=== PATIENT | female | born 1945 | race Caucasian/White ===

== ENCOUNTER 2022-06-23 09:28 | Inpatient (IN) | payer MEDICARE, SELFPAY ==
[2022-06-23] VITALS (12 sets, daily range): BP systolic 136–192; BP diastolic 89–103; PULSE 61–77; RESP 12–18; TEMP 35.8–36.7; O2SAT 93–100; BMI 26.9; BMI 25.4
--- NOTE | 2022-06-23 09:48 | RAD_ITS ---
STUDY: X-RAY CHEST REASON FOR EXAM: Female, 76 years old. Chest pain. TECHNIQUE: Single frontal view of the chest. COMPARISON: June 12, 2013. FINDINGS: Stable mild hyperinflation with scattered healed parenchymal granulomatous locations. There is no demonstrated pleural abnormality. Cardiomegaly unchanged. Normal mediastinum and micaela. Normal visualized pulmonary arteries. Aortic tortuosity with calcification unchanged. Normal visualized thoracic spine. Normal visualized ribs, clavicles, and shoulders. There is no demonstrated abnormality of the visualized soft tissue structures of the upper abdomen. RAD/Chest 1 View (Portable) IMPRESSION: Stable cardiomegaly, mild hyperinflation and scattered healed parenchymal granulomatous calcifications. No active or acute cardiopulmonary disease. Electronically Signed: Riky Carranza, at 10:23 EST ,
[2022-06-23 09:57] LABS: Absolute Lymphocyte Count 1.53 X10^3/uL (0.83-4.51); Absolute Neutrophil Count 3.6 X10^3/uL (2.0-7.7); Basophil# 0.04 X10^3/uL; Basophil% 0.7 % (0-1); Eosinophils% 1.7 % (0-5); Hemoglobin 15.1 g/dL (12.0-15.0); Lymphocyte # 1.53 X10^3/ul (0.83-4.51); Lymphocyte % 26.4 % (19-41); Mean Corp Hgb Conc 34.3 g/dL (32-36); Mean Corpuscular Hgb 31.7 pg (27.0-32.0); Mean Corpuscular Volume 92.2 fL (81-99); Mean Platelet Vol. 10.1 fl (6.2-12.0); Monocyte# 0.49 X10^3/uL; Monocyte% 8.5 % (0-10); NRBC Flagged by Analyzer 0 % (0-5); Neutrophil # 3.62 X10^3/uL (2.7-7.7); Neutrophil % 62.5 % (47-70); Platelet Count 284 K/mm3 (150-450); RBC Distribution Width CV 12.6 % (11.6-14.6); RBC Distribution Width SD 42.7 fl (35.1-43.9); Red Blood Count 4.77 M/mm3 (4.2-5.4); White Blood Count 5.8 K/mm3 (4.4-11.0)
[2022-06-23 10:22] LABS: Anion Gap 5 (5-15); BUN 17 mg/dL (7-18); BUN/Creat Ratio 19.2 RATIO (10-20); Calcium,Total 10.9 mg/dL (8.5-10.1); Chloride 102 mmol/L (98-107); Creatinine, Serum 0.89 mg/dL (0.55-1.02); EST Glomerular Filtration Rate 66 mL/min (>60); Est Glom Filt Rate - Afr Amer 79 mL/min (>60); Estimated Creatinine Clearance 45.71 ml/min; Glucose 80 mg/dL (74-106); Potassium 3.4 mmol/L (3.5-5.1); Sodium Level 139 mmol/L (136-145); Troponin-I HS 6 pg/mL (3.0-54.0)
--- NOTE | 2022-06-23 11:00 | ED.VIS.CHEST ---
HPI History of Present Illness Chief Complaint: Chest Pain Narrative Narrative: 76-year-old female presenting with chest pain. She states she was at her 's doctor's office when she started to feel retrosternal chest pressure. She states it was 9/10. She states she became very sweaty it into the jaw and into her back. She states its been constant but the pressure has eased since EMS picked her up and gave her nitroglycerin. She was not initially given aspirin because she states that this makes her blood too thin and she gets nosebleeds from it. She states she does not have any cardiac history but was admitted about 10 years ago for chest pain and had an ultimately normal work-up. She was not referred to cardiology. Patient has history of hypertension, prediabetes, and she is a smoker. Patient does report a history of provoked pulmonary embolism after she had the [employer] COVID-vaccine but other than that she has never had clotting disorders. She does not describe the pain as sharp or pleuritic pain. She does feel little bit short of breath. [facility] Medical History Hypertension Hypothyroidism Home Medications amlodipine 5 mg tablet 5 mg PO DAILY 06/12/13 [History Last Taken 06/23/22] cholecalciferol (vitamin D3) 125 mcg (5,000 unit) capsule 125 mcg PO DAILY SUPPLEMENT 06/23/22 [History Last Taken 06/23/22] coenzyme Q10 100 mg capsule (Co Q-10) 100 mg PO DAILY SUPPLEMENT 06/23/22 [History Last Taken 06/22/22] levothyroxine 88 mcg tablet 88 mcg PO DAILY 06/23/22 [History Last Taken 06/22/22] losartan 100 mg tablet 100 mg PO DAILY BP 06/23/22 [History Last Taken 06/23/22] metoprolol succinate 50 mg tablet,extended release 24 hr 50 mg PO DAILY BP 06/23/22 [History Last Taken 06/23/22] omeprazole 40 mg capsule,delayed release 40 mg PO DAILY 06/23/22 [History Last Taken 06/23/22] Allergy/AdvReac Type Severity Reaction Status Date / Time iodine Allergy Rash Verified 06/23/22 11:18 Family History (Updated 06/23/22 @ 12:[address] Kale Mcdonald MD) Father Heart disease Social History Smoking Status: Current every day smoker tobacco type: cigarettes ROS ROS ED Constitutional Constitutional ED: Reports sweats; Denies chills or fever(s) Eyes Eyes: Denies change in vision ENT ENT ED: Denies rhinorrhea or sore throat Cardiovascular Cardiovascular: Reports as per HPI Respiratory/Chest Respiratory/Chest: Denies cough or dyspnea Gastrointestinal Gastrointestinal: Denies abdominal pain or constipation Genitourinary Genitourinary ED: Denies dysuria or hematuria Musculoskeletal Musculoskeletal: Denies arthralgias Integumentary Denies abscess or Abrasions Neurologic Neurologic: Denies headache(s) or paresthesias Psychiatric Psychiatric: Denies anxiety or depression EXAM Physical Exam Const Vital Signs: 06/23/22 09:28 06/23/22 09:28 06/23/22 11:08 Temperature 96.5 F L Temperature Source Temporal Pulse Rate 71 Respiratory Rate 12 Respiratory Effort Blood Pressure 146/101 H Blood Pressure Mean 116 Pulse Ox 97 100 Oxygen Delivery Method Room Air Nasal Cannula Oxygen Flow Rate (L/min) 2 06/23/22 11:08 06/23/22 11:10 Temperature Temperature Source Pulse Rate 67 Respiratory Rate 17 Respiratory Effort Normal Non-Labored Blood Pressure 172/103 H Blood Pressure Mean 126 Pulse Ox 100 Oxygen Delivery Method Nasal Cannula Oxygen Flow Rate (L/min) 2 Positive well nourished General Appearance ED: NAD; Negative for pallor HEENT Reports TM's clear and moist mucous membranes Tympanic Membrane ED: Yes TM's clear Eyes PERRL and EOMs intact bilaterally General Eye ED: Negative for pale conjunctiva or scleral icterus Chest Wall inspection of chest normal and palpation of chest normal Resp normal respiratory effort and clear to auscultation bilaterally Cardio regular rate and regular rhythm GI normal to inspection, nondistended, normoactive bowel sounds Back/Spine no CVA tenderness Extremity normal to inspection Neuro oriented x3 and CN's II-XII intact bilaterally Sensorium / Orientation: awake and alert Motor Exam: strength 5/5 throughout Psych mental status grossly normal Skin no rashes or lesions noted General Skin Exam: Negative for jaundice or pallor Heart Score History: Highly Suspicious ECG: Normal Age: >/= 65 years Risk Factors: 1 or 2 Risk Factors Troponin: </= Normal Limit Score: 5 MDM MDM MDM Narrative Medical decision making narrative: Patient seen and evaluated for chest pain. I obtained an EKG which on my interpretation shows normal sinus rhythm with ventricular rate of [address] elevations or depressions. CBC and BMP are unremarkable with exception of potassium 3.4. Chest x-ray on my interpretation shows cardiomegaly without other acute cardiopulmonary process. The radiologist interprets this and agrees. Since patient does have history of PE I did obtain a D-dimer. This was elevated 1.49. Given the patient's story and her HEART score of 5 I opted to have the patient admitted. Patient was amenable to this. She has an allergy to contrast dye so she need to be premedicated with steroids and Benadryl. I spoke with the hospitalist for admission from a cardiac standpoint. He will follow-up for CT scan upstairs on the medical floor. Patient admitted in stable condition. Impression: 1. Chest pain 2. Dyspnea Lab Data Labs: Laboratory Results - last 24 hr 06/23/22 06/23/22 06/23/22 09:10 09:10 09:10 WBC 5.8 RBC 4.77 Hgb 15.1 H Hct 44.0 MCV 92.2 MCH 31.7 MCHC 34.3 RDW Std Deviation 42.7 RDW Coeff of Madhuri 12.6 Plt Count 284 MPV 10.1 Immature Gran % (Auto) 0.200 Neut % (Auto) 62.5 Lymph % (Auto) 26.4 [place] % (Auto) 8.5 Eos % (Auto) 1.7 Baso % (Auto) 0.7 Absolute Neuts (auto) 3.6 Absolute Lymphs (auto) 1.53 Nucleated RBC % 0 D-Dimer Quant (PE/DVT) 1.49 H* Sodium 139 Potassium 3.4 L Chloride 102 Carbon Dioxide 32.0 Anion Gap 5 BUN 17 Creatinine 0.89 Estim Creat Clear Calc 45.71 Est GFR (MDRD) Af Amer 79 Est GFR (MDRD) Non-Af 66 BUN/Creatinine Ratio 19.2 Glucose 80 Calcium 10.9 H Troponin I High Sens 6 Radiography Diagnostic Testing: Clinical Impression(s) from Imaging Studies Chest X-Ray 06/23/22 09:48 IMPRESSION: Stable cardiomegaly, mild hyperinflation and scattered healed parenchymal granulomatous calcifications. No active or acute cardiopulmonary disease. Electronically Signed: Riky Carranza, at 10:23 EST , Discharge Plan Disposition Disposition: Acute Care Hospital [facility] Discharge Date/Time: 06/23/22 13:39
--- NOTE | 2022-06-23 11:15 | ECHOD_ITS ---
Reason For Study: CHEST PAIN Procedure This was a 2D Doppler, Color Flow transthoracic echocardiogram. Exam performed portable in patient room. Left Ventricle Normal size and thickness. The left ventricular ejection fraction is 60 %. Normal diastololic function. Right Ventricle Normal right ventricle. Atria The left and right atria are normal. Mitral Valve Mild (1+) mitral valve insufficiency. Tricuspid Valve Trivial tricuspid valve insufficiency. Unable to estimate RV systolic pressure due to insufficient tricuspid regurgitant envelope. Aortic Valve Aortic sclerosis, no stenosis. Mild (1+) aortic valve insufficiency. Pulmonic Valve The pulmonic valve is not well visualized. Great Vessels Normal sized aortic root. Pericardium/Pleural No pericardial effusion. MMode/2D Measurements & Calculations LVIDd: 4.5 cm IVSd: 1.1 cm Ao root diam: 3.6 cm LVIDs: 2.9 cm LVPWd: 1.1 cm RVDd: 3.5 cm FS: 35.7 % LAV(MOD-bp): 54.3 ml LA A4 area: 17.8 cm2 LA dimension(2D): 3.6 cm LAV(MOD-bp) Indexed: 30.8 ml/m2 LAV(MOD-sp2): 50.7 ml LAV(MOD-sp4): 51.9 ml RA A4 area: 14.1 cm2 Doppler Measurements & Calculations MV E max levi: 38.1 cm/sec Lat Peak E' Levi: 6.4 cm/sec Med Peak E' Levi: 5.8 cm/sec MV A max levi: 85.2 cm/sec E/E' lat: 5.9 E/E' med: 6.6 MV E/A: 0.45 Ao V2 max: 129.4 cm/sec LV V1 max: 96.6 cm/sec PA V2 max: 69.6 cm/sec Ao max P.7 mmHg LV V1 max P.7 mmHg Ao V2 mean: 84.8 cm/sec LV V1 mean P.1 mmHg Ao mean P.4 mmHg LV V1 mean: 69.1 cm/sec Ao V2 VTI: 29.4 cm LV V1 VTI: 22.1 cm ECHO/Echo Complete Interpretation Summary The left ventricular ejection fraction is 60 %. Aortic sclerosis, no stenosis. Mild (1+) aortic valve insufficiency. Mild (1+) mitral valve insufficiency. Ordering Physician: Kale Mcdonald Referring Physician: Rober Merritt Performed By: Brigitte Alicea, LICHA, RVT
--- NOTE | 2022-06-23 11:16 | HP.PCM.HOS_ITS ---
HPI - General General Date of Service: 06/23/22 Chief Complaint: Chest pain HPI Narrative ODETTE DENISE, is a 76 F with past medical history signal for tobacco dependence, hypothyroidism hypertension who presented with chest pain. Patient symptoms occurred while at a company to 's PCP visit. Pain was located in the retrosternal region described as heaviness. Patient's pain radiated to her jaws as well as to her back. In view of the persistent nature of her symptoms presented to the emergency department. Initial set of cardiac enzymes and EKG came back unremarkable however given her presentation was admitted for further work-up [facility] Medical History Hypertension Hypothyroidism Home Medications amlodipine 5 mg tablet 5 mg PO DAILY 06/12/13 [History Last Taken 06/23/22] cholecalciferol (vitamin D3) 125 mcg (5,000 unit) capsule 125 mcg PO DAILY SUPPLEMENT 06/23/22 [History Last Taken 06/23/22] coenzyme Q10 100 mg capsule (Co Q-10) 100 mg PO DAILY SUPPLEMENT 06/23/22 [History Last Taken 06/22/22] levothyroxine 88 mcg tablet 88 mcg PO DAILY 06/23/22 [History Last Taken 06/22/22] losartan 100 mg tablet 100 mg PO DAILY BP 06/23/22 [History Last Taken 06/23/22] metoprolol succinate 50 mg tablet,extended release 24 hr 50 mg PO DAILY BP 06/23/22 [History Last Taken 06/23/22] omeprazole 40 mg capsule,delayed release 40 mg PO DAILY 06/23/22 [History Last Taken 06/23/22] Allergy/AdvReac Type Severity Reaction Status Date / Time iodine Allergy Rash Verified 06/23/22 11:18 Family History (Updated 06/23/22 @ 12:[address] Kale Mcdonald MD) Father Heart disease Social History Smoking Status: Current every day smoker tobacco type: cigarettes ROS ROS Narrative GENERAL: denies fever, chills, night sweats, HEENT: denies headache, sinus congestion, RESPIRATORY: shortness of breath, dyspnea on exertion CARDIAC: chest pain, palpitations, orthopnea, PND GASTROINTESTINAL: denies abdominal pain, nausea, GENITOURINARY: denies dysuria, urgency, frequency, EXTREMITY: denies swelling MUSCULOSKELETAL: denies current joint pain or tenderness NEUROLOGIC: denies focal numbness, weakness, tingling HEMATOLOGIC: denies easy bruising and/or hemorrhage INTEGUMENT: denies rashes PSYCHIATRIC: denies suicidal or homicidal ideation Vital Signs Vital Signs Vital Signs: 06/23/22 09:28 06/23/22 09:28 06/23/22 11:08 Temperature 96.5 F L Temperature Source Temporal Pulse Rate 71 Respiratory Rate 12 Respiratory Effort Blood Pressure 146/101 H Blood Pressure Mean 116 Pulse Ox 97 100 Oxygen Delivery Method Room Air Nasal Cannula Oxygen Flow Rate (L/min) 2 06/23/22 11:08 06/23/22 11:10 Temperature Temperature Source Pulse Rate 67 Respiratory Rate 17 Respiratory Effort Normal Non-Labored Blood Pressure 172/103 H Blood Pressure Mean 126 Pulse Ox 100 Oxygen Delivery Method Nasal Cannula Oxygen Flow Rate (L/min) 2 Weight Weight: 71.1 kg Body Mass Index (BMI) 26.9 Physical Exam Narrative GENERAL: cooperative HEENT: Atraumatic; normocephalic EYES; Anicteric, Normal Conjunctiva NECK; supple, normal thyroid, RESPIRATORY: Diminished to auscultation CARDIOVASCULAR: Regular S1 S2, GI: soft, normoactive bowel sounds, : No Renal angle tenderness; EXTREMITIES: No edema, no clubbing, MUSCULOSKELETAL: no muscle wasting NEURO: Awake; no lateralizing signs. SKIN: No Rash PSYCH; Flat affect Results Lab / Micro Data Result Diagrams: 06/23/22 09:10 06/23/22 09:10 Labs: Laboratory Results - last 24 hr 06/23/22 09:10: WBC 5.8, RBC 4.77, Hgb 15.1 H, Hct 44.0, MCV 92.2, MCH 31.7, MCHC 34.3, RDW Std Deviation 42.7, RDW Coeff of Madhuri 12.6, Plt Count 284, MPV 10.1, Immature Gran % (Auto) 0.200, Neut % (Auto) 62.5, Lymph % (Auto) 26.4, [place] % (Auto) 8.5, Eos % (Auto) 1.7, Baso % (Auto) 0.7, Absolute Neuts (auto) 3.6, Absolute Lymphs (auto) 1.53, Nucleated RBC % 0 06/23/22 09:10: Sodium 139, Potassium 3.4 L, Chloride 102, Carbon Dioxide 32.0, Anion Gap 5, BUN 17, Creatinine 0.89, Estim Creat Clear Calc 45.71, Est GFR (MDRD) Af Amer 79, Est GFR (MDRD) Non-Af 66, BUN/Creatinine Ratio 19.2, Glucose 80, Calcium 10.9 H, Troponin I High Sens 6 Radiology Impression Chest X-Ray 06/23/22 09:48 IMPRESSION: Stable cardiomegaly, mild hyperinflation and scattered healed parenchymal granulomatous calcifications. No active or acute cardiopulmonary disease. Electronically Signed: Riky Carranza, at 10:23 EST , Assessment & Plan Assessment/Plan (1) Chest pain: PLAN: Plan Patient is a 76-year-old lady presenting with chest pain 1. Chest pain ? Patient has been admitted to a monitored bed plan is to rule out [place] with serial cardiac enzymes. Patient to undergo nuclear stress test once [place] is ruled out 2. Elevated D-dimer ? Patient has allergy to dye plan is to prep patient for patient to undergo CT of the chest to rule out PE. Also ordered bilateral venous duplex 3. Hypokalemia ? Corrected per protocol repeat labs ordered for a.m. for follow-up 4. Hypertension -Patient blood pressure uncontrolled on admission did continue home meds added hydralazine as needed for systolic blood pressure greater than 160 5.. Hypothyroidism - Patient is on levothyroxine home dose continued 6.. GERD ? On PPI did continue 7.. Tobacco dependence - Counseled on cessation, offered nicotine patch for tobacco cravings 8.. DVT prophylaxis ? SC Lovenox Advance planning; did discuss with the patient and family regarding advanced directives as well as CODE STATUS. Did explain the various scenarios involved ( FULL CODE, DNR CCA, DNR CCA with no intubation, and DNR CC and what each meant) patient elected to remain full code with CPR and intubation if needed. Order was placed. Time spent on discussion 18 minutes. Charges/Coding Visit Charges OBSV E&M: 13360 Initial observation care L3 Procedures Hospitalists Procedures: 89913 Advncd Care Plan 30 Min
[2022-06-23] MEDS: Aspirin 81 MG TAB.CHEW 324 MG PO (11:17)
--- NOTE | 2022-06-23 11:21 | NURSING ---
PCU OBS SATURNINO HALEY
[2022-06-23 11:23] LABS: D-Dimer Quantitative (DVT/PE) 1.49 FEU/ug/m (0.27-0.49)
--- NOTE | 2022-06-23 11:25 | ED.RN ---
D-DIMER 1.49. DR MERIDA AWARE
[2022-06-23] MEDS: Nitroglycerin SL (ED/IMG/CATH) 0.4 MG TABLET SL ×2 (11:27→11:34)
[2022-06-23] MEDS: DiphenhydrAMINE 50 MG/ML Syringe IV (11:52)
[2022-06-23 12:07] LABS: Troponin-I HS 11 pg/mL (3.0-54.0)
--- NOTE | 2022-06-23 12:38 | CT_ITS ---
STUDY: CTA CHEST REASON FOR EXAM: Female, 76 years old. Chest pain. Elevated d-dimer. RADIATION DOSAGE (If Supplied By Facility): CTDIvol = ( 14.01 ) mGy, DLP = ( 308.54 ) mGycm TECHNIQUE: The examination was performed with the intravenous administration of IV 75mL Isovue-370. Post-processing of the angiographic images was performed, with multiplanar reformation and 3D reconstruction. Individualized dose optimization techniques were used for this CT. COMPARISON: Comparison is made with prior chest radiograph done earlier today. FINDINGS: Normal enhancement of the main pulmonary artery and right and left pulmonary arteries. Normal enhancement of the bilateral peripheral pulmonary arteries. There is no demonstrated pulmonary embolism. Normal thoracic aorta and visualized great vessels. There is no demonstrated aortic dissection. There are calcifications of the coronary arteries. Normal mediastinum. Normal hilar regions. Normal visualized trachea and bronchi. Hyperinflation. Diffuse emphysematous changes with centrilobular emphysema worse in the upper lobes. Minimal increased linear markings at the lung bases suggestive of scarring. Normal pleura. Normal chest wall structures. There are degenerative changes of thoracic spine. Cysts are seen in the upper pole of the left kidney. Multiple calcified splenic granulomas. CT/CTA Chest W/WO Contrast IMPRESSION: No evidence of pulmonary embolism. Hyperinflation and emphysematous changes. Mild scarring at the lung bases. Electronically Signed: Torey Monge MD at 13:52 EST ,
[2022-06-23] MEDS: Potassium Chloride Oral Tablet 20 MEQ 40 MEQ PO (14:32)
[2022-06-23 15:12] LABS: Troponin-I HS 105 pg/mL (3.0-54.0)
--- NOTE | 2022-06-23 16:25 | VDLE_ITS ---
Reason For Study: Elevated D-dimer RIGHT LEFT GSV is normal. GSV is normal. CFV is compressible, spontaneous, phasic, CFV is compressible, spontaneous, phasic, competent and demonstrates normal competent, and demonstrates normal augmentation. augmentation. FV is compressible, spontaneous, phasic, FV is compressible, spontaneous, phasic, competent and demonstrates normal competent and demonstrates normal augmentation. augmentation. POP V is compressible, spontaneous, phasic, POP V is compressible, spontaneous, phasic, competent and demonstrates normal competent and demonstrates normal augmentation. augmentation. T/P Trunk is compressible. T/P Trunk is compressible. PTV is compressible. PTV is compressible. RT PerV is compressible. LT PerV is compressible. Procedure Acute deep vein thrombosis is noted in the This is a venous duplex using B-mode, color left soleus vein. flow and spectral Doppler. Exam performed portable in patient room. A preliminary report was called and/or faxed to [facility]. VL/Venous Duplex US - Kishor Extrem Interpretation Summary Acute deep venous thrombosis left soleus vein. No evidence for acute deep vein thrombosis right lower extremity. Patent and compressible bilateral great saphenous veins Ordering Physician: Kale Mcdonald Referring Physician: Rober Merritt Performed By: Cindy Tee RVT
--- NOTE | 2022-06-23 16:52 | NURSING ---
Called lab about drawing INR/CBC. Lab said they would come up and redraw.
[2022-06-23 17:30] LABS: Partial Thromboplast Time 27.1 Seconds (24.1-36.2); Prothrombin Time (Protime)PT. 12.7 SECONDS (11.7-14.9)
[2022-06-23] MEDS: Heparin Injection (Vial) 5,000 UNIT/ML VIAL 4000 UNIT IV (17:50)
[2022-06-23] MEDS: HEPARIN/D5w 25,000 UNITS 25,000 UNITS/250 ML IV.SOLN. 8 UNITS CONT INF (17:57)
[2022-06-23] MEDS: Atorvastatin Calcium 40 MG Tablet PO (21:50)
[2022-06-24] VITALS (22 sets, daily range): BP systolic 112–151; BP diastolic 69–95; PULSE 59–75; RESP 14–18; TEMP 36.5–36.7; O2SAT 92–97
[2022-06-24 00:30] LABS: Partial Thromboplast Time 71.8 Seconds (24.1-36.2)
[2022-06-24] MEDS: Acetaminophen 325 MG Tablet 650 MG PO (04:34)
[2022-06-24] MEDS: Aspirin E.C. 81 MG Tablet PO (06:19)
[2022-06-24 06:48] LABS: Absolute Lymphocyte Count 1.62 X10^3/uL (0.83-4.51); Absolute Neutrophil Count 11.8 X10^3/uL (2.0-7.7); Basophil# 0.03 X10^3/uL; Basophil% 0.2 % (0-1); Eosinophil# 0.03 X10^3/uL; Eosinophils% 0.2 % (0-5); Hematocrit 40.5 % (37-47); Hemoglobin 13.8 g/dL (12.0-15.0); Lymphocyte # 1.62 X10^3/ul (0.83-4.51); Lymphocyte % 11.2 % (19-41); Mean Corp Hgb Conc 34.1 g/dL (32-36); Mean Corpuscular Hgb 31.5 pg (27.0-32.0); Mean Corpuscular Volume 92.5 fL (81-99); Mean Platelet Vol. 9.6 fl (6.2-12.0); Monocyte# 0.91 X10^3/uL; Monocyte% 6.3 % (0-10); NRBC Flagged by Analyzer 0 % (0-5); Neutrophil # 11.82 X10^3/uL (2.7-7.7); Neutrophil % 81.6 % (47-70); Platelet Count 255 K/mm3 (150-450); RBC Distribution Width CV 12.3 % (11.6-14.6); RBC Distribution Width SD 41.9 fl (35.1-43.9); Red Blood Count 4.38 M/mm3 (4.2-5.4); White Blood Count 14.5 K/mm3 (4.4-11.0)
[2022-06-24 07:07] LABS: Partial Thromboplast Time 61.4 Seconds (24.1-36.2)
[2022-06-24 07:10] LABS: Prothrombin Time (Protime)PT. 13.1 SECONDS (11.7-14.9)
[2022-06-24 07:18] LABS: Anion Gap 7 (5-15); BUN 24 mg/dL (7-18); BUN/Creat Ratio 27.4 RATIO (10-20); Calcium,Total 9.5 mg/dL (8.5-10.1); Chloride 102 mmol/L (98-107); Cholesterol 214 mg/dL (200); Creatinine, Serum 0.88 mg/dL (0.55-1.02); EST Glomerular Filtration Rate 66 mL/min (>60); Est Glom Filt Rate - Afr Amer 80 mL/min (>60); Estimated Creatinine Clearance 46.23 ml/min; Glucose 103 mg/dL (74-106); High Density Lipoprotein 75 mg/dL; Potassium 3.9 mmol/L (3.5-5.1); Sodium Level 135 mmol/L (136-145); Triglycerides 89 mg/dL; Very Low Density Lipoprotein 18 mg/dL (5-40)
--- NOTE | 2022-06-24 07:39 | PCM.PN.HOSP ---
Subjective Subjective Patient was admitted with chest pain subsequent serial cardiac enzymes came back consistent with non-STEMI treatment initiated per protocol consult placed to cardiology plan is for patient to undergo left heart catheterization with intervention if indicated Objective Data Objective Data Vital Signs: Vital Signs Temp Pulse Resp BP Pulse Ox O2 Del Method O2 Flow Rate 98.0 F 75 18 142/83 H 94 Room Air 2 06/24/22 06:17 06/24/22 06:17 06/24/22 06:17 06/24/22 06:17 06/24/22 06:17 06/24/22 06:17 06/23/22 21:44 Oxygen Flow Rate (L/min) 2 Oxygen Delivery Method Room Air Weight: 67.4 kg Body Mass Index (BMI) 25.4 Intake & Output: Intake and Output for Last 24 Hours 06/22/22 06/23/22 06/24/22 23:59 23:59 23:59 Intake Total 240 / 240 53.6 / 53.6 Balance 240 / 240 53.6 / 53.6 Lab / Micro Data Result Diagrams: 06/24/22 06:36 06/24/22 06:36 Labs: Laboratory Results - last 24 hr 06/23/22 09:10: WBC 5.8, RBC 4.77, Hgb 15.1 H, Hct 44.0, MCV 92.2, MCH 31.7, MCHC 34.3, RDW Std Deviation 42.7, RDW Coeff of Madhuri 12.6, Plt Count 284, MPV 10.1, Immature Gran % (Auto) 0.200, Neut % (Auto) 62.5, Lymph % (Auto) 26.4, [place] % (Auto) 8.5, Eos % (Auto) 1.7, Baso % (Auto) 0.7, Absolute Neuts (auto) 3.6, Absolute Lymphs (auto) 1.53, Nucleated RBC % 0 06/23/22 09:10: Sodium 139, Potassium 3.4 L, Chloride 102, Carbon Dioxide 32.0, Anion Gap 5, BUN 17, Creatinine 0.89, Estim Creat Clear Calc 45.71, Est GFR (MDRD) Af Amer 79, Est GFR (MDRD) Non-Af 66, BUN/Creatinine Ratio 19.2, Glucose 80, Calcium 10.9 H, Troponin I High Sens 6 06/23/22 09:10: D-Dimer Quant (PE/DVT) 1.49 H* 06/23/22 11:40: Troponin I High Sens 11 06/23/22 14:40: Troponin I High Sens 105 H 06/23/22 17:13: PT 12.7, INR 1.0, APTT 27.1 06/23/22 22:37: APTT 71.8 H 06/24/22 06:36: WBC 14.5 H, RBC 4.38, Hgb 13.8, Hct 40.5, MCV 92.5, MCH 31.5, MCHC 34.1, RDW Std Deviation 41.9, RDW Coeff of Madhuri 12.3, Plt Count 255, MPV 9.6, Immature Gran % (Auto) 0.500, Neut % (Auto) 81.6 H, Lymph % (Auto) 11.2 L, [place] % (Auto) 6.3, Eos % (Auto) 0.2, Baso % (Auto) 0.2, Absolute Neuts (auto) 11.8 H, Absolute Lymphs (auto) 1.62, Nucleated RBC % 0 06/24/22 06:36: PT 13.1, INR 1.0 06/24/22 06:36: Sodium 135 L, Potassium 3.9, Chloride 102, Carbon Dioxide 26.0, Anion Gap 7, BUN 24 H, Creatinine 0.88, Estim Creat Clear Calc 46.23, Est GFR (MDRD) Af Amer 80, Est GFR (MDRD) Non-Af 66, BUN/Creatinine Ratio 27.4 H, Glucose 103, Calcium 9.5, Magnesium 2.0, Triglycerides 89, Cholesterol 214 H, LDL Cholesterol 121, VLDL Cholesterol 18, HDL Cholesterol 75 06/24/22 06:36: APTT 61.4 H Radiography Diagnostic Testing: Radiology Impression Chest X-Ray 06/23/22 09:48 IMPRESSION: Stable cardiomegaly, mild hyperinflation and scattered healed parenchymal granulomatous calcifications. No active or acute cardiopulmonary disease. Electronically Signed: Riky Carranza, at 10:23 EST , Chest CTA 06/23/22 12:38 IMPRESSION: No evidence of pulmonary embolism. Hyperinflation and emphysematous changes. Mild scarring at the lung bases. Electronically Signed: Torey Monge MD at 13:52 EST , Physical Exam Narrative GENERAL: cooperative HEENT: Atraumatic; normocephalic EYES; Anicteric, Normal Conjunctiva NECK; supple, normal thyroid, RESPIRATORY: Diminished to auscultation CARDIOVASCULAR: Regular S1 S2, GI: soft, normoactive bowel sounds, : No Renal angle tenderness; EXTREMITIES: No edema, no clubbing, MUSCULOSKELETAL: no muscle wasting NEURO: Awake; no lateralizing signs. SKIN: No Rash PSYCH; Flat affect Assessment & Plan Assessment/Plan (1) Chest pain: PLAN: Plan Patient is a 76-year-old lady presenting with chest pain 1. Chest pain?acute non-STEMI ? Patient has been admitted to a monitored bed plan is to rule out [place] with serial cardiac enzymes. Patient to undergo nuclear stress test once [place] is ruled out ? 06/24/2022 Patient was admitted with chest pain subsequent serial cardiac enzymes came back consistent with non-STEMI treatment initiated per protocol consult placed to cardiology plan is for patient to undergo left heart catheterization with intervention if indicated 2. Elevated D-dimer ? Patient has allergy to dye plan is to prep patient for patient to undergo CT of the chest to rule out PE. Also ordered bilateral venous duplex ? CT of the chest negative for PE, results of venous duplex pending 3. Hypokalemia ? Corrected per protocol repeat labs ordered for a.m. for follow-up 4. Hypertension -Patient blood pressure uncontrolled on admission did continue home meds added hydralazine as needed for systolic blood pressure greater than 160 5.. Hypothyroidism - Patient is on levothyroxine home dose continued 6.. GERD ? On PPI did continue 7.. Tobacco dependence - Counseled on cessation, offered nicotine patch for tobacco cravings 8.. DVT prophylaxis ? OR Lovenogisel Charges/Coding Visit Charges OBSV E&M: 51138 Subsequent observation care L3
[2022-06-24] MEDS: 0.9% Normal Saline 1,000 ML 15 ML IV (08:49)
--- NOTE | 2022-06-24 08:49 | CASEMGMT ---
[facility], the following are in-network tertiary facilities: [facility], [place], [facility], [facility], [facility], [facility], [facility], and . Aurelia [facility] CM
[2022-06-24] MEDS: Losartan Potassium 50 MG Tablet PO (08:50)
[2022-06-24] MEDS: Metoprolol Tartrate 50 MG Tablet PO ×2 (08:50→21:32)
[2022-06-24] MEDS: Pantoprazole Sodium 40 MG Tablet PO (08:51)
[2022-06-24] MEDS: amLODIPine 5 MG Tablet PO (09:02)
--- NOTE | 2022-06-24 09:23 | NURSING ---
Called report to Loyda [facility] in laboratory [facility].
[2022-06-24] MEDS: Famotidine 20 MG Tablet PO (09:26)
[2022-06-24] MEDS: DiphenhydrAMINE 25 MG Capsule PO (09:26)
[2022-06-24] MEDS: Hydrocortisone Sod Succinate 100 MG/2 ML Vial IV (09:27)
[2022-06-24] MEDS: 0.9% Saline Lock 10 ML Syringe IV ×2 (09:28→14:08)
--- NOTE | 2022-06-24 09:41 | PCM.CONS.C ---
Assessment & Plan Assessment/Plan (1) NSTEMI (non-ST elevated myocardial infarction): PLAN: Offered coronary angiography with possible revascularization. Risks benefits and alternatives explained. She understands these and wishes to proceed. (2) Nicotine dependence: PLAN: Counseled to quit. Per patient, she is decided as of yesterday to stop smoking. (3) Hypertension: PLAN: On amlodipine, losartan and metoprolol. Monitor. PLAN: Plan Patient is allergic to iodine with history of rash. She has had premedication done for her chest CT angio. I will premedicate her again today for the proposed coronary angiography and then proceed with the procedure. HPI Consult Data Date of Consult: 06/24/22 HPI Narrative HPI Narrative: The patient presented to the emergency room yesterday with complaints of acute onset anterior chest discomfort. The patient perceived it as a heaviness/pressure. No radiation to the arm neck or jaw. No associated shortness of breath. She does admit to breaking out in a cold sweat with it. The discomfort lasted for a couple of hours and then relieved on its own. Patient denies any previous history of angina pectoris. According to her, she was told more than 10 years ago on the hospital visit that she may have had a small heart attack. However never had that investigated further with a stress test or with angiography. Patient's first 2 sets of troponins were negative. This third set came back elevated ruling her in for non-ST elevation myocardial infarction. [facility] Medical History (Updated 06/24/22 @ 09:[address] Bashir Saucedo MD) Hypertension Hypothyroidism Home Medications amlodipine 5 mg tablet 5 mg PO QHS 06/12/13 [History Last Taken 06/23/22] cholecalciferol (vitamin D3) 125 mcg (5,000 unit) capsule 125 mcg PO DAILY SUPPLEMENT 06/23/22 [History Last Taken 06/23/22] coenzyme Q10 100 mg capsule (Co Q-10) 100 mg PO DAILY SUPPLEMENT 06/23/22 [History Last Taken 06/22/22] levothyroxine 88 mcg tablet 88 mcg PO QHS 06/23/22 [History Last Taken 06/22/22] losartan 100 mg tablet 100 mg PO DAILY BP 06/23/22 [History Last Taken 06/23/22] metoprolol succinate 50 mg tablet,extended release 24 hr 50 mg PO DAILY BP 06/23/22 [History Last Taken 06/23/22] omeprazole 40 mg capsule,delayed release 40 mg PO DAILY 06/23/22 [History Last Taken 06/23/22] Allergy/AdvReac Type Severity Reaction Status Date / Time iodine Allergy Rash Verified 06/23/22 11:18 Family History Father Heart disease Social History (Updated 06/23/22 @ 14:12 by Yulia Dubose) Smoking Status: Current every day smoker tobacco type: cigarettes Physical Exam Narrative Comfortable. No apparent distress. No JVD. No carotid bruits. Heart sounds 1 and 2 are normal. No murmurs or rubs are noted. Chest clear to auscultation bilaterally. Abdomen soft bowel sounds positive. Alert oriented x3. No ankle edema noted. Risk Stratification Risk Stratification Applicable: No Objective Data Vital Signs: Vital Signs Temp Pulse Resp BP Pulse Ox O2 Del Method O2 Flow Rate 97.7 F L 65 15 140/91 H 96 Room Air 2 06/24/22 09:10 06/24/22 09:10 06/24/22 09:10 06/24/22 09:10 06/24/22 09:10 06/24/22 09:10 06/24/22 09:10 Oxygen Flow Rate (L/min) 2 Oxygen Delivery Method Room Air Weight: 148 lb 9.465 oz Body Mass Index (BMI) 25.4 Intake & Output: Intake and Output for Last 24 Hours 06/22/22 06/23/22 06/24/22 23:59 23:59 23:59 Intake Total 240 / 240 108.9 / 108.9 Balance 240 / 240 108.9 / 108.9 Lab / Micro Data Result Diagrams: 06/24/22 06:36 06/24/22 06:36 Labs: Laboratory Results - last 24 hr 06/23/22 09:10: WBC 5.8, RBC 4.77, Hgb 15.1 H, Hct 44.0, MCV 92.2, MCH 31.7, MCHC 34.3, RDW Std Deviation 42.7, RDW Coeff of Madhuri 12.6, Plt Count 284, MPV 10.1, Immature Gran % (Auto) 0.200, Neut % (Auto) 62.5, Lymph % (Auto) 26.4, [place] % (Auto) 8.5, Eos % (Auto) 1.7, Baso % (Auto) 0.7, Absolute Neuts (auto) 3.6, Absolute Lymphs (auto) 1.53, Nucleated RBC % 0 06/23/22 09:10: Sodium 139, Potassium 3.4 L, Chloride 102, Carbon Dioxide 32.0, Anion Gap 5, BUN 17, Creatinine 0.89, Estim Creat Clear Calc 45.71, Est GFR (MDRD) Af Amer 79, Est GFR (MDRD) Non-Af 66, BUN/Creatinine Ratio 19.2, Glucose 80, Calcium 10.9 H, Troponin I High Sens 6 06/23/22 09:10: D-Dimer Quant (PE/DVT) 1.49 H* 06/23/22 11:40: Troponin I High Sens 11 06/23/22 14:40: Troponin I High Sens 105 H 06/23/22 17:13: PT 12.7, INR 1.0, APTT 27.1 06/23/22 22:37: APTT 71.8 H 06/24/22 06:36: WBC 14.5 H, RBC 4.38, Hgb 13.8, Hct 40.5, MCV 92.5, MCH 31.5, MCHC 34.1, RDW Std Deviation 41.9, RDW Coeff of Madhuri 12.3, Plt Count 255, MPV 9.6, Immature Gran % (Auto) 0.500, Neut % (Auto) 81.6 H, Lymph % (Auto) 11.2 L, [place] % (Auto) 6.3, Eos % (Auto) 0.2, Baso % (Auto) 0.2, Absolute Neuts (auto) 11.8 H, Absolute Lymphs (auto) 1.62, Nucleated RBC % 0 06/24/22 06:36: PT 13.1, INR 1.0 06/24/22 06:36: Sodium 135 L, Potassium 3.9, Chloride 102, Carbon Dioxide 26.0, Anion Gap 7, BUN 24 H, Creatinine 0.88, Estim Creat Clear Calc 46.23, Est GFR (MDRD) Af Amer 80, Est GFR (MDRD) Non-Af 66, BUN/Creatinine Ratio 27.4 H, Glucose 103, Calcium 9.5, Magnesium 2.0, Triglycerides 89, Cholesterol 214 H, LDL Cholesterol 121, VLDL Cholesterol 18, HDL Cholesterol 75 06/24/22 06:36: APTT 61.4 H Cardiology Labs/Tests 06/23/22 09:10: WBC 5.8, RBC 4.77, Hgb 15.1 H, Hct 44.0, MCV 92.2, MCH 31.7, MCHC 34.3, Plt Count 284, MPV 10.1, Immature Gran % (Auto) 0.200, Neut % (Auto) 62.5, Lymph % (Auto) 26.4, [place] % (Auto) 8.5, Eos % (Auto) 1.7, Baso % (Auto) 0.7, Absolute Neuts (auto) 3.6, Nucleated RBC % 0 06/23/22 09:10: Sodium 139, Potassium 3.4 L, Chloride 102, Carbon Dioxide 32.0, Anion Gap 5, BUN 17, Creatinine 0.89, Est GFR (MDRD) Af Amer 79, Est GFR (MDRD) Non-Af 66, BUN/Creatinine Ratio 19.2, Glucose 80, Calcium 10.9 H 06/23/22 09:10: D-Dimer Quant (PE/DVT) 1.49 H* 06/23/22 17:13: PT 12.7, INR 1.0, APTT 27.1 06/23/22 22:37: APTT 71.8 H 06/24/22 06:36: WBC 14.5 H, RBC 4.38, Hgb 13.8, Hct 40.5, MCV 92.5, MCH 31.5, MCHC 34.1, Plt Count 255, MPV 9.6, Immature Gran % (Auto) 0.500, Neut % (Auto) 81.6 H, Lymph % (Auto) 11.2 L, [place] % (Auto) 6.3, Eos % (Auto) 0.2, Baso % (Auto) 0.2, Absolute Neuts (auto) 11.8 H, Nucleated RBC % 0 06/24/22 06:36: PT 13.1, INR 1.0 06/24/22 06:36: Sodium 135 L, Potassium 3.9, Chloride 102, Carbon Dioxide 26.0, Anion Gap 7, BUN 24 H, Creatinine 0.88, Est GFR (MDRD) Af Amer 80, Est GFR (MDRD) Non-Af 66, BUN/Creatinine Ratio 27.4 H, Glucose 103, Calcium 9.5, Magnesium 2.0, Triglycerides 89, Cholesterol 214 H, LDL Cholesterol 121, VLDL Cholesterol 18, HDL Cholesterol 75 06/24/22 06:36: APTT 61.4 H Rhythm: EKG: ECHO: Stress Test: Cardiac Cath: PCI: CT Surgery: Holter monitor: EPS: PPM: CXR: Chest CT Scan: Radiography Diagnostic Testing: Radiology Impression Chest X-Ray 06/23/22 09:48 IMPRESSION: Stable cardiomegaly, mild hyperinflation and scattered healed parenchymal granulomatous calcifications. No active or acute cardiopulmonary disease. Electronically Signed: Riky Carranza at 10:23 EST , Chest CTA 06/23/22 12:38 IMPRESSION: No evidence of pulmonary embolism. Hyperinflation and emphysematous changes. Mild scarring at the lung bases. Electronically Signed: Torey Monge MD at 13:52 EST ,
--- NOTE | 2022-06-24 13:18 | CL.I_ITS ---
Patient Name: ODETTE DENISE Study Date: 06/24/2022 Performing: Bashir Saucedo MD Ht: 64 inches 162.56 cm : 1945 Wt: 148.8 lbs 67.4 kg Age: 76 Gender: female BSA: 1.72 PROCEDURE(S) PERFORMED DC02-(36423)LHC/COR IC12-(90351/C9600)RAMANDEEP W/WO PTCA, SINGLE CORONARY ARTERY CLINICAL PROFILE AND CO-MORBIDITIES Indications: ACS <= 24 hrs Heart Failure: None Angina Classification Anginal Classification w/in 2 Weeks: CCS IV CONCLUSIONS 95% Mid Ramus 50% Mid LCX 70% Mid non-dimanant RCA 60% Prox Lateral Ramus RECOMMENDATIONS ASA Indefinitley Brilinta for at least 12 months Staged PCI to LAD DESCRIPTION OF PROCEDURE The patient arrived to the procedure lab. The risks and benefits of the procedure as well as a full description of our services here and lack of surgical backup were fully explained to the patient and/or their significant other prior to the catheterization. The Timeout was completed, verifying the correct patient and procedure. The patient's procedural site was prepped and draped in the usual fashion. Local anesthetic was given subcutaneously to right radial region with Lidocaine 2%. Using a modified Seldinger technique, arterial access was obtained via the right radial artery, a 6Fr sheath was inserted.. Left Coronary Artery selective angiography was performed in multiple views using a 5 Fr. 4.0 Timberon catheter. Right Coronary Artery selective angiography was then performed in multiple views using a 5 Fr. 4.0 Tim[place]on catheterThe images were reviewed and options discussed. A decision was then made to proceed with an Intervention, IVUS or other adjunct procedure. xb 3.5 Guide catheter was inserted and engaged into the LCA. runthrough Guide wire was advanced to the Ramus. Angiogram performed pre balloon dilatation. emerge 2.5 x 12 Balloon catheter was advanced across lesion in the ramus branch, mid. PTCA balloon inflated at 6 atms for 9 secs. PTCA balloon inflated at 6 atms for 10 secs. PTCA balloon inflated at 6 atms for 7 secs. marques 2.5 x 15 Drug Eluting stent was advanced across the lesion in the ramus branch, mid. nc emerge 2.5 x 15 Balloon catheter was inserted post stent. Angiogram performed post balloon dilatation. emerge 2.5 x 12 Balloon catheter was advanced across lesion in the ramus branch, mid. PTCA balloon inflated at 4 atms for 6 secs. Angiogram performed post balloon dilatation. marques 2.25 x 12 Drug Eluting stent was advanced across the lesion in the ramus branch, mid. nc emerge 2.5 x 15 Balloon catheter was inserted post stent. Angiogram performed post balloon dilatation. The arterial sheath was pulled and a TR Band was applied for hemostasis CORONARY ANGIOGRAPHY DOMINANCE: Left Dominant LEFT MAIN: Tubular 30% Ostial lesion in Left Main LEFT ANTERIOR DESCENDING ARTERY: LAD: Calcified 75% Proximal lesion in LAD Calcified 50% Mid lesion in LAD CIRCUMFLEX ARTERY: CIRCUMFLEX: Tubular 50% Mid lesion in Circumflex RAMUS: Tubular 95% Mid lesion in Ramus RIGHT CORONARY ARTERY: RCA: Tubular 70% Proximal lesion in RCA INTERVENTION INFORMATION LESION SITE: Ramus (Mid) Lesion Complexity: High/C, lesion length: 26 mm, culprit lesion: Yes Pre Stenosis: 95 % Pre intervention SHINE flow: 3 PROCEDURE: Drug Eluting Stent with pre and post dilatation Post Stenosis: 0 % Post intervention SHINE flow: 3 Lesion Devices: Terumo .014 Runthrough Extra Floppy 180cm straight Cordis 6 Fr XB3.5 100cm Guide Catheter Naun Sci EMERGE MR 2.50x12 BALLOON Medtronic Resolute [place] RX RAMANDEEP 2.5x15 Naun Sci NC EMERGE MR 2.50x15 BALLOON Medtronic Resolute [place] RX RAMANDEEP 2.25x12 COMPLICATIONS No Complications PROCEDURE MEDICATIONS Versed 1 mg IV Fentanyl 50 mcg IV Oxygen: 2 L/min via nasal cannula Benadryl 25 mg IV 06/24/2022 11:46:37 Brilinta 180 mg PO @ 06/24/2022 12:35:18 Heparin given IA 06/24/2022 12:01:53 Heparin 6000 unit(s) IV 06/24/2022 12:12:25 Heparin 2000 unit(s) IV 06/24/2022 12:32:06 Nitro 200 mcg IC 06/24/2022 12:29:47 Nitro 200 mcg IC 06/24/2022 12:29:47 Nitro 200 mcg IC 06/24/2022 12:34:29 Verapamil 2.5mg, Ntg 200mcgs, 2000 units of Heparin given IA 06/24/2022 12:01:53 SUMMARY OF HEMODYNAMIC DATA Time AIR REST ECG 11:39:38 AO 93/59 (74) SA 12:01:37 Signed By Bashir Saucedo MD On 06/24/2022 13:19:57 Signed By Bashir Saucedo MD On 06/24/2022 13:18:20 Bashir Saucedo MD
--- NOTE | 2022-06-24 13:37 | CRPHASE1 ---
Patient Communication Former Patient:: Phase I PHII Cardiac Rehab Discussed with Patient:: Yes Guide to Cardiac Rehab Given to Patient:: Yes Cardiac Rehab Facility Choice List Given to Patient:: Yes Choice Program [facility] PHII:: Communication Given to CR Human Performance Professor:: Bashir Saucedo Cardiac Rehabilitation Info Cardiac Rehabilitation Program Information: Cardiac Rehabilitation is important for patients like you who are recovering from a heart problem. Cardiac rehabilitation programs are recognized as integral to the continued care of the patient with coronary heart disease. The cardiac rehabilitation program is designed to optimize a patient's physical, psychological, and social functioning. Health career resource technician work in cardiac rehabilitation programs and assist you with getting the treatments you need to get stronger and healthier - like exercise, healthy eating habits, and medications. Cardiac rehabilitation has been show to help people with heart problems live longer and have better life enjoyment than people who do not go to cardiac rehabilitation. Please contact the Cardiac Rehabilitation Program at [facility] at in two weeks if you have not heard from them.
--- NOTE | 2022-06-24 13:38 | CRPH1.INSTRU ---
General Education CAD and cardiac anatomy and function:: Patient communicates acknowledgment Explanation of diagnoses and procedures:: Patient communicates acknowledgment Sign/Symptoms of DC:: Patient communicates acknowledgment Antiplatelet therapy: Patient communicates acknowledgment Dyslipidemia Recommendations Include:: Lipid profile not available Dyslipidemia Response Code:: Patient communicates acknowledgment Overweight/Obesity Patient Overweight/Obesity Risk Factors Are:: BMI Normal [18-25 & < 65 years old] Recommendations Include:: Exercise 5-7 times/week Overweight/Obesity:: Patient communicates acknowledgment Hypertension Recommendations Include:: Maintain BP <130/85 Hypertension:: Patient communicates acknowledgment Heart Disease Patient Heart Disease Risk Factors Are:: Previous cardiac event Recommendations Include:: Educated family members of their risk, Educated family members of importance of prevention of heart disease Heart Disease Response Code:: Patient communicates acknowledgment Metabolic Syndrome Patient Metabolic Syndrome Risk Factors Are [3 of 5]:: Hypertension Recommendations Include:: Does not meet criteria Metabolic Syndrome Response Code:: Patient communicates acknowledgment Sedentary Patient Sedentary Risk Factors Are:: Lack of regular exercise Recommendations Include:: Aerobic exercise 5-7 times/week for 20-30 minutes continuously, Benefits of regular exercise, Discussed home walking program, Monitored Outpatient Cardiac Rehab Sedentary Response Code:: Patient communicates acknowledgment Stress Patient Stress Risk Factors Are:: Patient denies stress as a risk factor Recommendations Include:: Identification of stressors, and assessment of coping skills, Stress management techniques Stress Response Code:: Patient communicates acknowledgment
[2022-06-24] MEDS: Ondansetron 4 MG/2 ML Vial IV (14:08)
--- NOTE | 2022-06-24 15:03 | PCM.HOSP.N ---
Hospitalist Note Venous duplex ordered came back positive for Acute deep venous thrombosis left soleus vein.. Apixaban added to patient treatment regimen
--- NOTE | 2022-06-24 15:06 | EKG12_ITS ---
Test Reason : post pci Blood Pressure : / mmHG Vent. Rate : 062 BPM Atrial Rate : 062 BPM P-R Int : 188 ms QRS Dur : 080 ms QT Int : 400 ms P-R-T Axes : -23 -66 031 degrees QTc Int : 406 ms Normal sinus rhythm Left axis deviation Inferior infarct (cited on or before 23-JUN-2022) Abnormal ECG When compared with ECG of 23-JUN-2022 15:18, Nonspecific T wave abnormality now evident in Inferior leads Confirmed by KERRI FITZPATRICK, TUNG ([id number]), photo editor BRUNO HAMMONDS ([id number]) on 06/28/2022 11:10:49 AM Referred By: Tamara Confirmed By:TUNG MANNING MD
[2022-06-24] MEDS: 0.9% Normal Saline 1,000 ML 150 ML IV (16:14)
--- NOTE | 2022-06-24 16:30 | CASEMGMT ---
RN SUKH SENIOR CLIMATE ADVISOR CM to room to meet with patient for initial transition planning/care coordination assessment. SILVESTRE LUZ introduced self and role at [facility]. Pt voices understanding and consents to assessment at this time. Pt resting in bed in no distress at this time. and grand-dtrFelicitas, @ bedside and pt agreeable to them both being present during assessment. Pt is A/O at this time and answers all questions appropriately. Care providers, pharmacy, and demographics verified/updated at this time. PCP: Dr Younger Specialists: Dr Barr in [place]. States see him for thyroid issues. Preferred Pharmacy: [facility] in [place] Insurance: [facility] Prescription Benefit: Yes. Pt was on Eliquis prior to hospitalization, but does not think she was ever given a 30-day savings card for it in the past. Pt provided w/savings card at this time and instructed on use. She voices appreciation. Living Will/HPOA: Has completed both LW and HCPOA, who is her and then her grand-dtr, Felicitas, as 1st alternative. LNOK: , Mani. Grand-dtrFelicitas Living Arrangements: Lives w/ and Felicitas in 2-story home w/3 steps to enter. FFSU. Very independent and was even still able to cut fire-wood. Transportation: Pt states drives self and states no transportation concerns at this time. and Felicitas also both drive. DME: Has BP machine and an old glucometer. Pt states would like to get a new glucometer. Pt advised to f/u w/PCP for script for glucometer and also made aware of OTC Reli-[employer] brand that [employer] carries. HHC/SNF: No hx of either. Denies needs and no needs identified. Pt wishes to return home and states has no concerns with going home at time of discharge. Pt states she smokes about 10 cigarettes a day, but states she quit as of yesterday. She drinks ETOH on very rare occasion. CM to follow for any further discharge planning/needs. Pt and family voice no further concerns/needs at this time. PLAN: Home Morena REARDON RN, CM
[2022-06-24] MEDS: FLU VACC QS2022-23(6MOS UP)/PF 60 MCG/0.5 ML SYRINGE IM (17:47)
[2022-06-24] MEDS: Clopidogrel Bisulfate 300 MG Tablet PO (17:49)
[2022-06-24] MEDS: APIXABAN 5 MG TABLET PO (21:33)
[2022-06-24] MEDS: Atorvastatin Calcium 40 MG Tablet PO (21:33)
[2022-06-24] MEDS: Levothyroxine 88 MCG Tablet PO (21:34)
[2022-06-25] VITALS (7 sets, daily range): BP systolic 111–139; BP diastolic 65–86; PULSE 57–70; RESP 16–18; TEMP 36.3–36.7; O2SAT 93–94
[2022-06-25 06:31] LABS: Hematocrit 38.7 % (37-47); Mean Corp Hgb Conc 33.6 g/dL (32-36); Mean Corpuscular Hgb 31.6 pg (27.0-32.0); Mean Corpuscular Volume 94.2 fL (81-99); Mean Platelet Vol. 10.1 fl (6.2-12.0); Platelet Count 230 K/mm3 (150-450); RBC Distribution Width CV 12.6 % (11.6-14.6); RBC Distribution Width SD 43.6 fl (35.1-43.9); Red Blood Count 4.11 M/mm3 (4.2-5.4)
[2022-06-25 07:01] LABS: ALB/GLOB Ratio 0.8 RATIO (0.9-2.4); AST(SGOT) 56 U/L (15-37); Alanine Aminotransfer ALT/SGPT 21 U/L (13-56); Albumin, Serum 2.9 g/dL (3.2-5.0); Alkaline Phosphatase 55 U/L (45-117); Anion Gap 5 (5-15); BUN 21 mg/dL (7-18); Calcium,Total 8.6 mg/dL (8.5-10.1); Chloride 106 mmol/L (98-107); Cholesterol 178 mg/dL (200); Creatinine, Serum 0.78 mg/dL (0.55-1.02); EST Glomerular Filtration Rate 76 mL/min (>60); Est Glom Filt Rate - Afr Amer 92 mL/min (>60); Estimated Creatinine Clearance 40.68 ml/min; Globulin 3.7 g/dL (2.2-4.2); Glucose 82 mg/dL (74-106); High Density Lipoprotein 62 mg/dL; Potassium 3.7 mmol/L (3.5-5.1); Protein, Total 6.6 g/dL (6.4-8.2); Sodium Level 138 mmol/L (136-145); Triglycerides 112 mg/dL; Very Low Density Lipoprotein 22 mg/dL (5-40)
[2022-06-25] MEDS: Losartan Potassium 50 MG Tablet PO (09:18)
[2022-06-25] MEDS: Pantoprazole Sodium 40 MG Tablet PO (09:18)
[2022-06-25] MEDS: Metoprolol Tartrate 50 MG Tablet PO (09:18)
[2022-06-25] MEDS: Clopidogrel Bisulfate 75 MG Tablet PO (09:18)
[2022-06-25] MEDS: Aspirin E.C. 81 MG Tablet PO (09:18)
[2022-06-25] MEDS: amLODIPine 5 MG Tablet PO (09:18)
[2022-06-25] MEDS: APIXABAN 5 MG TABLET PO (09:18)
--- NOTE | 2022-06-25 10:00 | EKG12_ITS ---
Test Reason : AM EKG Blood Pressure : / mmHG Vent. Rate : 058 BPM Atrial Rate : 058 BPM P-R Int : 218 ms QRS Dur : 086 ms QT Int : 396 ms P-R-T Axes : 052 -63 054 degrees QTc Int : 388 ms Sinus bradycardia with 1st degree A-V block Left axis deviation Inferior infarct , age undetermined Cannot rule out Anterior infarct , age undetermined Abnormal ECG When compared with ECG of 24-JUN-2022 15:06, MANUAL COMPARISON REQUIRED, DATA IS UNCONFIRMED Confirmed by KERRI FITZPATRICK, TUNG ([id number]), commercial production editor BRUNO HAMMONDS ([id number]) on 06/28/2022 11:08:20 AM Referred By: Confirmed By:TUNG MANNING MD
--- NOTE | 2022-06-25 10:05 | PCM.DC.SUM ---
Providers Date of Admission: 06/24/22 Date of Discharge: 06/25/22 Primary Care Physician: Dr. Coy Younger MD Consultations 06/23/22 16:31 Consult: Cardiology Routine Consulting Provider: Bashri Saucedo Reason for Consult: Chest Pain EMERGENT Consult: No MD Notified: Yes Date Notified: 06/23/22 Time Notified: 16:31 Method of Notification: Verbal Reason For Visit: CHEST PAIN Diagnosis Discharge Diagnosis (1) NSTEMI (non-ST elevated myocardial infarction): Status: Acute Code(s): I21.4 - Non-ST elevation (NSTEMI) myocardial infarction (2) Nicotine dependence: Status: Acute Code(s): F17.200 - Nicotine dependence, unspecified, uncomplicated (3) Hypertension: Status: Chronic Code(s): I10 - Essential (primary) hypertension Plan Patient is a 76-year-old lady presenting with chest pain 1. Chest pain?acute non-STEMI ? Patient has been admitted to a monitored bed plan is to rule out AR with serial cardiac enzymes. Patient to undergo nuclear stress test once AR is ruled out ? 06/24/2022 Patient was admitted with chest pain subsequent serial cardiac enzymes came back consistent with non-STEMI treatment initiated per protocol consult placed to cardiology plan is for patient to undergo left heart catheterization with intervention if indicated ? 06/25/2022 patient underwent PCI with RAMANDEEP to the ramus lesion. Case was discussed with Dr. Saucedo patient come back for a staged intervention of an LAD lesion. Case was discussed with Dr. Saucedo prior to patient being discharged patient was discharged home on Plavix, statin therapy, beta-blockers and ARB. Patient was not discharged on aspirin given the fact that he had been diagnosed with DVT and discharged on Eliquis 2. Elevated D-dimer ? Patient has allergy to dye plan is to prep patient for patient to undergo CT of the chest to rule out PE. Also ordered bilateral venous duplex ? CT of the chest negative for PE, results of venous duplex pending ? 06/25/2022; venous duplex ordered came back positive for Acute deep venous thrombosis left soleus vein..? Apixaban added to patient treatment regimen 3. Hypokalemia ? Corrected per protocol repeat labs ordered for a.m. for follow-up 4. Hypertension -Patient blood pressure uncontrolled on admission did continue home meds added hydralazine as needed for systolic blood pressure greater than 160 5.. Hypothyroidism - Patient is on levothyroxine home dose continued 6.. GERD ? On PPI did continue 7.. Tobacco dependence - Counseled on cessation, offered nicotine patch for tobacco cravings Medications at Discharge Home Medications amlodipine 5 mg tablet 5 mg PO QHS 06/12/13 cholecalciferol (vitamin D3) 125 mcg (5,000 unit) capsule 125 mcg PO DAILY SUPPLEMENT 06/23/22 coenzyme Q10 100 mg capsule (Co Q-10) 100 mg PO DAILY SUPPLEMENT 06/23/22 levothyroxine 88 mcg tablet 88 mcg PO QHS 06/23/22 omeprazole 40 mg capsule,delayed release 40 mg PO DAILY 06/23/22 apixaban 5 mg tablet (Eliquis) 5 mg PO BID 90 days #180 tabs 06/25/22 atorvastatin 40 mg tablet 40 mg PO QHS 90 days #90 tabs 06/25/22 clopidogrel 75 mg tablet 75 mg PO DAILY 90 days #90 tabs 06/25/22 losartan 50 mg tablet 50 mg PO DAILY 90 days #90 tabs 06/25/22 metoprolol tartrate 50 mg tablet 50 mg PO BID 90 days #180 tabs 06/25/22 Hospital Course Procedures 2-D Echocardiogram and Cardiac catheterization Summary of Care Provided Minutes Spent on Discharge: 35 Physical Exam Narrative GENERAL: cooperative HEENT: Atraumatic; normocephalic EYES; Anicteric, Normal Conjunctiva NECK; supple, normal thyroid, RESPIRATORY: Diminished to auscultation CARDIOVASCULAR: Regular S1 S2, GI: soft, normoactive bowel sounds, : No Renal angle tenderness; EXTREMITIES: No edema, no clubbing, MUSCULOSKELETAL: no muscle wasting NEURO: Awake; no lateralizing signs. SKIN: No Rash PSYCH; Flat affect Weight / BMI Weight Weight: 67.4 kg Body Mass Index (BMI) 25.4 ABG / Lab / Microbiology Data Result Diagrams: 06/25/22 05:44 06/25/22 05:44 Laboratory: Laboratory Results - last 24 hr 06/25/22 05:44: WBC 10.0, RBC 4.11 L, Hgb 13.0, Hct 38.7, MCV 94.2, MCH 31.6, MCHC 33.6, RDW Std Deviation 43.6, RDW Coeff of Madhuri 12.6, Plt Count 230, MPV 10.1 06/25/22 05:44: Sodium 138, Potassium 3.7, Chloride 106, Carbon Dioxide 27.0, Anion Gap 5, BUN 21 H, Creatinine 0.78, Estim Creat Clear Calc 40.68, Est GFR (MDRD) Af Amer 92, Est GFR (MDRD) Non-Af 76, BUN/Creatinine Ratio 27.0 H, Glucose 82, Calcium 8.6, Total Bilirubin 0.50, AST 56 H, ALT 21, Alkaline Phosphatase 55, Total Protein 6.6, Albumin 2.9 L, Globulin 3.7, Albumin/Globulin Ratio 0.8 L, Triglycerides 112, Cholesterol 178, LDL Cholesterol 94, VLDL Cholesterol 22, HDL Cholesterol 62 Radiography Diagnostic Testing: Radiology Impression Echocardiogram 06/23/22 11:15 Interpretation Summary The left ventricular ejection fraction is 60 %. Aortic sclerosis, no stenosis. Mild (1+) aortic valve insufficiency. Mild (1+) mitral valve insufficiency. Ordering Physician: Kale Mcdonald Referring Physician: Rober Merritt Performed By: Brigitte Alicea RDCS, RVT Venous Doppler Study 06/23/22 16:25 Interpretation Summary Acute deep venous thrombosis left soleus vein. No evidence for acute deep vein thrombosis right lower extremity. Patent and compressible bilateral great saphenous veins Ordering Physician: Kale Mcdonald Referring Physician: Rober Merritt Performed By: Cindy Tee, RVT D/C Instructions Discharge Diet: Low fat / Low cholesterol Call your doctor if you observe: Fever of 101 or Higher, Shortness of breath, Fainting spells and Chest pain Meaningful Use Info Meaningful Use Diagnoses (Choose all that apply): AMI AMI/Post PCI/Angioplasty Aspirin given w/in 24hrs of arrival?: Yes ASA at discharge?: No Reason ASA not ordered:: Warfarin rx at discharge (Patient discharged on Eliquis) Antiplatelet Therapy at Discharge:: Yes Statins at discharge?: Yes Brody/ARB at discharge?: Yes Beta [place] at discharge?: Yes Done w/ Acute AR measure.: Yes Documented LVEF (%): 60 Discharge Plan Admission Admit Date/Time: 06/24/22 14:40 Attending Provider: Kale Mcdonald Primary Care Provider: Coy Younger Consulting Providers: Bashir Saucedo Discharge Orders/Prescriptions Prescriptions: New losartan 50 mg Tablet 50 mg PO DAILY 90 Days Qty: 90 0RF atorvastatin 40 mg Tablet 40 mg PO QHS 90 Days Qty: 90 0RF clopidogrel 75 mg Tablet 75 mg PO DAILY 90 Days Qty: 90 0RF metoprolol tartrate 50 mg Tablet 50 mg PO BID 90 Days Qty: 180 0RF Eliquis 5 mg Tablet 5 mg PO BID 90 Days Qty: 180 0RF Continued amlodipine 5 MG tablet 5 mg PO QHS omeprazole 40 mg capsule,delayed release(DR/EC) 40 mg PO DAILY Label Comments: TAKE 1 CAPSULE BY MOUTH ONCE DAILY levothyroxine 88 mcg tablet 88 mcg PO QHS cholecalciferol (vitamin D3) 125 mcg (5,000 unit) Capsule 125 mcg PO DAILY coenzyme Q10 [Co Q-10] 100 mg Capsule 100 mg PO DAILY Discontinued metoprolol succinate 50 mg tablet extended release 24 hr 50 mg PO DAILY Label Comments: TAKE 1 TABLET BY MOUTH ONCE DAILY losartan 100 mg tablet 100 mg PO DAILY Label Comments: TAKE 1 TABLET BY MOUTH ONCE DAILY Referrals / Follow Up: Rober Merritt MD [Med Staff - Plastic Outfitter] - Within 2 Weeks Coy Younger MD [Primary Care Provider] - Bashir Saucedo MD [Med Staff - Active Staff] - Within 2 Weeks Disposition Disposition (needs filled in before D/C Order can be placed): Home, Self Care Charges/Coding Visit Charges Inpatient E&M: 24402 Disch Hosp
--- NOTE | 2022-06-25 11:52 | CASEMGMT ---
Glucometer script obtained, signed, and provided to pt with d/c info. Aurelia RIVERS CM
== END 2022-06-25 13:12 | disposition home or self-care (01) | DRG 247 ==
LOC: ED 11:19 → PCU 12:56
PROVIDERS: Internal Medicine Cardiovascular Disease; Admitting Provider Internal Medicine; Emergency Provider Student in an Organized Health Care Education/Training Program; PCP Family Medicine; Visit Provider Internal Medicine
DX: I21.4 Non-ST elevation (NSTEMI) myocardial infarction (principal); I82.462 Acute embolism and thrombosis of left calf muscular vein; E03.9 Hypothyroidism, unspecified; I10 Essential (primary) hypertension; E87.6 Hypokalemia; F17.210 Nicotine dependence, cigarettes, uncomplicated; K21.9 Gastro-esophageal reflux disease without esophagitis; Z86.711 Personal history of pulmonary embolism; Z79.899 Other long term (current) drug therapy; Z79.890 Hormone replacement therapy; Z23 Encounter for immunization
CPT/HCPCS: 36415; 71045; 71275; 80048; 80053; 80061; 83735; 84484; 85025; 85027; 85379; 85610; 85730; 92928; 93005; 93306; 93454; 93970; 99152; 99153; 99251; 99285; 99406; G0008; J7030; Q9967; 90686; A4216; C1725; C1769; C1874; C1887; C1894; C9600; G0463; J2405

== ENCOUNTER 2022-07-03 13:31 | Emergency (ER) | payer MEDICARE, SELFPAY ==
[2022-07-03 13:32] VITALS: BP 123/103; PULSE 82; RESP 15; TEMP 36.8; O2SAT 94; BMI 25.2
--- NOTE | 2022-07-03 14:25 | EDS_ITS ---
HPI History of Present Illness Chief Complaint: Nausea/Vomiting/Diarrhea Informant: patient, spouse/S.O. and family Narrative Narrative: A 6-year-old female arriving to the emergency department with a chief complaint of vomiting diarrhea. Symptoms began this morning around 0500. She notes that she has not been able to take any of her medications. She had cardiac stents placed about a week and a half ago. She denies any fevers. No cough or rhinorrhea. No ear pain. No rashes. PFSH [facility] Medical History Atherosclerosis of coronary artery of kaw heart Hypertension Hypothyroidism NSTEMI (non-ST elevated myocardial infarction) Home Medications amlodipine 5 mg tablet 5 mg PO QHS 06/12/13 [History Last Taken 06/23/22] cholecalciferol (vitamin D3) 125 mcg (5,000 unit) capsule 125 mcg PO DAILY SUPPLEMENT 06/23/22 [History Last Taken 06/23/22] coenzyme Q10 100 mg capsule (Co Q-10) 100 mg PO DAILY SUPPLEMENT 06/23/22 [History Last Taken 06/22/22] levothyroxine 88 mcg tablet 88 mcg PO QHS 06/23/22 [History Last Taken 06/22/22] omeprazole 40 mg capsule,delayed release 40 mg PO DAILY 06/23/22 [History Last Taken 06/23/22] apixaban 5 mg tablet (Eliquis) 5 mg PO BID 90 days #180 tabs 06/25/22 [Rx Last Taken Unknown] atorvastatin 40 mg tablet 40 mg PO QHS 90 days #90 tabs 06/25/22 [Rx Last Taken Unknown] clopidogrel 75 mg tablet 75 mg PO DAILY 90 days #90 tabs 06/25/22 [Rx Last Taken Unknown] losartan 50 mg tablet 50 mg PO DAILY 90 days #90 tabs 06/25/22 [Rx Last Taken Unknown] metoprolol tartrate 50 mg tablet 50 mg PO BID 90 days #180 tabs 06/25/22 [Rx Last Taken Unknown] ondansetron HCl 4 mg tablet 4 mg PO Q6H PRN nausea and vomiting #25 tabs 07/03/22 [Rx Last Taken Unknown] Allergy/AdvReac Type Severity Reaction Status Date / Time iodine Allergy Rash Verified 07/03/22 13:32 aspirin AdvReac Intermediate nosebleeds Verified 07/03/22 13:32 Family History Father Heart disease Surgical History History of coronary artery stent placement (~06/24/22) Social History Smoking Status: Current every day smoker tobacco type: cigarettes ROS ROS ED Constitutional Constitutional ED: Denies chills or weight loss Eyes Eyes: Denies change in vision or diplopia ENT ENT ED: Denies ear pain, rhinorrhea or sore throat Cardiovascular Cardiovascular: Denies chest pain, orthopnea, palpitations or racing heartbeat Respiratory/Chest Respiratory/Chest: Denies cough, dyspnea or orthopnea Gastrointestinal Gastrointestinal: Reports diarrhea, nausea and vomiting; Denies abdominal pain Genitourinary Genitourinary ED: Denies dysuria, hematuria or urinary frequency Musculoskeletal Musculoskeletal: Denies arthralgias or myalgias Integumentary Denies abscess or rash Neurologic Neurologic: Denies headache(s) or weakness Psychiatric Psychiatric: Denies anxiety, depression, suicidal ideation or suicidal thoughts Endocrine Endocrinology: Denies polydipsia, polyphagia or polyuria Allergic/Immunologic Allergic/Immunologic ED: Denies mouth swelling, tongue swelling or urticaria EXAM Physical Exam Const Vital Signs: 07/03/22 13:32 Temperature 98.3 F Temperature Source Temporal Pulse Rate 82 Respiratory Rate 15 Blood Pressure 123/103 H Blood Pressure Mean 109 Pulse Ox 94 Oxygen Delivery Method Room Air Positive well nourished and well developed General Appearance ED: well developed HEENT Reports normocephalic, head/scalp atraumatic and moist mucous membranes Eyes PERRL and EOMs intact bilaterally Neck no lymphadenopathy, supple and no JVD Resp normal respiratory effort and clear to auscultation bilaterally Cardio regular rate, regular rhythm and no murmurs GI normal to inspection, nondistended, normoactive bowel sounds and non-tender Palpation: soft Back/Spine no CVA tenderness and normal ROM Extremity normal to inspection General Extremety ED: Negative for edema General Extremity: Negative for edema Neuro oriented x3 and CN's II-XII intact bilaterally Sensorium / Orientation: alert Motor Exam: strength 5/5 throughout Psych mental status grossly normal Mood & Affect: Negative for depressed or tearful Skin no rashes or lesions noted and no wounds MDM MDM MDM Narrative Medical decision making narrative: IV was established and patient received IV fluids and Zofran. She is able to tolerate her medications. Basic blood work is negative. I will write for her to have Zofran. Tylenol Motrin for fever pain return if worsening or concerns Lab Data Attestation: I reviewed the patient's lab results. Labs: Laboratory Results - last 24 hr 07/03/22 07/03/22 14:40 14:40 WBC 10.8 RBC 4.59 Hgb 14.4 Hct 43.3 MCV 94.3 MCH 31.4 MCHC 33.3 RDW Std Deviation 43.0 RDW Coeff of Madhuri 12.4 Plt Count 258 MPV 10.2 Immature Gran % (Auto) 0.300 Neut % (Auto) 94.6 H Lymph % (Auto) 2.8 L [place] % (Auto) 2.1 Eos % (Auto) 0.1 Baso % (Auto) 0.1 Absolute Neuts (auto) 10.2 H Absolute Lymphs (auto) 0.30 L Nucleated RBC % 0 Sodium 140 Potassium 4.3 Chloride 105 Carbon Dioxide 31.0 Anion Gap 4 L BUN 23 H Creatinine 1.05 H Estim Creat Clear Calc 38.75 Est GFR (MDRD) Af Amer 65 Est GFR (MDRD) Non-Af 54 L BUN/Creatinine Ratio 21.9 H Glucose 134 H Calcium 9.9 Discharge Plan Triage Chief Complaint: Nausea/Vomiting/Diarrhea ED Provider: Mani Zacarias Dx/Rx/DC Orders Clinical Impression: Gastroenteritis, Hypertension, Anticoagulant long-term use Instructions: ED Gastroenteritis, Viral (Adult) Prescriptions: New ondansetron HCl 4 mg tablet 4 mg PO Q6H PRN (Reason: nausea and vomiting) Qty: 25 0RF No Action amlodipine 5 MG tablet 5 mg PO QHS omeprazole 40 mg capsule,delayed release(DR/EC) 40 mg PO DAILY Label Comments: TAKE 1 CAPSULE BY MOUTH ONCE DAILY levothyroxine 88 mcg tablet 88 mcg PO QHS cholecalciferol (vitamin D3) 125 mcg (5,000 unit) Capsule 125 mcg PO DAILY coenzyme Q10 [Co Q-10] 100 mg Capsule 100 mg PO DAILY losartan 50 mg Tablet 50 mg PO DAILY 90 Days Qty: 90 0RF atorvastatin 40 mg Tablet 40 mg PO QHS 90 Days Qty: 90 0RF clopidogrel 75 mg Tablet 75 mg PO DAILY 90 Days Qty: 90 0RF metoprolol tartrate 50 mg Tablet 50 mg PO BID 90 Days Qty: 180 0RF Eliquis 5 mg Tablet 5 mg PO BID 90 Days Qty: 180 0RF Primary Care Provider: Coy Younger Referrals: Coy Younger MD [Primary Care Provider] - As Needed Disposition Disposition: Home, Self Care
[2022-07-03] MEDS: 0.9% Normal Saline 1,000 ML 1000 ML IV (14:39)
[2022-07-03] MEDS: Ondansetron 4 MG/2 ML Vial IV (14:39)
[2022-07-03 14:50] LABS: Absolute Neutrophil Count 10.2 X10^3/uL (2.0-7.7); Basophil# 0.01 X10^3/uL; Basophil% 0.1 % (0-1); Eosinophil# 0.01 X10^3/uL; Eosinophils% 0.1 % (0-5); Hematocrit 43.3 % (37-47); Hemoglobin 14.4 g/dL (12.0-15.0); Lymphocyte % 2.8 % (19-41); Mean Corp Hgb Conc 33.3 g/dL (32-36); Mean Corpuscular Hgb 31.4 pg (27.0-32.0); Mean Corpuscular Volume 94.3 fL (81-99); Mean Platelet Vol. 10.2 fl (6.2-12.0); Monocyte# 0.23 X10^3/uL; Monocyte% 2.1 % (0-10); NRBC Flagged by Analyzer 0 % (0-5); Neutrophil # 10.24 X10^3/uL (2.7-7.7); Neutrophil % 94.6 % (47-70); POSITIVE DIFFERENTIAL YES; Platelet Count 258 K/mm3 (150-450); RBC Distribution Width CV 12.4 % (11.6-14.6); Red Blood Count 4.59 M/mm3 (4.2-5.4); White Blood Count 10.8 K/mm3 (4.4-11.0)
[2022-07-03 14:53] LABS: Differential Indicated SCAN CRITERIA MET
[2022-07-03 15:03] LABS: Anion Gap 4 (5-15); BUN 23 mg/dL (7-18); BUN/Creat Ratio 21.9 RATIO (10-20); Calcium,Total 9.9 mg/dL (8.5-10.1); Chloride 105 mmol/L (98-107); Creatinine, Serum 1.05 mg/dL (0.55-1.02); EST Glomerular Filtration Rate 54 mL/min (>60); Est Glom Filt Rate - Afr Amer 65 mL/min (>60); Estimated Creatinine Clearance 38.75 ml/min; Glucose 134 mg/dL (74-106); Potassium 4.3 mmol/L (3.5-5.1); Sodium Level 140 mmol/L (136-145)
[2022-07-03 15:15] LABS: Differential Comment SCANNED
== END 2022-07-03 15:46 | disposition home or self-care (01) ==
PROVIDERS: Emergency Provider Emergency Medicine; PCP Family Medicine; Visit Provider Emergency Medicine
DX: K52.9 Noninfective gastroenteritis and colitis, unspecified (principal); I25.10 Atherosclerotic heart disease of native coronary artery without angina pectoris; I10 Essential (primary) hypertension; F17.210 Nicotine dependence, cigarettes, uncomplicated; Z79.01 Long term (current) use of anticoagulants
CPT/HCPCS: 80048; 85025; 96361; 96374; 99283; J7030; A4216; J2405

== ENCOUNTER 2022-07-22 12:56 | Observation (INO) | payer MEDICARE, SELFPAY ==
[2022-07-20 07:11] VITALS: BMI 25.9
--- NOTE | 2022-07-21 11:34 | CASEMGMT ---
[facility] facilities in-network with patient's insurance: [facility], [facility], [place], , [facility], [facility], [facility]
[2022-07-21 15:54] LABS: ACT Activated Clotting Time 209 sec (74-137)
[2022-07-21 15:55] LABS: ACT Activated Clotting Time 209 sec (74-137)
[2022-07-21 15:56] LABS: ACT Activated Clotting Time 221 sec (74-137)
--- NOTE | 2022-07-21 20:27 | CL.I_ITS ---
Patient Name: ODETTE DENISE Study Date: 07/21/2022 Performing: Kristian Benitez MD Ht: 64 inches 162.56 cm : 1945 Wt: 150.99 lbs 68.49 kg Age: 76 Gender: female BSA: 1.74 PROCEDURE(S) PERFORMED IC12-(37396/[id number])RAMANDEEP W/WO PTCA, SINGLE CORONARY ARTERY DC14-([id number])IABP INSERTION CLINICAL PROFILE AND CO-MORBIDITIES Indications: Staged PCI of LAD, unstable angina Heart Failure: None CONCLUSIONS Successful PCI with Drug eluting stent and to the LAD. Successful Intra aortic balloon pump placement RECOMMENDATIONS DESCRIPTION OF PROCEDURE The patient arrived to the procedure lab. The risks and benefits of the procedure as well as a full description of our services here and current unavailability of surgical backup were fully explained to the patient and/or their significant other prior to the catheterization. The Timeout was completed, verifying the correct patient and procedure. The patient's procedural site was prepped and draped in the usual fashion. Local anesthetic was given subcutaneously to right radial region with Lidocaine 2%. Local anesthetic was given subcutaneously to right groin region with Lidocaine 2%. Using a modified Seldinger technique, arterial access was obtained via the right femoral artery, a 6Fr sheath was inserted.. Left Coronary Artery selective angiography was performed in multiple views using IABP augmenting at 125. pt voices no complaints. repositioned for comfort. 7Fr 40cc IABP catheter was inserted into the right femoral artery, IABP settings: 1:1, IABP Augumented BP: 171 mmHg Systemic BP: 162 mmHg, The IABP catheter and sheath were secured in place Xb 3.5 Guide catheter was inserted and engaged into the LCA. BMW Guide wire was advanced to the LAD. 2.5 x 20 Emerge Balloon catheter was advanced across lesion in the LAD, proximal. PTCA balloon inflated at 10 atms for 16 secs. PTCA balloon inflated at 10 atms for 12 secs. PTCA balloon inflated at 10 atms for 32 secs. PTCA balloon inflated at 12 atms for 10 secs. 3.0 x 40 Orsiro Drug Eluting stent was inserted. Angiogram performed post stent deployment. 2.25 x 20 Emerge Balloon catheter was advanced across lesion in the LAD, mid. PTCA balloon inflated at 6 atms for 9 secs. PTCA balloon inflated at 6 atms for 8 secs. PTCA balloon inflated at 6 atms for 13 secs. PTCA balloon inflated at 6 atms for 13 secs. Balloon catheter was inserted post stent. PTCA balloon inflated at 14 atms for 18 secs. 2.25 x 38 Ceasar Drug Eluting stent was inserted. Drug Eluting stent was removed intact, failed to cross lesion 2.25 x 12 Ceasar Drug Eluting stent was inserted. Drug Eluting stent was removed intact, failed to cross lesion 3 x 30 NC Emerge Balloon catheter was inserted. Runthrough Guide wire was advanced to the LAD. 2 x 20 Emerge Balloon catheter was advanced across lesion in the LAD, distal. PTCA balloon inflated at 6 atms for 10 secs. PTCA balloon inflated at 6 atms for 8 secs. PTCA balloon inflated at 6 atms for 8 secs. PTCA balloon inflated at 6 atms for 8 secs. PTCA balloon inflated at 6 atms for 8 secs. PTCA balloon inflated at 6 atms for 8 secs. PTCA balloon inflated at 6 atms for 9 secs. PTCA balloon inflated at 4 atms for 7 secs. PTCA balloon inflated at 4 atms for 9 secs. PTCA balloon inflated at 4 atms for 6 secs. PTCA balloon inflated at 4 atms for 7 secs. PTCA balloon inflated at 4 atms for 7 secs. PTCA balloon inflated at 6 atms for 9 secs. 1.5 x 20 Euphora Balloon catheter was inserted. PTCA balloon inflated at 6 atms for 9 secs. PTCA balloon inflated at 6 atms for 10 secs. 1.5 x 20 Euphora Balloon catheter was advanced across lesion in the LAD, distal. PTCA balloon inflated at 6 atms for 10 secs. PTCA balloon inflated at 6 atms for 10 secs. PTCA balloon inflated at 6 atms for 10 secs. PTCA balloon inflated at 6 atms for 10 secs. PTCA balloon inflated at 6 atms for 10 secs. PTCA balloon inflated at 6 atms for 10 secs. PTCA balloon inflated at 6 atms for 10 secs. PTCA balloon inflated at 6 atms for 10 secs. PTCA balloon inflated at 8 atms for 10 secs. Angiogram performed post balloon dilatation. PTCA balloon inflated at 6 atms for 13 secs. PTCA balloon inflated at 6 atms for 10 secs. PTCA balloon inflated at 6 atms for 8 secs. PTCA balloon inflated at 8 atms for 11 secs. PTCA balloon inflated at 8 atms for 8 secs. PTCA balloon inflated at 8 atms for 11 secs. PTCA balloon inflated at 8 atms for 8 secs. PTCA balloon inflated at 8 atms for 9 secs. PTCA balloon inflated at 8 atms for 10 secs. PTCA balloon inflated at 10 atms for 10 secs. Angiogram performed post balloon dilatation. 2 x 20 Emerge Balloon catheter was inserted. Balloon catheter was advanced across lesion in the LAD, distal. PTCA balloon inflated at 6 atms for 8 secs. PTCA balloon inflated at 6 atms for 8 secs. PTCA balloon inflated at 6 atms for 9 secs. PTCA balloon inflated at 6 atms for 5 secs. PTCA balloon inflated at 6 atms for 7 secs. PTCA balloon inflated at 6 atms for 8 secs. PTCA balloon inflated at 6 atms for 6 secs. PTCA balloon inflated at 6 atms for 6 secs. PTCA balloon inflated at 6 atms for 6 secs. PTCA balloon inflated at 6 atms for 5 secs. Angiogram performed post balloon dilatation. 2 x 20 Emerge Balloon catheter was inserted. Balloon catheter was advanced across lesion in the LAD, mid. PTCA balloon inflated at 8 atms for 11 secs. PTCA balloon inflated at 8 atms for 7 secs. PTCA balloon inflated at 8 atms for 10 secs. PTCA balloon inflated at 6 atms for 6 secs. PTCA balloon inflated at 4 atms for 6 secs. PTCA balloon inflated at 4 atms for 5 secs. PTCA balloon inflated at 10 atms for 7 secs. Angiogram performed post balloon dilatation. PTCA balloon inflated at 8 atms for 6 secs. PTCA balloon inflated at 6 atms for 7 secs. Angiogram performed post balloon dilatation. PTCA balloon inflated at 6 atms for 6 secs. PTCA balloon inflated at 8 atms for 12 secs. PTCA balloon inflated at 6 atms for 5 secs. PTCA balloon inflated at 6 atms for 8 secs. PTCA balloon inflated at 4 atms for 5 secs. PTCA balloon inflated at 6 atms for 6 secs. PTCA balloon inflated at 6 atms for 5 secs. PTCA balloon inflated at 6 atms for 6 secs. Angiogram performed post balloon dilatation. PTCA balloon inflated at 12 atms for 8 secs. PTCA balloon inflated at 12 atms for 38 secs. PTCA balloon inflated at 10 atms for 20 secs. PTCA balloon inflated at 12 atms for 8 secs. PTCA balloon inflated at 6 atms for 23 secs. Angiogram performed post balloon dilatation. 3.0 x12 NC Emerge Balloon catheter was inserted. Balloon catheter was inserted post stent Prox LAD. Priority One inserted Pass # 1 Mid LAD Angiogram performed post priority one pass. Angiogram performed post priority one pass. Priority One Removed Priority One inserted Pass # 2 300 cm Runthrough Guide wire was advanced to the LAD. Priority One Removed 1.5 x 15 Emerge Balloon catheter was inserted. PTCA balloon inflated at 6 atms for 15 secs. PTCA balloon inflated at 6 atms for 15 secs. PTCA balloon inflated at 6 atms for 14 secs. Angiogram performed post balloon dilatation. 2.0 x 12 Ceasar Drug Eluting stent was inserted. Drug Eluting stent was advanced across the lesion in the LAD, distal. Angiogram performed post stent deployment. 2.0 x 18 Ceasar Drug Eluting stent was inserted. Drug Eluting stent was removed intact, failed to cross lesion 3.0 x 12 NC Emerge Balloon catheter was inserted. 3x12 Emerge Balloon catheter was inserted. Balloon catheter was advanced across lesion in the LAD, mid. PTCA balloon inflated at 6 atms for 5 secs. PTCA balloon inflated at 6 atms for 8 secs. 2x18 Resolute Ceasar Drug Eluting stent was inserted. Drug Eluting stent was removed intact, failed to cross lesion 2x8 Resolute Ceasar Drug Eluting stent was inserted. Drug Eluting stent was removed intact, failed to cross lesion 3x20 NC Emerge Balloon catheter was inserted. Balloon catheter was advanced across lesion in the LAD, proximal. PTCA balloon inflated at 12 atms for 8 secs. PTCA balloon inflated at 12 atms for 20 secs. 2x8 Resolute [place] Drug Eluting stent was inserted. Drug Eluting stent was advanced across the lesion in the LAD, distal. Angiogram performed post stent deployment. 2 x 18 [place]erry Drug Eluting stent was inserted. Drug Eluting stent was advanced across the lesion in the LAD, distal. Angiogram performed post stent deployment. 2.25 x 38 Ceasar Drug Eluting stent was advanced across the lesion in the LAD, mid. Angiogram performed post stent deployment. 2.25 x 20 NC Emerge Balloon catheter was inserted post stent Mid LAD. 2.25x12 Resolute [place] Drug Eluting stent was inserted. Drug Eluting stent was advanced across the lesion in the LAD, mid. 3x20 NC Emerge Balloon catheter was inserted. Balloon catheter was inserted post stent. Angiogram performed post stent deployment. The arterial sheath was pulled and a TR Band was applied for hemostasis. 15cc of air. The arterial sheath was sutured in place with heparinized normal saline under pressure INTERVENTION INFORMATION LESION SITE: LAD (Proximal) Lesion Complexity: High/C, chronic total occlusion: No, lesion at bifurcation: No, thrombus present: No, lesion length: 38 mm, culprit lesion: Yes, Previously treated lesion: No Pre Stenosis: 80 % Pre intervention SHINE flow: 3 PROCEDURE: Drug Eluting Stent with pre and post dilatation Just before the stent was deployed, dissection was noted in the mid to distal LAD.This was not seen on the pictures taken after balloon angioplasty. It is likely that the dissection was initiated while advancing the stent. Since the stent was 3 mm in diameter we felt that it will be better to deploy the stent in the proximal LAD and use smaller stents for the mid to distal LAD as the vessel was smaller in diameter. Because the vessel was calcified tortuous and diseased in the mid and distal portion we felt that PTCA will facilitate stent placement. However PTCA in the midportion ended up resulting in further extension of the dissection all the way to the distal LAD including the apical portion of the LAD. The LAD was a wraparound vessel. Multiple attempts at PTCA was performed to restore flow but this was unsuccessful. We then placed an intra-aortic balloon pump and requested transfer to tertiary facility for possible CABG.. While we were waiting for the ambulance to arrive patient continued to have chest pain and ST elevation. We continue to do multiple attempts at PTCA which were unsuccessful in restoring flow. We did not want to place a stent without making sure there was a distal flow as this would increase the risk of stent thrombosis and not improve flow to the LAD anyway. We then used a thrombectomy catheter inserted into the apical portion of the LAD to inject contrast through the aspiration port. This confirmed that the wire was in the true lumen in the portion of the LAD beyond the apex was not dissected. We then discussed with CT surgery and also got a couple of opinions from interventional cardiology at [facility]. The consensus was to attempt stenting of the LAD to stabilize the patient. We started with the apical portion of the LAD and then stented all the way back restoring flow to the LAD. Patient's chest pain resolved and ST elevations also resolved.. Plan is to continue the balloon pump overnight and monitor the patient closely. Post Stenosis: 0 % Post intervention SHINE flow: 3 Lesion Devices: Osman .014 190cm BMW [place] Straight Cordis 6 Fr XB3.5 100cm Guide Catheter Naun Sci EMERGE MR 2.50x20 BALLOON Biotronik [facility] MR RAMANDEEP 3.0x40 Naun Sci EMERGE MR 2.25x20 BALLOON Naun Sci NC EMERGE MR 3.00x30 BALLOON Terumo .014 180cm Runthrough Extra Floppy straight Naun Sci NC EMERGE MR 3.00x12 BALLOON Naun Sci EMERGE MR 3.00x12 BALLOON Naun Sci NC EMERGE MR 3.00x20 BALLOON LESION SITE: LAD (Mid) Lesion Complexity: High/C, chronic total occlusion: No, lesion at bifurcation: No, thrombus present: No, lesion length: 50 mm, culprit lesion: Yes Pre Stenosis: 100 % Pre intervention SHINE flow: 0 PROCEDURE: Drug Eluting Stent with pre and post dilatation Post Stenosis: 0 % Post intervention SHINE flow: 3 Lesion Devices: Osman .014 190cm BMW [place] Straight Cordis 6 Fr XB3.5 100cm Guide Catheter Medtronic Resolute [place] RX RAMANDEEP 2.25x38 Medtronic Resolute Ceasar RX RAMANDEEP 2.25x12 Terumo .014 180cm Runthrough Extra Floppy straight Naun Sci EMERGE MR 2.00x20 BALLOON Terumo Priority One Aspiration Catheter Terumo .014 300cm Runthrough extra floppy straight Vascular Solutions 6 Cuban GuideLiner Naun Sci EMERGE MR 3.00x12 BALLOON Medtronic Resolute Ceasar RX RAMANDEEP 2.0x08 Naun Sci NC EMERGE MR 2.25x20 BALLOON LESION SITE: LAD (Distal) Lesion Complexity: High/C, chronic total occlusion: No, lesion at bifurcation: No, thrombus present: No, lesion length: 40 mm, culprit lesion: Yes Pre Stenosis: 100 % Pre intervention SHINE flow: 0 PROCEDURE: Drug Eluting Stent with pre dilatation. 0 % Post intervention SHINE flow: 3 Lesion Devices: Osman .014 190cm BMW [place] Straight Cordis 6 Fr XB3.5 100cm Guide Catheter Terumo .014 180cm Runthrough Extra Floppy straight Naun Sci EMERGE MR 2.00x20 BALLOON Medtronic SC EUPHORA RX 1.5x20 BALLOON Naun Sci EMERGE MR 2.00x20 BALLOON Naun Sci EMERGE MR 1.50x15 BALLOON Medtronic Resolute Ceasar RX RAMANDEEP 2.0x12 Medtronic Resolute Ceasar RX RAMANDEEP 2.0x18 COMPLICATIONS No Complications PROCEDURE MEDICATIONS Fentanyl 50 mcg IV Versed 1 mg IV Fentanyl 50 mcg IV Fentanyl 25 mcg IV Fentanyl 25 mcg IV Fentanyl 25 mcg IV Oxygen: 2 L/min via nasal cannula Oxygen: 4 L/min via nasal cannula Benadryl 25 mg IV 07/21/2022 10:16:20 Brilinta 180 mg PO @ 07/21/2022 14:48:52 Heparin 2000 unit(s) IV 07/21/2022 10:25:00 Heparin given IA 07/21/2022 10:25:10 Heparin 2000 unit(s) IV 07/21/2022 11:30:22 Heparin 25,000u / 250ml D5W @ 800 u/hr IV started 07/21/2022 11:30:59 Heparin 1000 unit(s) IV 07/21/2022 13:34:52 Nitro glycerin 25mg / 250ml D5W @ 5 mcg/min IV started 07/21/2022 11:52:19 Nitro glycerin 25mg / 250ml D5W @ 10 mcg/min (increased rate) 07/21/2022 12:11:41 Nitro glycerin 25mg / 250ml D5W @ discontinued 07/21/2022 13:25:07 Solu-cortef 100 mg IV 07/21/2022 10:16:33 IV Bolus: .9 NaCl 700 ml total 07/21/2022 15:21:35 SUMMARY OF HEMODYNAMIC DATA Time AIR REST ECG 08:10:14 AO 119/73 (92) SA 10:26:54 ECG 14:33:28 ECG 17:16:21 AIR REST 20:26:55 Signed By Kristian Benitez MD On 07/21/2022 20:27:16 Kristian Benitez MD
[2022-07-21 21:55] VITALS: BP 112/62; PULSE 74
[2022-07-21] MEDS: Metoprolol Tartrate 50 MG Tablet PO (21:55)
[2022-07-21] MEDS: Atorvastatin Calcium 40 MG Tablet PO (21:55)
[2022-07-21] MEDS: amLODIPine 5 MG Tablet PO (21:56)
[2022-07-21] MEDS: Levothyroxine 88 MCG Tablet 44 MCG PO (21:56)
[2022-07-21] MEDS: TICAGRELOR 90 MG TABLET PO (21:57)
[2022-07-21] MEDS: Levothyroxine 88 MCG Tablet PO (21:57)
[2022-07-21 22:36] LABS: Anion Gap 5 (5-15); BUN 24 mg/dL (7-18); BUN/Creat Ratio 26.7 RATIO (10-20); Calcium,Total 9.2 mg/dL (8.5-10.1); Chloride 103 mmol/L (98-107); EST Glomerular Filtration Rate 65 mL/min (>60); Est Glom Filt Rate - Afr Amer 78 mL/min (>60); Glucose 136 mg/dL (74-106); Magnesium 1.9 mg/dL (1.6-2.6); Potassium 3.6 mmol/L (3.5-5.1); Sodium Level 137 mmol/L (136-145)
[2022-07-22 04:40] LABS: Bedside Glucose 118 mg/dL (74-106)
[2022-07-22 06:54] LABS: Hematocrit 39.1 % (37-47); Hemoglobin 12.7 g/dL (12.0-15.0); Mean Corp Hgb Conc 32.5 g/dL (32-36); Mean Corpuscular Hgb 30.8 pg (27.0-32.0); Mean Corpuscular Volume 94.7 fL (81-99); Mean Platelet Vol. 9.6 fl (6.2-12.0); Platelet Count 248 K/mm3 (150-450); RBC Distribution Width CV 12.7 % (11.6-14.6); RBC Distribution Width SD 44.5 fl (35.1-43.9); Red Blood Count 4.13 M/mm3 (4.2-5.4); White Blood Count 15.3 K/mm3 (4.4-11.0)
[2022-07-22 07:03] LABS: International Normalized Ratio 1.1; Prothrombin Time (Protime)PT. 14.3 SECONDS (11.7-14.9)
[2022-07-22 07:11] LABS: ALB/GLOB Ratio 0.9 RATIO (0.9-2.4); AST(SGOT) 184 U/L (15-37); Alanine Aminotransfer ALT/SGPT 37 U/L (13-56); Albumin, Serum 3.2 g/dL (3.2-5.0); Alkaline Phosphatase 57 U/L (45-117); Anion Gap 7 (5-15); BUN 29 mg/dL (7-18); BUN/Creat Ratio 26.9 RATIO (10-20); Chloride 105 mmol/L (98-107); Creatinine, Serum 1.08 mg/dL (0.55-1.02); EST Glomerular Filtration Rate 52 mL/min (>60); Est Glom Filt Rate - Afr Amer 63 mL/min (>60); Estimated Creatinine Clearance 37.67 ml/min; Globulin 3.6 g/dL (2.2-4.2); Glucose 131 mg/dL (74-106); Potassium 3.6 mmol/L (3.5-5.1); Protein, Total 6.8 g/dL (6.4-8.2); Sodium Level 139 mmol/L (136-145)
--- NOTE | 2022-07-22 07:23 | CRPHASE1_ITS ---
Patient Communication Former Patient:: Phase I PHII Cardiac Rehab Discussed with Patient:: Yes - pt seen 06/24/22 Choice Program [facility] CR PHII:: Communication Given to CR, Refer to [facility] Choice Program Other:: Communication Given to CR, With permission faxed order and referral information Refer Phase II Cardiac Rehab:: Yes Sessions:: 36 sessions - 3 days/wk, 12 weeks Cardiac Rehabilitation Info Cardiac Rehabilitation Program Information: Cardiac Rehab The cardiac rehab team at [facility] consists of highly skilled exercise physiologists, nurses, respiratory therapists and physicians working together with you. Our purpose is to help you have a full recovery and achieve the goals you set for yourself. Over the years many of our patients have returned to activities they assumed they would never do again! We can help restore your confidence and motivation to make lifestyle changes that can have a significant impact on your health and quality of life! We can help answer questions and concerns you may have about exercise, lifestyle, medications, diet, stress and anxiety which are common following a hospitalization. WE monitor ECG and vital signs during exercise and discuss your progress with you and report to your physician(s). Cardiac Rehab is proven to help reduce readmissions, improve functional capacity and lower recurrence of problems with your heart. Our Cardiac Rehab program is Certified by the [place] [employer]-Vascular and Pulmonary [employer] (AACVPR) and Accredited by the [place] [employer] through our [facility]. You can contact us at . We invite you to call us with your questions or to get started in our program. If you have other questions or concerns be sure to ask your physician/provider during your follow-up visit. WE look forward to seeing you!
--- NOTE | 2022-07-22 07:24 | CRPH1.INSTRU ---
General Education CAD and cardiac anatomy and function:: Patient communicates acknowledgment - pt seen 06/24/22
--- NOTE | 2022-07-22 09:40 | ECHOL_ITS ---
Reason For Study: POST PCI Procedure This was a limited 2D transthoracic echocardiogram. Technically difficult study, patient scanned supine. Exam performed portable in patient room. Left Ventricle Normal LV size. The estimated ejection fraction is 53 %. Mild segmental systolic dysfunction (see wall motion). [place] : Hypokinetic. Anterior [place] : Hypokinetic. Septal [place] : Hypokinetic. Right Ventricle Normal RV size. Normal systolic function. Atria Normal left atrium. Normal right atrium. Mitral Valve Normal mitral valve. Tricuspid Valve Normal tricuspid valve. Aortic Valve Normal aortic valve. Trisinus/trileaflet aortic valve. Pulmonic Valve Normal pulmonic valve. Great Vessels Normal aortic root. The pulmonary artery is normal size. Normal inferior vena cava. Pericardium/Pleural No pericardial effusion. MMode/2D Measurements & Calculations LAV(MOD-bp): 39.6 ml LVAd ap4: 27.2 cm2 LVAd ap2: 24.9 cm2 LAV(MOD-bp) Indexed: 22.9 ml/m2 LVLd ap4: 8.2 cm LVLd ap2: 7.9 cm LAV(MOD-sp2): 36.2 ml EDV(MOD-sp4): 73.6 ml EDV(MOD-sp2): 66.4 ml LAV(MOD-sp4): 42.7 ml EDV(sp4-el): 76.7 ml EDV(sp2-el): 66.6 ml LVAs ap4: 14.6 cm2 LVAs ap2: 13.8 cm2 LVLs ap4: 7.7 cm LVLs ap2: 7.6 cm ESV(MOD-sp4): 23.4 ml ESV(MOD-sp2): 19.8 ml ESV(sp4-el): 23.5 ml ESV(sp2-el): 21.1 ml EF(MOD-sp4): 68.2 % EF(MOD-sp2): 70.1 % EF(sp4-el): 69.4 % SV(MOD-sp4): 50.2 ml SV(MOD-sp2): 46.6 ml SV(sp4-el): 53.2 ml LA A4 area: 18.1 cm2 RA A4 area: 12.4 cm2 ECHO/Echo, Limited Study Interpretation Summary Normal LV size. The estimated ejection fraction is 53 %. Mild segmental systolic dysfunction (see wall motion). Ordering Physician: Bryn Braga Referring Physician: Huber Benitez Performed By: Maryana Alexis RCS
--- NOTE | 2022-07-22 10:00 | EKG12_ITS ---
Test Reason : POST PCI Blood Pressure : / mmHG Vent. Rate : 062 BPM Atrial Rate : 062 BPM P-R Int : 180 ms QRS Dur : 090 ms QT Int : 480 ms P-R-T Axes : 043 -72 241 degrees QTc Int : 487 ms Normal sinus rhythm Left axis deviation Lateral infarct , age undetermined Inferior-posterior infarct , age undetermined Abnormal ECG Confirmed by ROCHELLE FITZPATRICK, ARA ([id number]), graphic editor BRUNO HAMMONDS ([id number]) on 07/23/2022 7:40:26 AM Referred By: Huber Benitez Confirmed By:ARA BYRD MD
[2022-07-22] MEDS: TICAGRELOR 90 MG TABLET PO ×2 (11:14→22:45)
[2022-07-22] MEDS: Aspirin 81 MG TAB.CHEW PO (11:14)
[2022-07-22] MEDS: Pantoprazole Sodium 40 MG Tablet PO (11:15)
--- NOTE | 2022-07-22 13:00 | PCM.PN.CARD ---
Subjective Subjective The patient was seen and evaluated this morning. Patient is status post extensive PCI involving the left anterior descending artery with multiple stents and status post intra-aortic balloon pump placement. Objective Data Vital Signs: Vital Signs Pulse BP 74 112/62 07/21/22 21:55 07/21/22 21:55 Weight: 151 lb Body Mass Index (BMI) 25.9 Lab / Micro Data Result Diagrams: 07/22/22 06:45 07/22/22 06:45 Labs: Laboratory Results - last 24 hr 07/21/22 11:30: Activated Clotting Time 209 H 07/21/22 13:30: Activated Clotting Time 209 H 07/21/22 14:30: Activated Clotting Time 221 H 07/21/22 21:30: Sodium 137, Potassium 3.6, Chloride 103, Carbon Dioxide 29.0, Anion Gap 5, BUN 24 H, Creatinine 0.90, Estim Creat Clear Calc 45.20, Est GFR (MDRD) Af Amer 78, Est GFR (MDRD) Non-Af 65, BUN/Creatinine Ratio 26.7 H, Glucose 136 H, Calcium 9.2, Magnesium 1.9 07/22/22 04:17: POC Glucose 118 H 07/22/22 06:45: WBC 15.3 H, RBC 4.13 L, Hgb 12.7, Hct 39.1, MCV 94.7, MCH 30.8, MCHC 32.5, RDW Std Deviation 44.5 H, RDW Coeff of Madhuri 12.7, Plt Count 248, MPV 9.6 07/22/22 06:45: Sodium 139, Potassium 3.6, Chloride 105, Carbon Dioxide 27.0, Anion Gap 7, BUN 29 H, Creatinine 1.08 H, Estim Creat Clear Calc 37.67, Est GFR (MDRD) Af Amer 63, Est GFR (MDRD) Non-Af 52 L, BUN/Creatinine Ratio 26.9 H, Glucose 131 H, Calcium 9.0, Total Bilirubin 1.10 H, AST 184 H, ALT 37, Alkaline Phosphatase 57, Total Protein 6.8, Albumin 3.2, Globulin 3.6, Albumin/Globulin Ratio 0.9 07/22/22 06:45: PT 14.3, INR 1.1 Cardiology Labs/Tests 07/21/22 21:30: Sodium 137, Potassium 3.6, Chloride 103, Carbon Dioxide 29.0, Anion Gap 5, BUN 24 H, Creatinine 0.90, Est GFR (MDRD) Af Amer 78, Est GFR (MDRD) Non-Af 65, BUN/Creatinine Ratio 26.7 H, Glucose 136 H, Calcium 9.2, Magnesium 1.9 07/22/22 06:45: WBC 15.3 H, RBC 4.13 L, Hgb 12.7, Hct 39.1, MCV 94.7, MCH 30.8, MCHC 32.5, Plt Count 248, MPV 9.6 07/22/22 06:45: Sodium 139, Potassium 3.6, Chloride 105, Carbon Dioxide 27.0, Anion Gap 7, BUN 29 H, Creatinine 1.08 H, Est GFR (MDRD) Af Amer 63, Est GFR (MDRD) Non-Af 52 L, BUN/Creatinine Ratio 26.9 H, Glucose 131 H, Calcium 9.0, Total Bilirubin 1.10 H 07/22/22 06:45: PT 14.3, INR 1.1 Rhythm: EKG: ECHO: Stress Test: Cardiac Cath: PCI: CT Surgery: Holter monitor: EPS: PPM: CXR: Chest CT Scan: Radiography Diagnostic Testing: Radiology Impression Echocardiogram 07/22/22 09:40 Interpretation Summary Normal LV size. The estimated ejection fraction is 53 %. Mild segmental systolic dysfunction (see wall motion). Ordering Physician: Bryn Braga Referring Physician: Huber Benitez Performed By: Maryana Alexis RCS Physical Exam Const alert, oriented x3 and no apparent distress General Appearance: cooperative HEENT hearing grossly normal bilaterally Head and Scalp: atraumatic Eyes EOMs intact bilaterally Neck General: normal visual inspection Chest inspection of chest normal and palpation of chest normal Resp normal respiratory effort Auscultation: clear to auscultation bilaterally Cardio regular rate, regular rhythm, S1 normal heart sound and S2 normal heart sound Jugular Venous Distention: JVD GI normal to inspection, nondistended, normoactive bowel sounds Extremity normal capillary refill and no pedal edema Peripheral Pulses: Yes pulses 2+ throughout and femoral pulses present Skin no rashes or lesions noted Neuro oriented x3 and CN's II-XII intact bilaterally Psych Appearance: grossly normal and appropriate Assessment & Plan Assessment/Plan (1) S/P PTCA (percutaneous transluminal coronary angioplasty): PLAN: She is status post extensive PCI of the left anterior descending artery complicated by distal dissection. This had to be intervened on and stented extensively. This was with the aid of an intra-aortic balloon pump. This was removed this morning successfully without any incident. Post procedure echocardiogram demonstrated preserved ejection fraction of 53% with apical hypokinesis. EKG changes noted involving the inferolateral wall. The plan will be to observe her overnight in the progressive care unit and then discharge in a.m. She is on anticoagulation for previous DVT. The plan will be to continue triple therapy with aspirin, clopidogrel, and Eliquis. After a month would suggest discontinuing the aspirin and continuing clopidogrel and Eliquis. Will follow-up with Dr. Saucedo as outpatient after discharge (2) Atherosclerosis of coronary artery of [place] heart: PLAN: She does have atherosclerotic cardiovascular disease with PCI of the diagonal vessel previously. (3) Hypertension: PLAN: Blood pressure is under good control on the current medical therapy (4) Dyslipidemia: PLAN: She will continue with aggressive risk factor modification.
--- NOTE | 2022-07-22 13:16 | VDLE_ITS ---
Reason For Study: Prior DVT Procedure LEFT This is a venous duplex using B-mode, color GSV is normal. flow and spectral Doppler. CFV is compressible, spontaneous, competent, Exam performed portable in patient room. and demonstrates pulsatile venous flow. A preliminary report was called and/or faxed FV is compressible, spontaneous, competent to Dr. Braga. and demonstrates pulsatile venous flow. POP V is compressible, spontaneous, competent and demonstrates pulsatile venous flow. T/P Trunk is compressible. PTV is compressible. LT PerV is compressible. Left Soleus V is partially compressible with minimal venous flow noted. Slight improvement noted as compared to 06/24/22. VL/Venous Duplex US, Unilateral Interpretation Summary Acute deep vein thrombosis is noted in the left soleus vein. Negative for propagation. Improved from prior study Ordering Physician: Bryn Braga Referring Physician: Coy Younger Performed By: Cindy Tee RVT
[2022-07-22 16:01] LABS: ACT Activated Clotting Time 137 sec (74-137)
[2022-07-22] MEDS: 0.9% Normal Saline 1,000 ML 75 ML IV (16:24)
[2022-07-22 16:30] VITALS: PULSE 79
[2022-07-22] MEDS: Ondansetron ODT 4 MG Tablet PO (16:34)
[2022-07-22 19:44] VITALS: PULSE 73
[2022-07-22 20:15] VITALS: BP 111/81; PULSE 70; RESP 17; TEMP 36.8; O2SAT 94
[2022-07-22 22:45] VITALS: PULSE 70
[2022-07-22] MEDS: Levothyroxine 88 MCG Tablet PO (22:45)
[2022-07-22] MEDS: Metoprolol Tartrate 50 MG Tablet PO (22:45)
[2022-07-22] MEDS: amLODIPine 5 MG Tablet PO (22:45)
[2022-07-22] MEDS: Atorvastatin Calcium 40 MG Tablet PO (22:45)
[2022-07-23 03:00] VITALS: BP 100/67; PULSE 72; RESP 16; TEMP 36.6; O2SAT 93
[2022-07-23 03:53] VITALS: PULSE 68
[2022-07-23] MEDS: 0.9% Normal Saline 1,000 ML 75 ML IV (05:47)
[2022-07-23 07:08] VITALS: PULSE 76
[2022-07-23 08:06] LABS: Hematocrit 32.1 % (37-47); Mean Corp Hgb Conc 34.3 g/dL (32-36); Mean Corpuscular Hgb 32.2 pg (27.0-32.0); Mean Corpuscular Volume 93.9 fL (81-99); Mean Platelet Vol. 9.9 fl (6.2-12.0); Platelet Count 191 K/mm3 (150-450); RBC Distribution Width CV 12.8 % (11.6-14.6); RBC Distribution Width SD 43.8 fl (35.1-43.9); Red Blood Count 3.42 M/mm3 (4.2-5.4); White Blood Count 8.6 K/mm3 (4.4-11.0)
[2022-07-23 08:23] LABS: Anion Gap 4 (5-15); BUN 16 mg/dL (7-18); BUN/Creat Ratio 23.4 RATIO (10-20); Calcium,Total 8.8 mg/dL (8.5-10.1); Chloride 109 mmol/L (98-107); Creatinine, Serum 0.68 mg/dL (0.55-1.02); EST Glomerular Filtration Rate 88 mL/min (>60); Est Glom Filt Rate - Afr Amer 107 mL/min (>60); Estimated Creatinine Clearance 40.68 ml/min; Glucose 102 mg/dL (74-106); Potassium 3.7 mmol/L (3.5-5.1); Sodium Level 140 mmol/L (136-145)
[2022-07-23 09:17] LABS: International Normalized Ratio 1.1
[2022-07-23 09:18] LABS: Partial Thromboplast Time 28.8 Seconds (24.1-36.2)
--- NOTE | 2022-07-23 10:15 | CASEMGMT ---
KATHIE CM: Pt visited at bedside. SILVESTRE LUZ role explained. Pt states she is ready for discharge back to home and denies any concerns. States she has been ambulating in her room without difficulty. Discussed anticoagulation at discharge. Pt states she has been on Eliquis prior to admission. States she may also be going home on Brillinta. Noted in physician progress note intent for ASA, clopidogrel and Eliquis. Will follow need for Brilinta discount card. Ronel Melgoza RN CM
[2022-07-23 10:53] VITALS: BP 112/56; PULSE 70; RESP 18; TEMP 36.8; O2SAT 97
[2022-07-23] MEDS: Pantoprazole Sodium 40 MG Tablet PO (11:23)
--- NOTE | 2022-07-23 11:23 | PCM.PN.CARD ---
Subjective Subjective Patient seen and evaluated. Appears to be doing well this morning has walked around with no issues. Groin stable Objective Data Vital Signs: Vital Signs Temp Pulse Resp BP Pulse Ox O2 Del Method 98.2 F 70 18 112/56 L 97 Room Air 07/23/22 10:53 07/23/22 10:53 07/23/22 10:53 07/23/22 10:53 07/23/22 10:53 07/23/22 10:53 Oxygen Delivery Method Room Air Weight: 151 lb Body Mass Index (BMI) 25.9 Intake & Output: Intake and Output for Last 24 Hours 07/21/22 07/22/22 07/23/22 23:59 23:59 23:59 Intake Total 1999 Balance 1999 Lab / Micro Data Result Diagrams: 07/23/22 07:26 07/23/22 07:26 Labs: Laboratory Results - last 24 hr 07/22/22 08:30: Activated Clotting Time 137 07/23/22 07:26: WBC 8.6, RBC 3.42 L, Hgb 11.0 L, Hct 32.1 L, MCV 93.9, MCH 32.2 H, MCHC 34.3 D, RDW Std Deviation 43.8, RDW Coeff of Madhuri 12.8, Plt Count 191, MPV 9.9 07/23/22 07:26: PT 14.0, INR 1.1, APTT 28.8 07/23/22 07:26: Sodium 140, Potassium 3.7, Chloride 109 H, Carbon Dioxide 27.0, Anion Gap 4 L, BUN 16, Creatinine 0.68, Estim Creat Clear Calc 40.68, Est GFR (MDRD) Af Amer 107, Est GFR (MDRD) Non-Af 88, BUN/Creatinine Ratio 23.4 H, Glucose 102, Calcium 8.8 Cardiology Labs/Tests 07/23/22 07:26: WBC 8.6, RBC 3.42 L, Hgb 11.0 L, Hct 32.1 L, MCV 93.9, MCH 32.2 H, MCHC 34.3 D, Plt Count 191, MPV 9.9 07/23/22 07:26: PT 14.0, INR 1.1, APTT 28.8 07/23/22 07:26: Sodium 140, Potassium 3.7, Chloride 109 H, Carbon Dioxide 27.0, Anion Gap 4 L, BUN 16, Creatinine 0.68, Est GFR (MDRD) Af Amer 107, Est GFR (MDRD) Non-Af 88, BUN/Creatinine Ratio 23.4 H, Glucose 102, Calcium 8.8 Rhythm: EKG: ECHO: Stress Test: Cardiac Cath: PCI: CT Surgery: Holter monitor: EPS: PPM: CXR: Chest CT Scan: Radiography Diagnostic Testing: Radiology Impression Venous Doppler Study 07/22/22 13:16 Interpretation Summary Acute deep vein thrombosis is noted in the left soleus vein. Negative for propagation. Improved from prior study Ordering Physician: Bryn Braga Referring Physician: Coy Younger Performed By: Cindy Tee RVT Physical Exam Const alert, oriented x3 and no apparent distress General Appearance: cooperative HEENT hearing grossly normal bilaterally Head and Scalp: atraumatic Eyes EOMs intact bilaterally Neck General: normal visual inspection Chest inspection of chest normal and palpation of chest normal Resp normal respiratory effort Auscultation: clear to auscultation bilaterally Cardio regular rate, regular rhythm, S1 normal heart sound and S2 normal heart sound Jugular Venous Distention: JVD GI normal to inspection, nondistended, normoactive bowel sounds Extremity normal capillary refill and no pedal edema Peripheral Pulses: Yes pulses 2+ throughout and femoral pulses present Skin no rashes or lesions noted Neuro oriented x3 and CN's II-XII intact bilaterally Psych Appearance: grossly normal and appropriate Assessment & Plan Assessment/Plan (1) S/P PTCA (percutaneous transluminal coronary angioplasty): PLAN: She is status post extensive PCI of the left anterior descending artery complicated by distal dissection. This had to be intervened on and stented extensively. This was with the aid of an intra-aortic balloon pump. This was removed yesterday morning successfully without any incident. Post procedure echocardiogram demonstrated preserved ejection fraction of 53% with apical hypokinesis. EKG changes noted involving the inferolateral wall. The plan will be to observe her overnight in the progressive care unit and then discharge in a.m. She is on anticoagulation for previous DVT. The plan will be to continue triple therapy with aspirin, clopidogrel, and Eliquis. After a month would suggest discontinuing the aspirin and continuing clopidogrel and Eliquis. Will follow-up with Dr. Saucedo as outpatient after discharge (2) Atherosclerosis of coronary artery of [place] heart: PLAN: She does have atherosclerotic cardiovascular disease with PCI of the diagonal vessel previously. (3) Hypertension: PLAN: Blood pressure is under good control on the current medical therapy (4) Dyslipidemia: PLAN: She will continue with aggressive risk factor modification.
[2022-07-23 11:24] VITALS: PULSE 70
[2022-07-23] MEDS: TICAGRELOR 90 MG TABLET PO (11:24)
[2022-07-23] MEDS: Aspirin 81 MG TAB.CHEW PO (11:24)
[2022-07-23] MEDS: Losartan Potassium 50 MG Tablet PO (11:24)
[2022-07-23] MEDS: Metoprolol Tartrate 50 MG Tablet PO (11:24)
--- NOTE | 2022-07-23 11:27 | DCINST_ITS ---
Discharge Instructions Diet Discharge Diet: No restrictions Activity Discharge Activity: Return to Normal Activity Additional Activity Instructions:: You must have someone drive you home. Do not drive until instructed by your doctor. You must have someone stay with you all night after your test. Rest in bed or on the couch until the next morning. Limit the number of times you go up and down stairs the day of your test. Apply pressure to the puncture site if you sneeze or cough. Dressing / Incision Call your doctor if your incision/area has: Increased Pain/ Swelling, Increased Redness, Foul Smelling Discharge and Swelling at the incision site Call your doctor if you observe: Fever of 101 or Higher Additional Dressing/Incision Instructions:: Keep the dressing (bandage) on until the next morning. You may then shower, but do not take a tub bath for 5 days after your test. It is normal to have some tenderness and discomfort at the puncture site. Sometimes bruising also occurs. However, if pain, numbness, or coldness occurs below the puncture site (in your leg, toes, arms or fingers) call your doctor at once. You may have a small, marble sized knot at the puncture site. This is normal. Do not rub it. It will go away in 4-6 weeks. Bleeding can occur from the area where the puncture was done. Blood may spurt or drip from the site. If blood spurts, apply pressure right away to stop bleeding and call 911. Although rare, bleeding into the tissue (hematoma) can also occur. If this happens, a large, firm area goose egg under the skin will appear. If any of these occur, lie down as flat as you can and have someone apply firm pressure to the cath site with a gauze pad or a clean washcloth for 10-15 minutes. Call 911 or go to the Emergency Department. Follow Up Care Please Follow Up With: Bashir Saucedo MD When: They will call you with follow-up appointment Test Results: Test results from this visit will be discussed in further detail at your follow- up appointment, if applicable. Discharge Plan Admission Admit Date/Time: 07/22/22 12:56 Attending Provider: Bryn Braga Primary Care Provider: Coy Younger Discharge Orders/Prescriptions Prescriptions: New clopidogrel 75 mg tablet 75 mg PO DAILY Qty: 90 3RF Continued nitroglycerin 0.4 mg tablet, sublingual 0.4 mg sublingual Q5M PRN (Reason: chest pain) Qty: 20 3RF Rx Instructions: do not exceed 3 doses per episode famotidine [Pepcid] 20 mg tablet 20 mg PO DAILY Qty: 1 0RF Rx Instructions: Take morning of cardiac procedure amlodipine 5 MG tablet 5 mg PO QHS omeprazole 40 mg capsule,delayed release(DR/EC) 40 mg PO DAILY Label Comments: TAKE 1 CAPSULE BY MOUTH ONCE DAILY cholecalciferol (vitamin D3) 125 mcg (5,000 unit) Capsule 125 mcg PO DAILY losartan 50 mg Tablet 50 mg PO DAILY 90 Days Qty: 90 0RF atorvastatin 40 mg Tablet 40 mg PO QHS 90 Days Qty: 90 0RF clopidogrel 75 mg Tablet 75 mg PO DAILY 90 Days Qty: 90 0RF metoprolol tartrate 50 mg Tablet 50 mg PO BID 90 Days Qty: 180 0RF Eliquis 5 mg Tablet 5 mg PO BID 90 Days Qty: 180 0RF levothyroxine 88 mcg tablet 88 mcg PO QHS Rx Instructions: take 1.5tabs on ondansetron HCl 4 mg tablet 4 mg PO Q6H PRN (Reason: nausea and vomiting) Qty: 25 0RF aspirin 81 mg Capsule 81 mg PO DAILY Discontinued isosorbide mononitrate 30 mg tablet extended release 24 hr 30 mg PO DAILY Qty: 30 6RF prednisone 20 mg tablet 20 mg PO DAILY Qty: 6 0RF Rx Instructions: Take 60 mg the evening before cardiac procedure and 60 mg the morning of procedure Referrals / Follow Up: Coy Younger MD [Primary Care Provider] - Disposition Disposition (needs filled in before D/C Order can be placed): Home, Self Care
== END 2022-07-23 11:27 | disposition home or self-care (01) ==
LOC: PCU 07-23 11:27 → CLINP 07-25 10:50 → CLSP 07-25 10:50 → PCU 07-25 10:50
PROVIDERS: Admitting Provider Internal Medicine Cardiovascular Disease; PCP Family Medicine; Referring Provider Specialist; Visit Provider Internal Medicine Cardiovascular Disease
DX: I25.110 Atherosclerotic heart disease of native coronary artery with unstable angina pectoris (principal); I82.462 Acute embolism and thrombosis of left calf muscular vein; Z79.899 Other long term (current) drug therapy; Z79.01 Long term (current) use of anticoagulants; Z79.02 Long term (current) use of antithrombotics/antiplatelets; Z79.890 Hormone replacement therapy; I25.2 Old myocardial infarction; E03.9 Hypothyroidism, unspecified; I10 Essential (primary) hypertension; R73.03 Prediabetes; F17.210 Nicotine dependence, cigarettes, uncomplicated; Z86.718 Personal history of other venous thrombosis and embolism
CPT/HCPCS: 33967; 36415; 80048; 80053; 82962; 83735; 85027; 85347; 85610; 85730; 92928; 93005; 93308; 93971; 96360; 96361; 99152; 99153; 99218; C1757; C1769; C1874; J7030; J7040; Q9967; A4216; C1725; C1887; C1894; C9600; G0378; J1327; J2405

== ENCOUNTER 2022-08-26 13:46 | Outpatient (CLI) | payer MEDICARE, SELFPAY ==
--- NOTE | 2022-08-26 13:50 | ADUUE_ITS ---
Reason For Study: R/O pseudoaneurysm RIGHT Radial artery, mid, 0.42 x 0.44 cm, 78.1 cm/sec. Radial artery, distal, 0.44 x 0.41 cm, 53.7 cm/sec. Ulnar artery, mid, 0.22 x 0.22 cm/sec, 42.1 cm/sec. Radial and Ulnar veins are compressible. Cephalic vein is compressible with arterialized flow noted. AV fistula conection noted at distal forearme between radial artery and cephalic vein branch. Preliminary report given to Dr. Saucedo. /US Art Duplex Unilat UP Extrem Interpretation Summary AV fistula present between right radial artery and cephalic vein Ordering Physician: Bashir Saucedo Referring Physician: Coy Younger Performed By: Cindy Tee RVT
== END 2022-08-26 23:59 | disposition home or self-care (01) ==
LOC: CVS 13:47
PROVIDERS: PCP Family Medicine; Visit Provider Internal Medicine Cardiovascular Disease
DX: I25.10 Atherosclerotic heart disease of native coronary artery without angina pectoris (principal); I72.9 Aneurysm of unspecified site; I77.0 Arteriovenous fistula, acquired; T82.9XXA Unspecified complication of cardiac and vascular prosthetic device, implant and graft, initial encounter
CPT/HCPCS: 93931

== ENCOUNTER 2022-10-24 08:04 | Day surgery (SDC) | payer MEDICARE, SELFPAY ==
[2022-10-19 12:34] LABS: Hematocrit 39.7 % (37-47); Hemoglobin 13.3 g/dL (12.0-15.0); Mean Corp Hgb Conc 33.5 g/dL (32-36); Mean Corpuscular Hgb 30.9 pg (27.0-32.0); Mean Corpuscular Volume 92.3 fL (81-99); Platelet Count 252 K/mm3 (150-450); RBC Distribution Width CV 12.1 % (11.6-14.6); RBC Distribution Width SD 41.3 fl (35.1-43.9); White Blood Count 5.5 K/mm3 (4.4-11.0)
[2022-10-19 13:05] LABS: Anion Gap 7 (5-15); BUN 17 mg/dL (7-18); BUN/Creat Ratio 18.1 RATIO (10-20); Calcium,Total 9.5 mg/dL (8.5-10.1); Chloride 106 mmol/L (98-107); Creatinine, Serum 0.94 mg/dL (0.55-1.02); EST Glomerular Filtration Rate 61 mL/min (>60); Est Glom Filt Rate - Afr Amer 74 mL/min (>60); Glucose 126 mg/dL (74-106); Potassium 3.6 mmol/L (3.5-5.1); Sodium Level 140 mmol/L (136-145)
[2022-10-24] VITALS (10 sets, daily range): BP systolic 94–134; BP diastolic 66–99; PULSE 49–79; RESP 16–18; TEMP 36.1–36.4; O2SAT 92–98; BMI 25.9
--- NOTE | 2022-10-24 | IMM_PTH ---
PATIENT: ODETTE DENISE LOC: [facility] [place] U#:[id number] AGE/SX: 76/F ROOM: RE10/24/[address]: Dr. Rober Gonzalez MD : 1945 BED: DIS: 10/24/2022 SPEC #: [id number] RECD: 10/25/22 13:46 STATUS: JAN REQ #: [id number] LENNIE: 10/24/22 00:[address]: Rober Gonzalez DEPT: IMMUNOHISTOCHEMISTRY RECD BY: Autumn Stein ENTERED: 10/25/22 13:47 SP TYPE: IMMUNO OTHR DR: Dr. Coy Younger MD Tissues: Artery, NOS Procedures: CD31 (add) CD34 (add) Factor VIII (initial) PHYSICIAN & INSTITUTION [place] [id number] SPECIMEN INFORMATION: Tissue Source: Pseudoaneurysm of right radial artery Clinical Info: Pseudoaneurysm of right radial artery Specimen Number: [id number] CPT code: 49238, 09931 x2 METHODOLOGY: Deparaffinized sections of prefer/formalin-fixed tissue or PAP/DQ stained slides are incubated with monoclonal/polyclonal antibodies/oligonucleotide probes. Localization is made via biotin free immunoperoxidase method. Appropriate controls are performed and reacted as expected. Results on target cell population are indicated in the following table: RESULTS: ANTIBODY / CLONE RESULT Factor VIII (R Ag) positive CD31 (JESUS MANUEL/70A) positive CD34 (QBEnd-10) negative These tests were developed and their performance characteristics determined by [facility]. They may not have been cleared or approved by the U.S. Food and Drug Administration. The FDA has determined that such clearance or approval is not necessary. The above immunohistochemical/dualISH markers are ordered and reviewed by the Pathologist. INTERPRETATION: Pseudoaneurysm of right radial artery, excision: Consistent with pseudoaneurysmal tissue. YASMINE:roman 10/26/2022
[2022-10-24] MEDS: Lactated Ringers 1,000 ML 15 ML IV (08:40)
--- NOTE | 2022-10-24 09:57 | PCM.HP.STD ---
HPI - General HPI Narrative ODETTE DENISE, is a 76 F who presents with right arm iatrogenic AVF after cardiac cath. Has been stable since last seen in office. Hand cool/cyanotic at times. [facility] Medical History Alcohol use Anxiety Arthritis Atherosclerosis of coronary artery of [place] heart Back pain Shabazz's esophagus Borderline diabetic Cancer Cardiology follow-up encounter Chronic cough Diabetes DVT (deep venous thrombosis) Emphysema, unspecified Excessive bleeding High cholesterol History of echocardiogram History of heart attack Hypertension Hypothyroidism Kidney stones Leg cramps NSTEMI (non-ST elevated myocardial infarction) Post-menopausal Shortness of breath on exertion Smoker Thyroid disease Wears dentures Wears glasses Home Medications cholecalciferol (vitamin D3) 125 mcg (5,000 unit) capsule 125 mcg PO DAILY SUPPLEMENT 06/23/22 [History Last Taken 06/23/22] omeprazole 40 mg capsule,delayed release 40 mg PO DAILY 06/23/22 [History Last Taken 10/24/22] losartan 50 mg tablet 50 mg PO DAILY 90 days #90 tabs 06/25/22 [Rx Last Taken 10/24/22] levothyroxine 88 mcg tablet 88 mcg PO QHS 07/12/22 [History Last Taken Unknown] nitroglycerin 0.4 mg sublingual tablet 0.4 mg sublingual Q5M PRN chest pain #20 tabs 07/12/22 [Rx Last Taken Unknown] aspirin 81 mg capsule 81 mg PO DAILY 07/21/22 [History Last Taken 10/23/22] clopidogrel 75 mg tablet 75 mg PO DAILY #90 tabs 07/23/22 [Rx Last Taken 10/23/22] atorvastatin 40 mg tablet 5 mg PO QHS 08/16/22 [History Last Taken Unknown] amlodipine 5 mg tablet 5 mg PO QHS 10/17/22 [History Last Taken Unknown] metoprolol tartrate 50 mg tablet 50 mg PO BID PT taking TWICE a day. #180 tabs 10/21/22 [Rx Last Taken 10/24/22] Allergy/AdvReac Type Severity Reaction Status Date / Time ibandronate sodium Allergy Anaphylaxis Verified 10/24/22 08:41 [From Boniva] iodine Allergy Rash Verified 10/24/22 08:41 aspirin AdvReac Intermediate nosebleeds Verified 10/24/22 08:41 latex AdvReac Rash Verified 10/24/22 08:41 Family History Father Heart disease enlarged heart Mother Asthma CHF (congestive heart failure) Sister No problems noted. Surgical History History of cardiac catheterization History of carpal tunnel surgery of right wrist History of coronary artery stent placement (~06/24/22) History of coronary artery stent placement History of hysterectomy History of laparoscopic cholecystectomy Hx of bursectomy Hx of cataract surgery (~09/2021) Social History Smoking Status: Current every day smoker tobacco type: cigarettes alcohol intake: current alcohol intake frequency: holidays/special occasions only substance use type: does not use caffeine: Yes Type: coffee Number of servings: 8 ROS Constitutional Constitutional: Denies chills, fever(s), frequent falls, lethargy or weakness Eyes Eyes: Denies blind spots, change in vision or loss of vision ENT HEENT: Denies bleeding gums, hoarseness or sore throat Cardiovascular Cardiovascular: Denies abdominal pain, bluish discoloration of hand/feet, chest pain with activity, claudication, cold extremities, cyanosis, dyspnea on exertion, erythema on extremities, irregular heart rhythm, leg edema, leg ulcers, numbness in extremities or weakness in extremities Respiratory/Chest Respiratory/Chest: Denies cough, excessive phlegm production, shortness of breath at rest, shortness of breath with exertion or wheezing Gastrointestinal Gastrointestinal: Denies anorexia, change in stool character, constipation, diarrhea, melena or rectal bleeding Genitourinary Genitourinary: Denies dysuria or hematuria Musculoskeletal Musculoskeletal: Denies abnormal gait Integumentary Integumentary: Reports other Details: ; Denies erythema, non-healing lesions or wounds Neurologic Neurologic: Denies abnormal speech, focal weakness, headache(s), loss of vision, numbness, paresthesias or sensory deficit Hematologic/Lymphatic Hematologic/Lymphatic: Denies easy bleeding, easy bruising or lymphadenopathy Vital Signs Vital Signs Vital Signs: 10/24/22 08:44 10/24/22 08:44 Temperature 97.6 F L Temperature Source Temporal Pulse Rate 60 Respiratory Rate 16 Respiratory Pattern Normal Blood Pressure 126/86 H Blood Pressure Mean 99 Blood Pressure Source Monitor Blood Pressure Position Semi-Fowlers Blood Pressure Location Left Arm Pulse Ox 97 Oxygen Delivery Method Room Air Weight Weight: 150 lb 12.739 oz Body Mass Index (BMI) 25.9 Physical Exam Const alert, oriented x3, no apparent distress and healthy appearing General Appearance: cooperative; Negative for combative or lethargic Orientation / Consciousness: awake Exam Limitations: no limitations HEENT Head and Scalp: normocephalic and atraumatic Eyes EOMs intact bilaterally General Eye: normal appearance of both eyes Neck full ROM General: trachea midline; Negative for tenderness Resp normal respiratory effort and no use of accessory muscles Effort and Inspection: Negative for labored, stridor or audible wheezes Cardio regular rate and regular rhythm Cardio Narrative: +thrill right radial artery Peripheral Pulses: brachial pulses present and radial pulses present Back/Spine Cervical Spine: cervical ROM normal Extremity full ROM and normal capillary refill Skin no rashes or lesions noted and no wounds Neuro oriented x3, CN's II-XII intact bilaterally, no focal motor deficits and no sensory deficits noted Psych thought process normal, cooperative, affect normal, speech normal and activity/motor behavior normal Results Lab / Micro Data Result Diagrams: 10/19/22 11:56 10/19/22 11:56 Assessment & Plan Assessment/Plan (1) Iatrogenic arteriovenous fistula: PLAN: -open repair
[2022-10-24] MEDS: Cefazolin 2 GM in 0.9% Normal Saline 100 ML IV (10:03)
--- NOTE | 2022-10-24 10:03 | ART_PTH ---
PATIENT: ODETTE DENISE LOC: [facility] [place] U#:[id number] AGE/SX: 76/F ROOM: RE10/24/[address]: Dr. Rober Gonzalez MD : 1945 BED: DIS: 10/24/2022 SPEC #: [id number] RECD: 10/24/22 12:12 STATUS: JAN RERambo #: [id number] LENNIE: 10/24/22 10:[address]: Rober Gonzalez DEPT: SURGICAL PATHOLOGY RECD BY: Sarai Renae ENTERED: 10/24/22 12:44 SP TYPE: ARTERY OTHR DR: Dr. Coy Younger MD Tissues: Artery, NOS Procedures: Elastin Stain (control) Special Stain Group II Surgery Specimen Level IV HEADER OPERATION: Fistula arteriovenous ligation PRE-OP DIAGNOSIS: Iatrogenic arteriovenous ligation TISSUE SUBMITTED: Pseudoaneurysm right radial artery MICROSCOPIC DIAGNOSIS Pseudoaneurysm of right radial artery, excision: Consistent with pseudoaneurysmal tissue. See comment. AM:roman 10/26/2022 COMMENT Immunohistochemistry ([id number]) supports the above diagnosis. Elastin stain with matched control was used in the evaluation of this case. Case has been reviewed in consultation with Dr. Azar who concurs with the above diagnosis. IDC:SJ MICROSCOPIC DESCRIPTION Slides are reviewed. GROSS DESCRIPTION Received in fixative is one container labeled with the patient's name and designated pseudoaneurysm right radial artery. The specimen consists of an irregular fragment of pink-jolly soft tissue measuring 0.8 x 0.5 x 0.5 cm. The specimen is bisected and totally submitted in one cassette. / AM:roman 10/24/2022 TC:5 CPT: 28976, 01524
[2022-10-24] MEDS: Bupivacaine 0.25% 30 ML Vial (10:31)
[2022-10-24] MEDS: Lidocaine 1% (20 ml mdv) 20 ML Vial (10:31)
[2022-10-24] MEDS: Heparin Injection (Vial) 5,000 UNIT/ML VIAL 5000 UNIT (10:31)
--- NOTE | 2022-10-24 11:24 | PCM.OPRPT ---
Problems Associated Problem List Diagnoses (1) Iatrogenic arteriovenous fistula: Report of Operation Date of Procedure: 10/24/22 Pre-Operative Diagnosis: iatrogenic right radial fistula Post-Operative Diagnosis: same Surgery/Procedure Performed:: simple repair right radial artery Description of Surgical Findings:: radio-cephalic fistula, radial pseudoaneurysm Surgeon: Rober Gonzalez Type of Anesthesia: Local MAC Estimated Blood Loss (mL): 5 Description of Procedure: HPI: Patient is a 76-year-old female who previously underwent cardiac catheterization via right radial access. Post procedure she had localized swelling and pain as well as discoloration of her hand. She had duplex which revealed a radial cephalic iatrogenic fistula. This failed to resolve with conservative treatment so she presents now for repair. Description of procedure: Upon obtaining form consent and verification correct patient procedure site the patient was taken to the operating room where she was positioned prepped and draped in usual sterile fashion. Timeout was then performed and ultrasound was used to evaluate the radial artery and cephalic vein. Direct communication between the anterior surface of the radial artery at the access site to a branch of the cephalic vein. There was arterialized flow and pulsatility in the cephalic branches. There also appeared to be potentially a pseudoaneurysm of the radial artery at the connection point, however this was unclear on the duplex. Skin was anesthetized with 1% lidocaine and longitudinal incision made. Bovie was used to dissect down through subcutaneous tissue and self-retaining retractors put in position. Sharp dissection was then used to dissect down to the branch of the cephalic vein which was ligated proximal to and distal to the fistula location. This was then divided to allow for better mobilization of the radial artery. As we dissected further toward the artery it was clear that there was in fact a small pseudoaneurysm as well and that essentially the fistula communication was lying on top of the pseudoaneurysm. Care was taken to identify and protect the adjacent nerve structures, and the radial artery was dissected free proximal and distal. Right angle was then used to place a vessel loop proximal and distal and the patient was heparinized and allowed to circulate for 3 minutes. The radial artery was then occluded with Vesseloops and further dissection carried down towards the base of the pseudoaneurysm. We eventually encountered the communication between the pseudoaneurysm and the lumen and the pseudoaneurysm capsule was excised in its entirety. The radial artery access site otherwise was normal in appearance and it was felt that simple lateral repair would be sufficient. 6-0 interrupted Prolene was then used to repair the vessel in transverse orientation. Prior to completing the suture line the vessels were backbled. After completing suture line clamps removed and satisfactory stasis was noted. There was some oozing from the needle holes so Surgicel topical hemostatic was applied. After this manual pressure was held and hemostasis reinspected. At this point with satisfactory stasis so the incision was closed with 3-0 Vicryl for Monocryl and Dermabond for the skin. Patient was reversed with protamine as well. Patient was then awake from anesthesia taken the recovery room anticipated discharged home.
--- NOTE | 2022-10-24 11:25 | DCINST_ITS ---
Discharge Instructions Diet Discharge Diet: No restrictions Activity May shower in (days): 1 Lifting Restrictions: not > 20 lbs right arm for 3 weeks Additional Activity Instructions:: do not submerge incision for 3 weeks Dressing / Incision Call your doctor if your incision/area has: Sudden Increased Bleeding, Increased Pain/ Swelling, Increased Redness and Foul Smelling Discharge Call your doctor if you observe: Fever of 101 or Higher and Coldness, Increased Pain Remove Dressing in: 1 day Cleanse incision/area with: Soap & Water Follow Up Care Test Results: Test results from this visit will be discussed in further detail at your follow- up appointment, if applicable. Discharge Plan Admission Attending Provider: Rober Gonzalez Primary Care Provider: Coy Younger Discharge Orders/Prescriptions Prescriptions: New oxycodone 5 mg tablet 5 mg PO Q8H PRN (Reason: pain) 4 Days Qty: 12 0RF Continued nitroglycerin 0.4 mg tablet, sublingual 0.4 mg sublingual Q5M PRN (Reason: chest pain) Qty: 20 3RF Rx Instructions: do not exceed 3 doses per episode atorvastatin 40 mg tablet 5 mg PO QHS omeprazole 40 mg capsule,delayed release(DR/EC) 40 mg PO DAILY Label Comments: TAKE 1 CAPSULE BY MOUTH ONCE DAILY cholecalciferol (vitamin D3) 125 mcg (5,000 unit) Capsule 125 mcg PO DAILY losartan 50 mg Tablet 50 mg PO DAILY 90 Days Qty: 90 0RF levothyroxine 88 mcg tablet 88 mcg PO QHS Rx Instructions: take 1.5tabs on aspirin 81 mg Capsule 81 mg PO DAILY clopidogrel 75 mg tablet 75 mg PO DAILY Qty: 90 3RF amlodipine 5 mg tablet 5 mg PO QHS Label Comments: Take 1 tablet by mouth once daily. metoprolol tartrate 50 mg tablet 50 mg PO BID Qty: 180 3RF Referrals / Follow Up: Coy Younger MD [Primary Care Provider] - Disposition Disposition (needs filled in before D/C Order can be placed): Home, Self Care
[2022-10-24] MEDS: Acetaminophen 500 MG Tablet 1000 MG PO (13:12)
== END 2022-10-24 13:20 | disposition home or self-care (01) ==
LOC: SDC 08:05 → AC 08:08
PROVIDERS: PCP Family Medicine; Referring Provider Surgery Trauma Surgery; Visit Provider Surgery Trauma Surgery
PROC: (CPT 37607; principal; 2022-10-24 09:45)
DX: I77.0 Arteriovenous fistula, acquired (principal); I77.2 Rupture of artery; E11.9 Type 2 diabetes mellitus without complications; I25.10 Atherosclerotic heart disease of native coronary artery without angina pectoris; F17.210 Nicotine dependence, cigarettes, uncomplicated; E78.00 Pure hypercholesterolemia, unspecified; Z79.82 Long term (current) use of aspirin; M79.643 Pain in unspecified hand; I10 Essential (primary) hypertension; E07.9 Disorder of thyroid, unspecified; Z79.02 Long term (current) use of antithrombotics/antiplatelets; Z79.83 Long term (current) use of bisphosphonates; Z98.61 Coronary angioplasty status
CPT/HCPCS: 35045; 01840; 36415; 80048; 85027; 88304; 88305; 88313; 88341; 88342; A4648; J7120; J2405

== ENCOUNTER → 2023-08-31 | Outpatient (CLI) | payer MEDICARE, SELFPAY ==
--- OUTSIDE RECORDS SUMMARY | 2023-08-31 09:33 | XMS RPT_ITS | CCD ---
Author Name Unknown Address [address] [facility] [address] [facility] [place] [address] [place] [id number] Organization [facility] Care Team Providers Care Manager Call Center Name Role Phone Coy Pfeiffer MD Primary Care Provider JEANCARLOS ROLAND Admitting Unavailable JEANCARLOS ROLAND Attending Unavailable JEANCARLOS RLOAND Referring Unavailable Coy Pfeiffer MD Primary Care Provider COY PFEIFFER Primary Care Unavailable SHAYLEE ROBERTSON Attending Unavailable COY PFEIFFER Primary Care Unavailable SHAYLEE ROBERTSON Referring Unavailable COY PFEIFFER Primary Care Unavailable COY PFEIFFER Primary Care Unavailable SHAYLEE ROBERTSON Attending Unavailable COY PFEIFFER Primary Care Unavailable COY PFEIFFER Primary Care Unavailable SHAYLEE ROBERTSON Referring Unavailable SWETHA FLORES Referring Unavailab COY Nelson Primary Care Unavailable SWETHA FLORES Referring Unavailab COY Nelson Primary Care Unavailable SWETHA FLORES Attending Unavailab COY Nelson Primary Care Unavailable JOANNE MOREAU Referring Unavailable COY PFEIFFER Primary Care Unavailable JOANNE MOREAU Attending Unavailable COY PFEIFFER Primary Care Unavailable COY PFEIFFER Attending Unavailable COY PFEIFFER Primary Care Unavailable Allergies Allergy Classification Reported Allergen(s) Allergy Type Date of Onset Reaction(s) Facility (20 sources) Aspirin; Translations: [ASPIRIN] Drug Allergy 11-07-19 14 Other: See [facility] Work Phone: (20 sources) egg extract; Translations: [EGG] Drug Allergy 11-07-19 14 [facility] Work Phone: (20 sources) hydroCHLOROthiazide / Lisinopril; Translations: [LISINOPRIL-HYDROCHLORO THIAZIDE] Drug Allergy 11-07-19 14 Hives [facility] Work Phone: (20 sources) Ibandronate; Translations: [IBANDRONATE] Drug Allergy 04-13-20 16 GI Upset, Shortness of Breath [facility] Work Phone: (20 sources) Iodine; Translations: [IODINE] Drug Allergy 11-07-19 14 Rash [facility] Work Phone: Medications Current Medications Medication Drug Class(es) Dates Sig (Normalized) Sig (Original) cyclobenzaprine hydrochloride 10 mg oral tablet (2 sources) Muscle Relaxant Start: 04-07-2023 End: 05-07-2023 take 1 tablet by mouth every eight hours as needed cyclobenzaprine (FLEXERIL) 10 mg tablet Take 1 tablet by mouth three times daily as needed for muscle spasm. 30 tablet 0 04/07/2023 05/07/2023 Active Completed/Discontinued Medications Medication Drug Class(es) Dates Sig (Normalized) Sig (Original) amLODIPine 5 mg oral tablet (20 sources) Dihydropyridine Calcium Channel [place] Start: 03-14-2022 End: 06-14-2023 take 1 tablet by mouth once daily amLODIPine (NORVASC) 5 mg tablet Indications: Essential hypertension Take 1 tablet by mouth once daily. 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] Onset: 3 10-31-2016 Chronic Coronary atherosclerosis and other heart disease (20 sources) Calcification of coronary artery; Translations: [Atherosclerotic heart disease of [place] coronary artery without angina pectoris] Onset: 2 02-17-2015 Chronic Coronary atherosclerosis and other heart disease (1 source) Patient post percutaneous transluminal coronary angioplasty; Translations: [Coronary angioplasty status] Episodic Disorders of lipid metabolism (2 sources) Mixed hyperlipidemia; Translations: [Mixed hyperlipidemia] Onset: 3 Chronic Esophageal disorders (20 sources) Arnold's esophagus; Translations: [Arnold's esophagus without dysplasia] Onset: 1 12-14-2020 Chronic Essential hypertension (20 sources) Hypertensive disorder; Translations: [Essential (primary) hypertension] Onset: 9 08-08-2018 Chronic Headache; including migraine (20 sources) Migraine without aura, not refractory ; Translations: [Migraine without aura, not intractable, with status migrainosus] Onset: 7 10-13-2016 Chronic Immunizations and screening for infectious disease (1 source) Vaccination needed; Translations: [Encounter for immunization] Episodic Open wounds of extremities (1 source) Puncture wound of left foot; Translations: [Puncture wound without foreign body, left foot, initial encounter] Episodic Osteoporosis (20 sources) Osteoporosis; Translations: [Age-related osteoporosis without current pathological fracture] Onset: 2 Chronic Other endocrine disorders (20 sources) Primary hyperparathyroidism; Translations: [Primary hyperparathyroidism] Onset: 7 11-17-2016 Chronic Other endocrine disorders (1 source) Primary hyperparathyroidism; Translations: [Primary hyperparathyroidism (HCC)] Onset: Chronic Other lower respiratory disease (2 sources) Dyspnea on exertion; Translations: [Other forms of dyspnea] 04-28-2023 Episodic Other nutritional; endocrine; and metabolic disorders (20 sources) H/O: hyperthyroidism; Translations: [Personal history of other endocrine, nutritional and metabolic disease] 11-06-2013 Episodic Other screening for suspected conditions (not mental disorders or infectious disease) (2 sources) Patient encounter status; Translations: [Encounter for screening mammogram for malignant neoplasm of breast] Episodic Pathological fracture (1 source) Primary osteoporosis; Translations: [Age-related osteoporosis with current pathological fracture, unspecified site, subsequent encounter for fracture with routine healing] Episodic Substance-related disorders (20 sources) Tobacco user; Translations: [Nicotine dependence, unspecified, uncomplicated] 11-06-2013 Chronic Thyroid disorders (20 sources) Hypothyroidism; Translations: [Hypothyroidism, unspecified] Onset: 5 11-12-2014 Chronic Past or Other Problems Problem Classification Problem Date Documented Da te Episodic/Chronic Abdominal pain (17 sources) Epigastric pain; Translations: [Epigastric pain] Onset: 02-25-2015 02-25-2015 Episodic Acquired foot deformities (20 sources) Acquired bilateral pes planus; Translations: [Flat foot [pes planus] (acquired), right foot] Onset: 12-04-2017 12-04-2017 Episodic Diabetes mellitus without complication (20 sources) Hyperglycemia; Translations: [Hyperglycemia, unspecified] Onset: 02-23-2022 Episodic Other bone disease and musculoskeletal deformities (20 sources) Osteopenia; Translations: [Other specified disorders of bone density and structure, unspecified site] Onset: 12-01-2011 12-14-2013 Episodic Other bone disease and musculoskeletal deformities (1 source) Other specified disorders of bone density and structure, unspecified site; Translations: [Osteopenia, unspecified location] Onset: 12-14-2013 Episodic Other connective tissue disease (20 sources) Plantar fasciitis of left foot; Translations: [Plantar fascial fibromatosis] Onset: 12-04-2017 12-04-2017 Episodic Other connective tissue disease (20 sources) Tibialis tendinitis; Translations: [Posterior tibial tendinitis, right leg] Onset: 12-04-2017 12-04-2017 Episodic Other lower respiratory disease (20 sources) Multiple nodules of lung; Translations: [Other nonspecific abnormal finding of lung field] Onset: 04-17-2022 Episodic Other lower respiratory disease (1 source) Other forms of dyspnea; Translations: [MENA (dyspnea on exertion)] Onset: 05-02-2023 Episodic Other lower respiratory disease (1 source) Other nonspecific abnormal finding of lung field; Translations: [Lung nodules] Onset: 04-28-2023 Episodic Other lower respiratory disease (1 source) Pleurodynia; Translations: [Rib pain] Onset: 04-07-2023 Episodic Phlebitis; thrombophlebitis and thromboembolism (20 sources) Deep venous thrombosis; Translations: [Acute embolism and thrombosis of unspecified deep veins of unspecified lower extremity] Onset: 10-30-2020 10-30-2020 Episodic Residual codes; unclassified (20 sources) Transfusion of blood product refused for buddhism reason; Translations: [Procedure and treatment not carried out because of patient's decision for reasons of belief and group pressure] Onset: 12-05-2016 12-05-2016 Episodic Spondylosis; intervertebral disc disorders; other back problems (20 sources) Spinal stenosis; Translations: [Spinal stenosis, site unspecified] Onset: 04-23-2018 08-02-2021 Episodic Unclassified (1 source) CAD WITH LAD DISECTION Onset: 07-21-2022 Results Test Name Value Interpretation Reference Range Facil ity Vital Signs Date Time Vital Sign Value Performing Clinician Faci lity 09-26-2023 10:20-0400 Body height 160 cm Pulm Wstr Work Phone: [facility] 05-02-2023 10:20-0400 Body weight 68.04 kg Pulm Wstr Work Phone: [facility] 05-02-2023 10:20-0400 Heart rate 77 /min Pulm Wstr Work Phone: [facility] 05-02-2023 10:20-0400 Respiratory rate 14 /min Pulm Wstr Work Phone: [facility] 05-02-2023 10:20-0400 SaO2% (BldA) [Mass fraction] 97 % Pulm Wstr Work Phone: [facility] 04-28-2023 09:23-0400 Body weight 69.4 kg Swetha Enochs-Merritt COLLEGE AND CAREER COUNSELOR.FINAL INSPECTOR [employer] Work Phone: [facility] 04-28-2023 09:23-0400 Diastolic blood pressure 65 mm[Hg] Swetha Enochs-Merritt COLLEGE AND CAREER COUNSELOR.FINAL INSPECTOR [employer] Work Phone: [facility] 04-28-2023 09:23-0400 Heart rate 63 /min Swetha Enochs-Merritt COLLEGE AND CAREER COUNSELOR.FINAL INSPECTOR [employer] Work Phone: [facility] 04-28-2023 09:23-0400 Respiratory rate 18 /min Swetha Enochs-Merritt COLLEGE AND CAREER COUNSELOR.FINAL INSPECTOR [employer] Work Phone: [facility] 04-28-2023 09:23-0400 SaO2% (BldA) [Mass fraction] 95 % Swetha Enochs-Merritt COLLEGE AND CAREER COUNSELOR.FINAL INSPECTOR [employer] Work Phone: [facility] 04-28-2023 09:23-0400 Systolic blood pressure 104 mm[Hg] Swetha Enochs-Merritt COLLEGE AND CAREER COUNSELOR.FINAL INSPECTOR [employer] Work Phone: [facility] 09-14-2022 14:33-0500 Body weight 69.31 kg Shaylee Robertson MD Work Phone: [facility] 09-14-2022 14:33-0500 Diastolic blood pressure 76 mm[Hg] Shaylee Robertson MD Work Phone: [facility] 09-14-2022 14:33-0500 Heart rate 66 /min Shaylee Robertson MD Work Phone: [facility] 09-14-2022 14:33-0500 Systolic blood pressure 122 mm[Hg] Shaylee Robertson MD Work Phone: [facility] 07-26-2022 14:35-0500 Body height 160 cm Coy Pfeiffer MD Work Phone: [facility] 07-26-2022 14:35-0500 Body weight 69.4 kg Coy Pfeiffer MD Work Phone: [facility] 07-26-2022 14:35-0500 Diastolic blood pressure 70 mm[Hg] Coy Pfeiffer MD Work Phone: [facility] 07-26-2022 14:35-0500 Heart rate 72 /min Coy Pfeiffer MD Work Phone: [facility] 07-26-2022 14:35-0500 SaO2% (BldA) [Mass fraction] 98 % Coy Pfeiffer MD Work Phone: [facility] 07-26-2022 14:35-0500 Systolic blood pressure 126 mm[Hg] Coy Pfeiffer MD Work Phone: [facility] 04-18-2022 09:14-0400 Body weight 67.13 kg NA Simon PA-C Work Phone: [facility] 04-18-2022 09:14-0400 Diastolic blood pressure 62 mm[Hg] NA Simon PA-C Work Phone: [facility] 04-18-2022 09:14-0400 Heart rate 77 /min NA Simon PA-C Work Phone: [facility] 04-18-2022 09:14-0400 Respiratory rate 18 /min NA Simon PA-C Work Phone: [facility] 04-18-2022 09:14-0400 SaO2% (BldA) [Mass fraction] 95 % NA Alfred PA-C Work Phone: [facility] 04-18-2022 09:14-0400 Systolic blood pressure 110 mm[Hg] NA Simon PA-C Work Phone: [facility] 04-15-2022 08:54-0400 Body temperature 97.9 [degF] Treatment Wstr Work Phone: [facility] 04-15-2022 08:54-0400 Diastolic blood pressure 84 mm[Hg] Treatment Wstr Work Phone: [facility] 04-15-2022 08:54-0400 Heart rate 65 /min Treatment Wstr Work Phone: [facility] 04-15-2022 08:54-0400 Systolic blood pressure 133 mm[Hg] Treatment Wstr Work Phone: [facility] 03-25-2022 11:38-0400 Body height 160 cm Swetha Atkinson COLLEGE AND CAREER COUNSELOR.FINAL INSPECTOR [employer] Work Phone: [facility] 03-25-2022 11:38-0400 Body weight 67.59 kg Swethasilver Atkinson COLLEGE AND CAREER COUNSELOR.FINAL INSPECTOR [employer] Work Phone: [facility] 03-25-2022 11:38-0400 Diastolic blood pressure 70 mm[Hg] Swetha Atkinson COLLEGE AND CAREER COUNSELOR.FINAL INSPECTOR [employer] Work Phone: [facility] 03-25-2022 11:38-0400 Heart rate 70 /min Swetha Atkinson COLLEGE AND CAREER COUNSELOR.FINAL INSPECTOR [employer] Work Phone: [facility] 03-25-2022 11:38-0400 SaO2% (BldA) [Mass fraction] 97 % Swetha Atkinson COLLEGE AND CAREER COUNSELOR.FINAL INSPECTOR [employer] Work Phone: [facility] 03-25-2022 11:38-0400 Systolic blood pressure 140 mm[Hg] Swetha Atkinson COLLEGE AND CAREER COUNSELOR.FINAL INSPECTOR [employer] Work Phone: [facility] 02-23-2022 08:07-0400 Body height 161 cm Coy Pfeiffer MD Work Phone: [facility] 02-23-2022 08:07-0400 Body weight 66.86 kg Coy Pfeiffer MD Work Phone: [facility] 02-23-2022 08:07-0400 Diastolic blood pressure 84 mm[Hg] Coy Pfeiffer MD Work Phone: [facility] 02-23-2022 08:07-0400 Heart rate 76 /min Coy Pfeiffer MD Work Phone: [facility] 02-23-2022 08:07-0400 Respiratory rate 16 /min Coy Pfeiffer MD Work Phone: [facility] 02-23-2022 08:07-0400 Systolic blood pressure 128 mm[Hg] Coy Pfeiffer MD Work Phone: [facility] Encounters Encounter Date Encounter Type Care Provider Facility Start: 08-21-2023 End: 08-22-2023 ambulatory COY PFEIFFER Facility:[facility] Start: 07-05-2023 Telephone encounter Coy Pfeiffer MD Work Phone: [facility] Procedures Date Procedure Procedure Detail Performing Clinician Start: 05-02-2023 Brncdilat rspse spmt ry pre&post-brncdilat admn Swetha Flroes COLLEGE AND CAREER COUNSELOR.FINAL INSPECTOR [employer] Work Phone: Start: 04-05-2022 Dxa bone density frank dy 1/> sites axial skel Coy Pfeiffer MD Work Phone: Start: 02-23-2022 Adult depression screening assessment Coy Pfeiffer MD Work Phone: Start: 11-04-2021 KELLI SCREENING W FLOR Hastings MD Work Phone: Start: 03-12-2018 Adult depression screening assessment Screen Wstr Plan of Treatment Date Care Activity Detail Author Start: 02-24-2032 Urine microalbumin profile [facility] Start: 08-18-2025 DIABETES SCREEN DIABETES SCREEN [facility] Start: 08-18-2025 Diabetes Screening Diabetes Screenin g [facility] Start: 02-28-2025 DIABETES SCREEN DIABETES SCREEN [facility] Start: 07-12-2024 DIABETES SCREEN DIABETES SCREEN [facility] Start: 04-28-2024 BP Controlled (<130/80) BP Controlle d (<130/80) [facility] Start: 04-07-2024 Annual PCP Team Consultant Intern cely Disease Visit Annual PCP Team Chronic Disease Visit [facility] Start: 03-28-2024 Covid-19 Vaccine (3 - Booster for Kendal series) Covid-19 Vaccine (3 - Booster for Kendal series) [facility] Immunizations Immunization Date Immunization Notes Care Provider Alyssa benito 06-24-2022 influenza virus vacc ine, unspecified formulation Swetha Flores COLLEGE AND CAREER COUNSELOR.FINAL INSPECTOR [employer] Work Phone: [facility] 02-23-2022 tetanus toxoid, redu júnior diphtheria toxoid, and acellular pertussis vaccine, adsorbed Coy Pfeiffer MD Work Phone: [facility] 04-30-2021 COVID-19 vaccine, ag e 12+ yr ([employer] - PURPLE TOP) [facility] 10-15-2020 COVID-19 vaccine (KENDAL) [facility] 06-07-2020 influenza, high dose seasonal, preservative-free [facility] 05-12-2020 influenza, high-dose , quadrivalent vaccine (FLUZONE HIGH DOSE QUADRIVALENT) [facility] 07-19-2019 influenza, high dose seasonal, preservative-free [facility] 04-16-2019 zoster vaccine recombinant [facility] 02-05-2019 zoster vaccine recombinant [facility] 06-08-2018 influenza, high dose seasonal, preservative-free [facility] 08-08-2016 influenza, high dose seasonal, preservative-free [facility] 04-09-2015 pneumococcal conjuga te vaccine, 13 valent [facility] 05-07-2014 influenza, high dose seasonal, preservative-free [facility] Work Phone: 08-07-2013 pneumococcal polysaccharide vaccine, 23 valent Lisset Harvey [facility] 05-19-2011 influenza, seasonal, injectable [facility] Work Phone: Payers Date Payer Category Payer Unknown [employer] BL[employer] J[employer] S [employer] BLUE SHIELD [employer] HMO [id number] 2020-Present [phone] [address] [place] [address] O [id number] 2020 Unknown ANTHEM BLUE CROS S AND BLUE SHIELD ANTHEM MEDIBLUE O [id number] 2020-Present [phone] [address] [place] [address] O [id number] 2020 Unknown [id number] Social History Date Type Detail Facility Start: 12-01-[facility] Start: 02-25-1970 End: 11-10-2020 History of tobacco use Current smoker [facility] Start: 08-07-1966 End: 11-10-2020 History of tobacco use Cigarette Smoker [facility] Start: 12-01-2020 End: 03-07-2023 Cigarettes smoked current (pack per day) - Reported 0.5 [facility] Start: 12-01-2020 End: 04-28-2023 Tobacco use and exposure Smokeless tobacco non-user [facility] Start: 09-15-2021 End: 05-02-2023 Alcohol intake Current drinker of alcohol (finding) [facility] Start: 08-25-2020 History SDOH Alcohol Binge 1 [facility] Start: 11-06-2013 History SDOH Alcohol Comment rare [facility] Start: 08-25-2020 History SDOH Social Connections Phone 5 [facility] Start: 08-25-2020 History SDOH Social Connections Get Together 2 [facility] Start: 08-25-2020 History SDOH Social Connections Muslim 3 [facility] Start: 08-25-2020 History SDOH Financial 4 [facility] Start: 08-25-2020 Education 15 [facility] Start: 11-06-2013 Tobacco Comment started smokin g 23yo, usually 1 PPD 40+ pack years [facility] Start: 1945 Sex Assigned At Female C [facility] Start: 10-25-2021 End: 04-18-2022 Exposure to SARS-CoV-2 (event) Not sure [facility] Start: 08-07-1966 End: 04-28-2023 Tobacco smoking status NHIS Smokes tobacco daily [facility] Start: 08-25-2020 End: 03-07-2023 Social connection and isolation panel [facility] Do you belong to any clubs or organizations such as congregational groups, unions, fraViroXis or athletic groups, or school groups? No [facility] Are you now , , , , never or living with a partner? [facility] Frequency of Alcohol Consumption Not on file [facility] How often do you hav e 6 or more drinks on 1 occasion? Never [facility] How hard is it for y ou to pay for the very basics like food, housing, medical care, and heating Not very hard [facility] Do you feel stress - tense, restless, nervous, or anxious, or unable to sleep at night because your mind is troubled all the time - these days [OSQ] Not at all [facility] (I/We) worried wheth er (my/our) food would run out before (I/we) got money to buy more. Never true [facility] Start: 03-21-2019 Gender identity Identifies as female gender (finding) [facility] Start: 03-21-2019 Sexual orientation Heterosexual (fin dorinda) [facility] Clinical Notes 02-25-2015 to 07-05-2023 Telephone Encounter - Maria Elena Scruggs RN - 07/05/2023 2:58 PM ESTTelephone Encounter - Coy Pfeiffer MD - 07/05/2023 12:02 PM ESTTelephone Encounter - Jayshree Jaquez LPN - 07/05/2023 11:44 AM EST Note Date & Type Note Facility 07-05-2023 Miscellaneous Notes Called and spoke with pt and as per the [facility] meds, pt is on Metoprolol Tartrate [address] Bashir Saucedo changed her to the tartrate back in March. Explained to pt that when she needs to get refills, she needs to confirm from the bottle who prescribed it. And also that when she has med changes from different providers that she needs to make sure and keep the different providers updated with the changes. Dr. Pfeiffer, could you perhaps update her med list by cancelling the Metoprolol Succinate and replacing it with the Metoprolol Tartrate 50 mg tablet with sig: Take 1 tablet by mouth twice daily? See below. Verify what she exactly wanted. And how much taking and how often It looks like this was changed by the [facility] when checking [facility] . When she called for a refill it was reordered as what we had on file. Patient said she received her mail order scripts form [facility]. Said she received metoprolol succinate ER and she doesn't use that. Said she takes metooprolol tartrate 50 mg. Please review and advise at [phone]. documented in this encounter [facility] 06-24-2023 Miscellaneous Notes Reclast ordered again Patient was supposed to have her Reclast infusion a month ago and she forgot. That order has since and she is requesting a new one. according to the patient her last infusion was 04/2022 Carmen Ponce RN Patient said she has infusions for bone density done in [place], [place] (like Prolea, but not). She requested an order be placed. She can be reached at [phone]. Thanks. documented in this encounter [facility] 06-15-2023 Miscellaneous Notes Let patient know her plavix comes from Dr. Braga and needs to call his office for refill.' Also I changed her Losartan from 100 mg to 50 mg so she does not half to cut it in half any longer. The following approved medication requests have been transmitted electronically. Requested Prescriptions Signed Prescriptions Disp Refills metoprolol succinate ER (TOPROL XL) 50 mg 24 hr tablet 90 tablet 1 Sig: Take 1 tablet by mouth once daily. Authorizing Provider: HUEY HENAO losartan (COZAAR) 50 mg tablet 90 tablet 1 Sig: Take 1 tablet by mouth once daily. Authorizing Provider: HUEY HENAO omeprazole (PRILOSEC) 40 mg capsule 90 capsule 1 Sig: Take 1 capsule by mouth once daily. Authorizing Provider: HUEY HENAO amLODIPine (NORVASC) 5 mg tablet 90 tablet 1 Sig: Take 1 tablet by mouth once daily. Authorizing Provider: HUEY HENAO atorvastatin (LIPITOR) 10 mg tablet 45 tablet 1 Sig: TAKE 1/2 (ONE-HALF) OF A TABLET BY MOUTH DAILY Authorizing Provider: HUEY HENAO levothyroxine (SYNTHROID) 88 mcg tablet 100 tablet 1 Sig: Take one tab daily by mouth and on take an extra half a tablet. Authorizing Provider: HUEY HENAO MD Patient has been identified by name and date of : Yes Requested Prescriptions Pending Prescriptions Disp Refills clopidogrel (PLAVIX) 75 mg tablet Sig: Take 1 tablet by mouth once daily. metoprolol succinate ER (TOPROL XL) 50 mg 24 hr tablet 90 tablet 1 Sig: Take 1 tablet by mouth once daily. losartan (COZAAR) 100 mg tablet 90 tablet 3 Sig: Take 0.5 tablets by mouth once daily. omeprazole (PRILOSEC) 40 mg capsule 90 capsule 1 Sig: Take 1 capsule by mouth once daily. amLODIPine (NORVASC) 5 mg tablet 90 tablet 1 Sig: Take 1 tablet by mouth once daily. atorvastatin (LIPITOR) 10 mg tablet levothyroxine (SYNTHROID) 88 mcg tablet 100 tablet 3 Si & 1/2 pills per day, one a day, but on take an extra half pill Patient asking for 90 days. RX INSTRUCTIONS: Patient aware RX will be sent to pharmacy. No need to notify patient. Lucille Agustin documented in this encounter [facility] 05-02-2023 Note HNO ID: [id number] Author: May Nguyễn RPFT Service: ? Author Type: Respiratory Therapist Type: Progress Notes Filed: 05/02/2023 10:23 AM Note Text: PULM FUNCTION SMARTBLOCK: Provider: Swetha Flores APRN.FINAL INSPECTOR [employer] Assisting Tech: May Nguyễn RPFT Spirometry w/BD: 1 [facility] 05-02-2023 History of Present illness Narrative PULM FUNCTION SMARTBLOCK: Provider: Swetha Flores APRN.FINAL INSPECTOR [employer] Assisting Tech: May Nguyễn RPFT Spirometry w/BD: 1 documented in this encounter [facility] 04-28-2023 Note HNO ID: [id number] Author: Swetha Flores APRN.FINAL INSPECTOR [employer] Service: ? Author Type: Nurse Practitioner Type: Progress Notes Filed: 04/28/2023 9:58 AM Note Text: [facility] Lung Cancer Screening Annual Visit Chief Complaint: Established patient in lung cancer screening program here for annual follow-up. Impression / Recommendations Fidelina Pritchett Camelia presents for annual lung cancer screening annual exam and nodule evaluation. Plan: Indeterminate pulmonary nodules: Previously identified nodules appear stable and no new nodules of concern were seen on the exam. Low dose CT Scan to be repeated in one year. Plan subject to change pending final radiology report and recommendations. Nature of the lung nodule(s) and the options for further evaluation discussed in detail with patient. Fidelina Denise expressed understanding and is in agreement with plan. 2. Encounter for screening for malignant neoplasm of respiratory organs I have determined that the patient is eligible for continued low dose CT screening based on age, absence of signs or symptoms of lung cancer, smoking history and total pack years. The patient was counseled on the importance of adherence to annual LDCT lung cancer screening, impact of comorbidities and ability or willingness to undergo diagnosis and treatment. The patient understands and feels comfortable with it: Yes. 3. Personal History of Nicotine Dependence The patient was counseled on the importance of smoking cessation if current smoker and, if appropriate, offered additional tobacco cessation counseling services - Smoking Cessation Counseling. 4. MENA: -Obtain PFTs to rule out COPD SMOKING CESSATION COUNSELING Smoking cessation methods including Behavior Modification were discussed with the patient and assistance offered. The medical conditions adversely affected by cigarette use include:COPD and Emphysema. Counseled on benefits of quitting smoking, recommended cessation or reduction to prevent development and/or progression of emphysema. The patient is currently not ready to quit. I personally spent 3 minutes in counseling. The time spent in smoking cessation counseling is exclusive of any other counseling during this visit. Medical Decision Making: Problems: Moderate: 2+ stable chronic illnesses Data: Unique test result(s) reviewed: 2 Unique test(s) ordered: 1 Assessment requiring an independent historian(s) Risk: Low: Low risk from testing/treatment Medical Decision Making Level: 4 - Moderate Swetha Flores APRN.[facility] [id number] April 28, 2023 9:16 AM ------- History of Present Illness: Fidelina Denise is a 77 year old female who is presenting today for annual lung cancer screening LDCT and nodule surveillance/management. Patient has multiple nodules found on previous lung cancer screening LDCT. Last LDCT was performed on 04/13/2022 and was LUNG RADS Category 2. Previous potentially significant incidental findings on imaging: None. Patient is a current smoker with a 56 pack year history. Patient is currently still smoking 5-8 cigarettes daily. Patient will no longer be eligible for lung cancer screening due to age 77. The patient does not have any symptoms or signs of lung cancer. Patient admits to MENA when climbing uphill or up stairs. For exercise they walk their dogs. She has never had PFTs and is not on an inhaler regimen. SOB may also be due to recent heart attack in the past year with stent placement. No wheezing or dyspnea. Patient denies feeling of chest tightness/congestion in the chest. Patient does have a new or concerning cough that is nonproductive, and denies hemoptysis. Patient does not have a chronic daily cough. Denies regular or recent fevers/chills. Patient does not have any significant unintentional weight loss. Patient denies having any respiratory infections or COVID-19 in the past few months. PMH significant for migraines, CAD, HTN, hyperthyroidism, Arnold's esophagus, osteopenia, spinal stenosis, DVT. Modified Medical Research [place] Dyspnea Scale (MMRC) I get short of breath when hurrying on level ground or walking up a slight hill 1 Last 5 Encounter Wt Readings: Date: Wt: 04/07/2023 69.6 kg (153 lb 6.4 oz) 03/28/2023 68.5 kg (151 lb) 09/14/2022 69.3 kg (152 lb 12.8 oz) 07/26/2022 69.4 kg (153 lb) 04/18/2022 67.1 kg (148 lb) Social History Tobacco Use: 1 packs/day, for 55 years. Types: Cigarettes Past Medical History: PAST MEDICAL HISTORY Diagnosis Date Abnormal glucose tolerance test 1995 low sugar Arthritis Arnold esophagus 2016 Coronary artery calcification seen on CAT scan 2013 Emphysema 09/20/2012 CT=emphysema, calcified granuloma RLL Endometriosis Headache cervical History of hyperthyroidism ~ Hx of migraine headac (more content not included)... [facility] 04-28-2023 Note HNO ID: [id number] Author: Leisa Jarquin RT(R) Service: ? Author Type: Assistant Men'S Soccer Coach Type: Progress Notes Filed: 04/28/2023 8:44 AM Note Text: Radiology Service Progress Note PATIENT NAME: Fidelina Denise DATE OF SERVICE: April 28, 2023 TIME: 8:43 AM PATIENT IDENTITY VERIFICATION COMPLETED USING TWO (2) IDENTIFIERS: Name and Date of confirmed by patient verbally. FALL SCREENING: Has the patient had 2 falls in the last year or 1 fall with injury or currently using an Ambulatory Assistive Device (Walker, Cane, Wheelchair, Crutches, etc.)? No PATIENT GENDER DATA: Female. status: : No status: NO. PATIENT RELEVANT IMPLANT DATA REVIEWED: Yes RADIOLOGY DEPARTMENT: CT; Exam(s) Completed: Chest PERIPHERAL IV DATA: Not applicable SIGNED BY: RT Regan(R) April 28, 2023 8:43 AM [facility] 04-28-2023 Instructions Swetha Flores, CLARITA.[facility] - 04/28/2023 9:[address] Lung Screen Results The CT scan that you will have done today will show if you have any nodules (small spots) in your lungs that are suspicious for cancer. Around 90% of the patients who have this scan done are found to have at least one nodule. Most nodules are benign (not cancer) and of no harm to you at all. A specialist will make a scientific evaluation about whether or not a nodule is worrisome based on its size and shape. The radiologist who will read your scan will put it into one of four categories: LUNG-RADS Category Description Overall Probability of Malignancy Recommended Follow-Up 1 Negative No nodules and definitely benign (non-cancerous nodules) Essentially 0. 1 Year - Follow-up Low dose CT 2 Benign Appearance or Behavior Nodules with a very low likelihood of becoming cancer due to size or lack of growth Less than 1% 1 Year - Follow-up Low dose CT 3 Probably Benign Probably benign finding, short term follow-up recommended 1 to 2% 6 Months - Follow-up Low dose CT 4 Suspicious Findings for which additional diagnostic testing and/or biopsy is recommended Will be calculated based on nodule characteristics. Dependent on what is seen on the exam. At times, we may see something outside of the lungs on the scan that could be a health concern. Below are some of the most common findings: S Clinically Significant or Potentially Clinically Significant Findings (non lung cancer) Referral or additional imaging/labs depending on result. Approximately 10% of people receive this result. Coronary Artery Calcifications (Moderate or Severe) - Referral to cardiology for further work-up and recommendations. Thyroid Nodule - TSH level and Thyroid Ultrasound dependent on size, referral to endocrinology. Adrenal Nodule - Blood work and referral to endocrinology. Others Lung Cancer Screening hotline: [phone] Lung Cancer Screening [phone] Lung Cancer Screening Team: Swetha Flores APRN.CNP [phone] documented in this encounter [facility] 04-28-2023 History of Present illness Narrative [facility] Lung Cancer Screening Annual Visit Chief Complaint: Established patient in lung cancer screening program here for annual follow-up. Impression / Recommendations Fidelina Shreyas Denise presents for annual lung cancer screening annual exam and nodule evaluation. Plan: Indeterminate pulmonary nodules: Previously identified nodules appear stable and no new nodules of concern were seen on the exam. Low dose CT Scan to be repeated in one year. Plan subject to change pending final radiology report and recommendations. Nature of the lung nodule(s) and the options for further evaluation discussed in detail with patient. Fidelina Shreyas Denise expressed understanding and is in agreement with plan. 2. Encounter for screening for malignant neoplasm of respiratory organs I have determined that the patient is eligible for continued low dose CT screening based on age, absence of signs or symptoms of lung cancer, smoking history and total pack years. The patient was counseled on the importance of adherence to annual LDCT lung cancer screening, impact of comorbidities and ability or willingness to undergo diagnosis and treatment. The patient understands and feels comfortable with it: Yes. 3. Personal History of Nicotine Dependence The patient was counseled on the importance of smoking cessation if current smoker and, if appropriate, offered additional tobacco cessation counseling services - Smoking Cessation Counseling. 4. MENA: -Obtain PFTs to rule out COPD SMOKING CESSATION COUNSELING Smoking cessation methods including Behavior Modification were discussed with the patient and assistance offered. The medical conditions adversely affected by cigarette use include:COPD and Emphysema. Counseled on benefits of quitting smoking, recommended cessation or reduction to prevent development and/or progression of emphysema. The patient is currently not ready to quit. I personally spent 3 minutes in counseling. The time spent in smoking cessation counseling is exclusive of any other counseling during this visit. Medical Decision Making: Problems: Moderate: 2+ stable chronic illnesses Data: Unique test result(s) reviewed: 2 Unique test(s) ordered: 1 Assessment requiring an independent historian(s) Risk: Low: Low risk from testing/treatment Medical Decision Making Level: 4 - Moderate Swetha Flores APRN.[facility] [id number] April 28, 2023 9:16 AM History of Present Illness: Fidelina Denise is a 77 year old female who is presenting today for annual lung cancer screening LDCT and nodule surveillance/management. Patient has multiple nodules found on previous lung cancer screening LDCT. Last LDCT was performed on 04/13/2022 and was LUNG RADS Category 2. Previous potentially significant incidental findings on imaging: None. Patient is a current smoker with a 56 pack year history. Patient is currently still smoking 5-8 cigarettes daily. Patient will no longer be eligible for lung cancer screening due to age 77. The patient does not have any symptoms or signs of lung cancer. Patient admits to MENA when climbing uphill or up stairs. For exercise they walk their dogs. She has never had PFTs and is not on an inhaler regimen. SOB may also be due to recent heart attack in the past year with stent placement. No wheezing or dyspnea. Patient denies feeling of chest tightness/congestion in the chest. Patient does have a new or concerning cough that is nonproductive, and denies hemoptysis. Patient does not have a chronic daily cough. Denies regular or recent fevers/chills. Patient does not have any significant unintentional weight loss. Patient denies having any respiratory infections or COVID-19 in the past few months. PMH significant for migraines, CAD, HTN, hyperthyroidism, Arnold's esophagus, osteopenia, spinal stenosis, DVT. Modified Medical Research [place] Dyspnea Scale (MMRC) I get short of breath when hurrying on level ground or walking up a slight hill 1 Last 5 Encounter Wt Readings: Date: Wt: 04/07/2023 69.6 kg (153 lb 6.4 oz) 03/28/2023 68.5 kg (151 lb) 09/14/2022 69.3 kg (152 lb 12.8 oz) 07/26/2022 69.4 kg (153 lb) 04/18/2022 67.1 kg (148 lb) Social History Tobacco Use: 1 packs/day, for 55 years. 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 Dr Blackwell at [facility] Snoring Spinal stenosis lumbar Tobacco use disorder Family Hx: FAMILY HISTORY Problem Relation Age of Onset Heart Failure Mother Asthma Mother Cancer Father kidney Heart Maternal Grandmother Hypertension Sister Clotting Disorder Sister Diabetes Sister other (rectal cancer) Sister great grandmother Surgical Hx: PAST SURGICAL HISTORY Procedure Laterality Date ABDOMINAL SURGERY HX APPENDECTOMY HX BREAST SURGERY HX BRST BX INCISIONAL Left 1986 lumpectomies for breast cysts, pre-cancerous one in CHOLECYSTECTOMY 1974 COLSC FLX W/RMVL OF TUMOR POLYP LESION SNARE TQ 03/24/2015 2 small hyperplastic polyps- 10 year follow up EGD TRANSORAL BIOPSY SINGLE/MULTIPLE 03/24/2015 gastritis, ?arnold's esophagitis EGD TRANSORAL BIOPSY SINGLE/MULTIPLE 07/17/2015 short segment arnold's, repeat in 2 years ESOPHAGOGASTRODUODENOSCOPY TRANSORAL DIAGNOSTIC 09/01/2017 EGD ESOPHAGOGASTRODUODENOSCOPY TRANSORAL DIAGNOSTIC 12/01/2020 repeat in 3 years 11/2023 EYE SURGERY HX PAST SURGICAL HISTORY OF Right 2016 carpal tunnel, ulnar neuropathy SUPRACERVICAL ABDL HYSTER W/WO RMVL TUBE OVARY 1971 left oophorectomy for cysts and endometriosis VAGINAL HYSTERECTOMY WRIST ARTHROSCOPY/SURGERY Left 90s ?Dequervains tendon procedure on left? Allergies: ALLERGIES Allergen Reactions Asa [Aspirin] Other: See Comments Thins blood too much and causes nose bleeds Boniva [Ibandronate] GI Upset, Shortness of Breath Eggs [Egg] Hives reports allergy to egg yolk Iodine Rash Lisinopril-Hydrochl* Hives Review Of Systems: See HPI for ROS All of the remainder systems were reviewed and negative. PHYSICAL EXAMINATION: BP 104/65 Pulse 63 Resp 18 Wt 153 lb (69.4kg) SpO2 95% General appearance: well appearing, in no acute distress, and alert Respiratory: lungs clear to auscultation no wheezing or rhonchi Cardiovascular: Negative. RRR without murmur, gallop, or rubs. No ectopy Data Review I have visually reviewed imaging and testing below CT Lung 04/28/2023: compared to 04/13/2022: -nodules stable -no new nodules CT imaging done today was reviewed independently and compared to prior CT chest imaging by practitioner and awaiting radiology review. Imaging Last CT/CTA Chest/Lungs CT LUNG FOLLOWUP WO IVCON Exam End: 04/28/2023 8:58 AM (In process) Last CT Chest - Impression Only No resulted procedures found. Last XR Chest - Impression Only XR CHEST 2V FRONTAL/LAT Exam End: 04/07/2023 9:58 AM (Final result) Impression: IMPRESSION: No acute radiographic abnormality. ... Pulmonary Function Testing: No textual results found for the specified procedure(s). documented in this encounter [facility] 04-07-2023 Note HNO ID: [id number] Author: Sri Lott RT(R) Service: ? Author Type: Assistant Men'S Soccer Coach Type: Progress Notes Filed: 04/07/2023 9:55 AM Note Text: Radiology Service Progress Note PATIENT NAME: Fidelina Denise DATE OF SERVICE: April 07, 2023 TIME: 9:35 AM PATIENT IDENTITY VERIFICATION COMPLETED USING TWO (2) IDENTIFIERS: Name and Date of confirmed by patient verbally. FALL SCREENING: Has the patient had 2 falls in the last year or 1 fall with injury or currently using an Ambulatory Assistive Device (Walker, Cane, Wheelchair, Crutches, etc.)? No PATIENT GENDER DATA: Female. status: : No status: NO. PATIENT RELEVANT IMPLANT DATA REVIEWED: Yes RADIOLOGY DEPARTMENT: General X-ray: Exam(s) Completed: Chest X-Ray Spine X-Ray(s): Cervical AP / LAT / OBL and Thoracic PERIPHERAL IV DATA: Not applicable SIGNED BY: RT Abhijeet(R) April 07, 2023 9:35 AM [facility] 04-07-2023 Note HNO ID: [id number] Author: Joanne Moreau APRN.[employer] Service: ? Author Type: Nurse Practitioner Type: Progress Notes Filed: 04/07/2023 9:46 AM Note Text: Chief Complaint Patient presents with: Pain: Back and rib pain . Started Monday taking tyl. Helps a little bit. HPI Fidelina Denise is a 77 year old female who presents here today for Above Complaints.. Fidelina is an established patient of Dr. Carisa MD. She is a new patient to me today. Concerns today... Back/rib pain --- Was seen in office on Monday but did not mention these symptoms due to being mild. Pt reports upper back pain intermittently x 5-6 weeks. Reports shooting pain to bilateral shoulder blades and generalized achiness with movement. Monday started with rib pain that wraps around from back to chest, bilateral but R > L. No fall or known injury. Does report washing cabinets on Monday which may be contributing. Tylenol gives some relief. Hx of pleurisy. Denies any SOB or CP. Normal ROM. No other concerns or complaints. Past medical history, appointments, medications, allergies reviewed. 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 Dr Blackwell at [facility] Snoring Spinal stenosis lumbar Tobacco use disorder Previous Surgical History PAST SURGICAL HISTORY Procedure Laterality Date ABDOMINAL SURGERY HX APPENDECTOMY HX BREAST SURGERY HX BRST BX INCISIONAL Left 1987 lumpectomies for breast cysts, pre-cancerous one in CHOLECYSTECTOMY 1973 COLSC FLX W/RMVL OF TUMOR POLYP LESION SNARE TQ 03/24/2015 2 small hyperplastic polyps- 10 year follow up EGD TRANSORAL BIOPSY SINGLE/MULTIPLE 03/24/2015 gastritis, ?arnold's esophagitis EGD TRANSORAL BIOPSY SINGLE/MULTIPLE 07/17/2015 short segment arnold's, repeat in 2 years ESOPHAGOGASTRODUODENOSCOPY TRANSORAL DIAGNOSTIC 09/01/2017 EGD ESOPHAGOGASTRODUODENOSCOPY TRANSORAL DIAGNOSTIC 12/01/2020 repeat in 3 years 11/2023 EYE SURGERY HX PAST SURGICAL HISTORY OF Right 2016 carpal tunnel, ulnar neuropathy SUPRACERVICAL ABDL HYSTER W/WO RMVL TUBE OVARY 1971 left oophorectomy for cysts and endometriosis VAGINAL HYSTERECTOMY WRIST ARTHROSCOPY/SURGERY Left ?Dequervains tendon procedure on left? Family History FAMILY HISTORY Problem Relation Age of Onset Heart Failure Mother Asthma Mother Cancer Father kidney Heart Maternal Grandmother Hypertension Sister Clotting Disorder Sister Diabetes Sister other (rectal cancer) Sister great grandmother Patient Allergies ALLERGIES Allergen Reactions Asa [Aspirin] Other: See Comments Thins blood too much and causes nose bleeds Boniva [Ibandronate] GI Upset, Shortness of Breath Eggs [Egg] Hives reports allergy to egg yolk Iodine Rash Lisinopril-Hydrochl* Hives Current Medications Current Outpatient Medications on File Prior to Visit Medication Sig atorvastatin (LIPITOR) 10 mg tablet TAKE 1/2 (ONE-HALF) OF A TABLET BY MOUTH DAILY levothyroxine (SYNTHROID) 88 mcg tablet 7 AND 1/2 pills per day, one a day, but on take an extra half pill omeprazole (PRILOSEC) 40 mg capsule Take 1 capsule by mouth once daily. amLODIPine (NORVASC) 5 mg tablet Take 1 tablet by mouth once daily. metoprolol succinate ER (TOPROL XL) 50 mg 24 hr tablet Take 1 tablet by mouth once daily. losartan (COZAAR) 100 mg tablet Take 0.5 tablets by mouth once daily. clopidogrel (PLAVIX) 75 mg tablet Take 75 mg by mouth once daily. nitroglycerin sublingual (NITROQUICK) 0.4 mg SL tablet Dissolve 0.4 mg under the tongue. COMPOUNDED PRESCRIPTION Powerstep full length original (M72.2) Plantar fasciitis of left foot (primary encounter diagnosis) (M76.821, M76.822) Posterior tibial tendon dysfunction (PTTD) of both lower extremities (M21.41, M21.42) Pes planus of both feet cholecalciferol (VITAMIN D-3) 5,000 unit tab Take 2 tablets by mouth once daily. Current Facility-Administered Medications on File Prior to Visit Medication [START ON 04/15/2023] zoledronic acid 5 mg PREMIX piggyback (RECLAST) Social History Social History Tobacco Use Smoking status: Every Day Packs/day: 1.00 Years: 55.00 Additional pack years: 0.00 Total pack years: 55.00 Types: Cigarettes Start date: 1966 Smokeless tobacco: Never Substance Use Topics Alcohol use: Yes Comment: rare Drug use: No REVIEW OF SYSTEMS: as above Reviewed relevant PMHx, PSHx, Social Hx, current medications and allergies. Review of Symptoms REVIEW OF SYSTEMS See HPI. EX (more content not included)... [facility] 03-28-2023 Note HNO ID: [id number] Author: Coy Pfeiffer MD Service: ? Author Type: Physician Type: Progress Notes Filed: 03/28/2023 5:20 PM Note Text: Patient presents with: Recheck: 6 month HPI: Patient presents today for office visit for follow up. HYPERTENSION:overall is doing well. Still following with cardiology. Did have an av fistula that vascular followed after stent. They did take her off of eliquis . No chest pain or shortness of breath. HYPOTHYROID:energy level is good.weight is stable. HLD:no myalgias. GASTROENTEROLOGY:last egd 2020. Will do it again in 2024. No new gi issues. No bloody or black stools. ENDO: still follows regularly No myalgias. MEDICATIONS: Current Outpatient Medications Medication Sig atorvastatin (LIPITOR) 10 mg tablet TAKE 1/2 (ONE-HALF) OF A TABLET BY MOUTH DAILY levothyroxine (SYNTHROID) 88 mcg tablet 7 AND 1/2 pills per day, one a day, but on take an extra half pill omeprazole (PRILOSEC) 40 mg capsule Take 1 capsule by mouth once daily. amLODIPine (NORVASC) 5 mg tablet Take 1 tablet by mouth once daily. metoprolol succinate ER (TOPROL XL) 50 mg 24 hr tablet Take 1 tablet by mouth once daily. losartan (COZAAR) 100 mg tablet Take 0.5 tablets by mouth once daily. clopidogrel (PLAVIX) 75 mg tablet Take 75 mg by mouth once daily. nitroglycerin sublingual (NITROQUICK) 0.4 mg SL tablet Dissolve 0.4 mg under the tongue. COMPOUNDED PRESCRIPTION Powerstep full length original (M72.2) Plantar fasciitis of left foot (primary encounter diagnosis) (M76.821, M76.822) Posterior tibial tendon dysfunction (PTTD) of both lower extremities (M21.41, M21.42) Pes planus of both feet cholecalciferol (VITAMIN D-3) 5,000 unit tab Take 2 tablets by mouth once daily. atorvastatin (LIPITOR) 40 mg tablet Take 1 tablet by mouth daily at bedtime. ELIQUIS 5 mg tab(s) Take 5 mg by mouth twice daily. Current Facility-Administered Medications Medication Dose Route Frequency [START ON 04/15/2023] zoledronic acid 5 mg PREMIX piggyback (RECLAST) 5 mg INTRAVENOUS ONCE (AMB - Up to 30 Days) ALLERGIES: ALLERGIES Allergen Reactions Asa [Aspirin] Other: See Comments Thins blood too much and causes nose bleeds Boniva [Ibandronate] GI Upset, Shortness of Breath Eggs [Egg] Hives reports allergy to egg yolk Iodine Rash Lisinopril-Hydrochl* Hives PAST MEDICAL HISTORY Diagnosis Date Abnormal glucose tolerance test 1995 low sugar Arthritis Arnold esophagus 2016 Coronary artery calcification seen on CAT scan 2012 Emphysema 09/20/2012 CT=emphysema, calcified granuloma RLL Endometriosis Headache cervical History of hyperthyroidism ~ Hx of migraine headaches Hypertension Hypoglycemia Hypothyroidism 2014 Kidney stone ~1970 Osteopenia 12/01/2011 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 Dr Blackwell at [facility] Snoring Spinal stenosis lumbar Tobacco use disorder PAST SURGICAL HISTORY Procedure Laterality Date ABDOMINAL SURGERY HX APPENDECTOMY HX BREAST SURGERY HX BRST BX INCISIONAL Left 1987 lumpectomies for breast cysts, pre-cancerous one in CHOLECYSTECTOMY 1974 COLSC FLX W/RMVL OF TUMOR POLYP LESION SNARE TQ 03/24/2015 2 small hyperplastic polyps- 10 year follow up EGD TRANSORAL BIOPSY SINGLE/MULTIPLE 03/24/2015 gastritis, ?arnold's esophagitis EGD TRANSORAL BIOPSY SINGLE/MULTIPLE 07/17/2015 short segment arnold's, repeat in 2 years ESOPHAGOGASTRODUODENOSCOPY TRANSORAL DIAGNOSTIC 09/01/2017 EGD ESOPHAGOGASTRODUODENOSCOPY TRANSORAL DIAGNOSTIC 12/01/2020 repeat in 3 years 11/2023 EYE SURGERY HX PAST SURGICAL HISTORY OF Right 2016 carpal tunnel, ulnar neuropathy SUPRACERVICAL ABDL HYSTER W/WO RMVL TUBE OVARY 1971 left oophorectomy for cysts and endometriosis VAGINAL HYSTERECTOMY WRIST ARTHROSCOPY/SURGERY Left 90s ?Dequervains tendon procedure on left? FAMILY HISTORY Problem Relation Age of Onset Heart Failure Mother Asthma Mother Cancer Father kidney Heart Maternal Grandmother Hypertension Sister Clotting Disorder Sister Diabetes Sister other (rectal cancer) Sister great grandmother Social History Tobacco Use Smoking status: Every Day Packs/day: 1.00 Years: 55.00 Additional pack years: 0.00 Total pack years: 55.00 Types: Cigarettes Start date: 1967 Smokeless tobacco: Never Substance Use Topics Alcohol use: Yes Comment: rare Drug use: No Reviewed current medications, allergies, past medical history, surgical history, family history and social history today. REVIEW OF SYSTEMS All other reviewed and negative other than HPI. HEALTH MAINTENANCE: Reviewed health maintenance issues today and recommended the following in detail. BP CONTROLLED (<130/80) Never done COVID-19 VACCINE(3 - Booster for Kendal series) due on 06/25/2021 ADVANCE DIRECTIVE DISCUSSION- her makes decision. DEPRESSION ASSESSMENT Never done VITALS: BP 128/80 Pulse 69 (more content not included)... [facility] 03-07-2023 Note HNO ID: [id number] Author: Shaylee Robertson MD Service: ? Author Type: Physician Type: Progress Notes Filed: 03/07/2023 10:41 AM Note Text: Virtual Visit utilizing both audio and video components [employer] I have communicated my name and active licensure. The patient's identity and physical location were verified at the time of this visit. Either the patient or their legal associate financial representative has been informed of the risks and benefits of -- and alternatives to -- treatment through a remote evaluation and consents to proceed with the evaluation remotely. Patient location: [place], [place] Assessment / Plan Problem: 1) Osteoporosis, Evista contraindicated because of DVT while on therapy (though also 2 wk after JANDJ COVID vaccine), oral bisphosphonate contraindicated by history of Barretts esophagus, insurance categorically refuses to let her have Prolia (??), she is taking Reclast, doing fine with it, gets it April 15 2023 next. I have ordered this, she will call to schedule 2) Hypothyroidism TSH continues to be in normal range for her age especially with coronary disease. , will keep her on 7.5/wk of 88 mccg levothyroxine 3) Primary hyperparathyroidism s/p resection 2017 Unchanged 1 Using Nicotine mints , but not smoking. 3) s/p Pfizer COVID booster x 1 after her vaccine.. Treatment / Plan: 1) continue the levothyroxine at 7 AND 1/2 pills per week of 88 mcg. 2) return to me in 6 months by virtual visit, with labs beforehand 3) call to schedule the Reclast for April Shaylee Robertson MD Data Review: Component Latest Ref Rng AND Units 08/18/2022 02/21/2023 Protein, Total 6.3 - 8.0 g/dL 6.9 Albumin 3.9 - 4.9 g/dL 4.1 Calcium 8.5 - 10.2 mg/dL 9.9 10.8 (H) Bilirubin, Total 0.2 - 1.3 mg/dL 0.7 Alkaline Phosphatase 34 - 123 U/L 70 AST 13 - 35 U/L 20 ALT 7 - 38 U/L 17 Glucose 74 - 99 mg/dL 96 BUN 7 - 21 mg/dL 17 Creatinine 0.58 - 0.96 mg/dL 0.82 Sodium 136 - 144 mmol/L 141 Potassium 3.7 - 5.1 mmol/L 4.3 Chloride 97 - 105 mmol/L 106 (H) CO2 22 - 30 mmol/L 25 Anion Gap 9 - 18 mmol/L 10 eGFR >=60 mL/min/1.73mA? 74 PTH, Intact 15 - 65 pg/mL 76 (H) 39 Component Latest Ref Rng AND Units 08/18/2022 Cholesterol, Total <200 mg/dL 138 Triglyceride <150 mg/dL 70 HDL Cholesterol >39 mg/dL 58 Non HDL Cholesterol <130 mg/dL 80 LDL Cholesterol <100 mg/dL 66 Component TSH Free T4 Latest Ref Rng AND Units 0.270 - 4.200 mIU/L 0.9 - 1.7 ng/dL 03/27/2020 4.420 (H) 1.4 01/29/2021 2.520 1.4 04/27/2021 5.180 (H) 1.4 07/12/2021 5.130 (H) 1.4 02/28/2022 5.050 (H) 08/18/2022 5.070 (H) 1.4 History Problem name: hypothyroidism Quality: primary Severity: mild Duration: she is unsure Context: 1) s/p parathyroid resection 12/12/16 2) Barretts esophagus, keeping up with every 3 year endoscopy 3) s/p COVID vaccine (), Pfizer booster 4) hx DVT, is on Eliquis, was 3wk after AUGD COVID vaccine Modifying factors: cholecalciferol 5ku/d, levothyroxine 88 mcg daily at bed, no mineral supplements, has never forgotten a dose had Reclast 04/15/22 Hasn't had migraine in 8-10 months. Had DVT in calf, 3 weeks after AUGD vaccine. off Eliquis, also stopped Evista Back on Eliquis after coronary stents, now back off. 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 Dr Blackwell at [facility] Snoring Spinal stenosis lumbar Tobacco use disorder PAST SURGICAL HISTORY Procedure Laterality Date ABDOMINAL SURGERY HX APPENDECTOMY HX BREAST SURGERY HX BRST BX INCISIONAL Left 1986 lumpectomies for breast cysts, pre-cancerous one in CHOLECYSTECTOMY 1974 COLSC FLX W/RMVL OF TUMOR POLYP LESION SNARE TQ 03/24/2015 2 small hyperplastic polyps- 10 year follow up EGD TRANSORAL BIOPSY SINGLE/MULTIPLE 03/24/2015 gastritis, ?arnold's esophagitis EGD TRANSORAL BIOPSY SINGLE/MULTIPLE 07/17/2015 short segment arnold's, repeat in 2 years ESOPHAGOGASTRODUODENOSCOPY TRANSORAL DIAGNOSTIC 09/01/2017 EGD ESOPHAGOGASTRODUODENOSCOPY TRANSORAL DIAGNOSTIC 12/01/2020 repeat in 3 years 11/2023 EYE SURGERY HX PAST SURGICAL HISTORY OF Right 2016 carpal tunnel, ulnar neuropathy SUPRACERVICAL ABDL HYSTER W/WO RMVL TUBE OVARY 1971 left oophorectomy for cysts and endometriosis VAGINAL HYSTERECTOMY WRIST ARTHROSCOPY/SURGERY Left 90s ?Dequervains tendon procedure on left? FAMILY HISTORY Problem Relation (more content not included)... [facility] 03-07-2023 Instructions Shaylee Robertson MD - 03/07/2023 10:40 AM EDT Assessment / Plan Problem: 1) Osteoporosis, Evista contraindicated because of DVT while on therapy (though also 2 wk after J&J COVID vaccine), oral bisphosphonate contraindicated by history of Barretts esophagus, insurance categorically refuses to let her have Prolia (??), she is taking Reclast, doing fine with it, gets it April 15 2023 next. I have ordered this, she will call to schedule 2) Hypothyroidism TSH continues to be in normal range for her age especially with coronary disease. , will keep her on 7.5/wk of 88 mccg levothyroxine 3) Primary hyperparathyroidism s/p resection 2017 Unchanged 1 Using Nicotine mints , but not smoking. 3) s/p Pfizer COVID booster x 1 after her J& vaccine.. Treatment / Plan: 1) continue the levothyroxine at 7 & 1/2 pills per week of 88 mcg. 2) return to ri in 6 months by virtual visit, with labs beforehand 3) call to schedule the Reclast for April Shaylee Robertson MD Data Review: Component Latest Ref Rng & Units 08/18/2022 02/21/2023 Protein, Total 6.3 - 8.0 g/dL 6.9 Albumin 3.9 - 4.9 g/dL 4.1 Calcium 8.5 - 10.2 mg/dL 9.9 10.8 (H) Bilirubin, Total 0.2 - 1.3 mg/dL 0.7 Alkaline Phosphatase 34 - 123 U/L 70 AST 13 - 35 U/L 20 ALT 7 - 38 U/L 17 Glucose 74 - 99 mg/dL 96 BUN 7 - 21 mg/dL 17 Creatinine 0.58 - 0.96 mg/dL 0.82 Sodium 136 - 144 mmol/L 141 Potassium 3.7 - 5.1 mmol/L 4.3 Chloride 97 - 105 mmol/L 106 (H) CO2 22 - 30 mmol/L 25 Anion Gap 9 - 18 mmol/L 10 eGFR >=60 mL/min/1.73m 74 PTH, Intact 15 - 65 pg/mL 76 (H) 39 documented in this encounter [facility] 03-07-2023 History of Present illness Narrative Virtual Visit utilizing both audio and video components [email or web address] I have communicated my name and active licensure. The patient's identity and physical location were verified at the time of this visit. Either the patient or their legal associate financial representative has been informed of the risks and benefits of -- and alternatives to -- treatment through a remote evaluation and consents to proceed with the evaluation remotely. Patient location: [place], [place] Assessment / Plan Problem: 1) Osteoporosis, Evista contraindicated because of DVT while on therapy (though also 2 wk after J&J COVID vaccine), oral bisphosphonate contraindicated by history of Barretts esophagus, insurance categorically refuses to let her have Prolia (??), she is taking Reclast, doing fine with it, gets it April 15 2023 next. I have ordered this, she will call to schedule 2) Hypothyroidism TSH continues to be in normal range for her age especially with coronary disease. , will keep her on 7.5/wk of 88 mccg levothyroxine 3) Primary hyperparathyroidism s/p resection 2016 Unchanged 1 Using Nicotine mints , but not smoking. 3) s/p Pfizer COVID booster x 1 after her J& vaccine.. Treatment / Plan: 1) continue the levothyroxine at 7 & 1/2 pills per week of 88 mcg. 2) return to me in 6 months by virtual visit, with labs beforehand 3) call to schedule the Reclast for April Shaylee Robertson MD Data Review: Component Latest Ref Rng & Units 08/18/2022 02/21/2023 Protein, Total 6.3 - 8.0 g/dL 6.9 Albumin 3.9 - 4.9 g/dL 4.1 Calcium 8.5 - 10.2 mg/dL 9.9 10.8 (H) Bilirubin, Total 0.2 - 1.3 mg/dL 0.7 Alkaline Phosphatase 34 - 123 U/L 70 AST 13 - 35 U/L 20 ALT 7 - 38 U/L 17 Glucose 74 - 99 mg/dL 96 BUN 7 - 21 mg/dL 17 Creatinine 0.58 - 0.96 mg/dL 0.82 Sodium 136 - 144 mmol/L 141 Potassium 3.7 - 5.1 mmol/L 4.3 Chloride 97 - 105 mmol/L 106 (H) CO2 22 - 30 mmol/L 25 Anion Gap 9 - 18 mmol/L 10 eGFR >=60 mL/min/1.73m 74 PTH, Intact 15 - 65 pg/mL 76 (H) 39 Component Latest Ref Rng & Units 08/18/2022 Cholesterol, Total <200 mg/dL 138 Triglyceride <150 mg/dL 70 HDL Cholesterol >39 mg/dL 58 Non HDL Cholesterol <130 mg/dL 80 LDL Cholesterol <100 mg/dL 66 Component TSH Free T4 Latest Ref Rng & Units 0.270 - 4.200 mIU/L 0.9 - 1.7 ng/dL 03/27/2020 4.420 (H) 1.4 01/29/2021 2.520 1.4 04/27/2021 5.180 (H) 1.4 07/12/2021 5.130 (H) 1.4 02/28/2022 5.050 (H) 08/18/2022 5.070 (H) 1.4 History Problem name: hypothyroidism Quality: primary Severity: mild Duration: she is unsure Context: 1) s/p parathyroid resection 12/12/16 2) Barretts esophagus, keeping up with every 3 year endoscopy 3) s/p COVID vaccine (J&J), Pfizer booster 4) hx DVT, is on Eliquis, was 3wk after J&J COVID vaccine Modifying factors: cholecalciferol 5ku/d, levothyroxine 88 mcg daily at bed, no mineral supplements, has never forgotten a dose had Reclast 04/15/22 Hasn't had migraine in 8-10 months. Had DVT in calf, 3 weeks after J&J vaccine. off Eliquis, also stopped Evista Back on Eliquis after coronary stents, now back off. 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 Dr Blackwell at [facility] Snoring Spinal stenosis lumbar Tobacco use disorder PAST SURGICAL HISTORY Procedure Laterality Date ABDOMINAL SURGERY HX APPENDECTOMY HX BREAST SURGERY HX BRST BX INCISIONAL Left 1986 lumpectomies for breast cysts, pre-cancerous one in CHOLECYSTECTOMY 1974 COLSC FLX W/RMVL OF TUMOR POLYP LESION SNARE TQ 03/24/2015 2 small hyperplastic polyps- 10 year follow up EGD TRANSORAL BIOPSY SINGLE/MULTIPLE 03/24/2015 gastritis, ?arnold's esophagitis EGD TRANSORAL BIOPSY SINGLE/MULTIPLE 07/17/2015 short segment arnold's, repeat in 2 years ESOPHAGOGASTRODUODENOSCOPY TRANSORAL DIAGNOSTIC 09/01/2017 EGD ESOPHAGOGASTRODUODENOSCOPY TRANSORAL DIAGNOSTIC 12/01/2020 repeat in 3 years 11/2023 EYE SURGERY HX PAST SURGICAL HISTORY OF Right 2016 carpal tunnel, ulnar neuropathy SUPRACERVICAL ABDL HYSTER W/WO RMVL TUBE OVARY 1971 left oophorectomy for cysts and endometriosis VAGINAL HYSTERECTOMY WRIST ARTHROSCOPY/SURGERY Left 90s ?Dequervains tendon procedure on left? FAMILY HISTORY Problem Relation Age of Onset Heart Failure Mother Asthma Mother Cancer Father kidney Heart Maternal Grandmother Hypertension Sister Clotting Disorder Sister Diabetes Sister other (rectal cancer) Sister great grandmother Social History Tobacco Use Smoking status: Every Day Packs/day: 1.00 Years: 55.00 Total pack years: 55.00 Types: Cigarettes Start date: 1967 Smokeless tobacco: Never Substance Use Topics Alcohol use: Yes Comment: rare Drug use: No MEDICATIONS & ALLERGIES Current Outpatient Medications Medication Sig Dispense Refill omeprazole (PRILOSEC) 40 mg capsule Take 1 capsule by mouth once daily. 90 capsule 1 amLODIPine (NORVASC) 5 mg tablet Take 1 tablet by mouth once daily. 90 tablet 1 atorvastatin (LIPITOR) 40 mg tablet Take 1 tablet by mouth daily at bedtime. 90 tablet 3 metoprolol succinate ER (TOPROL XL) 50 mg 24 hr tablet Take 1 tablet by mouth once daily. 90 tablet 1 losartan (COZAAR) 100 mg tablet Take 0.5 tablets by mouth once daily. 90 tablet 3 levothyroxine (SYNTHROID) 88 mcg tablet 7 & 1/2 pills per day, one a day, but on take an extra half pill 100 tablet 3 ELIQUIS 5 mg tab(s) Take 5 mg by mouth twice daily. clopidogrel (PLAVIX) 75 mg tablet Take 75 mg by mouth once daily. nitroglycerin sublingual (NITROQUICK) 0.4 mg SL tablet Dissolve 0.4 mg under the tongue. COMPOUNDED PRESCRIPTION Powerstep full length original (M72.2) Plantar fasciitis of left foot (primary encounter diagnosis) (M76.821, M76.822) Posterior tibial tendon dysfunction (PTTD) of both lower extremities (M21.41, M21.42) Pes planus of both feet 1 Device 0 cholecalciferol (VITAMIN D-3) 5,000 unit tab Take 2 tablets by mouth once daily. 0 No current facility-administered medications for this visit. ALLERGIES Allergen Reactions Asa [Aspirin] Other: See Comments Thins blood too much and causes nose bleeds Boniva [Ibandronate] GI Upset, Shortness of Breath Eggs [Egg] Hives reports allergy to egg yolk Iodine Rash Lisinopril-Hydrochl* Hives documented in this encounter [facility] 02-24-2023 Note Patient Outreach (ALEJANDRINA DANGELOAV) FIDELINA DENISE ([id number]) 1945 F Date Time Provider Department 02/24/23 KENYATTA GIRON During your visit today, we recorded the following information about you: Kenyatta Giron MA 02/24/2023 2:45 PM Addendum POPULATION HEALTH NAVIGATION OUTREACH Action/FYI Spoke with patient. Per patients request rescheduled patients 6 month follow up/HCC for 03/28/23 with PCP. Patients PCP 08/29/22 appointment was canceled prior or no show. Robbie bell [facility] gap outreach J43.1 - Panlobular emphysema (HCC) - [id number] Last Billed 07/26/2022 Patient Identified by Name and : YES, via phone Outreach Outcome/Action Spoke to patient / parent / legal guardian: Patient scheduled Did you use a PCP flex slot to schedule this appointment? No Reason for Outreach HCC or suspected condition Payer: Payor: [employer]ISA [employer] / Plan: ClearFlow HMO / Product Type: HMO / Care Gap Reviewed:: Follow-up appointment Reminder: Reminder note to check Health Maintenance for items below Health Maintenance items due: SPIROMETRY Never done COVID-19 VACCINE(3 - Booster for Kendal series) due on 06/25/2021 ADVANCE DIRECTIVE DISCUSSION due on 08/07/2022 DEPRESSION ASSESSMENT Never done Navigation Signature: Kenyatta Giron MA February 24, 2023 9:23 AM Allergies As of Date: 02/24/2023 Noted Allergy Reaction ASA (ASPIRIN) 11/06/2013 14 - Other: See Comments Comments: Thins blood too much and causes nose bleeds BONIVA (IBANDRONATE) 04/13/2016 8 - GI Upset 12 - Shortness of Breath EGGS (EGG) 11/06/2013 4 - Hives Comments: reports allergy to egg yolk IODINE 11/06/2013 2 - Rash LISINOPRIL-HYDROCHLOROTHIAZIDE 11/06/2013 4 - Hives Date Reviewed: 09/14/2022 Reviewed by: Janette Hubbard MA - Fully Assessed Reason for Visit: Population Health Navigation Outreach [3910] Cmt: Robbie bell [facility] outreach Prescriptions as of 02/24/2023 - omeprazole (PRILOSEC) 40 mg capsule Take 1 capsule by mouth once daily. - amLODIPine (NORVASC) 5 mg tablet Take 1 tablet by mouth once daily. - atorvastatin (LIPITOR) 40 mg tablet Take 1 tablet by mouth daily at bedtime. - metoprolol succinate ER (TOPROL XL) 50 mg 24 hr tablet Take 1 tablet by mouth once daily. - losartan (COZAAR) 100 mg tablet Take 0.5 tablets by mouth once daily. - levothyroxine (SYNTHROID) 88 mcg tablet 7 AND 1/2 pills per day, one a day, but on take an extra half pill - ELIQUIS 5 mg tab(s) Take 5 mg by mouth twice daily. - clopidogrel (PLAVIX) 75 mg tablet Take 75 mg by mouth once daily. - nitroglycerin sublingual (NITROQUICK) 0.4 mg SL tablet Dissolve 0.4 mg under the tongue. - COMPOUNDED PRESCRIPTION Powerstep full length original (M72.2) Plantar fasciitis of left foot (primary encounter diagnosis) (M76.821, M76.822) Posterior tibial tendon dysfunction (PTTD) of both lower extremities (M21.41, M21.42) Pes planus of both feet - cholecalciferol (VITAMIN D-3) 5,000 unit tab Take 2 tablets by mouth once daily. Problem List As Of Date 02/24/2023 Noted Resolved History of hyperthyroidism [Z86.39] Hypertension [I10] Spinal stenosis [M48.00] Headache [R51] 10/13/2016 Tobacco use disorder [F17.200] Osteopenia [M85.80] 12/01/2011 Hypothyroidism [E03.9] Panlobular emphysema (HCC) [J43.1] 09/20/2012 Coronary artery calcification seen on CAT scan * 07/26/2022 Encounter for screening for malignant neoplasm *02/25/2015 04/13/2016 Epigastric pain [R10.13] 02/25/2015 07/26/2022 Arnold esophagus [K22.70] Migraine without aura and with status migrainos*10/13/2016 Primary hyperparathyroidism (HCC) [E21.0] 11/17/2016 Refusal of blood transfusions as patient is [facility]*12/05/2016 Plantar fasciitis, left [M72.2] 12/04/2017 Tibialis tendinitis of both lower extremities [*12/04/2017 Flat feet, bilateral [M21.41, M21.42] 12/04/2017 Acute right-sided low back pain with right-side*04/23/2018 History of DVT (deep vein thrombosis) [Z86.718] 10/30/2020 Hyperglycemia [R73.9] 02/23/2022 Osteoporosis [M81.0] 04/05/2022 Lung nodule, multiple [R91.8] 04/17/2022 Coronary artery disease involving [place]*07/26/2022 Encounter Status:Closed by KENYATTA GIRON on 02/24/23 [facility] 02-24-2023 Note HNO ID: [id number] Author: Kenyatta iGron MA Service: ? Author Type: Working Supervisor Type: Progress Notes Filed: 02/24/2023 2:45 PM Note Text: POPULATION HEALTH NAVIGATION OUTREACH Action/FYI Spoke with patient. Per patients request rescheduled patients 6 month follow up/HCC for 03/28/23 with PCP. Patients PCP 08/29/22 appointment was canceled prior or no show. Navigator Analisa bell HCC gap outreach J43.1 - Panlobular emphysema (HCC) - [id number] Last Billed 07/26/2022 Patient Identified by Name and : YES, via phone Outreach Outcome/Action Spoke to patient / parent / legal guardian: Patient scheduled Did you use a PCP flex slot to schedule this appointment? No Reason for Outreach HCC or suspected condition Payer: Payor: ANALISA [employer] / Plan: [employer] HMO / Product Type: HMO / Care Gap Reviewed:: Follow-up appointment Reminder: Reminder note to check Health Maintenance for items below Health Maintenance items due: SPIROMETRY Never done COVID-19 VACCINE(3 - Booster for Kendal series) due on 06/25/2021 ADVANCE DIRECTIVE DISCUSSION due on 08/07/2022 DEPRESSION ASSESSMENT Never done Navigation Signature: Kenyatta Giron MA February 24, 2023 9:23 AM [facility] 02-23-2023 Note HNO ID: [id number] Author: Gracy (Cereal Popper)Cherelle Service: ? Author Type: ? Type: Progress Notes Filed: 02/23/2023 2:22 PM Note Text: Fidelina Denise is identified through a medication adherence outreach initiative based on pharmacy claims data from [employer] (insurer) for CATHY medication(s). Patient is reviewed 02/23/23 due to medication adherence concerns with the following medications (name, strength, sig): Losartan take 1/2 tablet by mouth once daily. Per reconcile dispense, last fill date and days supply: 09/07/22 for 30 day supply Contacted patient: Spoke to patient Patient is identified by Name and . Discussion on adherence consisted of - Patient stated she takes it daily and is cutting in half. Declines refill and will call when she needs one Any need for new prescription (I.e. out of refills on most recent prescription) YES/NO/Active: no The Patient verbalizes understanding and denies further questions/concerns at this time. Outcome of review/outreach: (choose outcome source and status) - Patient/Caregiver declined refill per call to patient/caregiver Cherelle Dubose (Gust) [facility] 02-23-2023 History of Present illness Narrative Fidelina Denise is identified through a medication adherence outreach initiative based on pharmacy claims data from [employer] (insurer) for CATHY medication(s). Patient is reviewed 02/23/23 due to medication adherence concerns with the following medications (name, strength, sig): Losartan take 1/2 tablet by mouth once daily. Per reconcile dispense, last fill date and days supply: 09/07/22 for 30 day supply Contacted patient: Spoke to patient Patient is identified by Name and . Discussion on adherence consisted of - Patient stated she takes it daily and is cutting in half. Declines refill and will call when she needs one Any need for new prescription (I.e. out of refills on most recent prescription) YES/NO/Active: no The Patient verbalizes understanding and denies further questions/concerns at this time. Outcome of review/outreach: (choose outcome source and status) - Patient/Caregiver declined refill per call to patient/caregiver Cherelle Dubose (Gust) documented in this encounter [facility] 02-23-2023 Note Patient Outreach ([facility]) CAMELIAFIDELINA Shreyas ([id number]) 1945 F Date Time Provider Department 02/23/23 COY PFEIFFER During your visit today, we recorded the following information about you: Gracy (Cereal Popper)Cherelle 02/23/2023 2:22 PM Signed Fidelina Denise is identified through a medication adherence outreach initiative based on pharmacy claims data from [employer] (insurer) for CATHY medication(s). Patient is reviewed 02/23/23 due to medication adherence concerns with the following medications (name, strength, sig): Losartan take 1/2 tablet by mouth once daily. Per reconcile dispense, last fill date and days supply: 09/07/22 for 30 day supply Contacted patient: Spoke to patient Patient is identified by Name and . Discussion on adherence consisted of - Patient stated she takes it daily and is cutting in half. Declines refill and will call when she needs one Any need for new prescription (I.e. out of refills on most recent prescription) YES/NO/Active: no The Patient verbalizes understanding and denies further questions/concerns at this time. Outcome of review/outreach: (choose outcome source and status) - Patient/Caregiver declined refill per call to patient/caregiver Cherelle Dubose (Gust) Allergies As of Date: 02/23/2023 Noted Allergy Reaction ASA (ASPIRIN) 11/06/2013 14 - Other: See Comments Comments: Thins blood too much and causes nose bleeds BONIVA (IBANDRONATE) 04/13/2016 8 - GI Upset 12 - Shortness of Breath EGGS (EGG) 11/06/2013 4 - Hives Comments: reports allergy to egg yolk IODINE 11/06/2013 2 - Rash LISINOPRIL-HYDROCHLOROTHIAZIDE 11/06/2013 4 - Hives Date Reviewed: 09/14/2022 Reviewed by: Janette Hubbard MA - Fully Assessed Reason for Visit: Allied Health Visit [5] Cmt: Medication Adherence Outreach Prescriptions as of 02/23/2023 - omeprazole (PRILOSEC) 40 mg capsule Take 1 capsule by mouth once daily. - amLODIPine (NORVASC) 5 mg tablet Take 1 tablet by mouth once daily. - atorvastatin (LIPITOR) 40 mg tablet Take 1 tablet by mouth daily at bedtime. - metoprolol succinate ER (TOPROL XL) 50 mg 24 hr tablet Take 1 tablet by mouth once daily. - losartan (COZAAR) 100 mg tablet Take 0.5 tablets by mouth once daily. - levothyroxine (SYNTHROID) 88 mcg tablet 7 AND 1/2 pills per day, one a day, but on take an extra half pill - ELIQUIS 5 mg tab(s) Take 5 mg by mouth twice daily. - clopidogrel (PLAVIX) 75 mg tablet Take 75 mg by mouth once daily. - nitroglycerin sublingual (NITROQUICK) 0.4 mg SL tablet Dissolve 0.4 mg under the tongue. - COMPOUNDED PRESCRIPTION Powerstep full length original (M72.2) Plantar fasciitis of left foot (primary encounter diagnosis) (M76.821, M76.822) Posterior tibial tendon dysfunction (PTTD) of both lower extremities (M21.41, M21.42) Pes planus of both feet - cholecalciferol (VITAMIN D-3) 5,000 unit tab Take 2 tablets by mouth once daily. Problem List As Of Date 02/23/2023 Noted Resolved History of hyperthyroidism [Z86.39] Hypertension [I10] Spinal stenosis [M48.00] Headache [R51] 10/13/2016 Tobacco use disorder [F17.200] Osteopenia [M85.80] 12/01/2011 Hypothyroidism [E03.9] Panlobular emphysema (HCC) [J43.1] 09/20/2012 Coronary artery calcification seen on CAT scan * 07/26/2022 Encounter for screening for malignant neoplasm *02/25/2015 04/13/2016 Epigastric pain [R10.13] 02/25/2015 07/26/2022 Arnold esophagus [K22.70] Migraine without aura and with status migrainos*10/13/2016 Primary hyperparathyroidism (HCC) [E21.0] 11/17/2016 Refusal of blood transfusions as patient is [facility]*12/05/2016 Plantar fasciitis, left [M72.2] 12/04/2017 Tibialis tendinitis of both lower extremities [*12/04/2017 Flat feet, bilateral [M21.41, M21.42] 12/04/2017 Acute right-sided low back pain with right-side*04/23/2018 History of DVT (deep vein thrombosis) [Z86.718] 10/30/2020 Hyperglycemia [R73.9] 02/23/2022 Osteoporosis [M81.0] 04/05/2022 Lung nodule, multiple [R91.8] 04/17/2022 Coronary artery disease involving [place]*07/26/2022 Encounter Status:Closed by GRACY ([email or web address])CHERELLE on 02/23/23 [facility] 02-03-2023 Note HNO ID: [id number] Author: Cherelle Dubose (Gust) Service: ? Author Type: ? Type: Progress Notes Filed: 02/03/2023 12:27 PM Note Text: Fidelina Denise is identified through a medication adherence outreach initiative based on pharmacy claims data from [employer] (insurer) for CATHY medication(s). Patient is reviewed 02/03/23 due to medication adherence concerns with the following medications (name, strength, sig): Losartan 100mg take 1/2 tablet once daily. Per reconcile dispense, last fill date and days supply: last filled 10/31/22 for 90 day supply and 01/23/23 for 60 day supply Outcome of review/outreach: (choose outcome source and status) - Filled per reconcile dispense Cherelle Dubose (Gust) [facility] 02-03-2023 Note Patient Outreach ( POHE) FIDELINA DENISE ([id number]) 1945 F Date Time Provider Department 02/03/23 COY PFEIFFER During your visit today, we recorded the following information about you: Cherelle Dubose (Gust) 02/03/2023 12:27 PM Signed Fidelina Denise is identified through a medication adherence outreach initiative based on pharmacy claims data from [employer] (insurer) for CATHY medication(s). Patient is reviewed 02/03/23 due to medication adherence concerns with the following medications (name, strength, sig): Losartan 100mg take 1/2 tablet once daily. Per reconcile dispense, last fill date and days supply: last filled 10/31/22 for 90 day supply and 01/23/23 for 60 day supply Outcome of review/outreach: (choose outcome source and status) - Filled per reconcile dispense Cherelle Dubose (Cereal Popper) Allergies As of Date: 02/03/2023 Noted Allergy Reaction ASA (ASPIRIN) 11/06/2013 14 - Other: See Comments Comments: Thins blood too much and causes nose bleeds BONIVA (IBANDRONATE) 04/13/2016 8 - GI Upset 12 - Shortness of Breath EGGS (EGG) 11/06/2013 4 - Hives Comments: reports allergy to egg yolk IODINE 11/06/2013 2 - Rash LISINOPRIL-HYDROCHLOROTHIAZIDE 11/06/2013 4 - Hives Date Reviewed: 09/14/2022 Reviewed by: Janette Hubbard MA - Fully Assessed Reason for Visit: Allied Health Visit [5] Cmt: Medication Adherence Outreach Prescriptions as of 02/03/2023 - omeprazole (PRILOSEC) 40 mg capsule Take 1 capsule by mouth once daily. - amLODIPine (NORVASC) 5 mg tablet Take 1 tablet by mouth once daily. - atorvastatin (LIPITOR) 40 mg tablet Take 1 tablet by mouth daily at bedtime. - metoprolol succinate ER (TOPROL XL) 50 mg 24 hr tablet Take 1 tablet by mouth once daily. - losartan (COZAAR) 100 mg tablet Take 0.5 tablets by mouth once daily. - levothyroxine (SYNTHROID) 88 mcg tablet 7 AND 1/2 pills per day, one a day, but on take an extra half pill - ELIQUIS 5 mg tab(s) Take 5 mg by mouth twice daily. - clopidogrel (PLAVIX) 75 mg tablet Take 75 mg by mouth once daily. - nitroglycerin sublingual (NITROQUICK) 0.4 mg SL tablet Dissolve 0.4 mg under the tongue. - COMPOUNDED PRESCRIPTION Powerstep full length original (M72.2) Plantar fasciitis of left foot (primary encounter diagnosis) (M76.821, M76.822) Posterior tibial tendon dysfunction (PTTD) of both lower extremities (M21.41, M21.42) Pes planus of both feet - cholecalciferol (VITAMIN D-3) 5,000 unit tab Take 2 tablets by mouth once daily. Problem List As Of Date 02/03/2023 Noted Resolved History of hyperthyroidism [Z86.39] Hypertension [I10] Spinal stenosis [M48.00] Headache [R51] 10/13/2016 Tobacco use disorder [F17.200] Osteopenia [M85.80] 12/01/2011 Hypothyroidism [E03.9] Panlobular emphysema (HCC) [J43.1] 09/20/2012 Coronary artery calcification seen on CAT scan * 07/26/2022 Encounter for screening for malignant neoplasm *02/25/2015 04/13/2016 Epigastric pain [R10.13] 02/25/2015 07/26/2022 Arnold esophagus [K22.70] Migraine without aura and with status migrainos*10/13/2016 Primary hyperparathyroidism (HCC) [E21.0] 11/17/2016 Refusal of blood transfusions as patient is [facility]*12/05/2016 Plantar fasciitis, left [M72.2] 12/04/2017 Tibialis tendinitis of both lower extremities [*12/04/2017 Flat feet, bilateral [M21.41, M21.42] 12/04/2017 Acute right-sided low back pain with right-side*04/23/2018 History of DVT (deep vein thrombosis) [Z86.718] 10/30/2020 Hyperglycemia [R73.9] 02/23/2022 Osteoporosis [M81.0] 04/05/2022 Lung nodule, multiple [R91.8] 04/17/2022 Coronary artery disease involving [place]*07/26/2022 Encounter Status:Closed by GRACY ([employer])CHERELLE on 02/03/23 [facility] 02-03-2023 History of Present illness Narrative Fidelina Shreyas Denise is identified through a medication adherence outreach initiative based on pharmacy claims data from [employer] (insurer) for CATHY medication(s). Patient is reviewed 02/03/23 due to medication adherence concerns with the following medications (name, strength, sig): Losartan 100mg take 1/2 tablet once daily. Per reconcile dispense, last fill date and days supply: last filled 10/31/22 for 90 day supply and 01/23/23 for 60 day supply Outcome of review/outreach: (choose outcome source and status) - Filled per reconcile dispense Cherelle Dubose (Cereal Popper) documented in this encounter [facility] 01-23-2023 Miscellaneous Notes Last office visit: 07/26/22 F/u scheduled: none Erum Lucio Ma Patient has been identified by name and date of : Yes Requested Prescriptions Pending Prescriptions Disp Refills omeprazole (PRILOSEC) 40 mg capsule 90 capsule 1 Sig: Take 1 capsule by mouth once daily. amLODIPine (NORVASC) 5 mg tablet 90 tablet 1 Sig: Take 1 tablet by mouth once daily. Patient asking for 1 year worth of medication. RX INSTRUCTIONS: Patient aware RX will be sent to pharmacy. No need to notify patient. Lucille Agustin documented in this encounter [facility] 01-13-2023 Note Patient Outreach (NE TNAV) FIDELINA DENISE ([id number]) 1945 F Date Time Provider Department 01/13/23 LUSI DANIEL NORTON During your visit today, we recorded the following information about you: Luis Daniel Norton MA 01/13/2023 8:20 AM Signed POPULATION HEALTH NAVIGATION OUTREACH Action/FYI P/C to patient to schedule PCP visit, no answer. Left message for patient to return call. My chart message sent. Patient Identified by Name and : NO Outreach Outcome/Action Unable to reach patient: Left message MyChart message sent Did you use a PCP flex slot to schedule this appointment? N/A Reason for Outreach HCC or suspected condition Payer: Payor: ANALISA [employer] / Plan: ANALISA [employer] HMO / Product Type: HMO / Care Gap Reviewed:: Annual Wellness visit Reminder: Reminder note to check Health Maintenance for items below Health Maintenance items due: SPIROMETRY Never done COVID-19 VACCINE(3 - Booster for Kendal series) due on 06/25/2021 ADVANCE DIRECTIVE DISCUSSION due on 08/07/2022 DEPRESSION ASSESSMENT Never done Navigation Signature: Luis Daniel Norton MA January 13, 2023 8:19 AM Allergies As of Date: 01/13/2023 Noted Allergy Reaction ASA (ASPIRIN) 11/06/2013 14 - Other: See Comments Comments: Thins blood too much and causes nose bleeds BONIVA (IBANDRONATE) 04/13/2016 8 - GI Upset 12 - Shortness of Breath EGGS (EGG) 11/06/2013 4 - Hives Comments: reports allergy to egg yolk IODINE 11/06/2013 2 - Rash LISINOPRIL-HYDROCHLOROTHIAZIDE 11/06/2013 4 - Hives Date Reviewed: 09/14/2022 Reviewed by: Janette Hubbard MA - Fully Assessed Reason for Visit: Population Health Navigation Outreach [3910] Cmt: Analisa [facility] List Prescriptions as of 01/13/2023 - atorvastatin (LIPITOR) 40 mg tablet Take 1 tablet by mouth daily at bedtime. - amLODIPine (NORVASC) 5 mg tablet Take 1 tablet by mouth once daily. - metoprolol succinate ER (TOPROL XL) 50 mg 24 hr tablet Take 1 tablet by mouth once daily. - losartan (COZAAR) 100 mg tablet Take 0.5 tablets by mouth once daily. - omeprazole (PRILOSEC) 40 mg capsule Take 1 capsule by mouth once daily. - levothyroxine (SYNTHROID) 88 mcg tablet 7 AND 1/2 pills per day, one a day, but on Thursday take an extra half pill - ELIQUIS 5 mg tab(s) Take 5 mg by mouth twice daily. - clopidogrel (PLAVIX) 75 mg tablet Take 75 mg by mouth once daily. - nitroglycerin sublingual (NITROQUICK) 0.4 mg SL tablet Dissolve 0.4 mg under the tongue. - COMPOUNDED PRESCRIPTION Powerstep full length original (M72.2) Plantar fasciitis of left foot (primary encounter diagnosis) (M76.821, M76.822) Posterior tibial tendon dysfunction (PTTD) of both lower extremities (M21.41, M21.42) Pes planus of both feet - cholecalciferol (VITAMIN D-3) 5,000 unit tab Take 2 tablets by mouth once daily. Problem List As Of Date 01/13/2023 Noted Resolved History of hyperthyroidism [Z86.39] Hypertension [I10] Spinal stenosis [M48.00] Headache [R51] 10/13/2016 Tobacco use disorder [F17.200] Osteopenia [M85.80] 12/01/2011 Hypothyroidism [E03.9] Panlobular emphysema (HCC) [J43.1] 09/20/2012 Coronary artery calcification seen on CAT scan * 07/26/2022 Encounter for screening for malignant neoplasm *02/25/2015 04/13/2016 Epigastric pain [R10.13] 02/25/2015 07/26/2022 Arnold esophagus [K22.70] Migraine without aura and with status migrainos*10/13/2016 Primary hyperparathyroidism (HCC) [E21.0] 11/17/2016 Refusal of blood transfusions as patient is [facility]*12/05/2016 Plantar fasciitis, left [M72.2] 12/04/2017 Tibialis tendinitis of both lower extremities [*12/04/2017 Flat feet, bilateral [M21.41, M21.42] 12/04/2017 Acute right-sided low back pain with right-side*04/23/2018 History of DVT (deep vein thrombosis) [Z86.718] 10/30/2020 Hyperglycemia [R73.9] 02/23/2022 Osteoporosis [M81.0] 04/05/2022 Lung nodule, multiple [R91.8] 04/17/2022 Coronary artery disease involving [place]*07/26/2022 Encounter Status:Closed by LUIS DANIEL NORTON on 01/13/23 [facility] 01-13-2023 Note HNO ID: [id number] Author: Luis Daniel Norton MA Service: ? Author Type: Working Supervisor Type: Progress Notes Filed: 01/13/2023 8:20 AM Note Text: POPULATION HEALTH NAVIGATION OUTREACH Action/FYI P/C to patient to schedule PCP visit, no answer. Left message for patient to return call. My chart message sent. Patient Identified by Name and : NO Outreach Outcome/Action Unable to reach patient: Left message commercet[employer]art message sent Did you use a PCP flex slot to schedule this appointment? N/A Reason for Outreach HCC or suspected condition Payer: Payor: [employer] / Plan: [employer] HMO / Product Type: HMO / Care Gap Reviewed:: Annual Wellness visit Reminder: Reminder note to check Health Maintenance for items below Health Maintenance items due: SPIROMETRY Never done COVID-19 VACCINE(3 - Booster for Kendal series) due on 06/25/2021 ADVANCE DIRECTIVE DISCUSSION due on 08/07/2022 DEPRESSION ASSESSMENT Never done Navigation Signature: Luis Daniel Norton MA January 13, 2023 8:19 AM [facility] 12-27-2022 Note Patient Outreach (PH POHE) FIDELINA DENISE ([id number]) 1945 F Date Time Provider Department 12/27/22 COY PFEIFFER During your visit today, we recorded the following information about you: Cherelle Dubose (Cereal Popper) 12/27/2022 11:12 AM Signed Fidelina Denise is identified through a medication adherence outreach initiative based on pharmacy claims data from [employer] (insurer) for Statin medication(s). Patient is reviewed 12/27/22 due to medication adherence concerns with the following medications (name, strength, sig): Atorvastatin 40mg take 1 tablet every day. Per reconcile dispense, last fill date and days supply: 09/28/22 for 90 day supply due 12/27/22 Contacted patient: sent [employer] message to patient Outcome of review/outreach: (choose outcome source and status) Sent [employer] message to patient in separate encounter Cherelle Gracy (Cereal Popper) Allergies As of Date: 12/27/2022 Noted Allergy Reaction ASA (ASPIRIN) 11/06/2013 14 - Other: See Comments Comments: Thins blood too much and causes nose bleeds BONIVA (IBANDRONATE) 04/13/2016 8 - GI Upset 12 - Shortness of Breath EGGS (EGG) 11/06/2013 4 - Hives Comments: reports allergy to egg yolk IODINE 11/06/2013 2 - Rash LISINOPRIL-HYDROCHLOROTHIAZIDE 11/06/2013 4 - Hives Date Reviewed: 09/14/2022 Reviewed by: Janette Hubbard MA - Fully Assessed Reason for Visit: Allied Health Visit [5] Cmt: Medication Adherence Outreach Prescriptions as of 12/27/2022 - atorvastatin (LIPITOR) 40 mg tablet Take 1 tablet by mouth daily at bedtime. - amLODIPine (NORVASC) 5 mg tablet Take 1 tablet by mouth once daily. - metoprolol succinate ER (TOPROL XL) 50 mg 24 hr tablet Take 1 tablet by mouth once daily. - losartan (COZAAR) 100 mg tablet Take 0.5 tablets by mouth once daily. - omeprazole (PRILOSEC) 40 mg capsule Take 1 capsule by mouth once daily. - levothyroxine (SYNTHROID) 88 mcg tablet 7 AND 1/2 pills per day, one a day, but on take an extra half pill - ELIQUIS 5 mg tab(s) Take 5 mg by mouth twice daily. - clopidogrel (PLAVIX) 75 mg tablet Take 75 mg by mouth once daily. - nitroglycerin sublingual (NITROQUICK) 0.4 mg SL tablet Dissolve 0.4 mg under the tongue. - COMPOUNDED PRESCRIPTION Powerstep full length original (M72.2) Plantar fasciitis of left foot (primary encounter diagnosis) (M76.821, M76.822) Posterior tibial tendon dysfunction (PTTD) of both lower extremities (M21.41, M21.42) Pes planus of both feet - cholecalciferol (VITAMIN D-3) 5,000 unit tab Take 2 tablets by mouth once daily. Facility-Administered Medications as of 12/27/2022 - zoledronic acid 5 mg PREMIX piggyback (RECLAST) Problem List As Of Date 12/27/2022 Noted Resolved History of hyperthyroidism [Z86.39] Hypertension [I10] Spinal stenosis [M48.00] Headache [R51] 10/13/2016 Tobacco use disorder [F17.200] Osteopenia [M85.80] 12/01/2011 Hypothyroidism [E03.9] Panlobular emphysema (HCC) [J43.1] 09/20/2012 Coronary artery calcification seen on CAT scan * 07/26/2022 Encounter for screening for malignant neoplasm *02/25/2015 04/13/2016 Epigastric pain [R10.13] 02/25/2015 07/26/2022 Arnold esophagus [K22.70] Migraine without aura and with status migrainos*10/13/2016 Primary hyperparathyroidism (HCC) [E21.0] 11/17/2016 Refusal of blood transfusions as patient is [facility]*12/05/2016 Plantar fasciitis, left [M72.2] 12/04/2017 Tibialis tendinitis of both lower extremities [*12/04/2017 Flat feet, bilateral [M21.41, M21.42] 12/04/2017 Acute right-sided low back pain with right-side*04/23/2018 History of DVT (deep vein thrombosis) [Z86.718] 10/30/2020 Hyperglycemia [R73.9] 02/23/2022 Osteoporosis [M81.0] 04/05/2022 Lung nodule, multiple [R91.8] 04/17/2022 Coronary artery disease involving [place]*07/26/2022 Encounter Status:Closed by GRACY ([email or web address])CHERELLE on 12/27/22 [facility] 12-27-2022 Note HNO ID: [id number] Author: Cherelle Dubose (Gust) Service: ? Author Type: ? Type: Progress Notes Filed: 12/27/2022 11:12 AM Note Text: Fidelina Denise is identified through a medication adherence outreach initiative based on pharmacy claims data from [employer] (insurer) for Statin medication(s). Patient is reviewed 12/27/22 due to medication adherence concerns with the following medications (name, strength, sig): Atorvastatin 40mg take 1 tablet every day. Per reconcile dispense, last fill date and days supply: 09/28/22 for 90 day supply due 12/27/22 Contacted patient: sent Wav[employer]is message to patient Outcome of review/outreach: (choose outcome source and status) Sent W[employer] message to patient in separate encounter Cherelle Dubose (Cereal Popper) [facility] 11-23-2022 Note HNO ID: [id number] Author: Cherelle Knapp Service: ? Author Type: ? Type: Progress Notes Filed: 11/23/2022 1:35 PM Note Text: Fidelina Denise is identified through a medication adherence outreach initiative based on pharmacy claims data from [employer] (insurer) for CATHY medication(s). Patient is reviewed 11/23/22 due to medication adherence concerns with the following medications (name, strength, sig): Losartan 100mg 1/2 tablet once daily. Per data/report, last fill date and days supply: Due 10/07/22 Per reconcile dispense, last fill date and days supply: filled 09/28/22 for 30 days *Most current fill 10/31/22 for 90 days Outcome of review/outreach: (choose outcome source and status) - Filled before Next fill date per reconcile dispense Cherelle Knapp [facility] 11-23-2022 Note Patient Outreach ( POHE) FIDELINA DENISE ([id number]) 1945 F Date Time Provider Department 11/23/22 COY PFEIFFER During your visit today, we recorded the following information about you: Cherelle Knapp 11/23/2022 1:35 PM Signed Fidelina Denise is identified through a medication adherence outreach initiative based on pharmacy claims data from [employer] (insurer) for CATHY medication(s). Patient is reviewed 11/23/22 due to medication adherence concerns with the following medications (name, strength, sig): Losartan 100mg 1/2 tablet once daily. Per data/report, last fill date and days supply: Due 10/07/22 Per reconcile dispense, last fill date and days supply: filled 09/28/22 for 30 days *Most current fill 10/31/22 for 90 days Outcome of review/outreach: (choose outcome source and status) - Filled before Next fill date per reconcile dispense Cherelle Knapp Allergies As of Date: 11/23/2022 Noted Allergy Reaction ASA (ASPIRIN) 11/06/2013 14 - Other: See Comments Comments: Thins blood too much and causes nose bleeds BONIVA (IBANDRONATE) 04/13/2016 8 - GI Upset 12 - Shortness of Breath EGGS (EGG) 11/06/2013 4 - Hives Comments: reports allergy to egg yolk IODINE 11/06/2013 2 - Rash LISINOPRIL-HYDROCHLOROTHIAZIDE 11/06/2013 4 - Hives Date Reviewed: 09/14/2022 Reviewed by: Janette Hubbard MA - Fully Assessed Reason for Visit: Allied Health Visit [5] Cmt: Medication Adherence Outreach Prescriptions as of 11/23/2022 - atorvastatin (LIPITOR) 40 mg tablet Take 1 tablet by mouth daily at bedtime. - amLODIPine (NORVASC) 5 mg tablet Take 1 tablet by mouth once daily. - metoprolol succinate ER (TOPROL XL) 50 mg 24 hr tablet Take 1 tablet by mouth once daily. - losartan (COZAAR) 100 mg tablet Take 0.5 tablets by mouth once daily. - omeprazole (PRILOSEC) 40 mg capsule Take 1 capsule by mouth once daily. - levothyroxine (SYNTHROID) 88 mcg tablet 7 AND 1/2 pills per day, one a day, but on take an extra half pill - ELIQUIS 5 mg tab(s) Take 5 mg by mouth twice daily. - clopidogrel (PLAVIX) 75 mg tablet Take 75 mg by mouth once daily. - nitroglycerin sublingual (NITROQUICK) 0.4 mg SL tablet Dissolve 0.4 mg under the tongue. - COMPOUNDED PRESCRIPTION Powerstep full length original (M72.2) Plantar fasciitis of left foot (primary encounter diagnosis) (M76.821, M76.822) Posterior tibial tendon dysfunction (PTTD) of both lower extremities (M21.41, M21.42) Pes planus of both feet - cholecalciferol (VITAMIN D-3) 5,000 unit tab Take 2 tablets by mouth once daily. Facility-Administered Medications as of 11/23/2022 - zoledronic acid 5 mg PREMIX piggyback (RECLAST) Problem List As Of Date 11/23/2022 Noted Resolved History of hyperthyroidism [Z86.39] Hypertension [I10] Spinal stenosis [M48.00] Headache [R51] 10/13/2016 Tobacco use disorder [F17.200] Osteopenia [M85.80] 12/01/2011 Hypothyroidism [E03.9] Panlobular emphysema (HCC) [J43.1] 09/20/2012 Coronary artery calcification seen on CAT scan * 07/26/2022 Encounter for screening for malignant neoplasm *02/25/2015 04/13/2016 Epigastric pain [R10.13] 02/25/2015 07/26/2022 Arnold esophagus [K22.70] Migraine without aura and with status migrainos*10/13/2016 Primary hyperparathyroidism (HCC) [E21.0] 11/17/2016 Refusal of blood transfusions as patient is [facility]*12/05/2016 Plantar fasciitis, left [M72.2] 12/04/2017 Tibialis tendinitis of both lower extremities [*12/04/2017 Flat feet, bilateral [M21.41, M21.42] 12/04/2017 Acute right-sided low back pain with right-side*04/23/2018 History of DVT (deep vein thrombosis) [Z86.718] 10/30/2020 Hyperglycemia [R73.9] 02/23/2022 Osteoporosis [M81.0] 04/05/2022 Lung nodule, multiple [R91.8] 04/17/2022 Coronary artery disease involving [place]*07/26/2022 Encounter Status:Closed by CHERELLE KNAPP on 11/23/22 [facility] 11-23-2022 History of Present illness Narrative Fidelina Denise is identified through a medication adherence outreach initiative based on pharmacy claims data from [employer] (insurer) for CATHY medication(s). Patient is reviewed 11/23/22 due to medication adherence concerns with the following medications (name, strength, sig): Losartan 100mg 1/2 tablet once daily. Per data/report, last fill date and days supply: Due 10/07/22 Per reconcile dispense, last fill date and days supply: filled 09/28/22 for 30 days *Most current fill 10/31/22 for 90 days Outcome of review/outreach: (choose outcome source and status) - Filled before Next fill date per reconcile dispense Cherelle Knapp documented in this encounter [facility] 11-18-2022 Note HNO ID: [id number] Author: Luis Daniel Norton MA Service: ? Author Type: Working Supervisor Type: Progress Notes Filed: 11/18/2022 12:49 PM Note Text: POPULATION HEALTH NAVIGATION OUTREACH Action/FYI P/C to patient to schedule Annual wellness exam, no answer. Left message for patient to return call. My chart message sent. Patient Identified by Name and : NO Outreach Outcome/Action Unable to reach patient: Left message [employer] message sent Did you use a PCP flex slot to schedule this appointment? N/A Reason for Outreach HCC or suspected condition Payer: Payor: [employer] [facility] / Plan: [employer] HMO / Product Type: HMO / Care Gap Reviewed:: Annual Wellness visit Reminder: Reminder note to check Health Maintenance for items below Health Maintenance items due: SPIROMETRY Never done COVID-19 VACCINE(3 - Booster for Kendal series) due on 06/25/2021 ADVANCE DIRECTIVE DISCUSSION due on 08/07/2022 DEPRESSION ASSESSMENT Never done Navigation Signature: Luis Daniel Norton MA November 18, 2022 12:47 PM [facility] 11-18-2022 Note Patient Outreach (ALEJANDRINA JEAN) FIDELINA DENISE ([id number]) 1945 F Date Time Provider Department 11/18/22 LUIS DANIEL NORTON During your visit today, we recorded the following information about you: Luis Daniel Norton MA 11/18/2022 12:49 PM Signed POPULATION HEALTH NAVIGATION OUTREACH Action/FYI P/C to patient to schedule Annual wellness exam, no answer. Left message for patient to return call. My chart message sent. Patient Identified by Name and : NO Outreach Outcome/Action Unable to reach patient: Left message MyChart message sent Did you use a PCP flex slot to schedule this appointment? N/A Reason for Outreach HCC or suspected condition Payer: Payor: [employer] / Plan: [employer] HMO / Product Type: HMO / Care Gap Reviewed:: Annual Wellness visit Reminder: Reminder note to check Health Maintenance for items below Health Maintenance items due: SPIROMETRY Never done COVID-19 VACCINE(3 - Booster for Kendal series) due on 06/25/2021 ADVANCE DIRECTIVE DISCUSSION due on 08/07/2022 DEPRESSION ASSESSMENT Never done Navigation Signature: Luis Daniel Norton MA November 18, 2022 12:47 PM Allergies As of Date: 11/18/2022 Noted Allergy Reaction ASA (ASPIRIN) 11/06/2013 14 - Other: See Comments Comments: Thins blood too much and causes nose bleeds BONIVA (IBANDRONATE) 04/13/2016 8 - GI Upset 12 - Shortness of Breath EGGS (EGG) 11/06/2013 4 - Hives Comments: reports allergy to egg yolk IODINE 11/06/2013 2 - Rash LISINOPRIL-HYDROCHLOROTHIAZIDE 11/06/2013 4 - Hives Date Reviewed: 09/14/2022 Reviewed by: Janette Hubbard MA - Fully Assessed Reason for Visit: Population Health Navigation Outreach [3910] Cmt: [facility] List Prescriptions as of 11/18/2022 - atorvastatin (LIPITOR) 40 mg tablet Take 1 tablet by mouth daily at bedtime. - amLODIPine (NORVASC) 5 mg tablet Take 1 tablet by mouth once daily. - metoprolol succinate ER (TOPROL XL) 50 mg 24 hr tablet Take 1 tablet by mouth once daily. - losartan (COZAAR) 100 mg tablet Take 0.5 tablets by mouth once daily. - omeprazole (PRILOSEC) 40 mg capsule Take 1 capsule by mouth once daily. - levothyroxine (SYNTHROID) 88 mcg tablet 7 AND 1/2 pills per day, one a day, but on take an extra half pill - ELIQUIS 5 mg tab(s) Take 5 mg by mouth twice daily. - clopidogrel (PLAVIX) 75 mg tablet Take 75 mg by mouth once daily. - nitroglycerin sublingual (NITROQUICK) 0.4 mg SL tablet Dissolve 0.4 mg under the tongue. - COMPOUNDED PRESCRIPTION Powerstep full length original (M72.2) Plantar fasciitis of left foot (primary encounter diagnosis) (M76.821, M76.822) Posterior tibial tendon dysfunction (PTTD) of both lower extremities (M21.41, M21.42) Pes planus of both feet - cholecalciferol (VITAMIN D-3) 5,000 unit tab Take 2 tablets by mouth once daily. Facility-Administered Medications as of 11/18/2022 - zoledronic acid 5 mg PREMIX piggyback (RECLAST) Problem List As Of Date 11/18/2022 Noted Resolved History of hyperthyroidism [Z86.39] Hypertension [I10] Spinal stenosis [M48.00] Headache [R51] 10/13/2016 Tobacco use disorder [F17.200] Osteopenia [M85.80] 12/01/2011 Hypothyroidism [E03.9] Panlobular emphysema (HCC) [J43.1] 09/20/2012 Coronary artery calcification seen on CAT scan * 07/26/2022 Encounter for screening for malignant neoplasm *02/25/2015 04/13/2016 Epigastric pain [R10.13] 02/25/2015 07/26/2022 Arnold esophagus [K22.70] Migraine without aura and with status migrainos*10/13/2016 Primary hyperparathyroidism (HCC) [E21.0] 11/17/2016 Refusal of blood transfusions as patient is [facility]*12/05/2016 Plantar fasciitis, left [M72.2] 12/04/2017 Tibialis tendinitis of both lower extremities [*12/04/2017 Flat feet, bilateral [M21.41, M21.42] 12/04/2017 Acute right-sided low back pain with right-side*04/23/2018 History of DVT (deep vein thrombosis) [Z86.718] 10/30/2020 Hyperglycemia [R73.9] 02/23/2022 Osteoporosis [M81.0] 04/05/2022 Lung nodule, multiple [R91.8] 04/17/2022 Coronary artery disease involving [place]*07/26/2022 Encounter Status:Closed by LUIS DANIEL NORTON on 11/18/22 [facility] 11-18-2022 History of Present illness Narrative POPULATION HEALTH NAVIGATION OUTREACH Action/I P/C to patient to schedule Annual wellness exam, no answer. Left message for patient to return call. My chart message sent. Patient Identified by Name and : NO Outreach Outcome/Action Unable to reach patient: Left message MyChart message sent Did you use a PCP flex slot to schedule this appointment? N/A Reason for Outreach HCC or suspected condition Payer: Payor: [employer] / Plan: [employer] HMO / Product Type: HMO / Care Gap Reviewed:: Annual Wellness visit Reminder: Reminder note to check Health Maintenance for items below Health Maintenance items due: SPIROMETRY Never done COVID-19 VACCINE(3 - Booster for Kendal series) due on 06/25/2021 ADVANCE DIRECTIVE DISCUSSION due on 08/07/2022 DEPRESSION ASSESSMENT Never done Navigation Signature: Luis Daniel Norton MA November 18, 2022 12:47 PM documented in this encounter [facility] 11-02-2022 Note HNO ID: [id number] Author: Anuj Walters Pharm-T Service: ? Author Type: ? Type: Progress Notes Filed: 11/02/2022 1:36 PM Note Text: Fidelina Denise is identified through a medication adherence outreach initiative based on pharmacy claims data from [employer] (insurer) for CATHY medication(s). Patient is reviewed 11/02/22 due to medication adherence concerns with the following medications (name, strength, sig): Losartan 100 mg 1/2 tablet every day . Per data/report, last fill date and days supply: NA Per reconcile dispense, last fill date and days supply: 10/31/2022 for 90 days Per call to pharmacy, last picked up date and days supply: NA Outcome of review/outreach: (choose outcome source and status) - Filled later than 7 days after Next fill date per reconcile dispense Anuj Daniel Leopoldoelli Pharm-T [facility] 11-02-2022 Note Patient Outreach ([facility]) FIDELINA DENISE ([id number]) 1945 F Date Time Provider Department 11/02/22 [facility] During your visit today, we recorded the following information about you: Anuj Fredy Leopoldoelli Pharm-T 11/02/2022 1:36 PM Signed Fidelina Denise is identified through a medication adherence outreach initiative based on pharmacy claims data from [employer] (insurer) for CATHY medication(s). Patient is reviewed 11/02/22 due to medication adherence concerns with the following medications (name, strength, sig): Losartan 100 mg 1/2 tablet every day . Per data/report, last fill date and days supply: NA Per reconcile dispense, last fill date and days supply: 10/31/2022 for 90 days Per call to pharmacy, last picked up date and days supply: NA Outcome of review/outreach: (choose outcome source and status) - Filled later than 7 days after Next fill date per reconcile dispense Anuj Daniel Cortelli Pharm-T Allergies As of Date: 11/02/2022 Noted Allergy Reaction ASA (ASPIRIN) 11/06/2013 14 - Other: See Comments Comments: Thins blood too much and causes nose bleeds BONIVA (IBANDRONATE) 04/13/2016 8 - GI Upset 12 - Shortness of Breath EGGS (EGG) 11/06/2013 4 - Hives Comments: reports allergy to egg yolk IODINE 11/06/2013 2 - Rash LISINOPRIL-HYDROCHLOROTHIAZIDE 11/06/2013 4 - Hives Date Reviewed: 09/14/2022 Reviewed by: Janette Hubbard MA - Fully Assessed Reason for Visit: Allied Health Visit [5] Cmt: Medication Adherence Outreach Prescriptions as of 11/02/2022 - atorvastatin (LIPITOR) 40 mg tablet Take 1 tablet by mouth daily at bedtime. - amLODIPine (NORVASC) 5 mg tablet Take 1 tablet by mouth once daily. - metoprolol succinate ER (TOPROL XL) 50 mg 24 hr tablet Take 1 tablet by mouth once daily. - losartan (COZAAR) 100 mg tablet Take 0.5 tablets by mouth once daily. - omeprazole (PRILOSEC) 40 mg capsule Take 1 capsule by mouth once daily. - levothyroxine (SYNTHROID) 88 mcg tablet 7 AND 1/2 pills per day, one a day, but on take an extra half pill - ELIQUIS 5 mg tab(s) Take 5 mg by mouth twice daily. - clopidogrel (PLAVIX) 75 mg tablet Take 75 mg by mouth once daily. - nitroglycerin sublingual (NITROQUICK) 0.4 mg SL tablet Dissolve 0.4 mg under the tongue. - COMPOUNDED PRESCRIPTION Powerstep full length original (M72.2) Plantar fasciitis of left foot (primary encounter diagnosis) (M76.821, M76.822) Posterior tibial tendon dysfunction (PTTD) of both lower extremities (M21.41, M21.42) Pes planus of both feet - cholecalciferol (VITAMIN D-3) 5,000 unit tab Take 2 tablets by mouth once daily. Facility-Administered Medications as of 11/02/2022 - zoledronic acid 5 mg PREMIX piggyback (RECLAST) Problem List As Of Date 11/02/2022 Noted Resolved History of hyperthyroidism [Z86.39] Hypertension [I10] Spinal stenosis [M48.00] Headache [R51] 10/13/2016 Tobacco use disorder [F17.200] Osteopenia [M85.80] 12/01/2011 Hypothyroidism [E03.9] Panlobular emphysema (HCC) [J43.1] 09/20/2012 Coronary artery calcification seen on CAT scan * 07/26/2022 Encounter for screening for malignant neoplasm *02/25/2015 04/13/2016 Epigastric pain [R10.13] 02/25/2015 07/26/2022 Arnold esophagus [K22.70] Migraine without aura and with status migrainos*10/13/2016 Primary hyperparathyroidism (HCC) [E21.0] 11/17/2016 Refusal of blood transfusions as patient is [facility]*12/05/2016 Plantar fasciitis, left [M72.2] 12/04/2017 Tibialis tendinitis of both lower extremities [*12/04/2017 Flat feet, bilateral [M21.41, M21.42] 12/04/2017 Acute right-sided low back pain with right-side*04/23/2018 History of DVT (deep vein thrombosis) [Z86.718] 10/30/2020 Hyperglycemia [R73.9] 02/23/2022 Osteoporosis [M81.0] 04/05/2022 Lung nodule, multiple [R91.8] 04/17/2022 Coronary artery disease involving [place]*07/26/2022 Encounter Status:Closed by ANUJ HOLLINS on 11/02/22 [facility] 10-12-2022 Note HNO ID: [id number] Author: Anuj Henson Service: ? Author Type: ? Type: Progress Notes Filed: 10/12/2022 12:07 PM Note Text: Fidelina Denise is identified through a medication adherence outreach initiative based on pharmacy claims data from [employer] (insurer) for CATHY medication(s). Patient is reviewed 10/12/22 due to medication adherence concerns with the following medications (name, strength, sig): Losartan 100 mg 1/2 tablet QD. Per data/report, last fill date and days supply: NA Per reconcile dispense, last fill date and days supply: 09/28/2022 for 30 days Outcome of review/outreach: (choose outcome source and status) - Filled before Next fill date per reconcile dispense Anuj FanT [facility] 10-12-2022 Note Patient Outreach ([facility]) CAMELIAFIDELINA Pritchett ([id number]) 1945 F Date Time Provider Department 10/12/22 COY PFEIFFER During your visit today, we recorded the following information about you: Anuj Walters Pharm-T 10/12/2022 12:07 PM Signed Fidelina Denise is identified through a medication adherence outreach initiative based on pharmacy claims data from [employer] (insurer) for CATHY medication(s). Patient is reviewed 10/12/22 due to medication adherence concerns with the following medications (name, strength, sig): Losartan 100 mg 1/2 tablet QD. Per data/report, last fill date and days supply: NA Per reconcile dispense, last fill date and days supply: 09/28/2022 for 30 days Outcome of review/outreach: (choose outcome source and status) - Filled before Next fill date per reconcile dispense Anuj Minaelli Pharm-T Allergies As of Date: 10/12/2022 Noted Allergy Reaction ASA (ASPIRIN) 11/06/2013 14 - Other: See Comments Comments: Thins blood too much and causes nose bleeds BONIVA (IBANDRONATE) 04/13/2016 8 - GI Upset 12 - Shortness of Breath EGGS (EGG) 11/06/2013 4 - Hives Comments: reports allergy to egg yolk IODINE 11/06/2013 2 - Rash LISINOPRIL-HYDROCHLOROTHIAZIDE 11/06/2013 4 - Hives Date Reviewed: 09/14/2022 Reviewed by: Janette Hubbard MA - Fully Assessed Reason for Visit: Allied Health Visit [5] Cmt: Medication Adherence Outreach Prescriptions as of 10/12/2022 - atorvastatin (LIPITOR) 40 mg tablet Take 1 tablet by mouth daily at bedtime. - amLODIPine (NORVASC) 5 mg tablet Take 1 tablet by mouth once daily. - metoprolol succinate ER (TOPROL XL) 50 mg 24 hr tablet Take 1 tablet by mouth once daily. - losartan (COZAAR) 100 mg tablet Take 0.5 tablets by mouth once daily. - omeprazole (PRILOSEC) 40 mg capsule Take 1 capsule by mouth once daily. - levothyroxine (SYNTHROID) 88 mcg tablet 7 AND 1/2 pills per day, one a day, but on take an extra half pill - ELIQUIS 5 mg tab(s) Take 5 mg by mouth twice daily. - clopidogrel (PLAVIX) 75 mg tablet Take 75 mg by mouth once daily. - nitroglycerin sublingual (NITROQUICK) 0.4 mg SL tablet Dissolve 0.4 mg under the tongue. - COMPOUNDED PRESCRIPTION Powerstep full length original (M72.2) Plantar fasciitis of left foot (primary encounter diagnosis) (M76.821, M76.822) Posterior tibial tendon dysfunction (PTTD) of both lower extremities (M21.41, M21.42) Pes planus of both feet - cholecalciferol (VITAMIN D-3) 5,000 unit tab Take 2 tablets by mouth once daily. Facility-Administered Medications as of 10/12/2022 - zoledronic acid 5 mg PREMIX piggyback (RECLAST) Problem List As Of Date 10/12/2022 Noted Resolved History of hyperthyroidism [Z86.39] Hypertension [I10] Spinal stenosis [M48.00] Headache [R51] 10/13/2016 Tobacco use disorder [F17.200] Osteopenia [M85.80] 12/01/2011 Hypothyroidism [E03.9] Panlobular emphysema (HCC) [J43.1] 09/20/2012 Coronary artery calcification seen on CAT scan * 07/26/2022 Encounter for screening for malignant neoplasm *02/25/2015 04/13/2016 Epigastric pain [R10.13] 02/25/2015 07/26/2022 Arnold esophagus [K22.70] Migraine without aura and with status migrainos*10/13/2016 Primary hyperparathyroidism (HCC) [E21.0] 11/17/2016 Refusal of blood transfusions as patient is [facility]*12/05/2016 Plantar fasciitis, left [M72.2] 12/04/2017 Tibialis tendinitis of both lower extremities [*12/04/2017 Flat feet, bilateral [M21.41, M21.42] 12/04/2017 Acute right-sided low back pain with right-side*04/23/2018 History of DVT (deep vein thrombosis) [Z86.718] 10/30/2020 Hyperglycemia [R73.9] 02/23/2022 Osteoporosis [M81.0] 04/05/2022 Lung nodule, multiple [R91.8] 04/17/2022 Coronary artery disease involving [place]*07/26/2022 Encounter Status:Closed by ANUJ HOLLINS on 10/12/22 [facility] 10-12-2022 History of Present illness Narrative Fidelina Denise is identified through a medication adherence outreach initiative based on pharmacy claims data from [employer] (insurer) for CATHY medication(s). Patient is reviewed 10/12/22 due to medication adherence concerns with the following medications (name, strength, sig): Losartan 100 mg 1/2 tablet QD. Per data/report, last fill date and days supply: NA Per reconcile dispense, last fill date and days supply: 09/28/2022 for 30 days Outcome of review/outreach: (choose outcome source and status) - Filled before Next fill date per reconcile dispense Anuj Henson documented in this encounter [facility] 09-30-2022 Note HNO ID: [id number] Author: Cheyenne Tran (Gust) Service: ? Author Type: ? Type: Progress Notes Filed: 09/30/2022 5:02 PM Note Text: Fidelina Denise is identified through a medication adherence outreach initiative based on pharmacy claims data from [employer] (insurer) for Statin medication(s). Patient is reviewed 09/30/22 due to medication adherence concerns with the following medications (name, strength, sig): Atorvastatin 40mg, QD. Per reconcile dispense, last fill date and days supply: Filled 09/28/22 for 90 day supply Outcome of review/outreach: (choose outcome source and status) - Filled within 7 days of Next fill date per reconcile dispense Cheyenne Tran (Gust) [facility] 09-30-2022 History of Present illness Narrative Fidelina Denise is identified through a medication adherence outreach initiative based on pharmacy claims data from [employer] (insurer) for Statin medication(s). Patient is reviewed 09/30/22 due to medication adherence concerns with the following medications (name, strength, sig): Atorvastatin 40mg, QD. Per reconcile dispense, last fill date and days supply: Filled 09/28/22 for 90 day supply Outcome of review/outreach: (choose outcome source and status) - Filled within 7 days of Next fill date per reconcile dispense Cheyenne Tran (Gust) documented in this encounter [facility] 09-30-2022 Note Patient Outreach ([facility]) FIDELINA DENISE ([id number]) 1945 F Date Time Provider Department 09/30/22 COY PFEIFFER During your visit today, we recorded the following information about you: Cheyenne Tran (Gust) 09/30/2022 5:02 PM Signed Fidelina Denise is identified through a medication adherence outreach initiative based on pharmacy claims data from [employer] (insurer) for Statin medication(s). Patient is reviewed 09/30/22 due to medication adherence concerns with the following medications (name, strength, sig): Atorvastatin 40mg, QD. Per reconcile dispense, last fill date and days supply: Filled 09/28/22 for 90 day supply Outcome of review/outreach: (choose outcome source and status) - Filled within 7 days of Next fill date per reconcile dispense Cheyenne Tran ([employer]) Allergies As of Date: 09/30/2022 Noted Allergy Reaction ASA (ASPIRIN) 11/06/2013 14 - Other: See Comments Comments: Thins blood too much and causes nose bleeds BONIVA (IBANDRONATE) 04/13/2016 8 - GI Upset 12 - Shortness of Breath EGGS (EGG) 11/06/2013 4 - Hives Comments: reports allergy to egg yolk IODINE 11/06/2013 2 - Rash LISINOPRIL-HYDROCHLOROTHIAZIDE 11/06/2013 4 - Hives Date Reviewed: 09/14/2022 Reviewed by: Janette Hubbard MA - Fully Assessed Reason for Visit: Allied Health Visit [5] Cmt: Medication Adherence Outreach Prescriptions as of 09/30/2022 - atorvastatin (LIPITOR) 40 mg tablet Take 1 tablet by mouth daily at bedtime. - amLODIPine (NORVASC) 5 mg tablet Take 1 tablet by mouth once daily. - metoprolol succinate ER (TOPROL XL) 50 mg 24 hr tablet Take 1 tablet by mouth once daily. - losartan (COZAAR) 100 mg tablet Take 0.5 tablets by mouth once daily. - omeprazole (PRILOSEC) 40 mg capsule Take 1 capsule by mouth once daily. - levothyroxine (SYNTHROID) 88 mcg tablet 7 AND 1/2 pills per day, one a day, but on take an extra half pill - ELIQUIS 5 mg tab(s) Take 5 mg by mouth twice daily. - clopidogrel (PLAVIX) 75 mg tablet Take 75 mg by mouth once daily. - nitroglycerin sublingual (NITROQUICK) 0.4 mg SL tablet Dissolve 0.4 mg under the tongue. - COMPOUNDED PRESCRIPTION Powerstep full length original (M72.2) Plantar fasciitis of left foot (primary encounter diagnosis) (M76.821, M76.822) Posterior tibial tendon dysfunction (PTTD) of both lower extremities (M21.41, M21.42) Pes planus of both feet - cholecalciferol (VITAMIN D-3) 5,000 unit tab Take 2 tablets by mouth once daily. Facility-Administered Medications as of 09/30/2022 - zoledronic acid 5 mg PREMIX piggyback (RECLAST) Problem List As Of Date 09/30/2022 Noted Resolved History of hyperthyroidism [Z86.39] Hypertension [I10] Spinal stenosis [M48.00] Headache [R51] 10/13/2016 Tobacco use disorder [F17.200] Osteopenia [M85.80] 12/01/2011 Hypothyroidism [E03.9] Panlobular emphysema (HCC) [J43.1] 09/20/2012 Coronary artery calcification seen on CAT scan * 07/26/2022 Encounter for screening for malignant neoplasm *02/25/2015 04/13/2016 Epigastric pain [R10.13] 02/25/2015 07/26/2022 Arnold esophagus [K22.70] Migraine without aura and with status migrainos*10/13/2016 Primary hyperparathyroidism (HCC) [E21.0] 11/17/2016 Refusal of blood transfusions as patient is [facility]*12/05/2016 Plantar fasciitis, left [M72.2] 12/04/2017 Tibialis tendinitis of both lower extremities [*12/04/2017 Flat feet, bilateral [M21.41, M21.42] 12/04/2017 Acute right-sided low back pain with right-side*04/23/2018 History of DVT (deep vein thrombosis) [Z86.718] 10/30/2020 Hyperglycemia [R73.9] 02/23/2022 Osteoporosis [M81.0] 04/05/2022 Lung nodule, multiple [R91.8] 04/17/2022 Coronary artery disease involving [place]*07/26/2022 Encounter Status:Closed by DAWIT ([email or web address])CHEYENNE on 09/30/22 [facility] 09-14-2022 Note HNO ID: [id number] Author: Shaylee Robertson MD Service: ? Author Type: Physician Type: Progress Notes Filed: 09/14/2022 3:46 PM Note Text: Assessment / Plan Problem: 2) Osteoporosis, Evista contraindicated because of DVT while on therapy (though also 2 wk after JANDJ COVID vaccine), oral bisphosphonate contraindicated by history of Barretts esophagus, insurance categorically refuses to let her have Prolia (??), she is taking Reclast, doing fine with it, gets it April 2023 next. 3) Hypothyroidism TSH continues to be in normal range for her age especially with coronary disease. , will keep her on 7.5/wk of 88 mccg levothyroxine Unchanged 1) Primary hyperparathyroidism s/p resection 2016 2) Using Nicotine mints , but not smoking. 3) s/p Pfizer COVID booster x 1 after her JAND vaccine.. Treatment / Plan: 1) continue the levothyroxine at 7 AND 1/2 pills per week of 88 mcg. 2) return to me in 6 months by virtual visit, with labs beforehand 3) we'll schedule the Reclast for April at our next visit. Shaylee Robertson MD Data Review: Component Latest Ref Rng AND Units 08/18/2022 Protein, Total 6.3 - 8.0 g/dL 6.9 Albumin 3.9 - 4.9 g/dL 4.1 Calcium 8.5 - 10.2 mg/dL 9.9 Bilirubin, Total 0.2 - 1.3 mg/dL 0.7 Alkaline Phosphatase 34 - 123 U/L 70 AST 13 - 35 U/L 20 ALT 7 - 38 U/L 17 Glucose 74 - 99 mg/dL 96 BUN 7 - 21 mg/dL 17 Creatinine 0.58 - 0.96 mg/dL 0.82 Sodium 136 - 144 mmol/L 141 Potassium 3.7 - 5.1 mmol/L 4.3 Chloride 97 - 105 mmol/L 106 (H) CO2 22 - 30 mmol/L 25 Anion Gap 9 - 18 mmol/L 10 eGFR >=60 mL/min/1.73mA? 74 PTH, Intact 15 - 65 pg/mL 76 (H) Component Latest Ref Rng AND Units 08/18/2022 Cholesterol, Total <200 mg/dL 138 Triglyceride <150 mg/dL 70 HDL Cholesterol >39 mg/dL 58 Non HDL Cholesterol <130 mg/dL 80 LDL Cholesterol <100 mg/dL 66 Component TSH Free T4 Latest Ref Rng AND Units 0.270 - 4.200 mIU/L 0.9 - 1.7 ng/dL 03/27/2020 4.420 (H) 1.4 01/29/2021 2.520 1.4 04/27/2021 5.180 (H) 1.4 07/12/2021 5.130 (H) 1.4 02/28/2022 5.050 (H) 08/18/2022 5.070 (H) 1.4 History Problem name: hypothyroidism Quality: primary Severity: mild Duration: she is unsure Context: 1) s/p parathyroid resection 12/12/16 2) Barretts esophagus, keeping up with every 3 year endoscopy 3) s/p COVID vaccine (), Pfizer booster 4) hx DVT, is on Eliquis, was 3wk after COVID vaccine Modifying factors: cholecalciferol 5ku/d, levothyroxine 88 mcg daily at bed, no mineral supplements, has never forgotten a dose had Reclast 04/15/22 Hasn't had migraine in 8-10 months. Had DVT in calf, 3 weeks after AUGD vaccine. off Eliquis, also stopped Evista Back on Eliquis after coronary stents, now back off. 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 Dr Blackwell at [facility] Snoring Spinal stenosis lumbar Tobacco use disorder PAST SURGICAL HISTORY Procedure Laterality Date ABDOMINAL SURGERY HX APPENDECTOMY HX BREAST SURGERY HX BRST BX INCISIONAL Left 1986 lumpectomies for breast cysts, pre-cancerous one in CHOLECYSTECTOMY 1974 COLSC FLX W/RMVL OF TUMOR POLYP LESION SNARE TQ 03/24/2015 2 small hyperplastic polyps- 10 year follow up EGD TRANSORAL BIOPSY SINGLE/MULTIPLE 03/24/2015 gastritis, ?arnold's esophagitis EGD TRANSORAL BIOPSY SINGLE/MULTIPLE 07/17/2015 short segment arnold's, repeat in 2 years ESOPHAGOGASTRODUODENOSCOPY TRANSORAL DIAGNOSTIC 09/01/2017 EGD ESOPHAGOGASTRODUODENOSCOPY TRANSORAL DIAGNOSTIC 12/01/2020 repeat in 3 years 11/2023 EYE SURGERY HX PAST SURGICAL HISTORY OF Right 2016 carpal tunnel, ulnar neuropathy SUPRACERVICAL ABDL HYSTER W/WO RMVL TUBE OVARY 1971 left oophorectomy for cysts and endometriosis VAGINAL HYSTERECTOMY WRIST ARTHROSCOPY/SURGERY Left 90 ?Dequervains tendon procedure on left? FAMILY HISTORY Problem Relation Age of Onset Heart Failure Mother Asthma Mother Cancer Father kidney Heart Maternal Grandmother Hypertension Sister Clotting Disorder Sister Diabetes Sister other (rectal cancer) Sister great grandmother Social History Tobacco Use Smoking status: Every Day Packs/day: 1.00 Years: 55.00 Pack years: 55.00 Types: Cigarettes Start date: 1967 Smokeless tobacco: Never Substance Use Topics Alcohol use: Yes Comment: rare Drug use: No MEDICATIONS AND ALLERGIES Current Outpatient Med (more content not included)... [facility] 09-14-2022 Instructions Shaylee Robertson MD - 09/14/2022 3:45 PM EST Assessment / Plan Problem: 2) Osteoporosis, Evista contraindicated because of DVT while on therapy (though also 2 wk after J&J COVID vaccine), oral bisphosphonate contraindicated by history of Barretts esophagus, insurance categorically refuses to let her have Prolia (??), she is taking Reclast, doing fine with it, gets it April 2023 next. 3) Hypothyroidism TSH continues to be in normal range for her age especially with coronary disease. , will keep her on 7.5/wk of 88 mccg levothyroxine Unchanged 1) Primary hyperparathyroidism s/p resection 2016 2) Using Nicotine mints , but not smoking. 3) s/p Pfizer COVID booster x 1 after her J& vaccine.. Treatment / Plan: 1) continue the levothyroxine at 7 & 1/2 pills per week of 88 mcg. 2) return to me in 6 months by virtual visit, with labs beforehand 3) we'll schedule the Reclast for April at our next visit. Shaylee Robertson MD Data Review: Component Latest Ref Rng & Units 08/18/2022 Protein, Total 6.3 - 8.0 g/dL 6.9 Albumin 3.9 - 4.9 g/dL 4.1 Calcium 8.5 - 10.2 mg/dL 9.9 Bilirubin, Total 0.2 - 1.3 mg/dL 0.7 Alkaline Phosphatase 34 - 123 U/L 70 AST 13 - 35 U/L 20 ALT 7 - 38 U/L 17 Glucose 74 - 99 mg/dL 96 BUN 7 - 21 mg/dL 17 Creatinine 0.58 - 0.96 mg/dL 0.82 Sodium 136 - 144 mmol/L 141 Potassium 3.7 - 5.1 mmol/L 4.3 Chloride 97 - 105 mmol/L 106 (H) CO2 22 - 30 mmol/L 25 Anion Gap 9 - 18 mmol/L 10 eGFR >=60 mL/min/1.73m 74 PTH, Intact 15 - 65 pg/mL 76 (H) Component Latest Ref Rng & Units 08/18/2022 Cholesterol, Total <200 mg/dL 138 Triglyceride <150 mg/dL 70 HDL Cholesterol >39 mg/dL 58 Non HDL Cholesterol <130 mg/dL 80 LDL Cholesterol <100 mg/dL 66 Component TSH Free T4 Latest Ref Rng & Units 0.270 - 4.200 mIU/L 0.9 - 1.7 ng/dL 03/27/2020 4.420 (H) 1.4 01/29/2021 2.520 1.4 04/27/2021 5.180 (H) 1.4 07/12/2021 5.130 (H) 1.4 02/28/2022 5.050 (H) 08/18/2022 5.070 (H) 1.4 documented in this encounter [facility] 09-14-2022 History of Present illness Narrative Assessment / Plan Problem: 2) Osteoporosis, Evista contraindicated because of DVT while on therapy (though also 2 wk after J&J COVID vaccine), oral bisphosphonate contraindicated by history of Barretts esophagus, insurance categorically refuses to let her have Prolia (??), she is taking Reclast, doing fine with it, gets it April 2023 next. 3) Hypothyroidism TSH continues to be in normal range for her age especially with coronary disease. , will keep her on 7.5/wk of 88 mccg levothyroxine Unchanged 1) Primary hyperparathyroidism s/p resection 2016 2) Using Nicotine mints , but not smoking. 3) s/p Pfizer COVID booster x 1 after her J& vaccine.. Treatment / Plan: 1) continue the levothyroxine at 7 & 1/2 pills per week of 88 mcg. 2) return to me in 6 months by virtual visit, with labs beforehand 3) we'll schedule the Reclast for April at our next visit. Shaylee Robertson MD Data Review: Component Latest Ref Rng & Units 08/18/2022 Protein, Total 6.3 - 8.0 g/dL 6.9 Albumin 3.9 - 4.9 g/dL 4.1 Calcium 8.5 - 10.2 mg/dL 9.9 Bilirubin, Total 0.2 - 1.3 mg/dL 0.7 Alkaline Phosphatase 34 - 123 U/L 70 AST 13 - 35 U/L 20 ALT 7 - 38 U/L 17 Glucose 74 - 99 mg/dL 96 BUN 7 - 21 mg/dL 17 Creatinine 0.58 - 0.96 mg/dL 0.82 Sodium 136 - 144 mmol/L 141 Potassium 3.7 - 5.1 mmol/L 4.3 Chloride 97 - 105 mmol/L 106 (H) CO2 22 - 30 mmol/L 25 Anion Gap 9 - 18 mmol/L 10 eGFR >=60 mL/min/1.73m 74 PTH, Intact 15 - 65 pg/mL 76 (H) Component Latest Ref Rng & Units 08/18/2022 Cholesterol, Total <200 mg/dL 138 Triglyceride <150 mg/dL 70 HDL Cholesterol >39 mg/dL 58 Non HDL Cholesterol <130 mg/dL 80 LDL Cholesterol <100 mg/dL 66 Component TSH Free T4 Latest Ref Rng & Units 0.270 - 4.200 mIU/L 0.9 - 1.7 ng/dL 03/27/2020 4.420 (H) 1.4 01/29/2021 2.520 1.4 04/27/2021 5.180 (H) 1.4 07/12/2021 5.130 (H) 1.4 02/28/2022 5.050 (H) 08/18/2022 5.070 (H) 1.4 History Problem name: hypothyroidism Quality: primary Severity: mild Duration: she is unsure Context: 1) s/p parathyroid resection 12/12/16 2) Barretts esophagus, keeping up with every 3 year endoscopy 3) s/p COVID vaccine (J&J), Pfizer booster 4) hx DVT, is on Eliquis, was 3wk after J&J COVID vaccine Modifying factors: cholecalciferol 5ku/d, levothyroxine 88 mcg daily at bed, no mineral supplements, has never forgotten a dose had Reclast 04/15/22 Hasn't had migraine in 8-10 months. Had DVT in calf, 3 weeks after J&J vaccine. off Eliquis, also stopped Evista Back on Eliquis after coronary stents, now back off. 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 Dr Blackwell at [facility] Snoring Spinal stenosis lumbar Tobacco use disorder PAST SURGICAL HISTORY Procedure Laterality Date ABDOMINAL SURGERY HX APPENDECTOMY HX BREAST SURGERY HX BRST BX INCISIONAL Left 1986 lumpectomies for breast cysts, pre-cancerous one in CHOLECYSTECTOMY 1974 COLSC FLX W/RMVL OF TUMOR POLYP LESION SNARE TQ 03/24/2015 2 small hyperplastic polyps- 10 year follow up EGD TRANSORAL BIOPSY SINGLE/MULTIPLE 03/24/2015 gastritis, ?arnold's esophagitis EGD TRANSORAL BIOPSY SINGLE/MULTIPLE 07/17/2015 short segment arnold's, repeat in 2 years ESOPHAGOGASTRODUODENOSCOPY TRANSORAL DIAGNOSTIC 09/01/2017 EGD ESOPHAGOGASTRODUODENOSCOPY TRANSORAL DIAGNOSTIC 12/01/2020 repeat in 3 years 11/2023 EYE SURGERY HX PAST SURGICAL HISTORY OF Right 2016 carpal tunnel, ulnar neuropathy SUPRACERVICAL ABDL HYSTER W/WO RMVL TUBE OVARY 1971 left oophorectomy for cysts and endometriosis VAGINAL HYSTERECTOMY WRIST ARTHROSCOPY/SURGERY Left 90 ?Dequervains tendon procedure on left? FAMILY HISTORY Problem Relation Age of Onset Heart Failure Mother Asthma Mother Cancer Father kidney Heart Maternal Grandmother Hypertension Sister Clotting Disorder Sister Diabetes Sister other (rectal cancer) Sister great grandmother Social History Tobacco Use Smoking status: Every Day Packs/day: 1.00 Years: 55.00 Pack years: 55.00 Types: Cigarettes Start date: 1967 Smokeless tobacco: Never Substance Use Topics Alcohol use: Yes Comment: rare Drug use: No MEDICATIONS & ALLERGIES Current Outpatient Medications Medication Sig Dispense Refill atorvastatin (LIPITOR) 40 mg tablet Take 1 tablet by mouth daily at bedtime. 90 tablet 3 amLODIPine (NORVASC) 5 mg tablet Take 1 tablet by mouth once daily. 90 tablet 1 metoprolol succinate ER (TOPROL XL) 50 mg 24 hr tablet Take 1 tablet by mouth once daily. 90 tablet 1 losartan (COZAAR) 100 mg tablet Take 0.5 tablets by mouth once daily. 90 tablet 3 omeprazole (PRILOSEC) 40 mg capsule Take 1 capsule by mouth once daily. 90 capsule 1 levothyroxine (SYNTHROID) 88 mcg tablet 7 & 1/2 pills per day, one a day, but on take an extra half pill 100 tablet 3 ELIQUIS 5 mg tab(s) Take 5 mg by mouth twice daily. clopidogrel (PLAVIX) 75 mg tablet Take 75 mg by mouth once daily. nitroglycerin sublingual (NITROQUICK) 0.4 mg SL tablet Dissolve 0.4 mg under the tongue. COMPOUNDED PRESCRIPTION Powerstep full length original (M72.2) Plantar fasciitis of left foot (primary encounter diagnosis) (M76.821, M76.822) Posterior tibial tendon dysfunction (PTTD) of both lower extremities (M21.41, M21.42) Pes planus of both feet 1 Device 0 cholecalciferol (VITAMIN D-3) 5,000 unit tab Take 2 tablets by mouth once daily. 0 Current Facility-Administered Medications Medication Dose Route Frequency Provider Last Rate Last Admin zoledronic acid 5 mg PREMIX piggyback (RECLAST) 5 mg INTRAVENOUS Every Year Shaylee Robertson MD ALLERGIES Allergen Reactions Asa [Aspirin] Other: See Comments Thins blood too much and causes nose bleeds Boniva [Ibandronate] GI Upset, Shortness of Breath Eggs [Egg] Hives reports allergy to egg yolk Iodine Rash Lisinopril-Hydrochl* Hives documented in this encounter [facility] 09-07-2022 Miscellaneous Notes Patient has been identified by name and date of : Yes Requested Prescriptions Pending Prescriptions Disp Refills atorvastatin (LIPITOR) 40 mg tablet 90 tablet 3 Sig: Take 1 tablet by mouth daily at bedtime. amLODIPine (NORVASC) 5 mg tablet 90 tablet 1 Sig: Take 1 tablet by mouth once daily. metoprolol succinate ER (TOPROL XL) 50 mg 24 hr tablet 90 tablet 1 Sig: Take 1 tablet by mouth once daily. losartan (COZAAR) 100 mg tablet 90 tablet 3 Sig: Take 0.5 tablets by mouth once daily. omeprazole (PRILOSEC) 40 mg capsule 90 capsule 1 Sig: Take 1 capsule by mouth once daily. levothyroxine (SYNTHROID) 88 mcg tablet 100 tablet 3 Si & 1/2 pills per day, one a day, but on take an extra half pill RX INSTRUCTIONS: Patient aware RX will be sent to pharmacy. No need to notify patient. Ya Mcfarland Pss documented in this encounter [facility] 07-26-2022 History of Present illness Narrative Patient presents with: Hospital F/U HPI: Patient presents today for office visit for hospital follow up. Admitted 06/23/22 to [facility]. Discharged 06/25/22. Myocardial infarction. [address] Went back on 07/21/22 to [facility] and had 6 more stents placed. Sent from here with acute chest pain and had NSTEMI. Had one PCI with RAMANDEEP to [place] and the brought back for LAD lesion. Also had been noted to have an elevated d dimer with an acute soleal vein clot in her leg. Had a previous negative hypercoag panel after first clot. Now on eliquis. No recent travel. Had egd in 2020. Colonoscopy in 2014 due again in 2024. No current gi issues. Had ct of chest and mammogram. No chest pain today. Occasional shortness of breath Leg seems to be doing well. On plavix, lipitor, betablocker Sees cardiology again on 08/18 MEDICATIONS: Current Outpatient Medications Medication Sig ELIQUIS 5 mg tab(s) Take 5 mg by mouth twice daily. atorvastatin (LIPITOR) 40 mg tablet Take 40 mg by mouth daily at bedtime. clopidogrel (PLAVIX) 75 mg tablet Take 75 mg by mouth once daily. nitroglycerin sublingual (NITROQUICK) 0.4 mg SL tablet Dissolve 0.4 mg under the tongue. levothyroxine (SYNTHROID) 88 mcg tablet 7 & 1/2 pills per day, one a day, but on take an extra half pill amLODIPine (NORVASC) 5 mg tablet Take 1 tablet by mouth once daily. losartan (COZAAR) 100 mg tablet Take 1 tablet by mouth once daily. (Patient taking differently: Take 50 mg by mouth once daily.) metoprolol succinate ER (TOPROL XL) 50 mg 24 hr tablet Take 1 tablet by mouth once daily. omeprazole (PRILOSEC) 40 mg capsule Take 1 capsule by mouth once daily. COMPOUNDED PRESCRIPTION Powerstep full length original (M72.2) Plantar fasciitis of left foot (primary encounter diagnosis) (M76.821, M76.822) Posterior tibial tendon dysfunction (PTTD) of both lower extremities (M21.41, M21.42) Pes planus of both feet cholecalciferol (VITAMIN D-3) 5,000 unit tab Take 2 tablets by mouth once daily. Current Facility-Administered Medications Medication Dose Route Frequency zoledronic acid 5 mg PREMIX piggyback (RECLAST) 5 mg INTRAVENOUS Every Year ALLERGIES: ALLERGIES Allergen Reactions Asa [Aspirin] Other: See Comments Thins blood too much and causes nose bleeds Boniva [Ibandronate] GI Upset, Shortness of Breath Eggs [Egg] Hives reports allergy to egg yolk Iodine Rash Lisinopril-Hydrochl* Hives PAST MEDICAL HISTORY Diagnosis Date Abnormal glucose tolerance test 1995 low sugar Arthritis Arnold esophagus 2016 Coronary artery calcification seen on CAT scan 2012 Emphysema 09/20/2012 CT=emphysema, calcified granuloma RLL Endometriosis Headache cervical History of hyperthyroidism ~ Hx of migraine headaches Hypertension Hypoglycemia Hypothyroidism 2014 Kidney stone ~1970 Osteopenia 12/01/2011 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 Dr Blackwell at [facility] Snoring Spinal stenosis lumbar Tobacco use disorder PAST SURGICAL HISTORY Procedure Laterality Date ABDOMINAL SURGERY HX APPENDECTOMY HX BREAST SURGERY HX BRST BX INCISIONAL Left 1986 lumpectomies for breast cysts, pre-cancerous one in CHOLECYSTECTOMY 1974 COLSC FLX W/RMVL OF TUMOR POLYP LESION SNARE TQ 03/24/2015 2 small hyperplastic polyps- 10 year follow up EGD TRANSORAL BIOPSY SINGLE/MULTIPLE 03/24/2015 gastritis, ?arnold's esophagitis EGD TRANSORAL BIOPSY SINGLE/MULTIPLE 07/17/2015 short segment arnold's, repeat in 2 years ESOPHAGOGASTRODUODENOSCOPY TRANSORAL DIAGNOSTIC 09/01/2017 EGD ESOPHAGOGASTRODUODENOSCOPY TRANSORAL DIAGNOSTIC 12/01/2020 repeat in 3 years 11/2023 EYE SURGERY HX PAST SURGICAL HISTORY OF Right 2016 carpal tunnel, ulnar neuropathy SUPRACERVICAL ABDL HYSTER W/WO RMVL TUBE OVARY 1971 left oophorectomy for cysts and endometriosis VAGINAL HYSTERECTOMY WRIST ARTHROSCOPY/SURGERY Left 90 ?Dequervains tendon procedure on left? FAMILY HISTORY Problem Relation Age of Onset Heart Failure Mother Asthma Mother Cancer Father kidney Heart Maternal Grandmother Hypertension Sister Clotting Disorder Sister Diabetes Sister other (rectal cancer) Sister great grandmother Social History Tobacco Use Smoking status: Every Day Packs/day: 1.00 Years: 55.00 Pack years: 55.00 Types: Cigarettes Start date: 1967 Smokeless tobacco: Never Substance Use Topics Alcohol use: Yes Comment: rare Drug use: No Discussed tobacco cessation, including risks of continued use. Offered assistance to help quit if patient desires. Less than one cigarette a day. Reviewed current medications, allergies, past medical history, surgical history, family history and social history today. REVIEW OF SYSTEMS All other reviewed and negative other than HPI. VITALS: BP 126/70 Pulse 72 Ht 160 cm (5' 3 ) Wt 69.4 kg (153 lb) SpO2 98% BMI 27.10 kg/m Last 4 Encounter Wt Readings: Date: Wt: 04/18/2022 67.1 kg (148 lb) 03/25/2022 67.6 kg (149 lb) 02/23/2022 66.9 kg (147 lb 6.4 oz) 09/15/2021 65.3 kg (144 lb) PHYSICAL EXAMINATION: General appearance: Well appearing, alert, in no acute distress, well-hydrated, well nourished. Skin: Skin color, texture, turgor normal, no suspicious rashes or lesions Head: Normocephalic, no masses, lesions, tenderness or abnormalities Lungs: Lungs clear to auscultation. No wheezing, rhonchi, rales Heart: RRR without murmur, gallop, or rubs. No ectopy Abdomen: Normal abdominal exam, Abdomen soft, non-tender. Bowel sounds normal. No masses, organomegaly Extremities: No deformities, edema, skin discoloration, clubbing or cyanosis. Good capillary refill. Musculoskeletal: No joint swelling, deformity, or tenderness ASSESSMENT/PLAN: 1. Post PTCA - ICD9: V45.82, ICD10: Z98.61 (primary diagnosis) - stay on meds. Call if any issues. Stop smoking. 2. History of DVT (deep vein thrombosis) - ICD9: V12.51, ICD10: Z86.718 - continue on eliquis. Is recurrent 3. Coronary artery disease involving [place] coronary artery of [place] heart without angina pectoris - ICD9: 414.01, ICD10: I25.10 - stable. - CBC + DIFF 4. Panlobular emphysema (HCC) - ICD9: 492.8, ICD10: J43.1 - COMP METABOLIC PANEL 5. Mixed hyperlipidemia - ICD9: 272.2, ICD10: E78.2 - good control - Continue current medication. - LIPID PANEL BASIC Coy Pfeiffer MD RTO in eight weeks. documented in this encounter [facility] 06-27-2022 Miscellaneous Notes Noted. Patient's call thankful for provider. states that patient had 2 stents placed. Patient very grateful for all provider had done yesterday. Caty Ramirez RN documented in this encounter [facility] 06-23-2022 Miscellaneous Notes Formerly [facility], [facility], [facility]ulatory Surgery Centers and Remote Sites Emergency Response Form. NOT TO BE USED AT [facility] Complete this report when the Emergency Medical Response is activated (911 calls/EmergencyTransport to the ED) or when a Code Sheet is utilized in the care of a patient (i.e., ASC) Date of the Event: 06/23/22 (Must provide Value) Time of the Event:09:02 am (Must provide Value) Was emergency response activated? (Local EMS/Emergency Department) YES (Must provide Value) Location of the Incident: [facility] ([facility]) (Must provide Value) Reason/Chief Complaint for Emergency Call (Check all that apply): Chest Pain/Pressure (Must provide Value) CPR Initiated-Chest Compressions and/or Rescue Breathing Provided: NO (Must provide value) Facility AED Used-Automatic External Defibrillator: NO (Must provide value) EMS AED Used-Automatic External Defibrillator: NO (Must provide value) Prior to EMS arrival, was any treatment administered? YES Describe treatment One dose of Nitro at 9:04 am Patient Disposition: Transferred to Hospital ED (Must provide value) [place] information: Name of Provider- Pia Meyers (Must provide value) While in office with this am, patient began experiencing crushing chest pain acutely. Substernal without radiation. Some dyspnea. No edema. No symptoms prior. Her husbands visit was halted. I immediately moved her to the table. Squad was called. Given a sl nitro. Bp 220/120. Hr. 90 Ekg done which showed non specific findings. Oxygen applied. She declined asa due to allergy. Pain slightly relieved with nitro. Squad arrived within 5 minutes and report given to them on transfer. documented in this encounter [facility] 04-18-2022 History of Present illness Narrative 76 year old female with c/o ache, flu-like sx after Reclast 2 daysa go 04/13/[address] lung: Right lung base 10 mm calcified nodule (240). 3 mm middle lobe solid nodule (172). 4 mm fissural nodule left lung (155). Other findings: Calcifications within the spleen from old granulomatous disease. Moderate coronary calcifications. Degenerative changes of the thoracic spine. Bronchial thickening and moderate upper lobe predominant emphysema. Smokes 1/2- 1 PPD. No ready to quit. Hemoglobin A1C (%) Date Value 02/28/2022 5.6 07/12/2021 5.9 01/31/2014 5.8 ) HISTORIES FAMILY HISTORY Problem Relation Age of Onset Heart Failure Mother Asthma Mother Cancer Father kidney Heart Maternal Grandmother Hypertension Sister Clotting Disorder Sister Diabetes Sister other (rectal cancer) Sister great grandmother PAST MEDICAL HISTORY Diagnosis Date Abnormal glucose tolerance test 1995 low sugar Arthritis Arnold esophagus 2016 Coronary artery calcification seen on CAT scan 2012 Emphysema 09/20/2012 CT=emphysema, calcified granuloma RLL Endometriosis Headache cervical History of hyperthyroidism ~ Hx of migraine headaches Hypertension Hypoglycemia Hypothyroidism 2014 Kidney stone ~1970 Osteopenia 12/01/2011 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 Dr Blackwell at [facility] Snoring Spinal stenosis lumbar Tobacco use disorder PAST SURGICAL HISTORY Procedure Laterality Date ABDOMINAL SURGERY HX APPENDECTOMY HX BREAST SURGERY HX BRST BX INCISIONAL Left 1986 lumpectomies for breast cysts, pre-cancerous one in CHOLECYSTECTOMY 1974 COLSC FLX W/RMVL OF TUMOR POLYP LESION SNARE TQ 03/24/2015 2 small hyperplastic polyps- 10 year follow up EGD TRANSORAL BIOPSY SINGLE/MULTIPLE 03/24/2015 gastritis, ?arnold's esophagitis EGD TRANSORAL BIOPSY SINGLE/MULTIPLE 07/17/2015 short segment arnold's, repeat in 2 years ESOPHAGOGASTRODUODENOSCOPY TRANSORAL DIAGNOSTIC 09/01/2017 EGD ESOPHAGOGASTRODUODENOSCOPY TRANSORAL DIAGNOSTIC 12/01/2020 repeat in 3 years 11/2023 EYE SURGERY HX PAST SURGICAL HISTORY OF Right 2016 carpal tunnel, ulnar neuropathy SUPRACERVICAL ABDL HYSTER W/WO RMVL TUBE OVARY 1971 left oophorectomy for cysts and endometriosis VAGINAL HYSTERECTOMY WRIST ARTHROSCOPY/SURGERY Left 90 ?Dequervains tendon procedure on left? Social History Tobacco Use Smoking status: Every Day Packs/day: 1.00 Years: 55.00 Pack years: 55.00 Types: Cigarettes Start date: 1967 Smokeless tobacco: Never Substance Use Topics Alcohol use: Yes Comment: rare Drug use: No ACTIVE PROBLEM LIST History of Hyperthyroidism Hypertension Spinal Stenosis Tobacco Use Disorder Osteopenia Hypothyroidism Panlobular Emphysema (Hcc) Coronary Artery Calcification Seen On Cat Scan Epigastric Pain Arnold Esophagus Migraine Without Aura and With Status Migrainosus, Not Intractable Primary Hyperparathyroidism (Hcc) Refusal of Blood Transfusions As Patient Is Zoroastrian Plantar Fasciitis, Left Tibialis Tendinitis of Both Lower Extremities Flat Feet, Bilateral Acute Right-Sided Low Back Pain With Right-Sided Sciatica History of Dvt (Deep Vein Thrombosis) Hyperglycemia Osteoporosis Current Outpatient Medications Medication Sig Dispense Refill levothyroxine (SYNTHROID) 88 mcg tablet 7 & 1/2 pills per day, one a day, but on take an extra half pill 100 tablet 3 amLODIPine (NORVASC) 5 mg tablet Take 1 tablet by mouth once daily. 90 tablet 1 losartan (COZAAR) 100 mg tablet Take 1 tablet by mouth once daily. 90 tablet 1 metoprolol succinate ER (TOPROL XL) 50 mg 24 hr tablet Take 1 tablet by mouth once daily. 90 tablet 1 omeprazole (PRILOSEC) 40 mg capsule Take 1 capsule by mouth once daily. 90 capsule 1 COMPOUNDED PRESCRIPTION Powerstep full length original (M72.2) Plantar fasciitis of left foot (primary encounter diagnosis) (M76.821, M76.822) Posterior tibial tendon dysfunction (PTTD) of both lower extremities (M21.41, M21.42) Pes planus of both feet 1 Device 0 cholecalciferol (VITAMIN D-3) 5,000 unit tab Take 2 tablets by mouth once daily. 0 Current Facility-Administered Medications Medication Dose Route Frequency Provider Last Rate Last Admin zoledronic acid 5 mg PREMIX piggyback (RECLAST) 5 mg INTRAVENOUS Every Year Sahylee Robertson MD SPIROMETRY Never done BP CONTROLLED (<130/80) Never done COVID-19 VACCINE(3 - Booster for [place] series) due on 08/30/2021 INFLUENZA(1) due on 04/07/2022 EXAM: BP 110/62 Pulse 77 Resp 18 Wt 67.1 kg (148 lb) SpO2 95% BMI 26.22 kg/m Pleasant older adult woman in no acute distress. Alert and oriented all spheres. Normal affect and cognition. Speech normal. No deficits to learning or comprehension. Skin warm, dry, pink to lips and nailbeds. Normal turgor. Respirations regular and unlabored. Chest is normal shape. Lungs are clear to all [place] with good air exchange through out. HRRR without murmur or gallop. No lifts, heaves, or rubs. Extrem: no clubbing or cyanosis. Edema: none. Extremities are warm and pink with prompt capillary refill. ASSESSMENT/PLAN: 1. Tobacco use disorder - ICD9: 305.1, ICD10: F17.200 (primary diagnosis) - Cessation encouraged. - Physiologic and physical aspects of tobacco addiction as well as strategies for quitting were discussed. - Counseling was given focusing on the harmful effects of this addiction especially given the patient's medical condition(s) which will be worsened because of the chemicals in tobacco. 2. Lung nodule, multiple - ICD9: 793.19, ICD10: R91.8 Continue screening. Mily Simon PA-C documented in this encounter [facility] 04-15-2022 Miscellaneous Notes Phoned patient and only day she couldn't do were only days PCP had openings. Scheduled with Alfred 04/18/22 at 9a. Can we set her up with a follow up with me in next few weeks. ----- Message from Swetha Atkinson APRN.HENRY sent at 04/14/2022 8:19 AM EDT ----- Dear provider, It was a pleasure seeing your patient Fidelina Denise in my clinic for lung cancer screening. Based on their LDCT results they will continue with annual screening with our team and there is no indication for any follow-up of these nodules in the interim. Incidental findings noted: --moderate cad do you prefer to follow up with these results or refer to cardiology --moderate emphysema --based on the amount we could refer to pulmonary If you have any questions feel free to contact me. Thanks! Swetha Atkinson APRN-[employer] Lung Cancer Screening documented in this encounter [facility] 04-05-2022 Miscellaneous Notes Patient informed and verbalized understanding. States her treatment has changed and she is now going to receive reclast infusions. Muriel Guerra Bone density still shows osteoporosis. Continue current treatments. documented in this encounter [facility] 04-05-2022 History of Present illness Narrative Radiology Service Progress Note PATIENT NAME: Fidelina Denise DATE OF SERVICE: April 05, 2022 TIME: 9:00 AM PATIENT IDENTITY VERIFICATION COMPLETED USING TWO (2) IDENTIFIERS: Name and Date of confirmed by patient verbally. FALL SCREENING: Has the patient had 2 falls in the last year or 1 fall with injury or currently using an Ambulatory Assistive Device (Walker, Cane, Wheelchair, Crutches, etc.)? No PATIENT GENDER DATA: Female. status: : No status: NO. PATIENT RELEVANT IMPLANT DATA REVIEWED: Not Applicable RADIOLOGY DEPARTMENT: Bone Density PERIPHERAL IV DATA: Not applicable SIGNED BY: RT Samuel(R) April 05, 2022 9:00 AM documented in this encounter [facility] 04-04-2022 Miscellaneous Notes SPOKE TO PT AND SCHEDULED. Theodora Alexis Please enter orders in [employer] for prior authorization. Thank you. Caty Dawson Pt recently had appointment with Dr. Barr. He has ordered a reclast injection. See last visit 03/31/22 documented in this encounter [facility] 03-31-2022 Instructions Shaylee Robertson MD - 03/31/2022 2:13 PM EDT Assessment / Plan Problem: 1) Primary hyperparathyroidism s/p resection 2016 2) Osteoporosis, Evista contraindicated because of DVT while on therapy (though also 2 wk after J&J COVID vaccine), oral bisphosphonate contraindicated by history of Barretts esophagus, insurance categorically refuses to let her have Prolia (??), I have ordered Reclast for her. She hasn't gotten this yet, I will ask her to schedule and get this done soon. Will followup in August as scheduled. 3) Hypothyroidism TSH is in normal range for her age, will keep her on 7.5/wk of 88 mccg levothyroxine 4) Continues to smoke 6-8/d. Notes has finished chemo for non-Hodgkins lymphoma, doing OK 3) Back to smoking, now 6-8 per day. has non-Hodgkins lymphoma, getting chemo. 4) s/p Pfizer COVID booster x 1 after her J& vaccine.. Treatment / Plan: 1) continue the levothyroxine at 7 & 1/2 pills per week of 88 mcg. 2) get the Reclast infusion done soon. 3) return to me in August as scheduled, with labs beforehand. Shaylee Robertson MD Data Review: Component Latest Ref Rng & Units 02/28/2022 Protein, Total 6.3 - 8.0 g/dL 7.3 Albumin 3.9 - 4.9 g/dL 4.3 Calcium 8.5 - 10.2 mg/dL 10.2 Bilirubin, Total 0.2 - 1.3 mg/dL 0.5 Alkaline Phosphatase 34 - 123 U/L 83 AST 13 - 35 U/L 20 ALT 7 - 38 U/L 12 Glucose 74 - 99 mg/dL 109 (H) BUN 7 - 21 mg/dL 20 Creatinine 0.58 - 0.96 mg/dL 0.86 Sodium 136 - 144 mmol/L 141 Potassium 3.7 - 5.1 mmol/L 4.4 Chloride 97 - 105 mmol/L 102 CO2 22 - 30 mmol/L 30 Anion Gap 9 - 18 mmol/L 9 eGFR >=60 mL/min/1.73m 70 Cholesterol, Total <200 mg/dL 225 (H) Triglyceride <150 mg/dL 122 HDL Cholesterol >39 mg/dL 62 Non HDL Cholesterol <130 mg/dL 163 (H) Fasting Time hrs 12 VLDL Cholesterol <30 mg/dL 24 TC:HDL Ratio <5.10 3.63 LDL Cholesterol <100 mg/dL 139 (H) LDL:HDL Ratio <2.54 2.24 Normalized CAlcium 1.08 - 1.30 mmol/L 1.34 (H) Ionized Calcium 1.08 - 1.30 mmol/L 1.38 (H) Hemoglobin A1C 4.3 - 5.6 % 5.6 Estimated Average Glucose mg/dL 114 Vitamin D 25 Hydroxy 31.0 - 80.0 ng/mL 65.5 PTH, Intact 15 - 65 pg/mL 69 (H) TSH 0.270 - 4.200 mIU/L 5.050 (H) documented in this encounter [facility] 03-31-2022 History of Present illness Narrative Virtual Visit utilizing both audio and video components Duo Assessment / Plan Problem: 1) Primary hyperparathyroidism s/p resection 2016 2) Osteoporosis, Evista contraindicated because of DVT while on therapy (though also 2 wk after J&J COVID vaccine), oral bisphosphonate contraindicated by history of Barretts esophagus, insurance categorically refuses to let her have Prolia (??), I have ordered Reclast for her. She hasn't gotten this yet, I will ask her to schedule and get this done soon. Will followup in August as scheduled. 3) Hypothyroidism TSH is in normal range for her age, will keep her on 7.5/wk of 88 mccg levothyroxine 4) Continues to smoke 6-8/d. Notes has finished chemo for non-Hodgkins lymphoma, doing OK 3) Back to smoking, now 6-8 per day. has non-Hodgkins lymphoma, getting chemo. 4) s/p Pfizer COVID booster x 1 after her J& vaccine.. Treatment / Plan: 1) continue the levothyroxine at 7 & 1/2 pills per week of 88 mcg. 2) get the Reclast infusion done soon. 3) return to me in August as scheduled, with labs beforehand. Shaylee Robertson MD Data Review: Component Latest Ref Rng & Units 02/28/2022 Protein, Total 6.3 - 8.0 g/dL 7.3 Albumin 3.9 - 4.9 g/dL 4.3 Calcium 8.5 - 10.2 mg/dL 10.2 Bilirubin, Total 0.2 - 1.3 mg/dL 0.5 Alkaline Phosphatase 34 - 123 U/L 83 AST 13 - 35 U/L 20 ALT 7 - 38 U/L 12 Glucose 74 - 99 mg/dL 109 (H) BUN 7 - 21 mg/dL 20 Creatinine 0.58 - 0.96 mg/dL 0.86 Sodium 136 - 144 mmol/L 141 Potassium 3.7 - 5.1 mmol/L 4.4 Chloride 97 - 105 mmol/L 102 CO2 22 - 30 mmol/L 30 Anion Gap 9 - 18 mmol/L 9 eGFR >=60 mL/min/1.73m 70 Cholesterol, Total <200 mg/dL 225 (H) Triglyceride <150 mg/dL 122 HDL Cholesterol >39 mg/dL 62 Non HDL Cholesterol <130 mg/dL 163 (H) Fasting Time hrs 12 VLDL Cholesterol <30 mg/dL 24 TC:HDL Ratio <5.10 3.63 LDL Cholesterol <100 mg/dL 139 (H) LDL:HDL Ratio <2.54 2.24 Normalized CAlcium 1.08 - 1.30 mmol/L 1.34 (H) Ionized Calcium 1.08 - 1.30 mmol/L 1.38 (H) Hemoglobin A1C 4.3 - 5.6 % 5.6 Estimated Average Glucose mg/dL 114 Vitamin D 25 Hydroxy 31.0 - 80.0 ng/mL 65.5 PTH, Intact 15 - 65 pg/mL 69 (H) TSH 0.270 - 4.200 mIU/L 5.050 (H) History Problem name: hypothyroidism Quality: primary Severity: mild Duration: she is unsure Context: 1) s/p parathyroid resection 12/12/16 2) Barretts esophagus, keeping up with every 3 year endoscopy 3) s/p COVID vaccine (J&J), Pfizer booster 4) hx DVT, is on Eliquis, was 3wk after J&J COVID vaccine Modifying factors: cholecalciferol 5ku/d, levothyroxine 88 mcg daily at bed, no mineral supplements, has never forgotten a dose Never had the Reclast dose Hasn't had migraine in 8-10 months. Had DVT in calf, 3 weeks after J&J vaccine. off Eliquis, also stopped Evista 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 ROS Neuro: negative for migraine on Evista PHYSICAL EXAM PAST MED / SURG / FAMILY / SOCIAL HISTORY PAST MEDICAL HISTORY Diagnosis Date Abnormal glucose tolerance test 1995 low sugar Arthritis Arnold esophagus 2015 Coronary artery calcification seen on CAT scan 2012 Emphysema 09/20/2012 CT=emphysema, calcified granuloma RLL Endometriosis Headache cervical History of hyperthyroidism ~ Hx of migraine headaches Hypertension Hypoglycemia Hypothyroidism 2014 Kidney stone ~1970 Osteopenia 12/01/2011 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 Dr Blackwell at [facility] Snoring Spinal stenosis lumbar Tobacco use disorder PAST SURGICAL HISTORY Procedure Laterality Date ABDOMINAL SURGERY HX APPENDECTOMY HX BREAST SURGERY HX BRST BX INCISIONAL Left 1986 lumpectomies for breast cysts, pre-cancerous one in CHOLECYSTECTOMY 1974 COLSC FLX W/RMVL OF TUMOR POLYP LESION SNARE TQ 03/24/2015 2 small hyperplastic polyps- 10 year follow up EGD TRANSORAL BIOPSY SINGLE/MULTIPLE 03/24/2015 gastritis, ?arnold's esophagitis EGD TRANSORAL BIOPSY SINGLE/MULTIPLE 07/17/2015 short segment arnold's, repeat in 2 years ESOPHAGOGASTRODUODENOSCOPY TRANSORAL DIAGNOSTIC 09/01/2017 EGD ESOPHAGOGASTRODUODENOSCOPY TRANSORAL DIAGNOSTIC 12/01/2020 repeat in 3 years 11/2023 EYE SURGERY HX PAST SURGICAL HISTORY OF Right 2016 carpal tunnel, ulnar neuropathy SUPRACERVICAL ABDL HYSTER W/WO RMVL TUBE OVARY 1971 left oophorectomy for cysts and endometriosis VAGINAL HYSTERECTOMY WRIST ARTHROSCOPY/SURGERY Left 90s ?Dequervains tendon procedure on left? FAMILY HISTORY Problem Relation Age of Onset Heart Failure Mother Asthma Mother Cancer Father kidney Heart Maternal Grandmother Hypertension Sister Clotting Disorder Sister Diabetes Sister other (rectal cancer) Sister great grandmother Social History Tobacco Use Smoking status: Every Day Packs/day: 1.00 Years: 55.00 Pack years: 55.00 Types: Cigarettes Start date: 1967 Smokeless tobacco: Never Substance Use Topics Alcohol use: Yes Comment: rare Drug use: No MEDICATIONS & ALLERGIES Current Outpatient Medications Medication Sig Dispense Refill amLODIPine (NORVASC) 5 mg tablet Take 1 tablet by mouth once daily. 90 tablet 1 losartan (COZAAR) 100 mg tablet Take 1 tablet by mouth once daily. 90 tablet 1 metoprolol succinate ER (TOPROL XL) 50 mg 24 hr tablet Take 1 tablet by mouth once daily. 90 tablet 1 omeprazole (PRILOSEC) 40 mg capsule Take 1 capsule by mouth once daily. 90 capsule 1 levothyroxine (SYNTHROID) 88 mcg tablet 7 & 1/2 pills per day, one a day, but on take an extra half pill 100 tablet 3 COMPOUNDED PRESCRIPTION Powerstep full length original (M72.2) Plantar fasciitis of left foot (primary encounter diagnosis) (M76.821, M76.822) Posterior tibial tendon dysfunction (PTTD) of both lower extremities (M21.41, M21.42) Pes planus of both feet 1 Device 0 cholecalciferol (VITAMIN D-3) 5,000 unit tab Take 2 tablets by mouth once daily. 0 Current Facility-Administered Medications Medication Dose Route Frequency Provider Last Rate Last Admin zoledronic acid 5 mg PREMIX piggyback (RECLAST) 5 mg INTRAVENOUS Every Year Shaylee Robertson MD ALLERGIES Allergen Reactions Asa [Aspirin] Other: See Comments Thins blood too much and causes nose bleeds Boniva [Ibandronate] GI Upset, Shortness of Breath Eggs [Egg] Hives reports allergy to egg yolk Iodine Rash Lisinopril-Hydrochl* Hives documented in this encounter [facility] 03-29-2022 Miscellaneous Notes All medications refilled on 03/14/22 to [facility]. Erum Lucio Ma Patient has been identified by name and date of : Yes Requested Prescriptions Pending Prescriptions Disp Refills metoprolol succinate ER (TOPROL XL) 50 mg 24 hr tablet 90 tablet 3 Sig: Take 1 tablet by mouth once daily. amLODIPine (NORVASC) 5 mg tablet 90 tablet 3 Sig: Take 1 tablet by mouth once daily. losartan (COZAAR) 100 mg tablet 90 tablet 3 Sig: Take 1 tablet by mouth once daily. omeprazole (PRILOSEC) 40 mg capsule 90 capsule 3 Sig: Take 1 capsule by mouth once daily. RX INSTRUCTIONS: Patient aware RX will be sent to pharmacy. No need to notify patient. Karoline Reyes [facility] documented in this encounter [facility] 03-25-2022 Instructions Joellen Burch - 03/25/2022 11:56 AM EDT SMOKING CESSATION Stopping smoking is one of the most important things you can do to protect your current and future health, as well as that of your family. It is an potent risk factor for the future development of coronary artery disease and heart attacks. Smoking is both an addiction and a learned behavior. The nicotine withdrawal takes anywhere from 2-4 weeks and results in symptoms such as irritability, fatigue, insomnia, coughing, dizziness, poor concentration, hunger and cigarette cravings. After the nicotine withdrawal period, the learned linkage between certain acts or situations and cigarette use remain. Strategies to deal with these must be developed along with new behaviors to ensure successful smoking cessation. RESOURCES [facility] Smoking Cessation Appointment Line [facility] [phone]. [place] Tobacco Quit line: National Cancer [place] at http://www.smokefree.gov [place] [employer] at http://www.lungusa.org [place] [employer] at http://www.cancer.org STRATEGIES TOWARD SMOKING CESSATION - Make a list of the reasons why you want to quit, plus the benefits to be gained, and compare them to the reasons why you should continue to smoke. - Pick a specific quit date. - If you are interested in using nicotine patches or gum to assist with the nicotine withdrawal, let your doctor know. - Inform friends, family, and co-workers that you are quitting and when your quit date is. Ask for their understanding and support. - Prepare your environment by removing all cigarettes prior to your quit date. - Prior to your quit date, avoid smoking in places where you spend a lot of time (such as the house, work, car). - From previous quit attempts, identify what helped you to stop smoking. - From previous quit attempts, identify what triggered relapse. How can you avoid that again? - What things (situations, emotions) do you anticipate will be most challenging, especially in the first few weeks, to your quitting effort? - What can you do to address these challenges? - Avoid (or limit) alcohol consumption during the quitting process. - If your spouse or close coworker currently smokes, consider quitting together or at the very least, develop specific plans to maintain your cigarette abstinence while in the home or at work. - Take each day, each hour, each craving, one at a time. Every step or action you take toward smoking cessation is a success. The only failure is the failure to try. - The health of you and your family is worth the effort. STOP SMOKING CHECK LIST Preparing to Quit: ___ Make a personal pact with yourself to quit. ___ Pick a date for quitting completely. (My date to quit is ____.) ___ Write down on a card the three most important reasons for quitting. Carry the card with you from now on. Look at it several times a day. ___ Prior to quitting, eliminate smoking completely in 2 or 3 of your high risk situations. ___ Reduce consumption to one pack per day or less. ___ Change to a less desirable brand of cigarettes. ___ Discard your seed technician. Use matches. Carry your cigarettes in a different place. ___ Spend a little time each day picturing in your mind stressful events occurring in the future and you not smoking. Actual Quitting: The First Two Weeks ___ Get rid of all cigarettes. Put away all smoking related objects such as ashtrays. Ask the people you live with not to smoke in your presence for the first two weeks. ___ Spend as much time as possible with non-smoking people. ___ Keep busy, especially on evenings and weekends. ___ Avoid high risk situations (large parties, bars, etc.). ___ Spend time in places that prohibit or discourage smoking (e.g., theaters, libraries). ___ Drink plenty of fluids. ___ Don't substitute food or sugar based products for cigarettes. Use approved substitutions. (ice water, high bulk/low calorie foods, sugarless gum, mouthwash, brushing teeth) ___ Begin or increase a regular exercise program. ___ When experiencing withdrawal effects: 1. Remind yourself why you are quitting (from your card). 2. Remind yourself that whatever discomfort you are experiencing is only a tiny fraction of the probable discomfort associated with continued smoking. 3. Practice deep breathing or other relaxation techniques. ___ Remind yourself that you can free yourself from this unhealthy, expensive, messy habit and become a non-smoker. Maintenance of Quitting: After two weeks ___ Remind yourself that the desire to smoke is linked to many situations, people and emotional stress. ___ When you do have a desire to smoke, remember that it only lasts a few seconds: distract yourself and leave the situation if necessary. ___ After each desire to smoke has passed, pat yourself on the back, you have just made progress in breaking the habit forever. ___ Save the money on wasted on cigarettes in a special fund and buy yourself something nice. Maintenance of Quitting: After Two Months ___ Be particularly vigilant when unusual life events occur. (weddings, holidays, vacations). ___ Be particularly vigilant when stressful life events occur (relationship, financial or work problems). ___ Remind yourself regularly that not smoking is completely within your personal control. ___ Never lull yourself into thinking you are out of danger and you can safely have a cigarette or two. ___ If you do slip and have one or more cigarettes, do not conclude that you have failed at quitting. Return to complete abstinence immediately and learn from your experience. ___ If you have gained significant weight since quitting, now is the time to do something about it. ___ Each time you see a cigarettes advertisement, remind yourself of why you quit. Also remember that a [employer] spends billions of dollars each year trying to get people like yourself re-hooked . CT Lung Screen Results The CT scan that you will have done will show if you have any nodules (small spots) in your lungs that are suspicious for cancer. Around 90% of the patients who have this scan done are found to have at least one nodule. Most nodules are benign (not cancer) and of no harm to you at all. A specialist will make a scientific evaluation about whether or not a nodule is worrisome based on its size and shape. The radiologist who will read your scan will put it into one of four categories: LUNG-RADS Category Description Overall Probability of Malignancy Recommended Follow-Up 1 Negative No nodules and definitely benign (non-cancerous nodules) Essentially 0. 1 Year - Follow-up Low dose CT 2 Benign Appearance or Behavior Nodules with a very low likelihood of becoming cancer due to size or lack of growth Less than 1% 1 Year - Follow-up Low dose CT 3 Probably Benign Probably benign finding, short term follow-up recommended 1 to 2% 6 Months - Follow-up Low dose CT 4 Suspicious Findings for which additional diagnostic testing and/or biopsy is recommended Will be calculated based on nodule characteristics. Dependent on what is seen on the exam. At times, we may see something outside of the lungs on the scan that could be a health concern. Below are some of the most common findings: S Clinically Significant or Potentially Clinically Significant Findings (non lung cancer) Referral or additional imaging/labs depending on result. Approximately 10% of people receive this result. Coronary Artery Calcifications (Moderate or Severe) - Referral to cardiology for further work-up and recommendations. Thyroid Nodule - TSH level and Thyroid Ultrasound dependent on size, referral to endocrinology. Adrenal Nodule - Blood work and referral to endocrinology. Others Lung Cancer Screening hotline: [phone] Lung Cancer Screening [phone] Billing Questions: or [email or web address] [email or web address] Specialist Providers: (Cheyenne Najera CNP; Nel Palmer CNP; Swetha Green CNP; Swetha Atkinson CNP; Tory Prasad PA-C; Chloe Shah PA-C; Cindy Arevalo CNP, Padmini Mcclain CNP, Joellen Burch CNP & Chayo Centeno PA-C): [phone] Joellen Burch CNP documented in this encounter [facility] 03-25-2022 History of Present illness Narrative Images from the original note were not included. LUNG SCREENING VISIT PRIMARY CARE PHYSICIAN: Coy Pfeiffer MD PULMONARY PROVIDER: none Results will be communicated via letter or electronic record if applicable. Visit Delivery: In Person Patient Visit Type: New to Screening Current or Ex-smoker? [Current] Exam Type: baseline LDCT Number of Pack Years: 55 Current smoker (=0) or Number of Years since Quit: 0 REQUESTER: The referring provider advised the patient to have screening. HISTORY OF PRESENT ILLNESS: Fidelina Denise is a 76 year old (P) Active smoker who presents for lung screening. Respiratory symptoms include: SOB: Yes mild sob with activity Chest tightness: No Coughing: No Hemoptysis: No Wheezing: Yes reports she doesn't hear it but her tells her he hears her wheeze at night sometimes Fever/Chills: No Recent Respiratory Infection: No. Never had covid. Unintentional weight loss: No Last 6 Encounter Wt Readings: Date: Wt: 03/25/2022 67.6 kg (149 lb) 02/23/2022 66.9 kg (147 lb 6.4 oz) 09/15/2021 65.3 kg (144 lb) 07/13/2021 65.1 kg (143 lb 9.6 oz) 04/30/2021 64 kg (141 lb) 01/29/2021 64.4 kg (142 lb) ECOG PERFORMANCE STATUS: 0- Fully active, able to carry on all pre-disease performance w/o restriction. 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 Dr Blackwell at [facility] Snoring Spinal stenosis lumbar Tobacco use disorder PAST SURGICAL HISTORY Procedure Laterality Date ABDOMINAL SURGERY HX APPENDECTOMY HX BREAST SURGERY HX BRST BX INCISIONAL Left 1986 lumpectomies for breast cysts, pre-cancerous one in CHOLECYSTECTOMY 1974 COLSC FLX W/RMVL OF TUMOR POLYP LESION SNARE TQ 03/24/2015 2 small hyperplastic polyps- 10 year follow up EGD TRANSORAL BIOPSY SINGLE/MULTIPLE 03/24/2015 gastritis, ?arnold's esophagitis EGD TRANSORAL BIOPSY SINGLE/MULTIPLE 07/17/2015 short segment arnold's, repeat in 2 years ESOPHAGOGASTRODUODENOSCOPY TRANSORAL DIAGNOSTIC 09/01/2017 EGD ESOPHAGOGASTRODUODENOSCOPY TRANSORAL DIAGNOSTIC 12/01/2020 repeat in 3 years 11/2023 EYE SURGERY HX PAST SURGICAL HISTORY OF Right 2016 carpal tunnel, ulnar neuropathy SUPRACERVICAL ABDL HYSTER W/WO RMVL TUBE OVARY 1971 left oophorectomy for cysts and endometriosis VAGINAL HYSTERECTOMY WRIST ARTHROSCOPY/SURGERY Left 90s ?Dequervains tendon procedure on left? FAMILY HISTORY Problem Relation Age of Onset Heart Failure Mother Asthma Mother Cancer Father kidney Heart Maternal Grandmother Hypertension Sister Clotting Disorder Sister Diabetes Sister other (rectal cancer) Sister great grandmother amLODIPine (NORVASC) 5 mg tablet^Take 1 tablet by mouth once daily.^Disp: 90 tablet^Rfl: 1 losartan (COZAAR) 100 mg tablet^Take 1 tablet by mouth once daily.^Disp: 90 tablet^Rfl: 1 metoprolol succinate ER (TOPROL XL) 50 mg 24 hr tablet^Take 1 tablet by mouth once daily.^Disp: 90 tablet^Rfl: 1 omeprazole (PRILOSEC) 40 mg capsule^Take 1 capsule by mouth once daily.^Disp: 90 capsule^Rfl: 1 levothyroxine (SYNTHROID) 88 mcg tablet^7 & 1/2 pills per day, one a day, but on take an extra half pill^Disp: 100 tablet^Rfl: 3 cholecalciferol (VITAMIN D-3) 5,000 unit tab^Take 2 tablets by mouth once daily.^Disp: ^Rfl: 0 COMPOUNDED PRESCRIPTION^Powerstep full length original (M72.2) Plantar fasciitis of left foot (primary encounter diagnosis) (M76.821, M76.822) Posterior tibial tendon dysfunction (PTTD) of both lower extremities (M21.41, M21.42) Pes planus of both feet^Disp: 1 Device^Rfl: 0 ALLERGIES Allergen Reactions Asa [Aspirin] Other: See Comments Thins blood too much and causes nose bleeds Boniva [Ibandronate] GI Upset, Shortness of Breath Eggs [Egg] Hives reports allergy to egg yolk Iodine Rash Lisinopril-Hydrochl* Hives The medications and allergies were reviewed and reconciled for this patient and deemed current. Lung Cancer Risk Factors: 1.Tobacco Use: Start Age (P) 19, Quit Age: N/A, Average packs per day (P) 1, Pack Years 2. Passive Smoke Exposure: (P) Yes, (P) as a Child and as an Adult 3. Personal hx of malignancy: (P) Yes, Type of Cancer: (P) Unknown 4. Significant exposures (1 year or more of exposure): (P) None, 5. Race: White 6. Education: (P) College Graduate 7. BMI:Body mass index is 26.39 kg/m . Patient-entered Height: (P) 5'(P) 3 Patient-entered Weight: (P) 149 pounds 8. COPD: (P) No 9. Pneumonia in the past 5 years: (P) No 10. Is there a history of lung cancer in a first degree relative? (P) No 11. Is there a history of lung cancer in a non-first degree relative? (P) No 12. Is there a history of any other cancer in a first degree relative? (P) Yes Health Maintenance Immunization History Administered Date(s) Administered COVID-19 vaccine (Pulse[employer]ocks) 10/15/2020 COVID-19 vaccine, age 12+ yr ([email or web address] - PURPLE TOP) 04/30/2021 Influenza Seasonal - High Dose - Age 65+ 05/07/2014 08/08/2016 06/08/2018 07/19/2019 06/07/2020 Influenza Seasonal Inj Age 3+ 05/19/2011 Pneumococcal-13 Vac Conjugate 04/09/2015 Pneumovax 08/07/2013 Tdap (Age 7+) 02/23/2022 Zoster Recombinant (Shingrix) 02/05/2019 04/16/2019 influenza, high-dose, quadrivalent vaccine (FLUZONE HIGH DOSE QUADRIVALENT) 05/12/2020 Colonoscopy: 03/24/2015 Mammogram: 11/04/2021 DATA REVIEW I have directly visualized the testing documented: Prior Imaging: CT: No. CXR: Yes 2020 Normal. Pulmonary Function Testing: None. ASSESSMENT and RECOMMENDATIONS: 1. Screening for lung cancer: Six year risk for lung cancer: 20.8% via shouldiscreen I have determined that the patient is eligible for a low dose CT based on age, absence of signs or symptoms of lung cancer, and total pack years: Yes. The patient and I engaged in shared decision making, including the use of one or more decision aids, to include benefits, harms, follow-up diagnostic testing, over-diagnosis, false positive rate, and total radiation exposure. The patient understands and feels comfortable with it: Yes. Of note, Patient reports she has had previous scans but she cannot remember when/where, in which she was told she has lung nodules. She states she also knows she has coronary artery calcifications from previous scans. I cannot find said scans in care everywhere or in scanned documents. Patient doesn't remember when/where scans were completed and would like to proceed with LDCT. The patient was counseled on the importance of adherence to annual LDCT lung cancer screening, impact of comorbidities and ability or willingness to undergo diagnosis and treatment. The patient understands and feels comfortable with it:Yes. 2. Nicotine dependence: The patient was counseled on the importance of smoking cessation if current smoker and, if appropriate, offered additional tobacco cessation counseling services - Smoking Cessation Counseling. SMOKING CESSATION COUNSELING Smoking cessation methods including Nicotine Replacement Therapies, Bupropion, Varenicline, and Behavior Modification were discussed with the patient and assistance offered. The medical conditions adversely affected by cigarette use include:COPD, Emphysema, and Lung Cancer. The patient is currently not ready to quit. Previously tried chantix but cause moodiness and anxiety, buproprion caused HTN. 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 I personally spent 6 minutes in counseling. The time spent in smoking cessation counseling is exclusive of any other counseling during this visit. Joellen Burch CNP documented in this encounter [facility] 03-01-2022 Miscellaneous Notes Ok. I will forward them onto Dr. Robertson Patient notified. Verbalized understanding. Patient states she still sees Dr. Robertson but does not have an upcoming appointment, she states she will call to schedule one soon. Cholesterol is up slightly. Watch the diet. Calcium and pth still up. Thyroid is still slightly low. Is she still seeing Dr. Robertson for endo. If so, does she have appt set up? documented in this encounter [facility] 02-23-2022 Instructions Coy Pfeiffer MD - 02/23/2022 8:27 AM EDT BONE MINERAL DENSITY PATIENT INSTRUCTIONS ======= Bone mineral density testing measures the amount of calcium in certain parts of your bones. This information determines how strong your bones are. The test is used to detect osteoporosis, a disease in which the bone's mineral content and density are low, increasing a person's risk of fractures. The lumbar spine (lower back) and the hip are the skeletal sites usually examined. For the test, remember that: 1. You cannot take this test if you are . 2. Eat a normal diet on the day of the test. 3. Take your medications as you normally would. 4. DO NOT take calcium supplements (such as Tums) for 24 hours before the test. 5. On the day of the test, leave valuables (jewelry or credit cards) at home. 6. The test should be performed prior to oral, rectal or IV contrast studies, or at least 7 days after any of these studies. For the test, you may be asked to wear a hospital gown. You will lie on your back, on a padded table, in a comfortable position. Generally, you can resume your usual activities immediately. documented in this encounter [facility] 02-23-2022 History of Present illness Narrative Patient presents with: Medicare Wellness Exam HPI: Patient presents today for office visit for check up. After discussion, she declines medicare wellness. HTN: Patient is compliant with meds Yes Denies side effects: Yes. Chest pain: No. Dyspnea: No. Edema: No. Palpitations: Sometimes notices her blood sugar drops and needs to eat. Can sometimes feel palpitations. Reminded to follow with endo. Last a1c was mildly elevated. HYPOTHYROID: Patient is compliant with medications: Yes Patient has changes in energy: Slightly more tired. Patient has changes in hair or skin: No Patient has temperature intolerance: Slightly more cold than usual. Patient has weight changes: No No further swelling in the leg. Repeat labs after dvt were negative. No gerd. No dysphagia. Last egd was 2020. Repeating in three years. Stepped on nail on Monday. Cleaned it well. Was wearing crocks. No signs of infection. Not updated on tetanus. MEDICATIONS: Current Outpatient Medications Medication Sig amLODIPine (NORVASC) 5 mg tablet Take 1 tablet by mouth once daily. losartan (COZAAR) 100 mg tablet Take 1 tablet by mouth once daily. metoprolol succinate ER (TOPROL XL) 50 mg 24 hr tablet Take 1 tablet by mouth once daily. omeprazole (PRILOSEC) 40 mg capsule Take 1 capsule by mouth once daily. levothyroxine (SYNTHROID) 88 mcg tablet 7 & 1/2 pills per day, one a day, but on take an extra half pill COMPOUNDED PRESCRIPTION Powerstep full length original (M72.2) Plantar fasciitis of left foot (primary encounter diagnosis) (M76.821, M76.822) Posterior tibial tendon dysfunction (PTTD) of both lower extremities (M21.41, M21.42) Pes planus of both feet cholecalciferol (VITAMIN D-3) 5,000 unit tab Take 2 tablets by mouth once daily. Current Facility-Administered Medications Medication Dose Route Frequency zoledronic acid 5 mg PREMIX piggyback (RECLAST) 5 mg INTRAVENOUS Every Year ALLERGIES: ALLERGIES Allergen Reactions Asa [Aspirin] Other: See Comments Thins blood too much and causes nose bleeds Boniva [Ibandronate] GI Upset, Shortness of Breath Eggs [Egg] Hives reports allergy to egg yolk Iodine Rash Lisinopril-Hydrochl* Hives PAST MEDICAL HISTORY Diagnosis Date Abnormal glucose tolerance test 1995 low sugar Arthritis Arnold esophagus 2016 Coronary artery calcification seen on CAT scan 2013 Emphysema 09/20/12 CT=emphysema, calcified granuloma RLL Endometriosis Headache cervical History of hyperthyroidism ~ Hx of migraine headaches Hypertension Hypoglycemia Hypothyroidism 2013 Kidney stone ~1969 Osteopenia 12/01/11 Snoring Spinal stenosis lumbar Tobacco use disorder PAST SURGICAL HISTORY Procedure Laterality Date ABDOMINAL SURGERY HX APPENDECTOMY HX BREAST SURGERY HX BRST BX INCISIONAL Left 1986 lumpectomies for breast cysts, pre-cancerous one in CHOLECYSTECTOMY 1974 COLSC FLX W/RMVL OF TUMOR POLYP LESION SNARE TQ 03/24/2015 2 small hyperplastic polyps- 10 year follow up EGD TRANSORAL BIOPSY SINGLE/MULTIPLE 03/24/2015 gastritis, ?arnold's esophagitis EGD TRANSORAL BIOPSY SINGLE/MULTIPLE 07/17/2015 short segment arnold's, repeat in 2 years ESOPHAGOGASTRODUODENOSCOPY TRANSORAL DIAGNOSTIC 09/01/2017 EGD ESOPHAGOGASTRODUODENOSCOPY TRANSORAL DIAGNOSTIC 12/01/2020 repeat in 3 years 11/2023 EYE SURGERY HX PAST SURGICAL HISTORY OF Right 2016 carpal tunnel, ulnar neuropathy SUPRACERVICAL ABDL HYSTER W/WO RMVL TUBE OVARY 1971 left oophorectomy for cysts and endometriosis VAGINAL HYSTERECTOMY WRIST ARTHROSCOPY/SURGERY Left 90s ?Dequervains tendon procedure on left? FAMILY HISTORY Problem Relation Age of Onset Heart Failure Mother Asthma Mother Cancer Father kidney Heart Maternal Grandmother Hypertension Sister Clotting Disorder Sister Diabetes Sister other (rectal cancer) Sister great grandmother Social History Tobacco Use Smoking status: Current Every Day Smoker Packs/day: 0.50 Years: 40.00 Pack years: 20.00 Types: Cigarettes Start date: 02/25/1970 Last attempt to quit: 11/10/2020 Years since quittin.2 Smokeless tobacco: Never Used Tobacco comment: started smoking 23yo, usually 1 PPD 40+ pack years Substance Use Topics Alcohol use: Yes Comment: rare Drug use: No Reviewed current medications, allergies, past medical history, surgical history, family history and social history today. REVIEW OF SYSTEMS nails are splitting a little. discussed biotin. All other reviewed and negative other than HPI. HEALTH MAINTENANCE: Reviewed health maintenance issues today and recommended the following in detail. DTAP,TDAP,TD(1 - Tdap) -did step on a nail the other day. No issues with previous tetanus. LUNG CANCER SCREENING Never done DEPRESSION SCREENING -declined. ADVANCE DIRECTIVE DISCUSSION-has dpoa. is her surrogate. COVID-19 VACCINE(3 - Booster for Kendal series) due on 08/30/2021 LDL CHOLESTEROL due on 11/02/2021 VITALS: BP 128/84 (BP Site: Right Arm, BP Position: Sitting, BP Cuff Size: Regular Adult) Pulse 76 Resp 16 Ht 161 cm (5' 3.39 ) Wt 66.9 kg (147 lb 6.4 oz) BMI 25.79 kg/m Vision - R: 20/25. L: 20/40. OU: . Glasses, color normal Last 4 Encounter Wt Readings: Date: Wt: 09/15/2021 65.3 kg (144 lb) 07/13/2021 65.1 kg (143 lb 9.6 oz) 04/30/2021 64 kg (141 lb) 01/29/2021 64.4 kg (142 lb) Mini-Cog Patient asked to remember the following three words: Banana, [place] and Chair Visuospatial/Executive Functioning: Clock drawin/2 (Normal clock with all number in correct sequence and position, hands are correct = 2 points, inability or refusal to draw a clock = 0) Three word recall: 10/07 Total score: 5/5 (Total score = word recall score + clock draw score) PHYSICAL EXAMINATION: General appearance: Well appearing, alert, in no acute distress, well-hydrated, well nourished. Skin: puncture wound is healing well. No signs of infection.nontender. no masses palpated. Head: Normocephalic, no masses, lesions, tenderness or abnormalities Lungs: Lungs clear to auscultation. No wheezing, rhonchi, rales Heart: RRR without murmur, gallop, or rubs. No ectopy Abdomen: Normal abdominal exam, Abdomen soft, non-tender. Bowel sounds normal. No masses, organomegaly Extremities: No deformities, edema, skin discoloration, clubbing or cyanosis. Good capillary refill. Musculoskeletal: No joint swelling, deformity, or tenderness Peripheral pulses: Normal Neuro: Negative. ASSESSMENT/PLAN: 1. Primary hyperparathyroidism (HCC) - ICD9: 252.01, ICD10: E21.0 (primary diagnosis) - recheck labs. Follow with endo. - VITAMIN D 25 HYDROXY - PTH INTACT BLD - CALCIUM IONIZED BLOOD 2. History of DVT (deep vein thrombosis) - ICD9: V12.51, ICD10: Z86.718 - call if any issues.d 3. Hyperglycemia - ICD9: 790.29, ICD10: R73.9 - check labs. - HGB A1C 4. Osteoporosis, unspecified osteoporosis type, unspecified pathological fracture presence - ICD9: - due for exam. - DXA-AXIAL SKELETON 5. Smoker - ICD9: 305.1, ICD10: F17.200 - Cessation encouraged. - Physiologic and physical aspects of tobacco addiction as well as strategies for quitting were discussed. - Counseling was given focusing on the harmful effects of this addiction especially given the patient's medical condition(s) which will be worsened because of the chemicals in tobacco. - CONSULT LUNG CANCER SCREENING CLINIC 6. Need for vaccination - ICD9: V05.9, ICD10: Z23 - TDAP VACCINE AGE 7+ IM 7. Primary hypertension - ICD9: 401.9, ICD10: I10 - good control - Continue current medication(s) - Goal of BP <130/80 - CBC + DIFF - COMP METABOLIC PANEL - LIPID PANEL BASIC 8. Arnold's esophagus without dysplasia - ICD9: 530.85, ICD10: K22.70 - continue monitor. 9. Hypothyroidism, unspecified type - ICD9: 244.9, ICD10: E03.9 - check labs again. - TSH BLD 10. Puncture wound of left foot, initial encounter - ICD9: 892.0, ICD10: S91.332A -Discussed risks and benefits of new medication with the patient. Advised them to call if any side effects or questions. - call if any issues with wound - TDAP VACCINE AGE 7+ IM Coy Pfeiffer RTO in six months and prn. Medical Decision Making documented in this encounter [facility] 01-18-2022 History of Present illness Narrative POPULATION HEALTH NAVIGATION OUTREACH Action/ Patient Outreach: [facility] Support - Pt has currently been scheduled and seen for PCP follow up visit. Pt identified by name and : NO Outreach Outcome/Action Unable to reach patient: Phone number not valid / voicemail full Did you use a PCP flex slot to schedule this appointment? No Reason for Outreach Care Gap or Scheduling/Wellness visits Payer: Payor: [employer] AND [employer] / Plan: [employer] HMO / Product Type: HMO / Care Gap Reviewed:: Follow-up appointment Reminder: Reminder note to check Health Maintenance for items below Health Maintenance items due: SPIROMETRY Never done BP CONTROLLED (<130/80) Never done DTAP,TDAP,TD(1 - Tdap) Never done LUNG CANCER SCREENING Never done DEPRESSION SCREENING due on 03/12/2019 ADVANCE DIRECTIVE DISCUSSION Never done COVID-19 VACCINE(3 - Booster for Kendal series) due on 08/30/2021 LDL CHOLESTEROL due on 11/02/2021 Message Sent to Practice: No Navigation Signature: Landy Mica Ray Pss January 18, 2022 3:18 PM documented in this encounter [facility] 01-07-2022 History of Present illness Narrative POPULATION HEALTH NAVIGATION OUTREACH Action/FYI Called patient to schedule medicare wellness visit. Pt identified by name and : YES, via phone Outreach Outcome/Action Spoke to patient or caregiver: Patient scheduled on 01/24/2022. Did you use a PCP flex slot to schedule this appointment? No Reason for Outreach HCC or suspected condition Payer: Payor: [employer] / Plan: [employer] HMO / Product Type: HMO / Care Gap Reviewed:: Annual Wellness visit Reminder: Reminder note to check Health Maintenance for items below Health Maintenance items due: SPIROMETRY Never done BP CONTROLLED (<130/80) Never done DTAP,TDAP,TD(1 - Tdap) Never done LUNG CANCER SCREENING Never done DEPRESSION SCREENING due on 03/12/2019 ADVANCE DIRECTIVE DISCUSSION Never done COVID-19 VACCINE(3 - Booster for Kendal series) due on 08/30/2021 LDL CHOLESTEROL due on 11/02/2021 Message Sent to Practice: No Lisset Harvey Population Health Navigator January 07, 2022 9:12 AM documented in this encounter [facility] 11-04-2021 Miscellaneous Notes November 04, 2021 PID: [id number] Fidelina Denise [address] [place] [address] Dear Ms. Denise, We are pleased to inform you that the results of your recent breast imaging exam on 11/04/2021 are normal. Early detection of cancer is very important. We also understand recommendations regarding breast cancer screening are controversial. Please discuss with your primary care provider which strategy is best for you and whether a mammogram is right for you. Your imaging studies and report will be kept on file at [facility] as part of your permanent medical record and are available for your continuing care. Thank you for allowing us to help in meeting your health care needs. Sincerely, Dr. East Interpreting Radiologist [facility] (Normal over 40) documented in this encounter [facility] 11-04-2021 History of Present illness Narrative Radiology Service Progress Note PATIENT NAME: Fidelina Denise DATE OF SERVICE: November 04, 2021 TIME: 9:24 AM PATIENT IDENTITY VERIFICATION COMPLETED USING TWO (2) IDENTIFIERS: Name and Date of confirmed by patient verbally. FALL SCREENING: Has the patient had 2 falls in the last year or 1 fall with injury or currently using an Ambulatory Assistive Device (Walker, Cane, Wheelchair, Crutches, etc.)? No PATIENT GENDER DATA: Female. status: : No status: NO. PATIENT RELEVANT IMPLANT DATA REVIEWED: Not Applicable RADIOLOGY DEPARTMENT: Mammography PERIPHERAL IV DATA: Not applicable SIGNED BY: Rossy Escobedo Shippter November 04, 2021 9:24 AM documented in this encounter [facility] documented as of this encounter (statuses as of 04/28/2023) [facility] History of Past illness Narrative* Problem Noted Date Diagnosed Date Resolved Date Acute right-sided low back p ain with right-sided sciatica 04/23/2018 03/28/2023 Encounter for screening for malignant neoplasm of colon 02/25/2015 04/13/2016 Epigastric pain 02/25/2015 07/26/2022 Headache 10/13/2016 Overview: cervical Coronary artery calcificatio n seen on CAT scan 07/26/2022 documented as of this encounter (statuses as of 05/02/2023) [facility] History of Past illness Narrative* Problem Noted Date Diagnosed Date Resolved Date Acute right-sided low back p ain with right-sided sciatica 04/23/2018 03/28/2023 Encounter for screening for malignant neoplasm of colon 02/25/2015 04/13/2016 Epigastric pain 02/25/2015 07/26/2022 Headache 10/13/2016 Overview: cervical Coronary artery calcificatio n seen on CAT scan 07/26/2022 documented as of this encounter (statuses as of 06/16/2023) [facility] History of Past illness Narrative* Problem Noted Date Diagnosed Date Resolved Date Acute right-sided low back p ain with right-sided sciatica 04/23/2018 03/28/2023 Encounter for screening for malignant neoplasm of colon 02/25/2015 04/13/2016 Epigastric pain 02/25/2015 07/26/2022 Headache 10/13/2016 Overview: cervical Coronary artery calcificatio n seen on CAT scan 07/26/2022 documented as of this encounter (statuses as of 06/26/2023) [facility] History of Past illness Narrative* Problem Noted Date Diagnosed Date Resolved Date Acute right-sided low back p ain with right-sided sciatica 04/23/2018 03/28/2023 Encounter for screening for malignant neoplasm of colon 02/25/2015 04/13/2016 Epigastric pain 02/25/2015 07/26/2022 Headache 10/13/2016 Overview: cervical Coronary artery calcificatio n seen on CAT scan 07/26/2022 documented as of this encounter (statuses as of 07/06/2023) [facility] History of Past illness Narrative* Problem Noted Date Resolved Date Encounter for screening for malignant neoplasm o f colon 02/25/2015 04/13/2016 Headache 10/13/2016 Overview: cervical documented as of this encounter (statuses as of 11/05/2021) [facility] History of Past illness Narrative* Problem Noted Date Resolved Date Encounter for screening for malignant neoplasm o f colon 02/25/2015 04/13/2016 Headache 10/13/2016 Overview: cervical documented as of this encounter (statuses as of 11/06/2021) [place] [id number] History of Past illness Narrative* Problem Noted Date Resolved Date Encounter for screening for malignant neoplasm o f colon 02/25/2015 04/13/2016 Headache 10/13/2016 Overview: cervical documented as of this encounter (statuses as of 01/07/2022) [address]22-2015 History of Past illness Narrative* Problem Noted Date Resolved Date Encounter for screening for malignant neoplasm o f colon 02/25/2015 04/13/2016 Headache 10/13/2016 Overview: cervical documented as of this encounter (statuses as of 01/18/2022) [address]-2015 History of Past illness Narrative* Problem Noted Date Resolved Date Encounter for screening for malignant neoplasm o f colon 02/25/2015 04/13/2016 Headache 10/13/2016 Overview: cervical documented as of this encounter (statuses as of 02/23/2022) [address]-2015 History of Past illness Narrative* Problem Noted Date Resolved Date Encounter for screening for malignant neoplasm o f colon 02/25/2015 04/13/2016 Headache 10/13/2016 Overview: cervical documented as of this encounter (statuses as of 03/02/2022) [address]-2015 History of Past illness Narrative* Problem Noted Date Resolved Date Encounter for screening for malignant neoplasm o f colon 02/25/2015 04/13/2016 Headache 10/13/2016 Overview: cervical documented as of this encounter (statuses as of 03/25/2022) [address]-2015 History of Past illness Narrative* Problem Noted Date Resolved Date Encounter for screening for malignant neoplasm o f colon 02/25/2015 04/13/2016 Headache 10/13/2016 Overview: cervical documented as of this encounter (statuses as of 03/29/2022) [place] [id number] History of Past illness Narrative* Problem Noted Date Resolved Date Encounter for screening for malignant neoplasm o f colon 02/25/2015 04/13/2016 Headache 10/13/2016 Overview: cervical documented as of this encounter (statuses as of 03/31/2022) [address]-2015 History of Past illness Narrative* Problem Noted Date Resolved Date Encounter for screening for malignant neoplasm o f colon 02/25/2015 04/13/2016 Headache 10/13/2016 Overview: cervical documented as of this encounter (statuses as of 04/04/2022) [address]-2015 History of Past illness Narrative* Problem Noted Date Resolved Date Encounter for screening for malignant neoplasm o f colon 02/25/2015 04/13/2016 Headache 10/13/2016 Overview: cervical documented as of this encounter (statuses as of 04/05/2022) [address]-2015 History of Past illness Narrative* Problem Noted Date Resolved Date Encounter for screening for malignant neoplasm o f colon 02/25/2015 04/13/2016 Headache 10/13/2016 Overview: cervical documented as of this encounter (statuses as of 04/06/2022) [address]-2015 History of Past illness Narrative* Problem Noted Date Resolved Date Encounter for screening for malignant neoplasm o f colon 02/25/2015 04/13/2016 Headache 10/13/2016 Overview: cervical documented as of this encounter (statuses as of 04/15/2022) [facility] History of Past illness Narrative* Problem Noted Date Resolved Date Encounter for screening for malignant neoplasm o f colon 02/25/2015 04/13/2016 Headache 10/13/2016 Overview: cervical documented as of this encounter (statuses as of 04/18/2022) [address]-2015 History of Past illness Narrative* Problem Noted Date Resolved Date Encounter for screening for malignant neoplasm o f colon 02/25/2015 04/13/2016 Headache 10/13/2016 Overview: cervical documented as of this encounter (statuses as of 04/18/2022) [address]-2015 History of Past illness Narrative* Problem Noted Date Resolved Date Encounter for screening for malignant neoplasm o f colon 02/25/2015 04/13/2016 Headache 10/13/2016 Overview: cervical documented as of this encounter (statuses as of 06/23/2022) [facility] History of Past illness Narrative* Problem Noted Date Resolved Date Encounter for screening for malignant neoplasm o f colon 02/25/2015 04/13/2016 Headache 10/13/2016 Overview: cervical documented as of this encounter (statuses as of 06/27/2022) [facility] History of Past illness Narrative* Problem Noted Date Resolved Date Encounter for screening for malignant neoplasm o f colon 02/25/2015 04/13/2016 Epigastric pain 02/25/2015 07/26/2022 Headache 10/13/2016 Overview: cervical Coronary artery calcification seen on CAT scan 07/26/2022 documented as of this encounter (statuses as of 07/26/2022) [facility] History of Past illness Narrative* Problem Noted Date Resolved Date Encounter for screening for malignant neoplasm o f colon 02/25/2015 04/13/2016 Epigastric pain 02/25/2015 07/26/2022 Headache 10/13/2016 Overview: cervical Coronary artery calcification seen on CAT scan 07/26/2022 documented as of this encounter (statuses as of 09/07/2022) [facility] History of Past illness Narrative* Problem Noted Date Resolved Date Encounter for screening for malignant neoplasm o f colon 02/25/2015 04/13/2016 Epigastric pain 02/25/2015 07/26/2022 Headache 10/13/2016 Overview: cervical Coronary artery calcification seen on CAT scan 07/26/2022 documented as of this encounter (statuses as of 09/14/2022) [facility] History of Past illness Narrative* Problem Noted Date Resolved Date Encounter for screening for malignant neoplasm o f colon 02/25/2015 04/13/2016 Epigastric pain 02/25/2015 07/26/2022 Headache 10/13/2016 Overview: cervical Coronary artery calcification seen on CAT scan 07/26/2022 documented as of this encounter (statuses as of 09/30/2022) [facility] History of Past illness Narrative* Problem Noted Date Resolved Date Encounter for screening for malignant neoplasm o f colon 02/25/2015 04/13/2016 Epigastric pain 02/25/2015 07/26/2022 Headache 10/13/2016 Overview: cervical Coronary artery calcification seen on CAT scan 07/26/2022 documented as of this encounter (statuses as of 10/12/2022) [facility] History of Past illness Narrative* Problem Noted Date Resolved Date Encounter for screening for malignant neoplasm o f colon 02/25/2015 04/13/2016 Epigastric pain 02/25/2015 07/26/2022 Headache 10/13/2016 Overview: cervical Coronary artery calcification seen on CAT scan 07/26/2022 documented as of this encounter (statuses as of 11/19/2022) [facility] History of Past illness Narrative* Problem Noted Date Resolved Date Encounter for screening for malignant neoplasm o f colon 02/25/2015 04/13/2016 Epigastric pain 02/25/2015 07/26/2022 Headache 10/13/2016 Overview: cervical Coronary artery calcification seen on CAT scan 07/26/2022 documented as of this encounter (statuses as of 11/24/2022) [facility] History of Past illness Narrative* Problem Noted Date Resolved Date Encounter for screening for malignant neoplasm o f colon 02/25/2015 04/13/2016 Epigastric pain 02/25/2015 07/26/2022 Headache 10/13/2016 Overview: cervical Coronary artery calcification seen on CAT scan 07/26/2022 documented as of this encounter (statuses as of 01/24/2023) [facility] History of Past illness Narrative* Problem Noted Date Resolved Date Encounter for screening for malignant neoplasm o f colon 02/25/2015 04/13/2016 Epigastric pain 02/25/2015 07/26/2022 Headache 10/13/2016 Overview: cervical Coronary artery calcification seen on CAT scan 07/26/2022 documented as of this encounter (statuses as of 02/03/2023) [facility] History of Past illness Narrative* Problem Noted Date Diagnosed Date Resolved Date Encounter for screening for malignant neoplasm of colon 02/25/2015 04/13/2016 Epigastric pain 02/25/2015 07/26/2022 Headache 10/13/2016 Overview: cervical Coronary artery calcificatio n seen on CAT scan 07/26/2022 documented as of this encounter (statuses as of 02/22/2023) [facility] History of Past illness Narrative* Problem Noted Date Diagnosed Date Resolved Date Encounter for screening for malignant neoplasm of colon 02/25/2015 04/13/2016 Epigastric pain 02/25/2015 07/26/2022 Headache 10/13/2016 Overview: cervical Coronary artery calcificatio n seen on CAT scan 07/26/2022 documented as of this encounter (statuses as of 02/23/2023) [facility] History of Past illness Narrative* Problem Noted Date Diagnosed Date Resolved Date Encounter for screening for malignant neoplasm of colon 02/25/2015 04/13/2016 Epigastric pain 02/25/2015 07/26/2022 Headache 10/13/2016 Overview: cervical Coronary artery calcificatio n seen on CAT scan 07/26/2022 documented as of this encounter (statuses as of 03/07/2023) [facility] Encounter for screening mammogram for malignant neoplasm of breast Other screening mammogram [facility] Diagnosis Primary hyperparathyroidism (HCC)- Primary Primary hyperparathyroidism History of DVT (deep vein thrombosis) Personal history of venous thrombosis and embolism Hyperglycemia Other abnormal glucose Osteoporosis, unspecified osteoporosis type, unspecified pathological fracture presence Smoker Tobacco use disorder Need for vaccination Need for prophylactic vaccination and inoculation against unspecified single disease Primary hypertension Unspecified essential hypertension Arnold's esophagus without dysplasia Arnold's esophagus Hypothyroidism, unspecified type Puncture wound of left foot, initial encounter documented in this encounter [facility] note* Diagnosis Encounter for screening for lung cancer- Primary Smoker Tobacco use disorder documented in this encounter [facility] note* Diagnosis Essential hypertension Unspecified essential hypertension [facility] Diagnosis Hypothyroidism, unspecified type- Primary Primary hyperparathyroidism (HCC) Primary hyperparathyroidism [facility] Diagnosis Osteoporosis, unspecified osteoporosis type, unspecified pathological fracture presence [facility]* Diagnosis Osteoporosis, unspecified osteoporosis type, unspecified pathological fracture presence [facility] Diagnosis Spinal stenosis, unspecified spinal region- Primary Osteopenia, unspecified location Age-related osteoporosis with current pathological fracture with routine healing, subsequent encounter [facility] Diagnosis Tobacco use disorder- Primary Lung nodule, multiple Other nonspecific abnormal finding of lung field documented in this encounter [facility] note* Diagnosis Post PTCA- Primary Postsurgical percutaneous transluminal coronary angioplasty status History of DVT (deep vein thrombosis) Personal history of venous thrombosis and embolism Coronary artery disease involving [place] coronary artery of [place] heart without angina pectoris Panlobular emphysema (HCC) Other emphysema Mixed hyperlipidemia documented in this encounter [facility] note* Diagnosis Essential hypertension Unspecified essential hypertension [facility]* Diagnosis Hypothyroidism, unspecified type- Primary Primary hyperparathyroidism (HCC) Primary hyperparathyroidism Age-related osteoporosis without current pathological fracture Senile osteoporosis documented in this encounter [facility] note* Diagnosis Essential hypertension Unspecified essential hypertension [facility]* Diagnosis Lung nodules- Primary Other nonspecific abnormal finding of lung field [facility] Diagnosis Primary hyperparathyroidism (HCC)- Primary Primary hyperparathyroidism Age-related osteoporosis without current pathological fracture Senile osteoporosis [facility] Diagnosis Lung nodules- Primary Other nonspecific abnormal finding of lung field Cigarette smoker Tobacco use disorder MENA (dyspnea on exertion) Other dyspnea and respiratory abnormality [facility] Diagnosis MENA (dyspnea on exertion) Other dyspnea and respiratory abnormality [facility] Diagnosis Essential hypertension Unspecified essential hypertension documented in this encounter [facility] for referral (narrative)* Diagnostic Procedure Only (Routine) - Closed Specialty Diagnoses / Procedures Referred By Contac t Referred To Contact [facility] Diagnoses Encounter for screening mammogram for malignant neoplasm of breast Procedures KELLI SCREENING W FLOR SCREENING DIGITAL BREAST TOMOSYNTHESIS BI SCREENING MAMMOGRAPHY BI 2-VIEW BREAST INC CAD Mikaela Shafer MD [address] [place] [address] [facility] [address] [place] [id number] Referral ID Status Reason Start Date Expiration Date V isits Requested Visits Authorized [id number] Closed Auto-Generate d Referral 09/15/2021 10/15/2022 1 1 [facility] for referral (narrative)* Outpatient Procedure (Routine) - Authorized Specialty Diagnoses / Procedures Referred By Deepti houston Referred To Contact [facility] Diagnoses MENA (dyspnea on exertion) Procedures SPIROMETRY - BASELINE AND POST DILATOR BRNCDILAT RSPSE SPMTRY PRE&POST-BRNCDILAT ADMN Swetha Flores, COLLEGE AND CAREER COUNSELOR.[employer] [address] [place] [address] Respiratory [place] [address] [place] [id number] Referral ID Status Reason Start Date Expiration Date Visits Requested Visits Authorized [id number] Authorized Auto-Generat ed Referral 04/28/2023 05/27/2024 1 1 * MRI/CT (Routine) - Authorized Specialty Diagnoses / Procedures Referred By Contac t Referred To Contact CT IMAGING Diagnoses Lung nodules Procedures CT LUNG FOLLOWUP WO IVCON DIAGNOSTIC COMPUTED TOMOGRAPHY THORAX W/O Swetha Mcdonough, COLLEGE AND CAREER COUNSELOR.FINAL [employer] [address] [place] [address] [place] [id number] Referral ID Status Reason Start Date Expiration Date Visits Requested Visits Authorized [id number] Authorized Auto-Generat ed Referral 04/28/2023 05/27/2024 1 1 [facility] Diagnostic Procedure Only (Routine) - Closed Specialty Diagnoses / Procedures Referred By Contac t Referred To Contact [facility] Diagnoses Encounter for screening mammogram for malignant neoplasm of breast Procedures KELLI SCREENING W FLOR SCREENING DIGITAL BREAST TOMOSYNTHESIS BI SCREENING MAMMOGRAPHY BI 2-VIEW BREAST INC CAD Mikaela Shafer MD [address] [place] [address] [facility] [address] [place] [address] Referral ID Status Reason Start Date Expiration Date V isits Requested Visits Authorized [id number] Closed Auto-Generate d Referral 09/15/2021 10/15/2022 1 1 [facility] Advance Directives No Advanced Directives Records FoundDocuments on File Type Date Recorded Patient Survey Research Center Director Expl anation Advance Directive(s) 12/01/2020 9:18 AM Advance Directive(s) 11/24/2020 3:14 PM Advance Directive(s) 06/16/2018 5:42 PM Advance Directive(s) 09/01/2017 10:58 AM Documents on File Type Date Recorded Patient Survey Research Center Director Expl anation Advance Directive(s) 12/01/2020 9:18 AM Advance Directive(s) 11/24/2020 3:14 PM Advance Directive(s) 06/16/2018 5:42 PM Advance Directive(s) 09/01/2017 10:58 AM Reason for Referral Specialty Diagnoses / Procedures Referred By Contac t Referred To Contact CT IMAGING Diagnoses Smoker Encounter for screening for lung cancer Procedures CT LUNG SCREEN WO IVCON COMPUTED TOMOGRAPHY THORAX LW DOSE LNG CA Joellen Inman [address] [place] [address] Ct Imaging Referral ID Status Reason Start Date Expiration Date Visits Requested Visits Authorized [id number] Additional Clinical Info Needed Auto-Generat ed Referral 03/25/2022 04/24/2023 1 1 Specialty Diagnoses / Procedures Referred By Contac t Referred To Contact CT IMAGING Diagnoses Lung nodules Procedures CT LUNG FOLLOWUP WO IVCON DIAGNOSTIC COMPUTED TOMOGRAPHY THORAX W/O CNTRST Swetha Flores, COLLEGE AND CAREER COUNSELOR.FINAL [employer] [address] [place] [address] Ct Imaging Referral ID Status Reason Start Date Expiration Date Visits Requested Visits Authorized [id number] Authorized Auto-Generat ed Referral 02/22/2023 03/23/2024 1 1 Medications Administered Section Inactive Administered Medications - up to 3 most recent administrations Medication Order MAR Action Action Date Dose Rate Site zoledronic acid 5 mg PREMIX piggyback (RECLAST) 5 mg, INTRAVENOUS, at 400 mL/hr, Administer over 15 Minutes, ONCE, 1 dose, On Mon04/15/22 at 0930, Hazardous Potential Reproductive Risk Drug: Use appropriate PPE. New Bag/Syringe/Bottle 04/15/2022 9:13 AM EDT 5 mg 400 mL/hr Summary Purpose Family History No Family History Records FoundNo Family History Records FoundNo Family History Records Found Additional Source Comments Source Comments (unrecognize d section and content) In the event this informatio n is protected by the Federal Confidentiality of Alcohol and Drug Abuse Patient Records regulations: The Federal rules restrict any use of the information to criminally investigate or prosecute any alcohol or drug abuse patient.[facility] event this information is protected by the Federal Confidentiality of Alcohol and Drug Abuse Patient Records regulations: The Federal rules restrict any use of the information to criminally investigate or prosecute any alcohol or drug abuse patient.[facility] the event this information is protected by the Federal Confidentiality of Alcohol and Drug Abuse Patient Records regulations: The Federal rules restrict any use of the information to criminally investigate or prosecute any alcohol or drug abuse patient.[facility] the event this information is protected by the Federal Confidentiality of Alcohol and Drug Abuse Patient Records regulations: The Federal rules restrict any use of the information to criminally investigate or prosecute any alcohol or drug abuse patient.[facility] the event this information is protected by the Federal Confidentiality of Alcohol and Drug Abuse Patient Records regulations: The Federal rules restrict any use of the information to criminally investigate or prosecute any alcohol or drug abuse patient.[facility] the event this information is protected by the Federal Confidentiality of Alcohol and Drug Abuse Patient Records regulations: The Federal rules restrict any use of the information to criminally investigate or prosecute any alcohol or drug abuse patient.[facility] the event this information is protected by the Federal Confidentiality of Alcohol and Drug Abuse Patient Records regulations: The Federal rules restrict any use of the information to criminally investigate or prosecute any alcohol or drug abuse patient.[facility] the event this information is protected by the Federal Confidentiality of Alcohol and Drug Abuse Patient Records regulations: The Federal rules restrict any use of the information to criminally investigate or prosecute any alcohol or drug abuse patient.[facility] the event this information is protected by the Federal Confidentiality of Alcohol and Drug Abuse Patient Records regulations: The Federal rules restrict any use of the information to criminally investigate or prosecute any alcohol or drug abuse patient.[facility] the event this information is protected by the Federal Confidentiality of Alcohol and Drug Abuse Patient Records regulations: The Federal rules restrict any use of the information to criminally investigate or prosecute any alcohol or drug abuse patient.[facility] the event this information is protected by the Federal Confidentiality of Alcohol and Drug Abuse Patient Records regulations: The Federal rules restrict any use of the information to criminally investigate or prosecute any alcohol or drug abuse patient.[facility] the event this information is protected by the Federal Confidentiality of Alcohol and Drug Abuse Patient Records regulations: The Federal rules restrict any use of the information to criminally investigate or prosecute any alcohol or drug abuse patient.[facility] the event this information is protected by the Federal Confidentiality of Alcohol and Drug Abuse Patient Records regulations: The Federal rules restrict any use of the information to criminally investigate or prosecute any alcohol or drug abuse patient.[facility] the event this information is protected by the Federal Confidentiality of Alcohol and Drug Abuse Patient Records regulations: The Federal rules restrict any use of the information to criminally investigate or prosecute any alcohol or drug abuse patient.[facility] the event this information is protected by the Federal Confidentiality of Alcohol and Drug Abuse Patient Records regulations: The Federal rules restrict any use of the information to criminally investigate or prosecute any alcohol or drug abuse patient.[facility] the event this information is protected by the Federal Confidentiality of Alcohol and Drug Abuse Patient Records regulations: The Federal rules restrict any use of the information to criminally investigate or prosecute any alcohol or drug abuse patient.[facility] the event this information is protected by the Federal Confidentiality of Alcohol and Drug Abuse Patient Records regulations: The Federal rules restrict any use of the information to criminally investigate or prosecute any alcohol or drug abuse patient.[facility] the event this information is protected by the Federal Confidentiality of Alcohol and Drug Abuse Patient Records regulations: The Federal rules restrict any use of the information to criminally investigate or prosecute any alcohol or drug abuse patient.[facility] the event this information is protected by the Federal Confidentiality of Alcohol and Drug Abuse Patient Records regulations: The Federal rules restrict any use of the information to criminally investigate or prosecute any alcohol or drug abuse patient.[facility] the event this information is protected by the Federal Confidentiality of Alcohol and Drug Abuse Patient Records regulations: The Federal rules restrict any use of the information to criminally investigate or prosecute any alcohol or drug abuse patient.[facility] the event this information is protected by the Federal Confidentiality of Alcohol and Drug Abuse Patient Records regulations: The Federal rules restrict any use of the information to criminally investigate or prosecute any alcohol or drug abuse patient.[facility] the event this information is protected by the Federal Confidentiality of Alcohol and Drug Abuse Patient Records regulations: The Federal rules restrict any use of the information to criminally investigate or prosecute any alcohol or drug abuse patient.[facility] the event this information is protected by the Federal Confidentiality of Alcohol and Drug Abuse Patient Records regulations: The Federal rules restrict any use of the information to criminally investigate or prosecute any alcohol or drug abuse patient.[facility] the event this information is protected by the Federal Confidentiality of Alcohol and Drug Abuse Patient Records regulations: The Federal rules restrict any use of the information to criminally investigate or prosecute any alcohol or drug abuse patient.[facility] the event this information is protected by the Federal Confidentiality of Alcohol and Drug Abuse Patient Records regulations: The Federal rules restrict any use of the information to criminally investigate or prosecute any alcohol or drug abuse patient.[facility] the event this information is protected by the Federal Confidentiality of Alcohol and Drug Abuse Patient Records regulations: The Federal rules restrict any use of the information to criminally investigate or prosecute any alcohol or drug abuse patient.[facility] the event this information is protected by the Federal Confidentiality of Alcohol and Drug Abuse Patient Records regulations: The Federal rules restrict any use of the information to criminally investigate or prosecute any alcohol or drug abuse patient.[facility] the event this information is protected by the Federal Confidentiality of Alcohol and Drug Abuse Patient Records regulations: The Federal rules restrict any use of the information to criminally investigate or prosecute any alcohol or drug abuse patient.[facility] the event this information is protected by the Federal Confidentiality of Alcohol and Drug Abuse Patient Records regulations: The Federal rules restrict any use of the information to criminally investigate or prosecute any alcohol or drug abuse patient.[facility] the event this information is protected by the Federal Confidentiality of Alcohol and Drug Abuse Patient Records regulations: The Federal rules restrict any use of the information to criminally investigate or prosecute any alcohol or drug abuse patient.[facility] the event this information is protected by the Federal Confidentiality of Alcohol and Drug Abuse Patient Records regulations: The Federal rules restrict any use of the information to criminally investigate or prosecute any alcohol or drug abuse patient.[facility] the event this information is protected by the Federal Confidentiality of Alcohol and Drug Abuse Patient Records regulations: The Federal rules restrict any use of the information to criminally investigate or prosecute any alcohol or drug abuse patient.[facility] the event this information is protected by the Federal Confidentiality of Alcohol and Drug Abuse Patient Records regulations: The Federal rules restrict any use of the information to criminally investigate or prosecute any alcohol or drug abuse patient.[facility] the event this information is protected by the Federal Confidentiality of Alcohol and Drug Abuse Patient Records regulations: The Federal rules restrict any use of the information to criminally investigate or prosecute any alcohol or drug abuse patient.[facility] Care Teams (unrecognized sec tion and content) Manager Call Center Relationship Specialty Start Date End Date Coy Pfeiffer MD [address] [place] [address] PCP - General Family Practice 04/09/15 Manager Call Center Relationship Specialty Start Date End Date Coy Pfeiffer MD [facility] [place] [address] PCP - General Family Practice 04/09/15 Manager Call Center Relationship Specialty Start Date End Date Coy Pfeiffer MD [address] [place] [id number] PCP - General Family Practice 04/09/15 Manager Call Center Relationship Specialty Start Date End Date Coy Pfeiffer MD [facility] [place] [address] PCP - General Family Practice 04/09/15 Manager Call Center Relationship Specialty Start Date End Date Coy Pfeiffer MD [address] [place] [address] PCP - General Family Practice 04/09/15 Manager Call Center Relationship Specialty Start Date End Date Coy Pfeiffer MD [facility] [place] [address] PCP - General Family Practice 04/09/15 Manager Call Center Relationship Specialty Start Date End Date Coy Pfeiffer MD [address] [place] [address] PCP - General Family Practice 04/09/15 Manager Call Center Relationship Specialty Start Date End Date Coy Pfeiffer MD [address] [place] [address] PCP - General Family Practice 04/09/15 Manager Call Center Relationship Specialty Start Date End Date Coy Pfeiffer MD [address] [place] [address] PCP - General Family Practice 04/09/15 Manager Call Center Relationship Specialty Start Date End Date Coy Pfeiffer MD [address] [place] [address] PCP - General Family Practice 04/09/15 Manager Call Center Relationship Specialty Start Date End Date Coy Pfeiffer MD [address] [place] [address] PCP - General Family Medicine 04/09/15 Manager Call Center Relationship Specialty Start Date End Date Coy Pfeiffer MD [address] [place] [address] PCP - General Family Medicine 04/09/15 Manager [employer] Relationship Specialty Start Date End Date Coy Pfeiffer MD [address] [place] [address] PCP - General Family Medicine 04/09/15 Manager [employer] Relationship Specialty Start Date End Date Coy Pfeiffer MD [address] [place] [address] PCP - General Family Medicine 04/09/15 Manager [employer] Relationship Specialty Start Date End Date Coy Pfeiffer MD [address] [place] [address] PCP - General Family Medicine 04/09/15 Manager Call [employer] Relationship Specialty Start Date End Date Coy Pfeiffer MD [address] [place], [place] [id number] PCP - General Family Medicine 04/09/15 Manager Call Center Relationship Specialty Start Date End Date Coy Pfeiffer MD [address] [place] [address] PCP - General Family Medicine 04/09/15 Manager Call Center Relationship Specialty Start Date End Date Coy Pfeiffer MD [address] [place] [address] PCP - General Family Medicine 04/09/15 Manager Call Center Relationship Specialty Start Date End Date Coy Pfeiffer MD [address] [place] [address] PCP - General Family Medicine 04/09/15 Manager Call Center Relationship Specialty Start Date End Date Coy Pfeiffer MD [address] [place] [address] PCP - General Family Medicine 04/09/15 Manager [employer] Center Relationship Specialty Start Date End Date Coy Pfeiffer MD [address] [place] [address] PCP - General Family Medicine 04/09/15 Manager Call Center Relationship Specialty Start Date End Date Coy Pfeiffer MD [address] [place], [place] [address] PCP - General Family Medicine 04/09/15 Manager Call Center Relationship Specialty Start Date End Date Coy Pfeiffer MD [address] [place] [address] PCP - General Family Medicine 04/09/15 Reason for Visit (unrecogniz ed section and content) Reason Comments Medicare Wellness Exam Reason Comments Results Reason Comments New Patient Reason Comments Refill Request Reason Comments Osteoporosis Thyroid Problem Reason Comments Future Appointment Reason Comments Non-Chemotherapy Treatment Specialty Diagnoses / Procedures Referred By Contac t Referred To Contact Diagnoses Spinal stenosis, unspecified spinal region Osteopenia, unspecified location Procedures INJECTION, ZOLEDRONIC ACID, 1 [place] [address] [facility] [address] [place] [address] [facility] [address] [place] [address] Referral ID Status Reason Start Date Expiration Date V isits Requested Visits Authorized [id number] Authorized 04/05/2022 04/04/2023 1 1 Reason Comments Follow Up Review labs Reason Comments Patient Update Reason Comments Hospital F/U Reason Onset Date Comments Refill Request 09/07/2022 Reason Comments Thyroid Problem Osteoporosis Reason Onset Date Comments Allied Health Visit 09/30/2022 Medication A dherence Outreach Reason Onset Date Comments Allied Health Visit 10/12/2022 Medication A dherence Outreach Reason Onset Date Comments Population Health Navigation Outreach 11/18/2022 HCC List Reason Onset Date Comments Allied Health Visit 11/23/2022 Medication A dherence Outreach Reason Onset Date Comments Refill Request 01/23/2023 Reason Onset Date Comments Allied Health Visit 02/03/2023 Medication A dherence Outreach Reason Onset Date Comments Allied Health Visit 02/23/2023 Medication A dherence Outreach Reason Comments Osteoporosis Reason Comments Nodule Reason Comments Spirometry Specialty Diagnoses / Procedures Referred By Contac t Referred To Contact [facility] Diagnoses MENA (dyspnea on exertion) Procedures SPIROMETRY - BASELINE AND POST DILATOR BRNCDILAT RSPSE SPMTRY PRE&POST-BRNCDILAT ADMSwetha Mas, COLLEGE AND CAREER COUNSELOR.[employer] [address] [place] [address] [facility] [place] [address] [place] [address] Referral ID Status Reason Start Date Expiration Date V isits Requested Visits Authorized [id number] Closed Auto-Generate d Referral 04/28/2023 05/27/2024 1 1 Reason Onset Date Comments Refill Request 06/14/2023 Reason Comments Orders Reason Comments Rx issue (unrecognized sect ion and content) No Status Records Found INFORMATION SOURCE (unrecogn ized section and content) DATE CREATED AUTHOR AUTHOR'S ORGANIZ ATION 05/11/2023 [facility] DATE CREATED AUTHOR AUTHOR'S ORGANIZ ATION 08/22/2023 [facility] FOR RECORDS PERTAINING TO PATIENTS WHO ARE OR HAVE BEEN ENROLLED IN A CHEMICAL DEPENDENCY/SUBSTANCEABUSE PROGRAM, SOME INFORMATION MAY BE OMITTED. This clinical summary was aggregated from multiple sources. Caution should be exercised in using it in the provision of clinical care. This summary normalizes information from multiple sources, and as a consequence, information in this document may materially change the coding, format and clinical context of patient data. In addition, data may be omitted in some cases. CLINICAL DECISIONS SHOULD BE BASED ON THE PRIMARY CLINICAL RECORDS. [employer] provides no warranty or guarantee of the accuracy or completeness of information in this document.
[2023-08-31 09:51] LABS: AST(SGOT) 17 U/L (15-37); Alanine Aminotransfer ALT/SGPT 19 U/L (13-56); Albumin, Serum 3.3 g/dL (3.2-5.0); Alkaline Phosphatase 74 U/L (45-117); Bilirubin, Direct 0.13 mg/dL (0.00-0.30); Cholesterol 237 mg/dL (200); Globulin 4.4 g/dL (2.2-4.2); High Density Lipoprotein 63 mg/dL; Protein, Total 7.7 g/dL (6.4-8.2); Triglycerides 129 mg/dL; Very Low Density Lipoprotein 26 mg/dL (5-40)
== END | disposition home or self-care (01) ==
LOC: LAB 09:10
PROVIDERS: PCP Family Medicine; Referring Provider Internal Medicine Cardiovascular Disease; Visit Provider Internal Medicine Cardiovascular Disease
DX: E78.00 Pure hypercholesterolemia, unspecified (principal)
CPT/HCPCS: 36415; 80061; 80076

== ENCOUNTER → 2023-09-20 | Outpatient (CLI) | payer MEDICARE, SELFPAY ==
--- NOTE | 2023-09-20 06:15 | ECHOCS_ITS ---
Reason For Study: MENA Procedure This was a 2D Doppler, Color Flow transthoracic echocardiogram. Contrast injection was performed. Exam performed in department. Left Ventricle Mid cavitary false tendon noted. Normal LV size. Mild assymetric septal hypertrophy. Stage 1 diastolic dysfunction. The left ventricular ejection fraction is 45 %. There are regional wall motion abnormalities as specified. The apex is akinetic. The rest of the wall segments are normal. Right Ventricle A calcified moderator band is seen in the right ventricle. Normal RV size. Normal systolic function. Atria The left and right atria are normal. Mitral Valve The mitral valve is structurally normal. No prolapse or stenosis seen. Moderate (2+) mitral valve insufficiency. Tricuspid Valve Normal tricuspid valve. Right ventricular systolic pressure estimated to be 40 mmHg. Moderate (2+) tricuspid valve insufficiency. Aortic Valve Trisinus/trileaflet aortic valve. Mild focal aortic valve thickening. Aortic sclerosis, no stenosis. Trivial aortic valve insufficiency. Pulmonic Valve Normal pulmonic valve. Trivial pulmonic valve insufficiency. Great Vessels Normal aortic root. Pericardium/Pleural No pericardial effusion. Medication Diluted definity 4ml given slow IV push to enhance endocardial definition. MMode/2D Measurements & Calculations LVIDd: 4.6 cm IVSd: 1.1 cm Ao root diam: 3.6 cm LVIDs: 2.6 cm LVPWd: 0.91 cm RVDd: 3.8 cm FS: 43.0 % LAV(MOD-bp): 38.9 ml LVAd ap4: 30.8 cm2 SV(MOD-sp4): 51.4 ml LAV(MOD-bp) Indexed: 22.3 ml/m2 LVLd ap4: 8.0 cm LAV(MOD-sp2): 40.7 ml EDV(MOD-sp4): 95.5 ml LAV(MOD-sp4): 31.0 ml EDV(sp4-el): 100.7 ml LVAs ap4: 20.3 cm2 LVLs ap4: 7.5 cm ESV(MOD-sp4): 44.1 ml ESV(sp4-el): 46.7 ml EF(MOD-sp4): 53.8 % EF(sp4-el): 53.7 % SV(sp4-el): 54.0 ml LA A4 area: 13.3 cm2 LA dimension(2D): 3.8 cm RA A4 area: 12.9 cm2 TAPSE: 2.6 cm Time Measurements MV dec time: 0.30 sec Doppler Measurements & Calculations MV E max levi: 45.7 cm/sec Lat Peak E' Levi: 4.2 cm/sec Med Peak E' Levi: 2.9 cm/sec MV A max levi: 95.4 cm/sec E/E' lat: 11.0 E/E' med: 15.6 MV E/A: 0.48 MV dec slope: 152.8 cm/sec2 Ao V2 max: 146.6 cm/sec LV V1 max: 107.4 cm/sec Ao max P.6 mmHg LV V1 max P.6 mmHg Ao V2 mean: 104.0 cm/sec LV V1 mean P.4 mmHg Ao mean P.9 mmHg LV V1 mean: 71.6 cm/sec Ao V2 VTI: 36.9 cm LV V1 VTI: 25.7 cm AV (velocity ratio): 0.70 PA V2 max: 89.4 cm/sec TR max levi: 303.2 cm/sec TR max P.8 mmHg ECHO/Echo Complete W/ Contrast Interpretation Summary The left ventricular ejection fraction is 45 %. Stage 1 diastolic dysfunction. The apex is akinetic. Right ventricular systolic pressure estimated to be 40 mmHg. Mild focal aortic valve thickening. Moderate (2+) tricuspid valve insufficiency. Moderate (2+) mitral valve insufficiency. Ordering Physician: Bashir Saucedo Referring Physician: Coy Younger Performed By: Ya Toro, LICHA, RVT
--- OUTSIDE RECORDS SUMMARY | 2023-09-20 06:16 | XMS RPT_ITS | CCD ---
Author Name Unknown Address [address] [facility] [address] [place] [id number] Organization [facility] Care Team Providers Care Car Construction Superintendent Name Role Phone Coy Pfeiffer MD Primary Care Provider [phone] JEANCARLOS ROLAND Admitting Unavailable JEANCARLOS RLOAND Attending Unavailable JEANCARLOS ROLAND Referring Unavailable Coy Pfeiffer MD Primary Care Provider [phone] COY PFEIFFER Primary Care Unavailable SHAYLEE ROBERTSON Attending Unavailable COY PFEIFFER Primary Care Unavailable SHAYLEE ROBERTSON Referring Unavailable COY PFEIFFER Primary Care Unavailable COY PFEIFFER Primary Care Unavailable SHAYLEE ROBERTSON Attending Unavailable COY PFEIFFER Primary Care Unavailable COY PFEIFFER Primary Care Unavailable SHAYLEE ROBERTSON Referring Unavailable SWETHA FLORES Referring Unavailab COY Nelson Primary Care Unavailable SWETHA FLORES Referring Unavailab le KENTRELLCOY Primary Care Unavailable SWETHA FLORES Attending Unavailab COY Nelson Primary Care Unavailable JOANNE MOREAU Referring Unavailable COY PFEIFFER Primary Care Unavailable JOANNE MOREAU Attending Unavailable COY PFEIFFER Primary Care Unavailable COY PFEIFFER Attending Unavailable COY PFEIFFER Primary Care Unavailable Allergies Allergy Classification Reported Allergen(s) Allergy Type Date of Onset Reaction(s) Facility (20 sources) Aspirin; Translations: [ASPIRIN] Drug Allergy 11-07-19 14 Other: See [facility] Work Phone: (20 sources) egg extract; Translations: [EGG] Drug Allergy 11-07-19 14 [facility] Work Phone: (20 sources) hydroCHLOROthiazide / Lisinopril; Translations: [LISINOPRIL-HYDROCHLORO THIAZIDE] Drug Allergy 11-07-19 14 [facility] Work Phone: (20 sources) Ibandronate; Translations: [IBANDRONATE] Drug Allergy 04-13-20 16 GI Upset, Shortness of Breath [facility] Work Phone: (20 sources) Iodine; Translations: [IODINE] Drug Allergy 11-07-19 14 Rash [facility] Work Phone: Medications Current Medications Medication Drug [...] coronary artery; Translations: [Atherosclerotic heart disease of [place] coronary artery without angina pectoris] Onset: 2 [...] Primary hyperparathyroidism; Translations: [Primary hyperparathyroidism (HCC)] Onset: 7 Chronic Other lower respiratory disease (2 sources) [...] sources) Transfusion of blood product refused for anabaptism reason; Translations: [Procedure and treatment not carried [...] Vital Sign Value Performing Clinician Faci lity 05-02-2023 10:20-0400 Body height 160 cm Pulm Wstr Work Phone: [facility] 05-02-2023 10:20-0400 Body weight 68.04 kg Pulm Wstr Work Phone: [facility] 05-02-2023 10:20-0400 Heart rate 77 /min Pulm Wstr Work Phone: [facility] 05-02-2023 10:20-0400 Respiratory rate 14 /min Pulm Wstr Work Phone: [facility] 05-02-2023 10:20-0400 SaO2% (BldA) [Mass fraction] 97 % Pulm Wstr Work Phone: [facility] 04-28-2023 09:23-0400 Body weight 69.4 kg Swetha Enochs-Merritt HEALTHCARE RECRUITER.SENIOR WATER RESOURCES ENGINEER Work Phone: [facility] 04-28-2023 09:23-0400 Diastolic blood pressure 65 mm[Hg] Swetha Enochs-Merritt HEALTHCARE RECRUITER.SENIOR WATER RESOURCES ENGINEER Work Phone: [facility] 04-28-2023 09:23-0400 Heart rate 63 /min Swetha Enochs-Merritt HEALTHCARE RECRUITER.SENIOR WATER RESOURCES ENGINEER Work Phone: [facility] 04-28-2023 09:23-0400 Respiratory rate 18 /min Swetha Enochs-Merritt HEALTHCARE RECRUITER.SENIOR WATER RESOURCES ENGINEER Work Phone: [facility] 04-28-2023 09:23-0400 SaO2% (BldA) [Mass fraction] 95 % Swetha Enochs-Merritt HEALTHCARE RECRUITER.SENIOR WATER RESOURCES ENGINEER Work Phone: [facility] 04-28-2023 09:23-0400 Systolic blood pressure 104 mm[Hg] Swetha Enochs-Merritt HEALTHCARE RECRUITER.SENIOR WATER RESOURCES ENGINEER Work Phone: [facility] 09-14-2022 14:33-0500 Body weight 69.31 kg Shaylee Robertson MD Work Phone: [facility] 09-14-2022 14:33-0500 Diastolic blood pressure 76 mm[Hg] Shaylee Robertson MD Work Phone: [facility] 09-14-2022 14:33-0500 Heart rate 66 /min Shaylee Robertson MD Work Phone: [facility] 09-14-2022 14:33-0500 Systolic blood pressure 122 mm[Hg] Shaylee Robertson MD Work Phone: [facility] 07-26-2022 14:35-0500 Body height 160 cm Coy Pfeiffer MD Work Phone: [facility] 07-26-2022 14:35-0500 Body weight 69.4 kg Coy Pefiffer MD Work Phone: [facility] 07-26-2022 14:35-0500 Diastolic blood pressure 70 mm[Hg] Coy Pfeiffer MD Work Phone: [facility] 07-26-2022 14:35-0500 Heart rate 72 /min Coy Pfeiffer MD Work Phone: [facility] 07-26-2022 14:35-0500 SaO2% (BldA) [Mass fraction] 98 % Coy Pfeiffer MD Work Phone: [facility] 07-26-2022 14:35-0500 Systolic blood pressure 126 mm[Hg] Coy Pfeiffer MD Work Phone: [facility] 04-18-2022 09:14-0400 Body weight 67.13 kg NA Simon PA-C Work Phone: [facility] 04-18-2022 09:14-0400 Diastolic blood pressure 62 mm[Hg] NA Simon PA-C Work Phone: [facility] 04-18-2022 09:14-0400 Heart rate 77 /min NA Simon PA-C Work Phone: [facility] 04-18-2022 09:14-0400 Respiratory rate 18 /min NA Simon PA-C Work Phone: [facility] 04-18-2022 09:14-0400 SaO2% (BldA) [Mass fraction] 95 % NA Alfred PA-C Work Phone: [facility] 04-18-2022 09:14-0400 Systolic blood pressure 110 mm[Hg] NA Alfred PA-C Work Phone: [facility] 04-15-2022 08:54-0400 Body temperature 97.9 [degF] Treatment Wstr Work Phone: [facility] 04-15-2022 08:54-0400 Diastolic blood pressure 84 mm[Hg] Treatment Wstr Work Phone: [facility] 04-15-2022 08:54-0400 Heart rate 65 /min Treatment Wstr Work Phone: [facility] 04-15-2022 08:54-0400 Systolic blood pressure 133 mm[Hg] Treatment Wstr Work Phone: [facility] 03-25-2022 11:38-0400 Body height 160 cm Swetha Atkinson HEALTHCARE RECRUITER.SENIOR WATER RESOURCES ENGINEER Work Phone: [facility] 03-25-2022 11:38-0400 Body weight 67.59 kg Swethasilver Atkinson HEALTHCARE RECRUITER.SENIOR WATER RESOURCES ENGINEER Work Phone: [facility] 03-25-2022 11:38-0400 Diastolic blood pressure 70 mm[Hg] Swetha Atkinson HEALTHCARE RECRUITER.SENIOR WATER RESOURCES ENGINEER Work Phone: [facility] 03-25-2022 11:38-0400 Heart rate 70 /min Swetha Atkinson HEALTHCARE RECRUITER.SENIOR WATER RESOURCES ENGINEER Work Phone: [facility] 03-25-2022 11:38-0400 SaO2% (BldA) [Mass fraction] 97 % Swetha Atkinson HEALTHCARE RECRUITER.SENIOR WATER RESOURCES ENGINEER Work Phone: [facility] 03-25-2022 11:38-0400 Systolic blood pressure 140 mm[Hg] Swetha Atkinson HEALTHCARE RECRUITER.SENIOR WATER RESOURCES ENGINEER Work Phone: [facility] 02-23-2022 08:07-0400 Body height 161 cm Coy Pfeiffer MD Work Phone: [facility] 02-23-2022 08:07-0400 Body weight 66.86 kg Coy Pfeiffer MD Work Phone: [facility] 02-23-2022 08:07-0400 Diastolic blood pressure 84 mm[Hg] Coy Pfeiffer MD Work Phone: [facility] 02-23-2022 08:07-0400 Heart rate 76 /min Coy Pfeiffer MD Work Phone: [facility] 02-23-2022 08:07-0400 Respiratory rate 16 /min Coy Pfeiffer MD Work Phone: [facility] 02-23-2022 08:07-0400 Systolic blood pressure 128 mm[Hg] Coy Pfeiffer MD Work Phone: [facility] Encounters Encounter Date Encounter Type Care Provider Facility Start: 08-21-2023 End: 08-22-2023 ambulatory COY PFEIFFER Facility:[facility] Start: 07-05-2023 Telephone encounter Coy Pfeiffer MD Work Phone: [facility] Procedures Date Procedure Procedure Detail Performing Clinician Start: 05-02-2023 Brncdilat rspse spmt ry pre&post-brncdilat admn Swetha Flores HEALTHCARE RECRUITER.SENIOR WATER RESOURCES ENGINEER Work Phone: Start: 04-05-2022 Dxa bone density frank dy 1/> sites axial skel Coy Pfeiffer MD Work Phone: Start: 02-23-2022 Adult depression screening assessment Coy Pfeiffer MD Work Phone: Start: 11-04-2021 KELLI SCREENING W FLOR Hastings MD Work Phone: Start: 03-12-2018 Adult depression screening assessment Screen Wstr Plan of Treatment Date Care Activity Detail Author Start: 02-24-2032 Urine microalbumin profile [facility] Start: 08-18-2025 DIABETES SCREEN DIABETES SCREEN [facility] Start: 08-18-2025 Diabetes Screening Diabetes Screenin g [facility] Start: 02-28-2025 DIABETES SCREEN DIABETES SCREEN [facility] Start: 07-12-2024 DIABETES SCREEN DIABETES SCREEN [facility] Start: 04-28-2024 BP Controlled (<130/80) BP Controlle d (<130/80) [facility] Start: 04-07-2024 Annual PCP Team Medical Biller/Coder cely Disease Visit Annual PCP Team Chronic Disease Visit [facility] Start: 03-28-2024 Covid-19 Vaccine (3 - Booster for Kendal series) Covid-19 Vaccine (3 - Booster for Kendal series) [facility] Immunizations Immunization Date Immunization Notes Care Provider Alyssa benito 06-24-2022 influenza virus vacc ine, unspecified formulation Swetha Flores HEALTHCARE RECRUITER.SENIOR WATER RESOURCES ENGINEER Work Phone: [facility] 02-23-2022 tetanus toxoid, redu júnior diphtheria toxoid, and acellular pertussis vaccine, adsorbed Coy Pfeiffer MD Work Phone: [facility] 04-30-2021 COVID-19 vaccine, ag e 12+ yr (Anywhere to Go-[employer] - PURPLE TOP) [facility] 10-15-2020 COVID-19 vaccine (KENDAL) [facility] 06-07-2020 influenza, high dose seasonal, preservative-free [facility] 05-12-2020 influenza, high-dose , quadrivalent vaccine (FLUZONE HIGH DOSE QUADRIVALENT) [facility] 07-19-2019 influenza, high dose seasonal, preservative-free [facility] 04-16-2019 zoster vaccine recombinant [facility] 02-05-2019 zoster vaccine recombinant [facility] 06-08-2018 influenza, high dose seasonal, preservative-free [facility] 08-08-2016 influenza, high dose seasonal, preservative-free [facility] 04-09-2015 pneumococcal conjuga te vaccine, 13 valent [facility] 05-07-2014 influenza, high dose seasonal, preservative-free [facility] Work Phone: 08-07-2013 pneumococcal polysaccharide vaccine, 23 valent Lisset Harvey [facility] 05-19-2011 influenza, seasonal, injectable [facility] Work Phone: Payers Date Payer Category Payer Unknown ANTHEM BLUE JESE S AND BLUE SHIELD ORENEM PINABLUE HMO [id number] 2020-Present [phone] [address] [place] [address] O [id number] 2020 Unknown ANTHEM BLUE CROS S AND BLUE SHIELD ANTHEM MEDIBLUE O [id number] 2020-Present [phone] [address] [place] [address] O [id number] 2020 Unknown [id number] Social History Date Type Detail Facility [facility]: [facility]01-[facility] Start: 02-25-1970 End: 11-10-2020 History of tobacco use Current smoker [facility] Start: 08-07-1966 End: 11-10-2020 History of tobacco use Cigarette Smoker [facility] Start: 12-01-2020 End: 03-07-2023 Cigarettes smoked current (pack per day) - Reported 0.5 [facility] Start: 12-01-2020 End: 04-28-2023 Tobacco use and exposure Smokeless tobacco non-user [facility] Start: 09-15-2021 End: 05-02-2023 Alcohol intake Current drinker of alcohol (finding) [facility] Start: 08-25-2020 History SDOH Alcohol Binge 1 [facility] Start: 11-06-2013 History SDOH Alcohol Comment rare [facility] Start: 08-25-2020 History SDOH Social Connections Phone 5 [facility] Start: 08-25-2020 History SDOH Social Connections Get Together 2 [facility] Start: 08-25-2020 History SDOH Social Connections Yarsani 3 [facility] Start: 08-25-2020 History SDOH Financial 4 [facility] Start: 08-25-2020 Education 15 [facility] Start: 11-06-2013 Tobacco Comment started smokin g 23yo, usually 1 PPD 40+ pack years [facility] Start: 1945 Sex Assigned At Female C [facility] Start: 10-25-2021 End: 04-18-2022 Exposure to SARS-CoV-2 (event) Not sure [facility] Start: 08-07-1966 End: 04-28-2023 Tobacco smoking status NHIS Smokes tobacco daily [facility] Start: 08-25-2020 End: 03-07-2023 Social connection and isolation panel [facility] Do you belong to any clubs or organizations such as catholic groups, unions, fraternal or athletic groups, or school groups? No [facility] Are you now , , , , never or living with a partner? [facility] Frequency of Alcohol Consumption Not on file [facility] How often do you hav e 6 or more drinks on 1 occasion? Never [facility] How hard is it for y ou to pay for the very basics like food, housing, medical care, and heating Not very hard [facility] Do you feel stress - tense, restless, nervous, or anxious, or unable to sleep at night because your mind is troubled all the time - these days [OSQ] Not at all [facility] (I/We) worried wheth er (my/our) food would run out before (I/we) got money to buy more. Never true [facility] Start: 03-21-2019 Gender identity Identifies as female gender (finding) [facility] Start: 03-21-2019 Sexual orientation Heterosexual (aldair seth) [facility] Clinical Notes 02-25-2015 to 07-05-2023 Telephone Encounter [...] 50 mg. Please review and advise at [phone]. documented in this encounter [facility] 06-24-2023 Miscellaneous Notes Reclast ordered again Patient was supposed to have her Reclast infusion a month ago and she forgot. That order has since and she is requesting a new one. according to the patient her last infusion was 04/2022 Carmen Ponce RN Patient said she has infusions for bone density done in [place], [place] (like Prolea, but not). She requested an order be placed. She can be reached at [phone]. Thanks. documented in this encounter [facility] 06-15-2023 Miscellaneous Notes Let patient know her [...] patient. Lucille Agustin documented in this encounter [facility] 05-02-2023 Note HNO ID: [id number] Author: May Nguyễn RPFT Service: ? Author Type: Respiratory Therapist Type: Progress Notes Filed: 05/02/2023 10:23 AM Note Text: PULM FUNCTION SMARTBLOCK: Provider: Swetha Flores APRN.SENIOR WATER RESOURCES ENGINEER Assisting Tech: May Nguyễn RPFT Spirometry w/BD: 1 [facility] 05-02-2023 History of Present illness Narrative PULM FUNCTION SMARTBLOCK: Provider: Swetha Flores APRN.SENIOR WATER RESOURCES ENGINEER Assisting Tech: May Nguyễn RPFT Spirometry w/BD: 1 documented in this encounter [facility] 04-28-2023 Note HNO ID: [id number] Author: Swetha Flores APRN.SENIOR WATER RESOURCES ENGINEER Service: ? Author Type: Nurse Practitioner Type: Progress Notes Filed: 04/28/2023 9:58 AM Note Text: [facility] Lung Cancer Screening Annual Visit Chief Complaint: [...] Making Level: 4 - Moderate Swetha Flores APRN.[facility] [id number] April 28, 2023 9:16 AM ------- History [...] osteopenia, spinal stenosis, DVT. Modified Medical Research Kiana Dyspnea Scale (MMRC) I get short of [...] of migraine headac (more content not included)... [facility] 04-28-2023 Note HNO ID: [id number] Author: Leisa Jarquin RT(R) Service: ? Author Type: World Renowned Chef And Restaurant Owner Type: Progress Notes Filed: 04/28/2023 8:44 AM [...] RT Regan(R) April 28, 2023 8:43 AM [facility] 04-28-2023 Instructions Swetha Flores, CLARITA.[facility] - 04/28/2023 9:[address] Lung [...] to endocrinology. Others Lung Cancer Screening hotline: [phone] Lung Cancer Screening [phone] Lung Cancer Screening Team: Swetha Flores APRN.CNP [phone] documented in this encounter [facility] 04-28-2023 History of Present illness Narrative [facility] Lung Cancer Screening Annual Visit Chief Complaint: [...] Making Level: 4 - Moderate Swetha Flores APRN.[facility] [id number] April 28, 2023 9:16 AM History of [...] osteopenia, spinal stenosis, DVT. 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 documented in this encounter [facility] 04-07-2023 Note HNO ID: [id number] Author: Sri Lott RT(R) Service: ? Author Type: World Renowned Chef And Restaurant Owner Type: Progress Notes Filed: 04/07/2023 9:55 AM [...] RT Abhijeet(R) April 07, 2023 9:35 AM [facility] 04-07-2023 Note HNO ID: [id number] Author: Joanne Moreau APRN.SENIOR WATER RESOURCES ENGINEER Service: ? Author Type: Nurse Practitioner Type: Progress Notes Filed: 04/07/2023 9:46 AM Note Text: Chief Complaint Patient presents with: Pain: Back and rib pain . Started Monday taking tyl. Helps a little bit. HPI Fidelina Denise is a 77 year old female who presents here today for Above Complaints.. Fidelina is an established patient of Dr. Kentrell MD. 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 Family History [...] See HPI. EX (more content not included)... [facility] 03-28-2023 Note HNO ID: [id number] Author: Coy Pfeiffer MD Service: ? 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 [facility] 03-07-2023 Note HNO ID: [id number] Author: Shaylee Robertson MD Service: ? Author Type: Physician Type: Progress Notes Filed: 03/07/2023 10:41 AM Note Text: Virtual Visit utilizing both audio and video components [employer] I have communicated my name and active licensure. The patient's identity and physical location were verified at the time of this visit. Either the patient or their legal digital sales representative has been informed of the risks and benefits of -- and alternatives to -- treatment through a remote evaluation and consents to proceed with the evaluation remotely. Patient location: [place], [place] Assessment / Plan Problem: 1) Osteoporosis, [...] Had DVT in calf, 3 weeks after vaccine. 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 [facility] 03-07-2023 Instructions Shaylee Robertson MD - [...] 76 (H) 39 documented in this encounter [facility] 03-07-2023 History of Present illness Narrative Virtual Visit utilizing both audio and video components [employer] I have communicated my name and active licensure. The patient's identity and physical location were verified at the time of this visit. Either the patient or their legal digital sales representative has been informed of the risks and benefits of -- and alternatives to -- treatment through a remote evaluation and consents to proceed with the evaluation remotely. 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 Per patients request rescheduled patients 6 month follow up/HCC for 03/28/23 with PCP. Patients PCP 08/29/22 appointment was canceled prior or no show. Navigmoira bell [facility] gap outreach J43.1 - Panlobular emphysema (HCC) - [id number] Last Billed 07/26/2022 Patient Identified by Name and : YES, via phone Outreach Outcome/Action Spoke to patient / parent / legal guardian: Patient scheduled Did you use a PCP flex slot to schedule this appointment? No Reason for Outreach HCC or suspected condition Payer: Payor: ANALISA Conjunct AND [employer] [facility] / Plan: [employer] HMO / Product Type: HMO / Care [...] Health Navigation Outreach [3910] Cmt: Robbie bell [facility] outreach Prescriptions as of 02/24/2023 - omeprazole [...] Refusal of blood transfusions as patient is [facility]*12/05/2016 Plantar fasciitis, left [M72.2] 12/04/2017 Tibialis tendinitis of both lower extremities [*12/04/2017 Flat feet, bilateral [M21.41, M21.42] 12/04/2017 Acute right-sided low back pain with right-side*04/23/2018 History of DVT (deep vein thrombosis) [Z86.718] 10/30/2020 Hyperglycemia [R73.9] 02/23/2022 Osteoporosis [M81.0] 04/05/2022 Lung nodule, multiple [R91.8] 04/17/2022 Coronary artery disease involving [place] weber*07/26/2022 Encounter Status:Closed by KENYATTA GIRON on 02/24/23 [facility] 02-24-2023 Note HNO ID: [id number] Author: Kenyatta Giron MA Service: ? Author Type: Medical Equipment Sales Type: Progress Notes Filed: 02/24/2023 2:45 PM Note Text: POPULATION HEALTH NAVIGATION OUTREACH Action/FYI Spoke with patient. Per patients request rescheduled patients 6 month follow up/HCC for 03/28/23 with PCP. Patients PCP 08/29/22 appointment was canceled prior or no show. Navigator Analisa bell HCC gap outreach J43.1 - Panlobular emphysema (HCC) - [id number] Last Billed 07/26/2022 Patient Identified by Name and : YES, via phone Outreach Outcome/Action Spoke to patient / parent / legal guardian: Patient scheduled Did you use a PCP flex slot to schedule this appointment? No Reason for Outreach HCC or suspected condition Payer: Payor: ANALISA Conjunct AND [employer] [facility] [facility] / Plan: [employer] HMO / Product Type: HMO / Care Gap Reviewed:: Follow-up appointment Reminder: Reminder note to check Health Maintenance for items below Health Maintenance items due: SPIROMETRY Never done COVID-19 VACCINE(3 - Booster for Kendal series) due on 06/25/2021 ADVANCE DIRECTIVE DISCUSSION due on 08/07/2022 DEPRESSION ASSESSMENT Never done Navigation Signature: Kenyatta Giron MA February 24, 2023 9:23 AM [facility] 02-23-2023 Note HNO ID: [id number] Author: Gracy (Machine Turner)Cherelle Service: ? Author Type: ? Type: Progress Notes Filed: 02/23/2023 2:22 PM Note Text: Fidelina Denise is identified through a medication adherence outreach initiative based on pharmacy claims data from [employer] (insurer) for CATHY medication(s). Patient is reviewed [...] refill per call to patient/caregiver Cherelle Dubose ([employer]) [facility] 02-23-2023 History of Present illness Narrative Fidelina Denise is identified through a medication adherence outreach initiative based on pharmacy claims data from [employer] (insurer) for CATHY medication(s). Patient is reviewed [...] refill per call to patient/caregiver Cherelle Dubose ([employer]) documented in this encounter [facility] 02-23-2023 Note Patient Outreach ([facility]) CAMELIAFIDELINA Pritchett ([id number]) 1945 F Date Time Provider Department 02/23/23 COY PFEIFFER During your visit today, we recorded the following information about you: Gracy (Machine Turner)Cherelle 02/23/2023 2:22 PM Signed Fidelina Denise is identified through a medication adherence outreach initiative based on pharmacy claims data from [employer] (insurer) for CATHY medication(s). Patient is reviewed [...] refill per call to patient/caregiver Cherelle Dubose ([employer]PowerUp) Allergies As of Date: 02/23/2023 Noted Allergy [...] Refusal of blood transfusions as patient is [facility]*12/05/2016 Plantar fasciitis, left [M72.2] 12/04/2017 Tibialis tendinitis of both lower extremities [*12/04/2017 Flat feet, bilateral [M21.41, M21.42] 12/04/2017 Acute right-sided low back pain with right-side*04/23/2018 History of DVT (deep vein thrombosis) [Z86.718] 10/30/2020 Hyperglycemia [R73.9] 02/23/2022 Osteoporosis [M81.0] 04/05/2022 Lung nodule, multiple [R91.8] 04/17/2022 Coronary artery disease involving [place] weber*07/26/2022 Encounter Status:Closed by GRACY ([employer])CHERELLE on 02/23/23 [facility] 02-03-2023 Note HNO ID: [id number] Author: Cherelle Dubose ([employer]PowerUp) Service: ? Author Type: ? Type: Progress Notes Filed: 02/03/2023 12:27 PM Note Text: Fidelina Denise is identified through a medication adherence outreach initiative based on pharmacy claims data from [employer] (insurer) for CATHY medication(s). Patient is reviewed [...] - Filled per reconcile dispense Cherelle Dubose ([employer]Power[employer]) [facility] 02-03-2023 Note Patient Outreach ( POHE) FIDELINA DENISE ([id number]) 1945 F Date Time Provider Department 02/03/23 COY PFEIFFER During your visit today, we recorded the following information about you: Cherelle Dubose ([employer]Power[employer]) 02/03/2023 12:27 PM Signed Fidelina Denise is identified through a medication adherence outreach initiative based on pharmacy claims data from [employer] (insurer) for CATHY medication(s). Patient is reviewed [...] - Filled per reconcile dispense Cherelle Dubose (Machine Turner) Allergies As of Date: 02/03/2023 Noted Allergy [...] multiple [R91.8] 04/17/2022 Coronary artery disease involving [place] weber*07/26/2022 Encounter Status:Closed by GRACY (ADJUNCT FACULTY MATHEMATICS DEPARTMENT)CHERELLE on 02/03/23 [facility] 02-03-2023 History of Present illness Narrative Fidelina Shreyas Denise is identified through a medication adherence outreach initiative based on pharmacy claims data from [employer] (insurer) for CATHY medication(s). Patient is reviewed [...] - Filled per reconcile dispense Cherelle Dubose ([employer]) documented in this encounter [facility] 01-23-2023 Miscellaneous Notes Last office visit: 07/26/22 [...] patient. Lucille Agustin documented in this encounter [facility] 01-13-2023 Note Patient Outreach (DARIO TNAV) FIDELINA DENISE ([id number]) 1945 F Date Time Provider Department 01/13/23 LUIS DANIEL NORTON During your visit today, [...] HCC or suspected condition Payer: Payor: ANALISA [employer] / Plan: ANALISA [employer] HMO / Product Type: HMO / Care [...] Population Health Navigation Outreach [3910] Cmt: Analisa [facility] List Prescriptions as of 01/13/2023 [...] Refusal of blood transfusions as patient is [facility]*12/05/2016 Plantar fasciitis, left [M72.2] 12/04/2017 Tibialis tendinitis of both lower extremities [*12/04/2017 Flat feet, bilateral [M21.41, M21.42] 12/04/2017 Acute right-sided low back pain with right-side*04/23/2018 History of DVT (deep vein thrombosis) [Z86.718] 10/30/2020 Hyperglycemia [R73.9] 02/23/2022 Osteoporosis [M81.0] 04/05/2022 Lung nodule, multiple [R91.8] 04/17/2022 Coronary artery disease involving [place] weber*07/26/2022 Encounter Status:Closed by LUIS DANIEL NORTON on 01/13/23 [facility] 01-13-2023 Note HNO ID: [id number] Author: Luis Daniel Norton MA Service: ? Author Type: Medical Equipment Sales Type: Progress Notes Filed: 01/13/2023 8:20 AM Note Text: POPULATION HEALTH NAVIGATION OUTREACH Action/FYI P/C to patient to schedule PCP visit, no answer. Left message for patient to return call. My chart message sent. Patient Identified by Name and : NO Outreach Outcome/Action Unable to reach patient: Left message Calendly[employer] message sent Did you use a PCP flex slot to schedule this appointment? N/A Reason for Outreach HCC or suspected condition Payer: Payor: [employer] / Plan: [employer] HMO / Product Type: HMO / Care Gap Reviewed:: Annual Wellness visit Reminder: Reminder note to check Health Maintenance for items below Health Maintenance items due: SPIROMETRY Never done COVID-19 VACCINE(3 - Booster for Kendal series) due on 06/25/2021 ADVANCE DIRECTIVE DISCUSSION due on 08/07/2022 DEPRESSION ASSESSMENT Never done Navigation Signature: Luis Daniel Norton MA January 13, 2023 8:19 AM [facility] 12-27-2022 Note Patient Outreach (PH POHE) FIDELINA DENISE ([id number]) 1945 F Date Time Provider Department 12/27/22 COY PFEIFFER During your visit today, we recorded the following information about you: Cherelle Dubose (Machine Turner) 12/27/2022 11:12 AM Signed Fidelina Denise is identified through a medication adherence outreach initiative based on pharmacy claims data from [employer] (insurer) for Statin medication(s). Patient is reviewed 12/27/22 due to medication adherence concerns with the following medications (name, strength, sig): Atorvastatin 40mg take 1 tablet every day. Per reconcile dispense, last fill date and days supply: 09/28/22 for 90 day supply due 12/27/22 Contacted patient: sent [employer] message to patient Outcome of review/outreach: (choose outcome source and status) Sent [employer] message to patient in separate encounter Cherelle Gracy (Machine Turner) Allergies As of Date: 12/27/2022 Noted Allergy [...] Refusal of blood transfusions as patient is [facility]*12/05/2016 Plantar fasciitis, left [M72.2] 12/04/2017 Tibialis tendinitis of both lower extremities [*12/04/2017 Flat feet, bilateral [M21.41, M21.42] 12/04/2017 Acute right-sided low back pain with right-side*04/23/2018 History of DVT (deep vein thrombosis) [Z86.718] 10/30/2020 Hyperglycemia [R73.9] 02/23/2022 Osteoporosis [M81.0] 04/05/2022 Lung nodule, multiple [R91.8] 04/17/2022 Coronary artery disease involving [place] weber*07/26/2022 Encounter Status:Closed by GRACY ([employer])CHERELLE on 12/27/22 [facility] 12-27-2022 Note HNO ID: [id number] Author: Cherelle Dubose ([employer]Up) Service: ? Author Type: ? Type: Progress Notes Filed: 12/27/2022 11:12 AM Note Text: Fidelina Denise is identified through a medication adherence outreach initiative based on pharmacy claims data from [employer] (insurer) for Statin medication(s). Patient is reviewed 12/27/22 due to medication adherence concerns with the following medications (name, strength, sig): Atorvastatin 40mg take 1 tablet every day. Per reconcile dispense, last fill date and days supply: 09/28/22 for 90 day supply due 12/27/22 Contacted patient: sent [employer] message to patient Outcome of review/outreach: (choose outcome source and status) Sent [employer] message to patient in separate encounter Cherelle Dubose (Machine Turner) [facility] 11-23-2022 Note HNO ID: [id number] Author: Cherelle Knapp Service: ? Author Type: ? Type: Progress Notes Filed: 11/23/2022 1:35 PM Note Text: Fidelina Denise is identified through a medication adherence outreach initiative based on pharmacy claims data from [employer] (insurer) for CATHY medication(s). Patient is reviewed [...] fill date per reconcile dispense Cherelle Knapp [facility] 11-23-2022 Note Patient Outreach ( POHE) FIDELINA DENISE ([id number]) 1945 F Date Time Provider Department 11/23/22 COY PFEIFFER During your visit today, we recorded the following information about you: Cherelle Knapp 11/23/2022 1:35 PM Signed Fidelina A Denise is identified through a medication adherence outreach initiative based on pharmacy claims data from [employer] (insurer) for CATHY medication(s). Patient is reviewed [...] Refusal of blood transfusions as patient is [facility]*12/05/2016 Plantar fasciitis, left [M72.2] 12/04/2017 Tibialis tendinitis of both lower extremities [*12/04/2017 Flat feet, bilateral [M21.41, M21.42] 12/04/2017 Acute right-sided low back pain with right-side*04/23/2018 History of DVT (deep vein thrombosis) [Z86.718] 10/30/2020 Hyperglycemia [R73.9] 02/23/2022 Osteoporosis [M81.0] 04/05/2022 Lung nodule, multiple [R91.8] 04/17/2022 Coronary artery disease involving [place] weber*07/26/2022 Encounter Status:Closed by CHERELLE KNAPP on 11/23/22 [facility] 11-23-2022 History of Present illness Narrative Fidelina Denise is identified through a medication adherence outreach initiative based on pharmacy claims data from [employer] (insurer) for CATHY medication(s). Patient is reviewed [...] dispense Cherelle Knapp documented in this encounter [facility] 11-18-2022 Note HNO ID: [id number] Author: Luis Daniel Norton MA Service: ? Author Type: Medical Equipment Sales Type: Progress Notes Filed: 11/18/2022 12:49 PM Note Text: POPULATION HEALTH NAVIGATION OUTREACH Action/FYI P/C to patient to schedule Annual wellness exam, no answer. Left message for patient to return call. My chart message sent. Patient Identified by Name and : NO Outreach Outcome/Action Unable to reach patient: Left message Calendlyhart message sent Did you use a PCP flex slot to schedule this appointment? N/A Reason for Outreach HCC or suspected condition Payer: Payor: [employer] / Plan: [employer] HMO / Product Type: HMO / Care Gap Reviewed:: Annual Wellness visit Reminder: Reminder note to check Health Maintenance for items below Health Maintenance items due: SPIROMETRY Never done COVID-19 VACCINE(3 - Booster for Kendal series) due on 06/25/2021 ADVANCE DIRECTIVE DISCUSSION due on 08/07/2022 DEPRESSION ASSESSMENT Never done Navigation Signature: Luis Daniel Norton MA November 18, 2022 12:47 PM [facility] 11-18-2022 Note Patient Outreach (DARIO TNAV) FIDELINA DENISE ([id number]) 1945 F Date Time Provider Department 11/18/22 [...] Outreach HCC or suspected condition Payer: Payor: [employer] / Plan: [employer] HMO / Product Type: HMO / Care [...] Visit: Population Health Navigation Outreach [3910] Cmt: [facility] List Prescriptions as of 11/18/2022 [...] Refusal of blood transfusions as patient is [facility]*12/05/2016 Plantar fasciitis, left [M72.2] 12/04/2017 Tibialis tendinitis of both lower extremities [*12/04/2017 Flat feet, bilateral [M21.41, M21.42] 12/04/2017 Acute right-sided low back pain with right-side*04/23/2018 History of DVT (deep vein thrombosis) [Z86.718] 10/30/2020 Hyperglycemia [R73.9] 02/23/2022 Osteoporosis [M81.0] 04/05/2022 Lung nodule, multiple [R91.8] 04/17/2022 Coronary artery disease involving [place] weber*07/26/2022 Encounter Status:Closed by LUIS DANIEL NORTON on 11/18/22 [facility] 11-18-2022 History of Present illness Narrative POPULATION HEALTH NAVIGATION OUTREACH Action/FYI P/C to [...] Outreach HCC or suspected condition Payer: Payor: [facility] [employer] / Plan: [employer] HMO / Product Type: HMO / Care Gap Reviewed:: Annual Wellness visit Reminder: Reminder note to check Health Maintenance for items below Health Maintenance items due: SPIROMETRY Never done COVID-19 VACCINE(3 - Booster for Ekndal series) due on 06/25/2021 ADVANCE DIRECTIVE DISCUSSION due on 08/07/2022 DEPRESSION ASSESSMENT Never done Navigation Signature: Luis Daniel Norton MA November 18, 2022 12:47 PM documented in this encounter [facility] 11-02-2022 Note HNO ID: [id number] Author: Anuj Walters Pharm-T Service: ? Author Type: ? Type: Progress Notes Filed: 11/02/2022 1:36 PM Note Text: Fidelina Denise is identified through a medication adherence outreach initiative based on pharmacy claims data from [employer] (insurer) for CATHY medication(s). Patient is reviewed [...] per reconcile dispense Anuj Daniel Leopoldoelli Pharm-T [facility] 11-02-2022 Note Patient Outreach ( PO) FIDELINA DENISE ([id number]) 1945 F Date Time Provider Department 11/02[facility] your visit today, we recorded the following information about you: Anuj Fredy Minajenae Pharm-T 11/02/2022 1:36 PM Signed Fidelina Denise is identified through a medication adherence outreach initiative based on pharmacy claims data from [employer] (insurer) for CATHY medication(s). Patient is reviewed [...] multiple [R91.8] 04/17/2022 Coronary artery disease involving [place] weber*07/26/2022 Encounter Status:Closed by ANUJ HOLLINS on 11/02/22 [facility] 10-12-2022 Note HNO ID: [id number] Author: Anuj Henson Service: ? Author Type: ? Type: Progress Notes Filed: 10/12/2022 12:07 PM Note Text: Fidelina Denise is identified through a medication adherence outreach initiative based on pharmacy claims data from [employer] (insurer) for CATHY medication(s). Patient is reviewed [...] fill date per reconcile dispense Anuj FanT [facility] 10-12-2022 Note Patient Outreach ([facility]) RITA DENISEH Shreyas ([id number]) 1945 F Date Time Provider Department 10/12/22 COY PFEIFFER During your visit today, we recorded the following information about you: Anuj Walters Pharm-T 10/12/2022 12:07 PM Signed Fidelina Denise is identified through a medication adherence outreach initiative based on pharmacy claims data from [employer] (insurer) for CATHY medication(s). Patient is reviewed [...] Next fill date per reconcile dispense Anuj Walters Pharm-T Allergies As of Date: 10/12/2022 Noted [...] Refusal of blood transfusions as patient is [facility]*12/05/2016 Plantar fasciitis, left [M72.2] 12/04/2017 Tibialis tendinitis of both lower extremities [*12/04/2017 Flat feet, bilateral [M21.41, M21.42] 12/04/2017 Acute right-sided low back pain with right-side*04/23/2018 History of DVT (deep vein thrombosis) [Z86.718] 10/30/2020 Hyperglycemia [R73.9] 02/23/2022 Osteoporosis [M81.0] 04/05/2022 Lung nodule, multiple [R91.8] 04/17/2022 Coronary artery disease involving [place] weber*07/26/2022 Encounter Status:Closed by ANUJ HOLLINS on 10/12/22 [facility] 10-12-2022 History of Present illness Narrative Fidelina Denise is identified through a medication adherence outreach initiative based on pharmacy claims data from [employer] (insurer) for CATHY medication(s). Patient is reviewed [...] dispense Anuj Henson documented in this encounter [facility] 09-30-2022 Note HNO ID: [id number] Author: Cheyenne Tran (iPowerUp) Service: ? Author Type: ? Type: Progress Notes Filed: 09/30/2022 5:02 PM Note Text: Fidelina Denise is identified through a medication adherence outreach initiative based on pharmacy claims data from [employer] (insurer) for Statin medication(s). Patient is reviewed 09/30/22 due to medication adherence concerns with the following medications (name, strength, sig): Atorvastatin 40mg, QD. Per reconcile dispense, last fill date and days supply: Filled 09/28/22 for 90 day supply Outcome of review/outreach: (choose outcome source and status) - Filled within 7 days of Next fill date per reconcile dispense Cheyenne Tran (iPowerUp) [facility] 09-30-2022 History of Present illness Narrative Fidelina Denise is identified through a medication adherence outreach initiative based on pharmacy claims data from [employer] (insurer) for Statin medication(s). Patient is reviewed 09/30/22 due to medication adherence concerns with the following medications (name, strength, sig): Atorvastatin 40mg, QD. Per reconcile dispense, last fill date and days supply: Filled 09/28/22 for 90 day supply Outcome of review/outreach: (choose outcome source and status) - Filled within 7 days of Next fill date per reconcile dispense Cheyenne Tran ([employer]PowerUp) documented in this encounter [facility] 09-30-2022 Note Patient Outreach ([facility]) FIDELINA DENISE ([id number]) 1945 F Date Time Provider Department 09/30/22 COY PFEIFFER During your visit today, we recorded the following information about you: Cheyenne Tran ([employer]Power[employer]) 09/30/2022 5:02 PM Signed Fidelina Denise is identified through a medication adherence outreach initiative based on pharmacy claims data from [employer] (insurer) for Statin medication(s). Patient is reviewed 09/30/22 due to medication adherence concerns with the following medications (name, strength, sig): Atorvastatin 40mg, QD. Per reconcile dispense, last fill date and days supply: Filled 09/28/22 for 90 day supply Outcome of review/outreach: (choose outcome source and status) - Filled within 7 days of Next fill date per reconcile dispense Cheyenne Tran ([employer]PowerUp) Allergies As of Date: 09/30/2022 Noted Allergy [...] multiple [R91.8] 04/17/2022 Coronary artery disease involving [place] weber*07/26/2022 Encounter Status:Closed by DAWIT (MarketArt)CHEYENNE on 09/30/22 [facility] 09-14-2022 Note HNO ID: [id number] Author: Shaylee Robertson MD Service: ? Author Type: Physician Type: Progress Notes Filed: 09/14/2022 3:46 PM Note Text: Assessment / Plan Problem: 2) Osteoporosis, Evista contraindicated because of DVT while on therapy (though also 2 wk after AUGD COVID vaccine), oral bisphosphonate contraindicated by history [...] Had DVT in calf, 3 weeks after vaccine. 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 Admitted 06/23/22 to [facility]. Discharged 06/25/22. Myocardial infarction. [address] Went back on 07/21/22 to [facility] and had 6 more stents placed. 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 Coronary artery disease involving [place] coronary artery of [place] heart without angina pectoris - ICD9: 414.01, ICD10: I25.10 - stable. - CBC + DIFF 4. Panlobular emphysema (HCC) - ICD9: 492.8, ICD10: J43.1 - COMP METABOLIC PANEL 5. Mixed hyperlipidemia - ICD9: 272.2, ICD10: E78.2 - good control - Continue current medication. - LIPID PANEL BASIC Coy Pfeiffer MD RTO in eight weeks. documented in this encounter [facility] 06-27-2022 Miscellaneous Notes Noted. Patient's call thankful for provider. states that patient had 2 stents placed. Patient very grateful for all provider had done yesterday. Caty Ramirez RN documented in this encounter [facility] 06-23-2022 Miscellaneous Notes [facility], [facility] Centers and Remote Sites Emergency Response Form. NOT TO BE USED AT [facility] Complete this report when the Emergency Medical Response is activated (911 calls/EmergencyTransport to the ED) or when a Code Sheet is utilized in the care of a patient (i.e., ASC) Date of the Event: 06/23/22 (Must provide Value) Time of the Event:09:02 am (Must provide Value) Was emergency response activated? (Local EMS/Emergency Department) YES (Must provide Value) Location of the Incident: [facility] ([facility] (Must provide Value) [...] Transferred to Hospital ED (Must provide value) Pattern Changer And Repairer information: Name of Provider- Pia Meyers (Must [...] them on transfer. 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 Thanks! Swetha Atkinson APRN-SENIOR WATER RESOURCES ENGINEER Lung Cancer Screening documented in this encounter [facility] 04-05-2022 Miscellaneous Notes Patient informed and verbalized understanding. States her treatment has changed and she is now going to receive reclast infusions. Muriel Guerra Bone density still shows osteoporosis. Continue current treatments. documented in this encounter [facility] 04-05-2022 History of Present illness Narrative Radiology [...] 2022 9:00 AM documented in this encounter [facility] 04-04-2022 Miscellaneous Notes SPOKE TO PT AND SCHEDULED. Theodora Alexis Please enter orders in [place] for prior authorization. Thank you. Caty Dawson Pt recently had appointment with Dr. Barr. He has ordered a reclast injection. 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 No need to notify patient. [facility] 03-25-2022 Instructions Joellen Burch - 03/25/2022 11:56 [...] behaviors to ensure successful smoking cessation. RESOURCES [facility] Smoking Cessation Appointment Line [facility] [phone]. [place] Tobacco Quit line: National Cancer [place] at http://www.smokefree.gov [place] [employer] at http://www.lungusa.org [place] [employer] at http://www.cancer.org STRATEGIES TOWARD SMOKING [...] desirable brand of cigarettes. ___ Discard your assistant vice president. Use matches. Carry your cigarettes in a [...] why you quit. Also remember that a [employer] spends billions of dollars each year trying [...] to endocrinology. Others Lung Cancer Screening hotline: [phone] Lung Cancer Screening [phone] Billing Questions: or [email or web address] ssistance Specialist Providers: (Cheyenne Najera CNP; Nel Palmer CNP; Swetha Green CNP; Swetha Atkinson CNP; Tory Prasad PA-C; Chloe Shah PA-C; Cindy Arevalo CNP, Padmini Mcclain CNP, Joellen Burch CNP & Chayo Centeno PA-C): [phone] Joellen Burch CNP documented in this encounter [facility] 03-25-2022 History of Present illness Narrative Images [...] pre-disease performance w/o restriction. 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 Declines referral to smoking cessation voice coach at this time as she is not ready to quit right now. I personally spent 6 minutes in counseling. The time spent in smoking cessation counseling is exclusive of any other counseling during this visit. Joellen Burch CNP documented in this encounter [facility] 03-01-2022 Miscellaneous Notes Ok. I will forward [...] appt set up? documented in this encounter [facility] 02-23-2022 Instructions Coy Pfeiffer MD - 02/23/2022 [...] usual activities immediately. documented in this encounter [facility] 02-23-2022 History of Present illness Narrative Patient [...] to remember the following three words: Banana, [place] and Chair Visuospatial/Executive Functioning: Clock drawin/2 (Normal [...] Medical Decision Making documented in this encounter [facility] 01-18-2022 History of Present illness Narrative POPULATION [...] Care Gap or Scheduling/Wellness visits Payer: Payor: [employer] / Plan: [employer] HMO / Product Type: HMO / Care [...] Sent to Practice: No Navigation Signature: Landy Vazdario Ray Pss January 18, 2022 3:18 PM documented in this encounter [facility] 01-07-2022 History of Present illness Narrative POPULATION HEALTH NAVIGATION OUTREACH Action/FYI Called patient to schedule medicare wellness visit. Pt identified by name and : YES, via phone Outreach Outcome/Action Spoke to patient or caregiver: Patient scheduled on 01/24/2022. Did you use a PCP flex slot to schedule this appointment? No Reason for Outreach HCC or suspected condition Payer: Payor: [employer] / Plan: [employer] HMO / Product Type: HMO / Care [...] 2022 9:12 AM documented in this encounter [facility] 11-04-2021 Miscellaneous Notes November 04, 2021 PID: [id number] Fidelina Denise [address] [place] [address] Dear Ms. Denise, We are pleased to [...] report will be kept on file at [facility] as part of your permanent medical record and are available for your continuing care. Thank you for allowing us to help in meeting your health care needs. Sincerely, Dr. East Interpreting Radiologist [facility] (Normal over 40) documented in this encounter [facility] 11-04-2021 History of Present illness Narrative Radiology [...] DATA: Not applicable SIGNED BY: Rossy Escobedo [employer] November 04, 2021 9:24 AM documented in this encounter [facility] documented as of this encounter (statuses as of 04/28/2023) [facility] History of Past illness Narrative* Problem Noted Date Diagnosed Date Resolved Date Acute right-sided low back p ain with right-sided sciatica 04/23/2018 03/28/2023 Encounter for screening for malignant neoplasm of colon 02/25/2015 04/13/2016 Epigastric pain 02/25/2015 07/26/2022 Headache 10/13/2016 Overview: cervical Coronary artery calcificatio n seen on CAT scan 07/26/2022 documented as of this encounter (statuses as of 05/02/2023) [facility] History of Past illness Narrative* Problem Noted Date Diagnosed Date Resolved Date Acute right-sided low back p ain with right-sided sciatica 04/23/2018 03/28/2023 Encounter for screening for malignant neoplasm of colon 02/25/2015 04/13/2016 Epigastric pain 02/25/2015 07/26/2022 Headache 10/13/2016 Overview: cervical Coronary artery calcificatio n seen on CAT scan 07/26/2022 documented as of this encounter (statuses as of 06/16/2023) [facility] History of Past illness Narrative* Problem Noted Date Diagnosed Date Resolved Date Acute right-sided low back p ain with right-sided sciatica 04/23/2018 03/28/2023 Encounter for screening for malignant neoplasm of colon 02/25/2015 04/13/2016 Epigastric pain 02/25/2015 07/26/2022 Headache 10/13/2016 Overview: cervical Coronary artery calcificatio n seen on CAT scan 07/26/2022 documented as of this encounter (statuses as of 06/26/2023) [facility] History of Past illness Narrative* Problem Noted Date Diagnosed Date Resolved Date Acute right-sided low back p ain with right-sided sciatica 04/23/2018 03/28/2023 Encounter for screening for malignant neoplasm of colon 02/25/2015 04/13/2016 Epigastric pain 02/25/2015 07/26/2022 Headache 10/13/2016 Overview: cervical Coronary artery calcificatio n seen on CAT scan 07/26/2022 documented as of this encounter (statuses as of 07/06/2023) [facility] History of Past illness Narrative* Problem Noted Date Resolved Date Encounter for screening for malignant neoplasm o f colon 02/25/2015 04/13/2016 Headache 10/13/2016 Overview: cervical documented as of this encounter (statuses as of 11/05/2021) [facility] History of Past illness Narrative* Problem Noted Date Resolved Date Encounter for screening for malignant neoplasm o f colon 02/25/2015 04/13/2016 Headache 10/13/2016 Overview: cervical documented as of this encounter (statuses as of 11/06/2021) [place] [id number] History of Past illness Narrative* Problem Noted Date Resolved Date Encounter for screening for malignant neoplasm o f colon 02/25/2015 04/13/2016 Headache 10/13/2016 Overview: cervical documented as of this encounter (statuses as of 01/07/2022) [address]22-2015 History of Past illness Narrative* Problem Noted Date Resolved Date Encounter for screening for malignant neoplasm o f colon 02/25/2015 04/13/2016 Headache 10/13/2016 Overview: cervical documented as of this encounter (statuses as of 01/18/2022) [address]-2015 History of Past illness Narrative* Problem Noted Date Resolved Date Encounter for screening for malignant neoplasm o f colon 02/25/2015 04/13/2016 Headache 10/13/2016 Overview: cervical documented as of this encounter (statuses as of 02/23/2022) [address]22-2015 History of Past illness Narrative* Problem Noted Date Resolved Date Encounter for screening for malignant neoplasm o f colon 02/25/2015 04/13/2016 Headache 10/13/2016 Overview: cervical documented as of this encounter (statuses as of 03/02/2022) [address]22-2015 History of Past illness Narrative* Problem Noted Date Resolved Date Encounter for screening for malignant neoplasm o f colon 02/25/2015 04/13/2016 Headache 10/13/2016 Overview: cervical documented as of this encounter (statuses as of 03/25/2022) [address]2015 History of Past illness Narrative* Problem Noted Date Resolved Date Encounter for screening for malignant neoplasm o f colon 02/25/2015 04/13/2016 Headache 10/13/2016 Overview: cervical documented as of this encounter (statuses as of 03/29/2022) [place] [id number] History of Past illness Narrative* Problem Noted Date Resolved Date Encounter for screening for malignant neoplasm o f colon 02/25/2015 04/13/2016 Headache 10/13/2016 Overview: cervical documented as of this encounter (statuses as of 03/31/2022) [address]22-2015 History of Past illness Narrative* Problem Noted Date Resolved Date Encounter for screening for malignant neoplasm o f colon 02/25/2015 04/13/2016 Headache 10/13/2016 Overview: cervical documented as of this encounter (statuses as of 04/04/2022) [address]22-2015 History of Past illness Narrative* Problem Noted Date Resolved Date Encounter for screening for malignant neoplasm o f colon 02/25/2015 04/13/2016 Headache 10/13/2016 Overview: cervical documented as of this encounter (statuses as of 04/05/2022) [address]22-2015 History of Past illness Narrative* Problem Noted Date Resolved Date Encounter for screening for malignant neoplasm o f colon 02/25/2015 04/13/2016 Headache 10/13/2016 Overview: cervical documented as of this encounter (statuses as of 04/06/2022) [address]22[address]2015 History of Past illness Narrative* Problem Noted Date Resolved Date Encounter for screening for malignant neoplasm o f colon 02/25/2015 04/13/2016 Headache 10/13/2016 Overview: cervical documented as of this encounter (statuses as of 04/15/2022) [place] [address]-22-2015 History of Past illness Narrative* Problem Noted Date Resolved Date Encounter for screening for malignant neoplasm o f colon 02/25/2015 04/13/2016 Headache 10/13/2016 Overview: cervical documented as of this encounter (statuses as of 04/18/2022) [address]22[address]2015 History of Past illness Narrative* Problem Noted Date Resolved Date Encounter for screening for malignant neoplasm o f colon 02/25/2015 04/13/2016 Headache 10/13/2016 Overview: cervical documented as of this encounter (statuses as of 04/18/2022) [place] [address]-22-2015 History of Past illness Narrative* Problem Noted Date Resolved Date Encounter for screening for malignant neoplasm o f colon 02/25/2015 04/13/2016 Headache 10/13/2016 Overview: cervical documented as of this encounter (statuses as of 06/23/2022) [facility] History of Past illness Narrative* Problem Noted Date Resolved Date Encounter for screening for malignant neoplasm o f colon 02/25/2015 04/13/2016 Headache 10/13/2016 Overview: cervical documented as of this encounter (statuses as of 06/27/2022) [address]-2015 History of Past illness Narrative* Problem Noted Date Resolved Date Encounter for screening for malignant neoplasm o f colon 02/25/2015 04/13/2016 Epigastric pain 02/25/2015 07/26/2022 Headache 10/13/2016 Overview: cervical Coronary artery calcification seen on CAT scan 07/26/2022 documented as of this encounter (statuses as of 07/26/2022) [facility] History of Past illness Narrative* Problem Noted Date Resolved Date Encounter for screening for malignant neoplasm o f colon 02/25/2015 04/13/2016 Epigastric pain 02/25/2015 07/26/2022 Headache 10/13/2016 Overview: cervical Coronary artery calcification seen on CAT scan 07/26/2022 documented as of this encounter (statuses as of 09/07/2022) [facility] History of Past illness Narrative* Problem Noted Date Resolved Date Encounter for screening for malignant neoplasm o f colon 02/25/2015 04/13/2016 Epigastric pain 02/25/2015 07/26/2022 Headache 10/13/2016 Overview: cervical Coronary artery calcification seen on CAT scan 07/26/2022 documented as of this encounter (statuses as of 09/14/2022) [facility] History of Past illness Narrative* Problem Noted Date Resolved Date Encounter for screening for malignant neoplasm o f colon 02/25/2015 04/13/2016 Epigastric pain 02/25/2015 07/26/2022 Headache 10/13/2016 Overview: cervical Coronary artery calcification seen on CAT scan 07/26/2022 documented as of this encounter (statuses as of 09/30/2022) [facility] History of Past illness Narrative* Problem Noted Date Resolved Date Encounter for screening for malignant neoplasm o f colon 02/25/2015 04/13/2016 Epigastric pain 02/25/2015 07/26/2022 Headache 10/13/2016 Overview: cervical Coronary artery calcification seen on CAT scan 07/26/2022 documented as of this encounter (statuses as of 10/12/2022) [facility] History of Past illness Narrative* Problem Noted Date Resolved Date Encounter for screening for malignant neoplasm o f colon 02/25/2015 04/13/2016 Epigastric pain 02/25/2015 07/26/2022 Headache 10/13/2016 Overview: cervical Coronary artery calcification seen on CAT scan 07/26/2022 documented as of this encounter (statuses as of 11/19/2022) [facility] History of Past illness Narrative* Problem Noted Date Resolved Date Encounter for screening for malignant neoplasm o f colon 02/25/2015 04/13/2016 Epigastric pain 02/25/2015 07/26/2022 Headache 10/13/2016 Overview: cervical Coronary artery calcification seen on CAT scan 07/26/2022 documented as of this encounter (statuses as of 11/24/2022) [facility] History of Past illness Narrative* Problem Noted Date Resolved Date Encounter for screening for malignant neoplasm o f colon 02/25/2015 04/13/2016 Epigastric pain 02/25/2015 07/26/2022 Headache 10/13/2016 Overview: cervical Coronary artery calcification seen on CAT scan 07/26/2022 documented as of this encounter (statuses as of 01/24/2023) [facility] History of Past illness Narrative* Problem Noted Date Resolved Date Encounter for screening for malignant neoplasm o f colon 02/25/2015 04/13/2016 Epigastric pain 02/25/2015 07/26/2022 Headache 10/13/2016 Overview: cervical Coronary artery calcification seen on CAT scan 07/26/2022 documented as of this encounter (statuses as of 02/03/2023) [facility] History of Past illness Narrative* Problem Noted Date Diagnosed Date Resolved Date Encounter for screening for malignant neoplasm of colon 02/25/2015 04/13/2016 Epigastric pain 02/25/2015 07/26/2022 Headache 10/13/2016 Overview: cervical Coronary artery calcificatio n seen on CAT scan 07/26/2022 documented as of this encounter (statuses as of 02/22/2023) [facility] History of Past illness Narrative* Problem Noted Date Diagnosed Date Resolved Date Encounter for screening for malignant neoplasm of colon 02/25/2015 04/13/2016 Epigastric pain 02/25/2015 07/26/2022 Headache 10/13/2016 Overview: cervical Coronary artery calcificatio n seen on CAT scan 07/26/2022 documented as of this encounter (statuses as of 02/23/2023) [facility] History of Past illness Narrative* Problem Noted Date Diagnosed Date Resolved Date Encounter for screening for malignant neoplasm of colon 02/25/2015 04/13/2016 Epigastric pain 02/25/2015 07/26/2022 Headache 10/13/2016 Overview: cervical Coronary artery calcificatio n seen on CAT scan 07/26/2022 documented as of this encounter (statuses as of 03/07/2023) [facility] Encounter for screening mammogram for malignant neoplasm of breast Other screening mammogram [facility] Diagnosis Primary hyperparathyroidism (HCC)- Primary Primary [...] foot, initial encounter [facility] Diagnosis Encounter for screening for lung cancer- Primary Smoker Tobacco use disorder [facility] Diagnosis Essential hypertension Unspecified essential hypertension [facility] Diagnosis Hypothyroidism, unspecified type- Primary Primary hyperparathyroidism (HCC) Primary hyperparathyroidism [facility] Diagnosis Osteoporosis, unspecified osteoporosis type, unspecified pathological fracture presence [facility] Diagnosis Osteoporosis, unspecified osteoporosis type, unspecified pathological fracture presence [facility] Diagnosis Spinal stenosis, unspecified spinal region- Primary Osteopenia, unspecified location Age-related osteoporosis with current pathological fracture with routine healing, subsequent encounter [facility] Diagnosis Tobacco use disorder- Primary Lung nodule, multiple Other nonspecific abnormal finding of lung field [facility] Diagnosis Post PTCA- Primary Postsurgical percutaneous transluminal coronary angioplasty status History of DVT (deep vein thrombosis) Personal history of venous thrombosis and embolism Coronary artery disease involving [place] coronary artery of [place] heart without angina pectoris Panlobular emphysema (HCC) Other emphysema Mixed hyperlipidemia [facility] Diagnosis Essential hypertension Unspecified essential hypertension [facility] Diagnosis Hypothyroidism, unspecified type- Primary Primary hyperparathyroidism (HCC) Primary hyperparathyroidism Age-related osteoporosis without current pathological fracture Senile osteoporosis documented in this encounter [facility] note* Diagnosis Essential hypertension Unspecified essential hypertension [facility] Diagnosis Lung nodules- Primary Other nonspecific abnormal finding of lung field [facility] Diagnosis Primary hyperparathyroidism (HCC)- Primary Primary hyperparathyroidism Age-related osteoporosis without current pathological fracture Senile osteoporosis [facility] Diagnosis Lung nodules- Primary Other nonspecific abnormal finding of lung field Cigarette smoker Tobacco use disorder MENA (dyspnea on exertion) Other dyspnea and respiratory abnormality [facility]* Diagnosis MENA (dyspnea on exertion) Other dyspnea and respiratory abnormality [facility] Diagnosis Essential hypertension Unspecified essential hypertension documented in this encounter [facility] for referral (narrative)* Diagnostic Procedure Only (Routine) - Closed Specialty Diagnoses / Procedures Referred By Contac t Referred To Contact [facility] Diagnoses Encounter for screening mammogram for malignant neoplasm of breast Procedures KELLI SCREENING W FLOR SCREENING DIGITAL BREAST TOMOSYNTHESIS BI SCREENING MAMMOGRAPHY BI 2-VIEW BREAST INC CAD Mikaela Shafer MD [address] [place] [address] [facility] [address] [place] [id number] Referral ID Status Reason Start Date Expiration Date V isits Requested Visits Authorized [id number] Closed Auto-Generate d Referral 09/15/2021 10/15/2022 1 1 [facility] for referral (narrative)* Outpatient Procedure (Routine) - Authorized Specialty Diagnoses / Procedures Referred By Deepti houston Referred To Contact [facility] Diagnoses MENA (dyspnea on exertion) Procedures SPIROMETRY - BASELINE AND POST DILATOR BRNCDILAT RSPSE SPMTRY PRE&POST-BRNCDILAT ADMSwetha Mas, HEALTHCARE RECRUITER.SENIOR WATER RESOURCES ENGINEER [address] [place] [address] [facility] [place] [address] [place] [id number] Referral ID Status Reason Start Date Expiration Date Visits Requested Visits Authorized [id number] Authorized Auto-Generat ed Referral 04/28/2023 05/27/2024 1 1 Electronically signed by Swetha Flores HEALTHCARE RECRUITER.SENIOR WATER RESOURCES ENGINEER at 04/28/2023 9:41 AM EDT * MRI/CT (Routine) - Authorized Specialty Diagnoses / Procedures Referred By Malihaac t Referred To Contact CT IMAGING Diagnoses Lung nodules Procedures CT LUNG FOLLOWUP WO IVCON DIAGNOSTIC COMPUTED TOMOGRAPHY THORAX W/O Swetha Mcdonough, HEALTHCARE RECRUITER.SENIOR WATER RESOURCES ENGINEER [address] [place] [address] [place] [id number] Referral ID Status Reason Start Date Expiration Date Visits Requested Visits Authorized [id number] Authorized Auto-Generat ed Referral 04/28/2023 05/27/2024 1 1 [facility] Diagnostic Procedure Only (Routine) - Closed Specialty Diagnoses / Procedures Referred By Contac t Referred To Contact [facility] Diagnoses Encounter for screening mammogram for malignant neoplasm of breast Procedures KELLI SCREENING W FLOR SCREENING DIGITAL BREAST TOMOSYNTHESIS BI SCREENING MAMMOGRAPHY BI 2-VIEW BREAST INC CAD Mikaela Shafer MD [address] [place] [address] [facility] [address] [place] [address] Referral ID Status Reason Start Date Expiration Date V isits Requested Visits Authorized [id number] Closed Auto-Generate d Referral 09/15/2021 10/15/2022 1 1 [facility] Advance Directives No Advanced Directives Records FoundDocuments on File Type Date Recorded Patient Salon Shampoo Assistant Expl anation Advance Directive(s) 12/01/2020 9:18 AM Advance Directive(s) 11/24/2020 3:14 PM Advance Directive(s) 06/16/2018 5:42 PM Advance Directive(s) 09/01/2017 10:58 AM Documents on File Type Date Recorded Patient Salon Shampoo Assistant Expl anation Advance Directive(s) 12/01/2020 9:18 AM Advance Directive(s) 11/24/2020 3:14 PM Advance Directive(s) 06/16/2018 5:42 PM Advance Directive(s) 09/01/2017 10:58 AM Reason for Referral Specialty Diagnoses / Procedures Referred By Contac t Referred To Contact CT IMAGING Diagnoses Smoker Encounter for screening for lung cancer Procedures CT LUNG SCREEN WO IVCON COMPUTED TOMOGRAPHY THORAX LW DOSE LNG CA Joellen Inman [address] [place] [address] Ct Imaging Referral ID Status Reason Start Date Expiration Date Visits Requested Visits Authorized [id number] Additional Clinical Info Needed Auto-Generat ed Referral 03/25/2022 04/24/2023 1 1 Specialty Diagnoses / Procedures Referred By Contac t Referred To Contact CT IMAGING Diagnoses Lung nodules Procedures CT LUNG FOLLOWUP WO IVCON DIAGNOSTIC COMPUTED TOMOGRAPHY THORAX W/O CNTRST Swetha Flores, HEALTHCARE RECRUITER.SENIOR WATER RESOURCES ENGINEER [address] [place] [address] Ct Imaging Referral ID Status Reason Start Date Expiration Date Visits Requested Visits Authorized [id number] Authorized Auto-Generat ed Referral 02/22/2023 03/23/2024 1 [...] or prosecute any alcohol or drug abuse patient.[facility] event this information is protected by the Federal Confidentiality of Alcohol and Drug Abuse Patient Records regulations: The Federal rules restrict any use of the information to criminally investigate or prosecute any alcohol or drug abuse patient.[facility] the event this information is protected by the Federal Confidentiality of Alcohol and Drug Abuse Patient Records regulations: The Federal rules restrict any use of the information to criminally investigate or prosecute any alcohol or drug abuse patient.[facility] event this information is protected by the Federal Confidentiality of Alcohol and Drug Abuse Patient Records regulations: The Federal rules restrict any use of the information to criminally investigate or prosecute any alcohol or drug abuse patient.[facility] the event this information is protected by the Federal Confidentiality of Alcohol and Drug Abuse Patient Records regulations: The Federal rules restrict any use of the information to criminally investigate or prosecute any alcohol or drug abuse patient.[facility] the event this information is protected by the Federal Confidentiality of Alcohol and Drug Abuse Patient Records regulations: The Federal rules restrict any use of the information to criminally investigate or prosecute any alcohol or drug abuse patient.[facility] the event this information is protected by the Federal Confidentiality of Alcohol and Drug Abuse Patient Records regulations: The Federal rules restrict any use of the information to criminally investigate or prosecute any alcohol or drug abuse patient.[facility] event this information is protected by the Federal Confidentiality of Alcohol and Drug Abuse Patient Records regulations: The Federal rules restrict any use of the information to criminally investigate or prosecute any alcohol or drug abuse patient.[facility] the event this information is protected by the Federal Confidentiality of Alcohol and Drug Abuse Patient Records regulations: The Federal rules restrict any use of the information to criminally investigate or prosecute any alcohol or drug abuse patient.[facility]In the event this information is protected by the Federal Confidentiality of Alcohol and Drug Abuse Patient Records regulations: The Federal rules restrict any use of the information to criminally investigate or prosecute any alcohol or drug abuse patient.[facility] DaytonIn the event this information is protected by the Federal Confidentiality of Alcohol and Drug Abuse Patient Records regulations: The Federal rules restrict any use of the information to criminally investigate or prosecute any alcohol or drug abuse patient.[facility] DaytonIn the event this information is protected by the Federal Confidentiality of Alcohol and Drug Abuse Patient Records regulations: The Federal rules restrict any use of the information to criminally investigate or prosecute any alcohol or drug abuse patient.[facility] DaytonIn the event this information is protected by the Federal Confidentiality of Alcohol and Drug Abuse Patient Records regulations: The Federal rules restrict any use of the information to criminally investigate or prosecute any alcohol or drug abuse patient.[facility] DaytonIn the event this information is protected by the Federal Confidentiality of Alcohol and Drug Abuse Patient Records regulations: The Federal rules restrict any use of the information to criminally investigate or prosecute any alcohol or drug abuse patient.[facility] DaytonIn the event this information is protected by the Federal Confidentiality of Alcohol and Drug Abuse Patient Records regulations: The Federal rules restrict any use of the information to criminally investigate or prosecute any alcohol or drug abuse patient.[facility] DaytonIn the event this information is protected by the Federal Confidentiality of Alcohol and Drug Abuse Patient Records regulations: The Federal rules restrict any use of the information to criminally investigate or prosecute any alcohol or drug abuse patient.[facility] DaytonIn the event this information is protected by the Federal Confidentiality of Alcohol and Drug Abuse Patient Records regulations: The Federal rules restrict any use of the information to criminally investigate or prosecute any alcohol or drug abuse patient.[facility] DaytonIn the event this information is protected by the Federal Confidentiality of Alcohol and Drug Abuse Patient Records regulations: The Federal rules restrict any use of the information to criminally investigate or prosecute any alcohol or drug abuse patient.[facility] DaytonIn the event this information is protected by the Federal Confidentiality of Alcohol and Drug Abuse Patient Records regulations: The Federal rules restrict any use of the information to criminally investigate or prosecute any alcohol or drug abuse patient.[facility] DaytonIn the event this information is protected by the Federal Confidentiality of Alcohol and Drug Abuse Patient Records regulations: The Federal rules restrict any use of the information to criminally investigate or prosecute any alcohol or drug abuse patient.[facility] DaytonIn the event this information is protected by the Federal Confidentiality of Alcohol and Drug Abuse Patient Records regulations: The Federal rules restrict any use of the information to criminally investigate or prosecute any alcohol or drug abuse patient.[facility] DaytonIn the event this information is protected by the Federal Confidentiality of Alcohol and Drug Abuse Patient Records regulations: The Federal rules restrict any use of the information to criminally investigate or prosecute any alcohol or drug abuse patient.[facility] DaytonIn the event this information is protected by the Federal Confidentiality of Alcohol and Drug Abuse Patient Records regulations: The Federal rules restrict any use of the information to criminally investigate or prosecute any alcohol or drug abuse patient.[facility] DaytonIn the event this information is protected by the Federal Confidentiality of Alcohol and Drug Abuse Patient Records regulations: The Federal rules restrict any use of the information to criminally investigate or prosecute any alcohol or drug abuse patient.[facility] DaytonIn the event this information is protected by the Federal Confidentiality of Alcohol and Drug Abuse Patient Records regulations: The Federal rules restrict any use of the information to criminally investigate or prosecute any alcohol or drug abuse patient.[facility] DaytonIn the event this information is protected by the Federal Confidentiality of Alcohol and Drug Abuse Patient Records regulations: The Federal rules restrict any use of the information to criminally investigate or prosecute any alcohol or drug abuse patient.[facility] DaytonIn the event this information is protected by the Federal Confidentiality of Alcohol and Drug Abuse Patient Records regulations: The Federal rules restrict any use of the information to criminally investigate or prosecute any alcohol or drug abuse patient.[facility] DaytonIn the event this information is protected by the Federal Confidentiality of Alcohol and Drug Abuse Patient Records regulations: The Federal rules restrict any use of the information to criminally investigate or prosecute any alcohol or drug abuse patient.[facility] DaytonIn the event this information is protected by the Federal Confidentiality of Alcohol and Drug Abuse Patient Records regulations: The Federal rules restrict any use of the information to criminally investigate or prosecute any alcohol or drug abuse patient.[facility] DaytonIn the event this information is protected by the Federal Confidentiality of Alcohol and Drug Abuse Patient Records regulations: The Federal rules restrict any use of the information to criminally investigate or prosecute any alcohol or drug abuse patient.[facility] DaytonIn the event this information is protected by the Federal Confidentiality of Alcohol and Drug Abuse Patient Records regulations: The Federal rules restrict any use of the information to criminally investigate or prosecute any alcohol or drug abuse patient.[facility] DaytonIn the event this information is protected by the Federal Confidentiality of Alcohol and Drug Abuse Patient Records regulations: The Federal rules restrict any use of the information to criminally investigate or prosecute any alcohol or drug abuse patient.[facility] DaytonIn the event this information is protected by the Federal Confidentiality of Alcohol and Drug Abuse Patient Records regulations: The Federal rules restrict any use of the information to criminally investigate or prosecute any alcohol or drug abuse patient.[facility] DaytonIn the event this information is protected by the Federal Confidentiality of Alcohol and Drug Abuse Patient Records regulations: The Federal rules restrict any use of the information to criminally investigate or prosecute any alcohol or drug abuse patient.[facility] Care Teams (unrecognized sec tion and content) Car Construction Superintendent Relationship Specialty Start Date End Date Coy Pfeiffer MD [address] [place] [address] PCP - General Family Practice 04/09/15 [employer] Construction Superintendent Relationship Specialty Start Date End Date Coy Pfeiffer MD [address] [place] [address] PCP - General Family Practice 04/09/15 Car Construction Superintendent Relationship Specialty Start Date End Date Coy Pfeiffer MD [address] [place] [address] PCP - General Family Practice 04/09/15 Car Construction Superintendent Relationship Specialty Start Date End Date Coy Pfeiffer MD [address] [place] [address] PCP - General Family Practice 04/09/15 Car Construction Superintendent Relationship Specialty Start Date End Date Coy Pfeiffer MD [facility] [place] [address] PCP - General Family Practice 04/09/15 Car Construction Superintendent Relationship Specialty Start Date End Date Coy Pfeiffer MD [address] [place] [address] PCP - General Family Practice 04/09/15 Car Construction Superintendent Relationship Specialty Start Date End Date Coy Pfeiffer MD [address] [facility] [place] [address] PCP - General Family Practice 04/09/15 Car Construction Superintendent Relationship Specialty Start Date End Date Coy Pfeiffer MD [address] [facility] [place] [address] PCP - General Family Practice 04/09/15 Car Construction Superintendent Relationship Specialty Start Date End Date Coy Pfeiffer MD [address] [facility] [place] [address] PCP - General Family Practice 04/09/15 Car Construction Superintendent Relationship Specialty Start Date End Date Coy Pfeiffer MD [address] [facility] [place] [address] PCP - General Family Practice 04/09/15 Car Construction Superintendent Relationship Specialty Start Date End Date Coy Pfeiffer MD [address] [facility] [place] [address] PCP - General Family Medicine 04/09/15 Car Construction Superintendent Relationship Specialty Start Date End Date Coy Pfeiffer MD [address] [facility] [place] [address] PCP - General Family Medicine 04/09/15 Car Construction Superintendent Relationship Specialty Start Date End Date Coy Pfeiffer MD [address] [facility] [place] [address] PCP - General Family Medicine 04/09/15 Car Construction Superintendent Relationship Specialty Start Date End Date Coy Pfeiffer MD [address] [facility] [place] [address] PCP - General Family Medicine 04/09/15 Car Construction Superintendent Relationship Specialty Start Date End Date Coy Pfeiffer MD [address] [facility] [place] [address] PCP - General Family Medicine 04/09/15 Car Construction Superintendent Relationship Specialty Start Date End Date Coy Pfeiffer MD [address] [place], [place] [address] PCP - General Family Medicine 04/09/15 Car Construction Superintendent Relationship Specialty Start Date End Date Coy Pfeiffer MD [address] [place] [address] PCP - General Family Medicine 04/09/15 Car Construction Superintendent Relationship Specialty Start Date End Date Coy Pfeiffer MD [address] [place] [address] PCP - General Family Medicine 04/09/15 Car Construction Superintendent Relationship Specialty Start Date End Date Coy Pfeiffer MD [address] [place] [address] PCP - General Family Medicine 04/09/15 Car Construction Superintendent Relationship Specialty Start Date End Date Coy Pfeiffer MD [address] [place] [address] PCP - General Family Medicine 04/09/15 Car Construction Superintendent Relationship Specialty Start Date End Date Coy Pfeiffer MD [address] [place] [address] PCP - General Family Medicine 04/09/15 Car Construction Superintendent Relationship Specialty Start Date End Date Coy Pfeiffer MD [address] [place], [place] [id number] PCP - General Family Medicine 04/09/15 Car Construction Superintendent Relationship Specialty Start Date End Date Coy Pfeiffer MD [address] [place] [address] PCP - General Family Medicine 04/09/15 Reason [...] Procedures INJECTION, ZOLEDRONIC ACID, 1 [place] [address] [facility] [address] [place] [address] [facility] [address] [place] [address] Referral ID Status Reason Start Date Expiration Date V isits Requested Visits Authorized [id number] Authorized 04/05/2022 04/04/2023 1 1 Reason Comments [...] DILATOR BRNCDILAT RSPSE SPMTRY PRE&POST-BRNCDILAT ADMSwetha Mas, HEALTHCARE RECRUITER.SENIOR WATER RESOURCES ENGINEER [address] [place] [address] Respiratory [place] [address] [place] [address] Referral ID Status Reason Start Date Expiration Date V isits Requested Visits Authorized [id number] Closed Auto-Generate d Referral 04/28/2023 05/27/2024 1 1 Reason Onset Date Comments Refill Request 06/14/2023 Reason Comments Orders Reason Comments Rx issue (unrecognized sect ion and content) No Status Records Found INFORMATION SOURCE (unrecogn ized section and content) DATE CREATED AUTHOR AUTHOR'S ORGANIZ ATION 05/11/2023 [facility] DATE CREATED AUTHOR AUTHOR'S ORGANIZ ATION 08/22/2023 [facility] FOR RECORDS PERTAINING TO PATIENTS WHO [...] BE BASED ON THE PRIMARY CLINICAL RECORDS. [employer] provides no warranty or guarantee of the accuracy or completeness of information in this document.
--- NOTE | 2023-09-25 09:10 | STRESSREP ---
Stress Test Report Date: 09/20/2023 Procedure: Pharmacologic stress nuclear imaging study Indications: Coronary artery disease/dyspnea Consent: Per the patient Procedure: The patient underwent pharmacologic (Regadenoson 0.4mg ) evaluation with a peak heart rate of 70 beats per minute (49%predicted maximal heart rate) and a peak blood pressure of 124/68 mmHg. The baseline ECG demonstrated sinus rhythm with old inferior and anterior DC. The peak pharmacologic ECG demonstrated no diagnostic changes secondary to baseline abnormalities. There were no cardiac dysrhythmias pretest, during pharmacologic infusion, or recovery. There was no complaint of chest discomfort during pharmacologic infusion or recovery. The patient was injected with 11.7 millicuries of technetium 99m Cardiolite and subsequently rest SPECT Cardiolite nuclear imaging was obtained in the horizontal long, vertical long, and short axis views. The patient underwent pharmacologic (Regadenoson) evaluation. The patient was injected with 34.1 millicuries of technetium 99m Cardiolite and subsequently stress SPECT Cardiolite nuclear imaging was obtained in the horizontal long, vertical long, and short axis views. A gated Cardiolite study at peak stress was obtained. The examination was stopped secondary to completion of protocol. Rest and stress SPECT Cardiolite nuclear imaging status post realignment, normalization, and attenuation correction demonstrate a large apical defect consistent with infarct. There is mild laura-infarct ischemia. The gated study shows apical akinesis. The reported LVEF is 49%. Impression: 1. Pharmacologic (Regadenoson) evaluation 2. Peak pharmacologic ECG with no diagnostic changes. 3. There were no cardiac dysrhythmias pretest, during pharmacologic infusion, or recovery. 5. 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 6. The gated Cardiolite study reports an LVEF of 49%. This note was generated with Bitstri[employer]ation software. It may contain incorrect words, spelling, and punctuation that were not noted in checking the note before signing.
== END | disposition home or self-care (01) ==
LOC: CVS 06:13
PROVIDERS: PCP Family Medicine; Referring Provider Internal Medicine Cardiovascular Disease; Visit Provider Internal Medicine Cardiovascular Disease
DX: I25.10 Atherosclerotic heart disease of native coronary artery without angina pectoris (principal); R06.09 Other forms of dyspnea; I10 Essential (primary) hypertension; Z98.61 Coronary angioplasty status
CPT/HCPCS: 78452; 93017; 93306; A9500; Q9957; A4216; C8929; J2785

== ENCOUNTER → 2023-10-09 | Outpatient (CLI) | payer MEDICARE, SELFPAY ==
[2023-10-09 10:37] LABS: ALB/GLOB Ratio 0.8 RATIO (0.9-2.4); AST(SGOT) 20 U/L (15-37); Alanine Aminotransfer ALT/SGPT 18 U/L (13-56); Albumin, Serum 3.5 g/dL (3.2-5.0); Alkaline Phosphatase 56 U/L (45-117); Anion Gap 2 (5-15); BUN 21 mg/dL (7-18); BUN/Creat Ratio 21.5 RATIO (10-20); Calcium,Total 10.2 mg/dL (8.5-10.1); Chloride 103 mmol/L (98-107); Cholesterol 174 mg/dL (200); Creatinine, Serum 0.98 mg/dL (0.55-1.02); EST Glomerular Filtration Rate 59 mL/min (>60); Est Glom Filt Rate - Afr Amer 71 mL/min (>60); Globulin 4.2 g/dL (2.2-4.2); Glucose 74 mg/dL (74-106); High Density Lipoprotein 58 mg/dL; Protein, Total 7.7 g/dL (6.4-8.2); Sodium Level 137 mmol/L (136-145); Triglycerides 130 mg/dL; Very Low Density Lipoprotein 26 mg/dL (5-40)
== END | disposition home or self-care (01) ==
LOC: LAB 09:43
PROVIDERS: PCP Family Medicine; Referring Provider Physician Assistant Medical; Visit Provider Physician Assistant Medical
DX: I25.10 Atherosclerotic heart disease of native coronary artery without angina pectoris (principal)
CPT/HCPCS: 36415; 80053; 80061

== ENCOUNTER → 2024-04-17 | Outpatient (CLI) | payer MEDICARE, SELFPAY ==
[2024-04-17 10:37] LABS: AST(SGOT) 19 U/L (15-37); Alanine Aminotransfer ALT/SGPT 20 U/L (13-56); Albumin, Serum 3.6 g/dL (3.2-5.0); Alkaline Phosphatase 57 U/L (45-117); Bilirubin, Direct 0.29 mg/dL (0.00-0.30); Cholesterol 131 mg/dL (200); Globulin 4.2 g/dL (2.2-4.2); High Density Lipoprotein 66 mg/dL; Protein, Total 7.8 g/dL (6.4-8.2); Triglycerides 90 mg/dL; Very Low Density Lipoprotein 18 mg/dL (5-40)
== END | disposition home or self-care (01) ==
LOC: LAB 08:37
PROVIDERS: PCP Family Medicine; Referring Provider Nurse Practitioner Gerontology; Visit Provider Nurse Practitioner Gerontology
DX: E78.5 Hyperlipidemia, unspecified (principal); I25.10 Atherosclerotic heart disease of native coronary artery without angina pectoris
CPT/HCPCS: 36415; 80061; 80076

== ENCOUNTER → 2024-10-25 | Outpatient (CLI) | payer MEDICARE, SELFPAY ==
--- NOTE | 2024-10-25 13:30 | ECHOCS_ITS ---
Reason For Study Reason For Study: OTHER Procedure This was a 2D Doppler, Color Flow transthoracic echocardiogram. Myocardial strain analysis was performed in this exam to aid in the assessment of cardiac function. The study was technically difficult. Contrast injection was performed. Exam performed in department. Left Ventricle Mild concentric left ventricular hypertrophy. Mid cavitary false tendon noted. Apical akinesis. Overall LVEF 50-55%. Stage I diastolic dysfunction. Right Ventricle Normal right ventricle. Atria The left and right atria are normal. Aneurysmal atrial septum. Mitral Valve Trivial mitral valve insufficiency. Tricuspid Valve Mild to moderate (1-2+) tricuspid valve insufficiency. Right ventricular systolic pressure estimated to be 45 mmHg. Aortic Valve Trisinus/trileaflet aortic valve. Moderately thickened and calcified noncoronary cusp. Aortic valve sclerosis without stenosis. Pulmonic Valve The pulmonic valve is not well visualized. Great Vessels Normal sized aortic root. Pericardium/Pleural No pericardial effusion. Medication 20 gauge I.V. with prn adaptor inserted into right arm. Diluted definity 2ml given slow IV push to enhance endocardial definition. MMode/2D Measurements & Calculations LVIDd: 4.4 cm IVSd: 1.1 cm LVOT diam: 2.0 cm LVIDs: 3.1 cm LVPWd: 1.3 cm RVDd: 3.7 cm FS: 30.2 % LVOT area: 3.3 cm2 Ao root diam: 3.6 cm LAV(MOD-bp): 46.0 ml LVAd ap4: 38.7 cm2 LAV(MOD-bp) Indexed: 26.8 ml/m2 LVLd ap4: 8.8 cm LAV(MOD-sp2): 44.5 ml EDV(MOD-sp4): 136.8 ml LAV(MOD-sp4): 40.8 ml EDV(sp4-el): 144.7 ml LVAs ap4: 23.4 cm2 LVLs ap4: 8.0 cm ESV(MOD-sp4): 57.0 ml ESV(sp4-el): 58.4 ml EF(MOD-sp4): 58.3 % EF(sp4-el): 59.6 % SV(MOD-sp4): 79.7 ml SV(sp4-el): 86.3 ml LA A4 area: 16.4 cm2 SI(MOD-sp4): 46.5 ml/m2 LA dimension(2D): 3.6 cm RA A4 area: 17.0 cm2 Time Measurements MV dec time: 0.29 sec Doppler Measurements & Calculations MV E max levi: 50.6 cm/sec Lat Peak E' Levi: 6.0 cm/sec Med Peak E' Levi: 4.8 cm/sec MV A max levi: 79.1 cm/sec E/E' lat: 8.4 E/E' med: 10.4 MV E/A: 0.64 MV V2 max: 82.5 cm/sec MV dec slope: 180.4 cm/sec2 Ao V2 max: 113.9 cm/sec MV max P.7 mmHg Ao max P.2 mmHg MV V2 mean: 43.9 cm/sec Ao V2 mean: 81.6 cm/sec MV mean P.92 mmHg Ao mean P.0 mmHg MV V2 VTI: 19.8 cm Ao V2 VTI: 24.0 cm MVA(VTI): 3.7 cm2 AV (velocity ratio): 0.93 GILSON(I,D): 3.0 cm2 GILSON(V,D): 3.0 cm2 LV V1 max: 105.5 cm/sec SV(LVOT): 72.4 ml PA V2 max: 87.5 cm/sec LV V1 max P.5 mmHg PA V2 mean: 60.5 cm/sec LV V1 mean P.2 mmHg LV V1 mean: 68.6 cm/sec LV V1 VTI: 22.2 cm TR max levi: 283.8 cm/sec TR max P.7 mmHg ECHO/Echo Complete W/ Contrast Interpretation Summary Apical akinesis. Overall LVEF 50-55%. Stage I diastolic dysfunction. Mild concentric left ventricular hypertrophy. Aneurysmal atrial septum. Mild to moderate (1-2+) tricuspid valve insufficiency. Right ventricular systolic pressure estimated to be 45 mmHg. Ordering Physician: Bashir Saucedo Referring Physician: Bashir Saucedo Performed By: Maryana Alexis RCS
== END | disposition home or self-care (01) ==
LOC: CVS 13:25
PROVIDERS: PCP Family Medicine; Referring Provider Internal Medicine Cardiovascular Disease; Visit Provider Internal Medicine Cardiovascular Disease
DX: I25.5 Ischemic cardiomyopathy (principal)
CPT/HCPCS: 93306; Q9957; A4216; C8929